=== PATIENT | male | born 1940 | race Caucasian/White ===

== ENCOUNTER 2019-03-27 15:57 | Emergency (ER) | payer MEDICARE, SELFPAY ==
[2019-03-27 16:05] VITALS: BP 125/74; PULSE 79; RESP 16; TEMP 36.5; O2SAT 96
--- NOTE | 2019-03-27 16:28 | ED.GENADUL_ITS ---
Discharge Plan Discharge Details Chief Complaint: Cellulitis Primary Care Provider: Jessica Richard ED Provider: Ely Porter Home Meds and New Rx's Prescriptions: No Action multivitamin 1 EACH tablet 1 ea PO DAILY RF: 0 aspirin 325 MG tablet 325 mg PO DAILY RF: 0 alayvexugyl-sllqkmgih-jwp C-Mn [Glucosamine 1500 Complex] 1 EACH capsule 1 ea PO DAILY RF: 0 tamsulosin 0.4 MG capsule 0.8 mg PO HS Qty: 180 RF: 4 finasteride 5 MG tablet 5 mg PO HS Qty: 90 RF: 4 pravastatin 40 mg tablet 80 mg PO DAILY Qty: 180 RF: 3 ascorbic acid (vitamin C) [Vitamin C] 500 MG tablet 500 mg PO DAILY RF: 0 vitamin Z56-fnyxh acid 1 EACH tablet 1 ea PO DAILY RF: 0 ibuprofen 600 MG tablet 600 mg PO TID PRNQty: 30 RF: 0 HPI General Date/Time Provider Initiated Documentation: 03/27/19 16:19 . Related Data Home Medications Medication Instructions Recorded Confirmed aspirin 325 mg PO DAILY 01/20/13 06/03/18 multivitamin 1 ea PO DAILY 01/20/13 06/03/18 ascorbic acid (vitamin C) [Vitamin 500 mg PO DAILY 05/04/14 06/03/18 C] vitamin E74-eedea acid 1 ea PO DAILY 05/04/14 06/03/18 wpewctgdlmb-gjagkfmtv-zrq C-Mn 1 ea PO DAILY 05/28/15 06/03/18 [Glucosamine 1500 Complex] ibuprofen 600 mg PO TID PRN #30 tab 09/20/17 06/03/18 finasteride 5 mg PO HS #90 tab-cap 03/18/18 06/03/18 tamsulosin 0.8 mg PO HS #180 tab-cap 03/18/18 06/03/18 pravastatin 40 mg tablet 80 mg PO DAILY #180 tab 08/11/18 Previous Rx's Medication Instructions Recorded ibuprofen 600 mg PO TID PRN #30 tab 09/20/17 finasteride 5 mg PO HS #90 tab-cap 03/18/18 tamsulosin 0.8 mg PO HS #180 tab-cap 03/18/18 pravastatin 40 mg tablet 80 mg PO DAILY #180 tab 08/11/18 Allergies Allergy/AdvReac Type Severity Reaction Status Date / Time oxycodone Allergy Mild BLOTCHES, Verified 03/27/19 16:09 SWELLING Penicillins Allergy Unknown Verified 03/27/19 16:09 General Stated Complaint: Cellulitis ASHLEY: 4 PFSH Medical History (Updated 03/27/19 @ 16:13 by Esther Hutton) Basal cell carcinoma (Acute) Carpal tunnel syndrome (Acute) Failure of fundoplication (Acute) Hyperlipidemia (Acute) Sensory hearing loss, bilateral (Chronic) Surgical History (Updated 03/27/19 @ 16:13 by Esther Hutton) Colonoscopy - IV Sedation (07/24/16) Endoscopic Carpal Tunnel release (06/19/15) H/O shoulder surgery (Chronic) Family History Mother Diabetes Father Diabetes Heart disease Sister Age: 78 No problems noted. Brother Age: 75 Diabetes Heart disease Social History Smoking/Tobacco Use Status: Former Tobacco Use Alcohol Intake: never Drug use: Never Substance use type: does not use Do you feel safe in your relationship?: Yes Course Vital Signs Temperature 36.5 C 03/27/19 16:05 Pulse 79 03/27/19 16:05 Respiratory Rate 16 03/27/19 16:05 Blood Pressure 125/74 03/27/19 16:05 Pulse Oximetry 96 03/27/19 16:05 Temperature 36.5 C 03/27/19 16:05 Temperature Source Skin 03/27/19 16:05 Pulse 79 03/27/19 16:05 Respiratory Rate 16 03/27/19 16:05 Respiratory Effort Non-Labored 03/27/19 16:08 Blood Pressure 125/74 03/27/19 16:05 Pulse Oximetry 96 03/27/19 16:05 Pain Level 2 03/27/19 16:05
--- NOTE | 2019-03-27 16:47 | ED.GENADUL_ITS ---
Discharge Plan Disposition Patient Disposition: HOME Condition: Good Discharge Details Chief Complaint: Cellulitis Clinical Impression: Ingrown left big toenail Primary Care Provider: Jessica Richard ED Provider: Tom Wadsworth Home Meds and New Rx's Prescriptions: New cephalexin [Keflex] 500 mg capsule 500 mg PO QID 7 Days Qty: 28 RF: 0 cephalexin [Keflex] 500 mg capsule 500 mg PO QID Qty: 28 RF: 0 Continued multivitamin 1 EACH tablet 1 ea PO DAILY RF: 0 aspirin 325 MG tablet 325 mg PO DAILY RF: 0 yyovsnhiuzg-itbsfhkax-toa C-Mn [Glucosamine 1500 Complex] 1 EACH capsule 1 ea PO DAILY RF: 0 tamsulosin 0.4 MG capsule 0.8 mg PO HS Qty: 180 RF: 4 finasteride 5 MG tablet 5 mg PO HS Qty: 90 RF: 4 pravastatin 40 mg tablet 80 mg PO DAILY Qty: 180 RF: 3 ascorbic acid (vitamin C) [Vitamin C] 500 MG tablet 500 mg PO DAILY RF: 0 vitamin N83-yypxx acid 1 EACH tablet 1 ea PO DAILY RF: 0 ibuprofen 600 MG tablet 600 mg PO TID PRNQty: 30 RF: 0 Discharge Instructions Instructions: Ingrown Nail (ED) Additional Instructions: Soak foot 3-4 times per day, let nail grow without trimming corners of nail. Watch for signs of worsening infection as we discussed. Return if fever, expanding redness, worsening pain or discharge. Medical Decision Making Mild localized cellulitis present, will initiate Keflex, continue warm soaks, return if not improving for wedge resection. HPI Gregorio presents for evaluation of left great toe discomfort and swelling. Medial aspect of toe is with tender red swollen area. It has been getting better with foot soaks. No fevers or chills. No trauma. No history of similar episodes General Date/Time Provider Initiated Documentation: 03/27/19 16:19 . Related Data Home Medications Medication Instructions Recorded Confirmed aspirin 325 mg PO DAILY 01/20/13 06/03/18 multivitamin 1 ea PO DAILY 01/20/13 06/03/18 ascorbic acid (vitamin C) [Vitamin 500 mg PO DAILY 05/04/14 06/03/18 C] vitamin N17-vfkrz acid 1 ea PO DAILY 05/04/14 06/03/18 rojdpfxhgeq-ofzkixrhb-mav C-Mn 1 ea PO DAILY 05/28/15 06/03/18 [Glucosamine 1500 Complex] ibuprofen 600 mg PO TID PRN #30 tab 09/20/17 06/03/18 finasteride 5 mg PO HS #90 tab-cap 03/18/18 06/03/18 tamsulosin 0.8 mg PO HS #180 tab-cap 03/18/18 06/03/18 pravastatin 40 mg tablet 80 mg PO DAILY #180 tab 08/11/18 cephalexin [Keflex] 500 mg PO QID #28 cap 03/27/19 cephalexin [Keflex] 500 mg PO QID 7 Days #28 cap 03/27/19 Previous Rx's Medication Instructions Recorded ibuprofen 600 mg PO TID PRN #30 tab 09/20/17 finasteride 5 mg PO HS #90 tab-cap 03/18/18 tamsulosin 0.8 mg PO HS #180 tab-cap 03/18/18 pravastatin 40 mg tablet 80 mg PO DAILY #180 tab 08/11/18 cephalexin [Keflex] 500 mg PO QID #28 cap 03/27/19 cephalexin [Keflex] 500 mg PO QID 7 Days #28 cap 03/27/19 Allergies Allergy/AdvReac Type Severity Reaction Status Date / Time oxycodone Allergy Mild BLOTCHES, Verified 03/27/19 16:09 SWELLING Penicillins Allergy Unknown Verified 03/27/19 16:09 General Stated Complaint: Cellulitis ASHLEY: 4 Review of Systems Constitutional Denies chills, Denies fatigue, Denies fever(s) and Denies lethargy Cardiovascular Denies chest pain Gastrointestinal Denies nausea and Denies vomiting Musculoskeletal Denies back pain, Denies muscle weakness and Denies numbness Integumentary/Breasts Denies rash Neurologic Denies focal weakness and Denies numbness Endocrine Denies fatigue [facility] Medical History (Updated 03/27/19 @ 16:13 by Esther Hutton) Basal cell carcinoma (Acute) Carpal tunnel syndrome (Acute) Failure of fundoplication (Acute) Hyperlipidemia (Acute) Sensory hearing loss, bilateral (Chronic) Surgical History (Updated 03/27/19 @ 16:13 by Esther Hutton) Colonoscopy - IV Sedation (07/24/16) Endoscopic Carpal Tunnel release (06/19/15) H/O shoulder surgery (Chronic) Family History Mother Diabetes Father Diabetes Heart disease Sister Age: 78 No problems noted. Brother Age: 75 Diabetes Heart disease Social History Smoking/Tobacco Use Status: Former Tobacco Use Alcohol Intake: never Drug use: Never Substance use type: does not use Do you feel safe in your relationship?: Yes Exam Const General: cooperative, healthy appearing and no acute distress HENMT Head: normal to inspection Ears: hearing grossly normal bilaterally Eyes EOM: EOM intact bilaterally Neck Neck: normal visual inspection Resp Effort & Inspection: normal respiratory effort Skin Other: Left great toe medial border ingrown toenail, small granuloma present, er ythema and tenderness present localized to the toe extending to the PIP. No induration. No discharge. Neuro General: alert and awake Speech: speech normal Gait: normal gait Extrem General: normal to inspection Course Vital Signs Temperature 36.5 C 03/27/19 16:05 Pulse 79 03/27/19 16:05 Respiratory Rate 16 03/27/19 16:05 Blood Pressure 125/74 03/27/19 16:05 Pulse Oximetry 96 03/27/19 16:05 Temperature 36.5 C 03/27/19 16:05 Temperature Source Skin 03/27/19 16:05 Pulse 79 03/27/19 16:05 Respiratory Rate 16 03/27/19 16:05 Respiratory Effort Non-Labored 03/27/19 16:08 Blood Pressure 125/74 03/27/19 16:05 Pulse Oximetry 96 03/27/19 16:05 Pain Level 2 03/27/19 16:05
== END 2019-03-27 17:07 | disposition home or self-care (01) ==
PROVIDERS: Emergency Provider Physician Assistant Medical; PCP Student in an Organized Health Care Education/Training Program
DX: L03.116 Cellulitis of left lower limb (principal); L60.0 Ingrowing nail
CPT/HCPCS: 99283

== ENCOUNTER 2019-05-08 11:16 | Outpatient (CLI) | payer MEDICARE, SELFPAY ==
[2019-05-08 12:17] LABS: HGB 13.7 g/dL (13.5-17.5); Mean Corp. HGB Concentration 32.6 g/dL (32.0-36.0); Mean Corpuscular Hemoglobin 29.5 pg (27.0-33.0); Mean Corpuscular Volume 90.5 fL (80-95); Mean Platelet Volume 9.2 fL (8.0-11.0); Platelet Count 394 x1000/uL (130-400); RBC 4.64 m/cumm (4.50-6.00); RBC Distribution Width 13.5 % (11.8-14.1); White Blood Cell Count 8.82 k/cumm (4.4-10.8)
[2019-05-08 12:35] LABS: ALT 33 U/L (16-63); AST 26 U/L (15-37); Albumin 3.7 g/dL (3.4-5.0); Alkaline Phosphatase 61 U/L (46-116); Anion Gap 6.4 mmol/L (3-11); BUN 24 mg/dL (7-18); Bilirubin, Total 0.5 mg/dL (0.2-1.0); CO2 30.6 mmol/L (21.0-32.0); Chloride 102 mmol/L (98-107); Glucose 99 mg/dL (70-100); Potassium 4.5 mmol/L (3.5-5.1); Sodium 139 mmol/L (136-145); Total Protein 7.1 g/dL (6.4-8.2)
[2019-05-09 10:23] LABS: PSA, Screening 1.1 ng/ml (0-6.5)
== END 2019-05-08 11:36 ==
PROVIDERS: PCP Student in an Organized Health Care Education/Training Program; Visit Provider Urology
DX: Z12.5 Encounter for screening for malignant neoplasm of prostate; N40.0 Benign prostatic hyperplasia without lower urinary tract symptoms; R73.09 Other abnormal glucose
CPT/HCPCS: 36415; 80053; 84153; 85027

== ENCOUNTER → 2019-05-19 11:52 | Outpatient (BNVA) | payer MEDICARE, SELFPAY | PROVIDERS: PCP Student in an Organized Health Care Education/Training Program; Visit Provider Urology | DX: N40.0 Benign prostatic hyperplasia without lower urinary tract symptoms (principal); R73.09 Other abnormal glucose | CPT/HCPCS: 99212; 99213 ==

== ENCOUNTER 2019-08-28 08:36 | Outpatient (CLI) | payer MEDICARE, SELFPAY ==
[2019-08-28 09:45] LABS: ALT 29 U/L (16-63); AST 25 U/L (15-37); Albumin 3.6 g/dL (3.4-5.0); Alkaline Phosphatase 65 U/L (46-116); Anion Gap 9.3 mmol/L (3-11); BUN 17 mg/dL (7-18); Bilirubin, Total 0.6 mg/dL (0.2-1.0); CO2 28.7 mmol/L (21.0-32.0); CREATININE 1.09 mg/dL (0.70-1.30); Calcium 9.2 mg/dL (8.5-10.1); Calculated LDL 147 mg/dL; Chloride 103 mmol/L (98-107); Cholesterol 221 mg/dL (<200); Glucose 130 mg/dL (74-106); HDL Cholesterol 44 mg/dL (40-60); Potassium 4.5 mmol/L (3.5-5.1); Sodium 141 mmol/L (136-145); Total Protein 7.2 g/dL (6.4-8.2); Triglyceride 151 mg/dL (<150)
[2019-08-28 09:59] LABS: Amylase 107 U/L (25-115); Lipase 530 U/L (73-393)
== END 2019-08-28 08:56 ==
PROVIDERS: PCP Student in an Organized Health Care Education/Training Program; Visit Provider Student in an Organized Health Care Education/Training Program
DX: E78.5 Hyperlipidemia, unspecified (principal); E88.81 Metabolic syndrome and other insulin resistance; R73.09 Other abnormal glucose; E66.3 Overweight
CPT/HCPCS: 36415; 80053; 80061; 83690; 82150

== ENCOUNTER → 2020-06-25 10:12 | Outpatient (BNVA) | payer MEDICARE, SELFPAY | PROVIDERS: PCP Student in an Organized Health Care Education/Training Program; Referring Provider Student in an Organized Health Care Education/Training Program; Visit Provider Nurse Practitioner Gerontology | DX: N40.1 Benign prostatic hyperplasia with lower urinary tract symptoms (principal); R35.1 Nocturia | CPT/HCPCS: 99213 ==

== ENCOUNTER 2021-04-14 02:46 | Outpatient (CLI) | payer MEDICARE, SELFPAY ==
[2021-04-14 08:42] LABS: ALT 26 U/L (16-63); AST 21 U/L (15-37); Albumin 3.4 g/dL (3.4-5.0); Alkaline Phosphatase 63 U/L (46-116); Anion Gap 10.6 mmol/L (3-11); BUN 19 mg/dL (7-18); Bilirubin, Total 0.3 mg/dL (0.2-1.0); CO2 28.4 mmol/L (21.0-32.0); CREATININE 1.1 mg/dL (0.70-1.30); Calcium 9.2 mg/dL (8.5-10.1); Calculated LDL 126 mg/dL (<100); Chloride 104 mmol/L (98-107); Cholesterol 194 mg/dL (<200); Glucose 110 mg/dL (74-106); HDL Cholesterol 39 mg/dL (40-60); Potassium 4.5 mmol/L (3.5-5.1); Sodium 143 mmol/L (136-145); Total Protein 6.9 g/dL (6.4-8.2); Triglyceride 149 mg/dL (<150)
== END 2021-04-14 02:47 | disposition home or self-care (01) ==
LOC: LBO 02:46
PROVIDERS: PCP Student in an Organized Health Care Education/Training Program; Visit Provider Student in an Organized Health Care Education/Training Program
DX: E88.81 Metabolic syndrome and other insulin resistance (principal); E78.5 Hyperlipidemia, unspecified
CPT/HCPCS: 36415; 80053; 80061

== ENCOUNTER 2022-04-15 09:48 | Emergency (ER) | payer MEDICARE, SELFPAY ==
[2022-04-15] VITALS (18 sets, daily range): BP systolic 131–166; BP diastolic 69–79; PULSE 70–92; RESP 15–26; TEMP 36.8; O2SAT 95–98
--- NOTE | 2022-04-15 09:45 | RT.EKG_ITS ---
APPROVED REPORT Exam: Resting ECG Reason for Exam: sob Patient Location: E HR:105 bpm ECG Measurements Heart Rate 105 AXIS VT 164 P 19 QRSd 78 QRS -17 QT 335 T 7 QTc 444 Conclusion Sinus tachycardia...rate> 99
--- NOTE | 2022-04-15 10:00 | DI.RAD_ITS ---
Exam(s) XR PORTABLE CHEST AP EXAM: XR PORTABLE CHEST AP CLINICAL HISTORY: sob TECHNIQUE: 2D digital imaging was performed. COMPARISON: No exams were available for comparison FINDINGS: LUNGS: Clear. No pleural abnormality seen. HEART: Normal. AORTA: Normal. BONES: Unremarkable for age. Soft tissues: Suture material left upper quadrant. IMPRESSION: No acute findings. DATA REPOSITORY: RADIATION DOSE DELIVERED:
--- OUTSIDE RECORDS SUMMARY | 2022-04-15 10:10 | XMS_ITS | Encounter Summary ---
:1940 Author Organization [facility] [place] [address] Care Team Providers Name Role Phone Jessica Richard DO Primary Care Provider Encounter Details Date Type Department Care Team Description 12/02/2021 [place] [address] Social History Tobacco Use Types Packs/Day Years Used Date Never Smoker Smokeless Tobacco: Never Used Sex Assigned at Date Recorded Not on file documented as of this encounter Medications at Time of Discharge Medication Sig Dispensed Refills Start Date End Date ascorbic acid, vitamin C, Take 1,000 mg by 0 (VITAMIN C) 1,000 mg Tablet mouth daily. cyanocobalamin, vitamin Take 500 mcg by 0 B-12, 500 mcg Tablet mouth daily. aspirin 325 mg Tablet Take by mouth. 0 01/20/2013 ibuprofen (ADVIL;MOTRIN) take 1 tablet by 0 09/20 600 mg Tablet mouth three times a day if needed pravastatin (PRAVACHOL) 40 0 7 mg Tablet tamsulosin (FLOMAX) 0.4 mg 0 6 Capsule, Sust. Release 24 hr finasteride (PROSCAR) 5 mg Take 5 mg by mouth 0 tablet daily. multivitamin (THERAGRAN) Take 1 tablet by 0 tablet mouth daily. documented as of this encounter Plan of Treatment Upcoming Encounters Date Type Specialty Care Team Description 06/05/2022 Office Visit Dermatology Cristian Stover MD [address] [place] [address] DERMATOLOGY [place], [place] [address] (Wo rk) documented as of this encounter Procedures Procedure Name Priority Date/Time Associated Diagnosis Comme [facility] SURGICAL PATHOLOGY Routine 12/02/2021 12:00 PM Re sults for this REPORT EDT procedure are i n the results section. documented in this encounter Results Surgical Pathology Report (12/02/2021 12:00 PM EDT) Component Value Ref Test Analysis Performed At [facility] Range Method Time Signature Surgical [id number] ? Location: [facility] Pathology TERMO Report The signing pathologist has (i) examined the relevant preparation(s) for the [facility] specimen(s) and (ii) rendered or confirmed the diagnosis(es) . HOSPITAL LABORATORY . ?Surgic al Pathology DIAGNOSIS A - Right lateral cheek, skin shave C&D: - ??Basal cell carcinoma, ?? nodular and infiltrating types, ??present at the peripheral and deep specimen edges B - Right postauricular scalp, skin shave C&D: - ??Basal cell carcinoma, bell perficial and nodular types, ?? present at the peripheral and deep specimen edges C - Right superior shoulder, skin shave C&D: - ??Basal cell carcinoma, bell perficial and nodular types, ?? present at the peripheral and deep specimen edges Electronically signed by: ?Shaji YO, PhD, Ria Verified: ??12/05/2021 14:11 ??Dermatopathologist Performed at: ??-[facility] [place] Dept. of [place]ology, [place], [place] SPECIMEN(S) SUBMITTED A - R lateral cheek, Shave () B - R post auricular scalp, Shave () C - R superior shoulder, Shave () Referring Identifier: ?(not provided) CLINICAL INFORMATION A-C Crusting papules, treated with shave c & D. Clinical diagnosis: SCCA/BCCA SPECIMEN PROCESSING A - Labeled/Fixative: A, formalin. Quantity/Size: ??Single, 0.8 x 0.7 cm. Tissue Description: Shave of a focally crusted godwin-pink skin papule. Sections/Processing: Inked, quadrisected and entirely submitted in 1 cassette lab eled A1. B - Labeled/Fixative: B, formalin. Quantity/Size: ??Single, 1.2 x 0.6 cm. Tissue Description: Shave of a granular godwin-pink skin papule . Sections/Processing: Inked, serially sectioned and entirely submitted in 1 casset te labeled B1. C - Labeled/Fixative: C, formalin. Quantity/Size: ??Single, 1.2 x 0.8 cm. Tissue Description: Focally crusted godwin-pink skin shave. Sections/Processing: Inked, serially sectioned and entirely submitted in 2 tom ettes as follows: ?C1: ??Tips ?C2: ??Body ??ajw Specimen (Source) Anatomical Collection Method Collection Time Re ceived Time Location / / Volume Laterality 12/02/2021 12:00 PM EDT Cristian Stover MD PATHOLOGY/CYTOLOGY ORDERABLE S Performing Organization Address City/State/[place] [address] documented in this encounter Visit Diagnoses Not on filedocumented in this encounter Care Teams Manager Consumer Insights Relationship Specialty Start Date End Date Jessica Richard DO PCP - General Family Medicine 11/19/[address] [place] [id number] documented as of this encounter
--- OUTSIDE RECORDS SUMMARY | 2022-04-15 10:10 | XMS_ITS | Encounter Summary ---
:1940 Author Organization [facility] [address] Care Team Providers Name Role Phone Jessica Richard DO Primary Care Provider Encounter Details Date Type Department Care Team Description 11/24/2017 Telephone Dermatology at [facility] Jesusita Momin LPN [address] [place] [address] Social History Tobacco Use Types Packs/Day Years Used Date Never Smoker Smokeless Tobacco: Never Used Sex Assigned at Date Recorded Not on file documented as of this encounter Miscellaneous Notes Telephone Encounter - Jesusita Momin LPN - 11/24/2017 10:32 AM EDT Nurse reviewed biopsy results with patient: 11/19/17 A- left frontal parietal scalp superior - BCCA B-left frontal parietal scalp inferior - BCCA. Dr. Stover recommends excision on both areas to clear out the rest of the Cancer. Patient voiced understanding. Call transferred to scheduling to set up theappointment. documented in this encounter Plan of Treatment Upcoming Encounters Date Type Specialty Care Team Description 06/05/2022 Office Visit Dermatology Cristian Stover MD [address] [facility] DERMATOLOGY [place], [place] [address] (Wo rk) documented as of this encounter Visit Diagnoses Not on filedocumented in this encounter Care Teams Railway Yard Assistant Relationship Specialty Start Date End Date Jessica Richard, DO PCP - General Family Medicine 11/19/[address] [place] [address] documented as of this encounter
--- OUTSIDE RECORDS SUMMARY | 2022-04-15 10:10 | XMS_ITS | Encounter Summary ---
:1940 Author Organization [facility] [place] [address] Care Team Providers Name Role Phone Jessica Richard DO Primary Care Provider Reason for Visit Reason Comments Follow-up Encounter Details Date Type Department Care Team Description 12/02/2021 Office Visit Dermatology at Cristian Stover [place] (act inic keratosis); Suzanne YO History of basal cell carcinoma [address] [facility] [address] [facility] Roel B DERMATOLOGY [place], [place] [id number] [phone] Social History Tobacco Use Types Packs/Day Years Used Date Never Smoker Smokeless Tobacco: Never Used Sex Assigned at Date Recorded Not on file documented as of this encounter Progress Notes Cristian Stover MD - 12/02/2021 10:00 AM EDT Problem: 1. ??Six-month skin checkup 2. ??Status post excision of basal carcinoma with nodular and infiltrative patterns left frontal parietal scalp November 2017 3. ??History of multiple nonmelanoma continuous malignancies 4. ??History of extensive sun exposure 5. ??Retired from [employer] Gregorio follows up for a repeat skin checkup. He is now 81. Physical examination reveals 3 crusting scabbing areas concerning for SCC versus BCCA's the right lateral cheek, the right postauricular scalp, and on the right superior shoulder. He has actinic's present on the back of the left shoulder and face a total of 8 sites are noted. The remainder of the examination of the head and the neck the chest the back the hands arms and forearms is benign. Assessment plan: Actinic keratosis facial and shoulders and back 1. LN 2 x 2 applied to each of 8 sites SCC versus BCCA's 1. After obtaining consent shave C&D was performed at each of the following sites site A right lateral cheek, site B right postauricular scalp, and site C right superior shoulder 2. After curettage each site measured a centimeter in diameter 3. Wound care instructions and supplies given 4. Return to clinic in 6 months for repeat check CC: Jessica Richard DO documented in this encounter Plan of Treatment Upcoming Encounters Date Type Specialty Care Team Description 06/05/2022 Office Visit Dermatology Cristian Stover MD [address] [facility] DERMATOLOGY [place], [place] [address] (Wo rk) documented as of this encounter Visit Diagnoses Diagnosis [place] (actinic keratosis) Actinic keratosis History of basal cell carcinoma Personal history of other malignant neop lasm of skin documented in this encounter Care Teams Family Physician Relationship Specialty Start Date End Date Jessica Richard DO PCP - General Family Medicine 11/19/17 [address] [place] [address] documented as of this encounter
--- OUTSIDE RECORDS SUMMARY | 2022-04-15 10:10 | XMS_ITS | Encounter Summary ---
:1940 Author Organization [facility] [place] [address] Care Team Providers Name Role Phone Jessica Richard DO Primary Care Provider Reason for Visit Reason Comments Skin Check Encounter Details Date Type Department Care Team Description 05/28/2020 Office Visit Dermatology at Cristian Stover, History of basal cell carcinoma; Suzanne YO [place] (actinic keratosis) [address] [facility] Roel B DERMATOLOGY [place], [place] [phone] Social History Tobacco Use Types Packs/Day Years Used Date Never Smoker Smokeless Tobacco: Never Used Sex Assigned at Date Recorded Not on file documented as of this encounter Progress Notes Cristian Stover MD - 05/28/2020 10:30 AM EDT Problem: 1. ??Six-month skin checkup 2. ??Status post excision of basal carcinoma with nodular and infiltrative patterns left frontal parietal scalp November 2017 3. ??History of multiple nonmelanoma continuous malignancies 4. ??History of extensive sun exposure 5. ??Retired from [employer] Gregorio follows today and has been doing well. Is here for 6-month check. He is here today also with his Diana. 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 Physical examination reveals a pleasant 80-year-old gentleman who has a benign examination of the bald parietal scalp the face the neck the chest the back the hands the arms forearms thighs and the calves. There is no evidence of any malignant lesions, but he does have several actinic keratoses on thebalding parietal scalp and on the helical rims. A total of 4 are noted. Assessment and plan: History of nonmelanoma cutaneous malignancies 1. No evidence of recurrence 2.. Patient reassured 3. Return to clinic in another 6 months for repeat check Actinic keratoses scalp and face/ears 1. LN2 x2 applied each of 4 sites. CC: Jessica Richard DO documented in this encounter Plan of Treatment Upcoming Encounters Date Type Specialty Care Team Description 06/05/2022 Office Visit Dermatology Cristian Stover MD [address] [place] [address] DERMATOLOGY [place], [place] [address] (Wo rk) documented as of this encounter Visit Diagnoses Diagnosis History of basal cell carcinoma Personal history of other malignant neop lasm of skin [place] (actinic keratosis) Actinic keratosis documented in this encounter Care Teams Asphalt Paving Supervisor Relationship Specialty Start Date End Date Jessica Richard DO PCP - General Family Medicine 11/19/17 [address] [place] [address] documented as of this encounter
--- OUTSIDE RECORDS SUMMARY | 2022-04-15 10:10 | XMS_ITS | Encounter Summary ---
:1940 Author Organization [facility] [place] [address] Care Team Providers Name Role Phone Jessica Richard DO Primary Care Provider Reason for Visit Reason Comments Follow-up Skin Check Encounter Details Date Type Department Care Team Description 11/24/2018 Office Visit Dermatology at Cristian Stover, History of basal cell carcinoma; Suzanne YO [place] (actinic keratosis) [address] [facility] Roel B DERMATOLOGY [place], [place] [phone] Social History Tobacco Use Types Packs/Day Years Used Date Never Smoker Smokeless Tobacco: Never Used Sex Assigned at Date Recorded Not on file documented as of this encounter Progress Notes Cristian Stover MD - 11/24/2018 1:30 PM EDT Problem: 1. Six-month skin checkup 2. Status post excision of basal carcinoma with nodular and infiltrative patterns left frontal parietal scalp November 2017 3. History of multiple nonmelanoma continuous malignancies 4. History of extensive sun exposure 5. Retired from [employer] Gregorio follows up and has been doing well. He is here for 6-month check. Physical examination shows continued excellent healing of the left frontal parietal scalp excision site. He has areas of actinic keratoses/early bones disease developing on the anterior shoulders posteriorly and anteriorly as well as several actinic's on the balding parietal scalp. Careful examinationof her of the head and the neck the chest the back the hands the arms forearms thighs and calves is benign. Denies any malignant lesions today. Assessment plan: History of nonmelanoma cutaneous malignancies 1. No evidence of recurrence 2. Patient reassured 3. Continue our q 6-month follow-up regimen Actinic keratoses/Sherri disease shoulders & scalp 1. LN 2 x 2 applied to each of 6 sites 2. Patient tolerated well, return to clinic in another 6 months recheck CC: Jessica Richard DO documented in this encounter Plan of Treatment Upcoming Encounters Date Type Specialty Care Team Description 06/05/2022 Office Visit Dermatology Cristian Stover MD [address] [place] [address] DERMATOLOGY [place], [place] [address] (Wo rk) documented as of this encounter Visit Diagnoses Diagnosis History of basal cell carcinoma Personal history of other malignant neop lasm of skin [place] (actinic keratosis) Actinic keratosis documented in this encounter Care Teams Product Mgr Relationship Specialty Start Date End Date Jessica Richard DO PCP - General Family Medicine 11/19/[address] [place] [address] documented as of this encounter
--- OUTSIDE RECORDS SUMMARY | 2022-04-15 10:10 | XMS_ITS | Encounter Summary ---
:1940 Author Organization [facility] [address] Care Team Providers Name Role Phone Jessica Richard DO Primary Care Provider Encounter Details Date Type Department Care Team Description 12/08/2021 Telephone Dermatology at [facility] Nia Israel RN [address] [place] [address] Social History Tobacco Use Types Packs/Day Years Used Date Never Smoker Smokeless Tobacco: Never Used Sex Assigned at Date Recorded Not on file documented as of this encounter Miscellaneous Notes Telephone Encounter - Nia Israel RN - 12/08/2021 5:17 PM EDT Pt had shave biopsy on 12/02/2021. Pt called and informed the results. Specimen A: right lateral cheek shave biopsy. Diagnosis Basal cell carcinoma. Specimen B: postauricular scalp shave biopsy Diagnosis Basal cell carcinoma. Specimen C: right superior shoulder shave biopsy Diagnosis Basal cell carcinoma. Per Dr. Stover no further treatment is needed to any of the 3 sites. Pt stated that he understood. Pt to have a 6 month follow and has a scheduled appointment on 06/05/2022. Pt reminded of his appointment. Pt stated no questions or concerns at this time. documented in this encounter Plan of Treatment Upcoming Encounters Date Type Specialty Care Team Description 06/05/2022 Office Visit Dermatology Cristian Stover MD [address] [facility] DERMATOLOGY [place], [place] [address] (Wo rk) documented as of this encounter Visit Diagnoses Not on filedocumented in this encounter Care Teams Security Manager Relationship Specialty Start Date End Date Jessica Richard DO PCP - General Family Medicine 11/19/[address] [place] [address] documented as of this encounter
--- OUTSIDE RECORDS SUMMARY | 2022-04-15 10:10 | XMS_ITS | Encounter Summary ---
:1940 [place] [address] Care Team Providers Name Role Phone Leroy Gagnon MD Primary Care Provider [phone] Reason for Visit Reason Comments Follow-up Encounter Details Date Type Department Care Team Description 05/08/2016 Office Visit Dermatology at Cristian Stover [place] (act inic keratosis); Suzanne YO History of basal cell carcinoma [address] Roel B DERMATOLOGY [place], [place] [phone] Social History Tobacco Use Types Packs/Day Years Used Date Never Smoker Sex Assigned at Date Recorded Not on file documented as of this encounter Progress Notes Cristian Stover MD - 05/08/2016 1:00 PM EDT PROBLEM: 1. Six month skin checkup. 2. History of multiple non-melanotic cutaneous malignancies. 3. History of extensive sun exposure. 4. Retired from [employer]. Gregorio follows up today with his , Diana. He has gotten a lot of sun this summer and his shirt has been off. He is quite darkly tanned. He has noticed some rough spots on his scalp. Physical examination shows excellent healing of the BCCA excision site on the left mid-submandibular jaw line area. He has actinic keratoses present on the bald parietal scalp, a total of 6 are noted. Otherwise, careful examination of the face, chest and the back, hands, arms and forearms, thighs and calves is remarkable for small seborrheic keratoses in the left sideburn area, several on his back and chest, but no lesions of concern. ASSESSMENT AND PLAN: 1. Actinic keratosis, scalp. A. LN2 x2 applied to 6 sites. 2. History of multiple non-melanotic cutaneous malignancies. A. No evidence of recurrence. B. Patient reassured. Note, encouraged patient to follow sun exposure precautions and at least wear a hat when working out of doors. Return to clinic in 6 months. documented in this encounter Plan of Treatment Upcoming Encounters Date Type Specialty Care Team Description 06/05/2022 Office Visit Dermatology Cristian Stover MD [address] [place] [address] DERMATOLOGY [place], [place] [address] (Wo rk) documented as of this encounter Visit Diagnoses Diagnosis [place] (actinic keratosis) Actinic keratosis History of basal cell carcinoma Personal history of other malignant neop lasm of skin documented in this encounter Care Teams School Bus Driver/Mechanic Relationship Specialty Start Date End Date Leroy Gagnon MD PCP - General 08/05/10 11/18/17 [address] [place] [address] documented as of this encounter
--- OUTSIDE RECORDS SUMMARY | 2022-04-15 10:10 | XMS_ITS | Encounter Summary ---
:1940 Author Organization [facility] [place] [address] Care Team Providers Name Role Phone Leroy Gagnon MD Primary Care Provider [phone] Reason for Visit Reason Comments Follow-up 6 month Encounter Details Date Type Department Care Team Description 11/09/2016 Office Visit Dermatology at Cristian Stover [place] (act inic keratosis); Suzanne YO History of basal cell carcinoma [address] Roel B DERMATOLOGY [place], [place] [phone] Social History Tobacco Use Types Packs/Day Years Used Date Never Smoker Sex Assigned at Date Recorded Not on file documented as of this encounter Progress Notes Cristian Stover MD - 11/09/2016 8:45 AM EST PROBLEM: 1. Six-month skin checkup. 2. History of multiple nonmelanoma cutaneous malignancies. 3. History of extensive sun exposure. 4. Retired from [employer]. Gregorio follows today with his , Diana. He is working on a Model A that he inherited. He has noticed some new lesions of concern. Wished him well on working on his Model A, a 1930, 5-window standard coupe with rumble seat. Physical examination reveals an actinic which is a possible early SCCA on the anterior base of the right helical rim near the preauricular cheek. Additionally he has about 10 actinics present over the scalp, the upper chest and back. Otherwise examination of the head and neck, chest, back, hands, arms, forearms, thighs and calves is benign. A/P: 1. Actinic keratoses a. LN2 x2 applied to 10 sites. 2. History of multiple nonmelanoma cutaneous malignancies. a. No evidence of recurrence. b. Patient reassured. Return to clinic in 6 months. documented in this encounter Plan of Treatment Upcoming Encounters Date Type Specialty Care Team Description 06/05/2022 Office Visit Dermatology Cristian Stover MD [address] [facility] DERMATOLOGY [place], [place] [address] (Wo rk) documented as of this encounter Visit Diagnoses Diagnosis [place] (actinic keratosis) Actinic keratosis History of basal cell carcinoma Personal history of other malignant neop lasm of skin documented in this encounter Care Teams Associate Application Developer Relationship Specialty Start Date End Date Leroy Gagnon MD PCP - General 08/05/10 11/18/17 [address] [place] [address] documented as of this encounter
--- OUTSIDE RECORDS SUMMARY | 2022-04-15 10:10 | XMS_ITS | Encounter Summary ---
:1940 Author Organization [facility] Address [place] [id number] Care Team Providers Name Role Phone Jessica Richard DO Primary Care Provider Reason for Visit Reason Comments Skin Check Encounter Details Date Type Department Care Team Description 11/25/2020 Office Visit Dermatology at Cristian Stover, History of basal cell carcinoma; Suzanne YO [place] (actinic keratosis) [address] [facility] Roel B DERMATOLOGY [place], [place] [phone] Social History Tobacco Use Types Packs/Day Years Used Date Never Smoker Smokeless Tobacco: Never Used Sex Assigned at Date Recorded Not on file documented as of this encounter Progress Notes Cristian Stover MD - 11/25/2020 10:45 AM EDT Problem: 1. ??Six-month skin checkup 2. ??Status post excision of basal carcinoma with nodular and infiltrative patterns left frontal parietal scalp November 2017 3. ??History of multiple nonmelanoma continuous malignancies 4. ??History of extensive sun exposure 5. ??Retired from [employer] Gregorio follows up and has been doing well. He has some new skin lesions of concern on his scalp and neck. He is now helping his son to restore age 74 [employer] [facility]. Physical examination reveals a pleasant 80-year-old gentleman who has actinic's present on the back left ear shoulder below and behind his right ear and several patches on his forehead and scalp. Assessment and plan: Actinic keratoses 1. LN2 x2 applied to each of 7 sites. History of multiple nonmelanoma cutaneous malignancies 1. No evidence of recurrence at previously treated sites 2. Patient and I are both desirous of every 6 month follow-ups. Return to clinic in 6 months. CC: Jessica Richard DO documented in this encounter Plan of Treatment Upcoming Encounters Date Type Specialty Care Team Description 06/05/2022 Office Visit Dermatology Cristian Stover MD [address] [facility] DERMATOLOGY [place], [place] [address] (Wo rk) documented as of this encounter Visit Diagnoses Diagnosis History of basal cell carcinoma Personal history of other malignant neop lasm of skin [place] (actinic keratosis) Actinic keratosis documented in this encounter Care Teams Sap Business Analyst Relationship Specialty Start Date End Date Jessica Richard DO PCP - General Family Medicine 11/19/17 [address] [place] [address] documented as of this encounter
--- OUTSIDE RECORDS SUMMARY | 2022-04-15 10:10 | XMS_ITS | Encounter Summary ---
:1940 Author Organization [facility] [place] [address] Care Team Providers Name Role Phone Leroy Gagnon MD Primary Care Provider [phone] Reason for Visit Reason Comments Follow-up Encounter Details Date Type Department Care Team Description 11/08/2015 Office Visit Dermatology at Cristian Stover [place] (act inic keratosis); Suzanne YO History of basal cell carcinoma [address] [address] [facility] [address] Roel B DERMATOLOGY [place], [place] [phone] Social History Tobacco Use Types Packs/Day Years Used Date Never Smoker Sex Assigned at Date Recorded Not on file documented as of this encounter Patient Instructions Patient InstructionsTrice Solomon LPN - 11/08/2015 10:29 AM EST [facility] Actinic Keratosis: After Your Visit Your Care Instructions Actinic keratosis is a skin growth caused by sun damage. It can turn into skin cancer, but this isn't common. Actinic keratoses, also called solar keratoses, are small red, brown, or skin-colored scalypatches. They are most common on the face, neck, hands, and forearms. Your doctor can remove these growths by freezing or scraping them off or by putting medicines on them. Follow-up care is a esparza part of your treatment and safety. Be sure to make and go to all appointments, and call your doctor if you are having problems. It's also a good idea to know your test results and keep a list of the medicines you take. How can you care for yourself at home? ?? If your doctor removes the growth, clean the area with soap and water 2 times a day unless your doctor gives you different instructions. Don't use hydrogen peroxide or alcohol, which can slow healing. ?? You may cover the wound with a thin layer of petroleum jelly, such as Vaseline, and a nonstick bandage. To prevent actinic keratosis ?? Always wear sunscreen on exposed skin. Make sure the sunscreen blocks ultraviolet rays (both UVA and UVB) and has a sun protection factor (SPF) of at least 15. Use it every day, even when it is cloudy. Some doctors may recommend a higher SPF, such as 30. ?? Wear long sleeves, a hat, and pants if you are going to be outdoors for a long time. ?? Avoid the sun between 10 a.m. and 4 p.m., the peak time for UV rays. ?? Do not use tanning booths or sunlamps. When should you call for help? Watch closely for changes in your health, and be sure to contact your doctor if: ?? The areas that were treated are red, drain pus, or have red streaks leading from them. ?? You see other growths that do not go away. ?? You do not get better as expected. Where can you learn more? Visit our health information library at [email or web address] You can also view health information on [employer], your personal patient account. Log in or sign up today. Enter L364 in the search box to learn more about Actinic Keratosis: After Your Visit. ?? [id number] [employer]. Care instructions adapted under license by [facility]. This care instruction is for use with your licensed healthcare professional. If you have questionsabout a medical condition or this instruction, always ask your healthcare professional. [employer] disclaims any warranty or liability for your use of this information. Content Version: 10.4.826405; Current as of: April 12, 2014 documented in this encounter Progress Notes Cristian Stover MD - 11/08/2015 11:12 AM EST Problems: 1. Six-month skin checkup. 2. History of multiple nonmelanoma cutaneous malignancies. 3. History of extensive sun exposure. 4. Retired from [employer]. Gregorio follows up today with his , Diana. He has noticed some new lesions of concern. He gets a lot of sun working outside and around the yard in the summertime with his shirt off. Physical examination reveals lesions of concern today on the face, left upper shoulder, and lateral arms that are actinic keratoses; a total of six are noted. Also, he has lesions of concern, BCCAs versus SCCAs. Physical examination reveals a indurated plaque on the left mid submandibular jawline, site A, worrisome for possible sclerosing BCCA. He has erythematous patches on the left superior shoulder, one anterior, site B, and one posterior, site C. He has a hyperkeratotic lesion of two or three years' duration on the left dorsal hand. Assessment and Plan: 1. Actinic keratoses. a. LN2 times two applied to each of six sites. 2. History of multiple nonmelanoma cutaneous malignancies. a. New sites of concern today were treated. Shave biopsy for biopsy purposes only obtained from site A. Then shave C and D was performed at sites B and C, and after curettage both these sites measured 1.2 cm in diameter. Then attention was turned to site D where shave C and D was performed, and after curettage the site measured 8 mm in diameter. b. Wound care instructions and supplies given. c. I recommended I see the patient again in another six months for repeat check. Note: I will likely need to see the patient sooner for treatment of the left submandibular jawline site when biopsy results are available; we will schedule an appropriate surgical procedure. COPY: Leroy Gagnon M.D. documented in this encounter Plan of Treatment Upcoming Encounters Date Type Specialty Care Team Description 06/05/2022 Office Visit Dermatology Cristian Stover MD [address] [place] [address] DERMATOLOGY [place] [phone] (Wo rk) documented as of this encounter Visit Diagnoses Diagnosis [place] (actinic keratosis) Actinic keratosis History of basal cell carcinoma Personal history of other malignant neop lasm of skin documented in this encounter Care Teams Radio Division Lieutenant Relationship Specialty Start Date End Date Leroy Gagnon MD PCP - General 08/05/10 11/18/[address] [place] [address] documented as of this encounter
--- OUTSIDE RECORDS SUMMARY | 2022-04-15 10:10 | XMS_ITS | Encounter Summary ---
:1940 Author Organization [facility] [place] [address] Care Team Providers Name Role Phone Jessica Richard DO Primary Care Provider Reason for Visit Reason Comments Follow-up Skin Check Encounter Details Date Type Department Care Team Description 06/06/2019 Office Visit Dermatology at Cristian Stover, History of basal cell carcinoma; Suzanne YO [place] (actinic keratosis) [address] [facility] [address] DERMATOLOGY [place], [place] [phone] Social History Tobacco Use Types Packs/Day Years Used Date Never Smoker Smokeless Tobacco: Never Used Sex Assigned at Date Recorded Not on file documented as of this encounter Progress Notes Cristian Stover MD - 06/06/2019 11:00 AM EDT Problem: 1. ??Six-month skin checkup 2. ??Status post excision of basal carcinoma with nodular and infiltrative patterns left frontal parietal scalp November 2017 3. ??History of multiple nonmelanoma continuous malignancies 4. ??History of extensive sun exposure 5. ??Retired from [employer] Gregorio follows up and has been doing well. He is here for a six-month check. He is making good progress with his model a [employer]. Physical examination reveals continued good healing and no evidence of recurrent tumor at the left frontal parietal scalp BCCA excision site. He has no evidence of any significant actinic keratosis or or early Aleman's disease present on examination of the head and the neck the chest the back the handsthe arms of forearms thighs and the calves. Assessment and plan: History of nonmelanoma cutaneous malignancies 1. No evidence of recurrence 2. Patient reassured 3. Continue our q. six-month follow-up regimen Cc: Jessica Richard DO documented in this encounter Plan of Treatment Upcoming Encounters Date Type Specialty Care Team Description 06/05/2022 Office Visit Dermatology Cristian Stover MD [address] [facility] DERMATOLOGY [place], [place] [address] (Wo rk) documented as of this encounter Visit Diagnoses Diagnosis History of basal cell carcinoma Personal history of other malignant neop lasm of skin [place] (actinic keratosis) Actinic keratosis documented in this encounter Care Teams Franchise Field Consultant Relationship Specialty Start Date End Date Jessica Richard DO PCP - General Family Medicine 11/19/17 [address] [place] [address] documented as of this encounter
--- OUTSIDE RECORDS SUMMARY | 2022-04-15 10:10 | XMS_ITS | Encounter Summary ---
:1940 [place] [address] Care Team Providers Name Role Phone Leroy Gagnon MD Primary Care Provider [phone] Reason for Visit Reason Comments Suture / Staple Removal Encounter Details Date Type Department Care Team Description 12/10/2015 Office Visit Dermatology at Cristian Stover [place] (act inic keratosis); Suzanne YO History of basal cell carcinoma [address] [facility] [facility] [address] [facility] [address] Roel B DERMATOLOGY [place], [place] [phone] Social History Tobacco Use Types Packs/Day Years Used Date Never Smoker Sex Assigned at Date Recorded Not on file documented as of this encounter Progress Notes Cristian Stover MD - 12/10/2015 11:58 AM EDT Problem: 1. Followup suture removal and biopsy results. Gregorio follows up and the biopsy specimen did show residual basal cell carcinoma but margins with the excision now were clear. Physical examination reveals good healing of the biopsy site. He had no postoperative issues. Assessment and Plan: Status post excision for infiltrative basal cell carcinoma, left submandibular jawline. a. Sutures removed. b. Margins clear. c. Patient congratulated on good results. d. January wound care instructions. e. Return to clinic in roughly another six months, May 08, for repeat skin check. documented in this encounter Plan of Treatment Upcoming Encounters Date Type Specialty Care Team Description 06/05/2022 Office Visit Dermatology Cristian Stover MD [address] [facility] DERMATOLOGY [place], [place] [address] (Wo rk) documented as of this encounter Visit Diagnoses Diagnosis [place] (actinic keratosis) Actinic keratosis History of basal cell carcinoma Personal history of other malignant neop lasm of skin documented in this encounter Care Teams Environmental Service Aide Relationship Specialty Start Date End Date Leroy Gagnon MD PCP - General 08/05/10 11/18/[address] [place] [address] documented as of this encounter
--- OUTSIDE RECORDS SUMMARY | 2022-04-15 10:10 | XMS_ITS | Encounter Summary ---
:1940 Author Organization [facility] [place] [address] Care Team Providers Name Role Phone Leroy Gagnon MD Primary Care Provider [phone] Encounter Details Date Type Department Care Team Description 2017 Telephone Dermatology at [facility] Jesusita Momin LPN [address] [place] [address] Social History Tobacco Use Types Packs/Day Years Used Date Never Smoker Smokeless Tobacco: Never Used Sex Assigned at Date Recorded Not on file documented as of this encounter Miscellaneous Notes Telephone Encounter - Jesusita Momin LPN - 2017 3:21 PM EDT Patient returned call. Reviewed biopsy results with patient. Patient voiced understanding. Telephone Encounter - Jesusita Momin LPN - 2017 11:42 AM EDT Nurse attempted to contact patient to review biopsy results; BCCA, no further treatment necessary, return to clinic 11/19/17. Message left. documented in this encounter Plan of Treatment Upcoming Encounters Date Type Specialty Care Team Description 06/05/2022 Office Visit Dermatology Cristian Stover MD [address] [facility] DERMATOLOGY [place], [place] [address] (Wo rk) documented as of this encounter Visit Diagnoses Not on filedocumented in this encounter Care Teams Information And Referral Director Relationship Specialty Start Date End Date Leroy Gagnon MD PCP - General 08/05/10 11/18/[address] [place] [address] documented as of this encounter
--- OUTSIDE RECORDS SUMMARY | 2022-04-15 10:10 | XMS_ITS | Encounter Summary ---
:1940 Author Organization [place] [address] Care Team Providers Name Role Phone Jessica Richard DO Primary Care Provider Reason for Visit Reason Comments Follow-up Skin Check Encounter Details Date Type Department Care Team Description 11/19/2017 Office Visit Dermatology at Cristian Stover [place] (act inic keratosis); Suzanne YO History of basal cell carcinoma [address] Roel B DERMATOLOGY [place], [place] [phone] Social History Tobacco Use Types Packs/Day Years Used Date Never Smoker Smokeless Tobacco: Never Used Sex Assigned at Date Recorded Not on file documented as of this encounter Progress Notes Cristian Stover MD - 11/19/2017 10:15 AM EST Images from the original note were not included. Problem: 1. Six-month skin checkup 2. History of multiple nonmelanoma [place] sees 3. History of extensive sun exposure 4. Retired from [employer] Anastacio follows up today with his Diana. He is here for a six-month check. He has not done too much work on the model a over the course of the winter. Physical examination reveals good healing at the left lateral arm BCCA treatment site from his last visit in May. He has a number of actinic's on the upper chest and shoulders and back. He has 2 erythematous patches on the left anterior forehead/frontal parietal scalp, both photographed, which raise concern for possible SCC versus BCCA particular the superior site site a. The inferior of the 2 sites has some slight pigmentation would also possibly raise the possible diagnosis of melanoma in situ Otherwise examination of the head and the neck the chest the back hands informs thighs and the calf is benign with a total of 10 actinic keratoses are noted on examination today Assessment plan rule out SCC versus BCCA site a left frontal parietal scalp superior 1. After obtaining informed consent shave biopsy was performed in the base lightly electrodesiccated. No C&D carried out Rule out SCC versus BCC versus possible melanoma in situ, left frontal parietal scalp inferior (seephotograph) 1. After obtaining informed patient consent, shave biopsy was performed and the base was lightly electrodesiccated. No C&D was carried out. 2. Will notify patient biopsy results when these are available. We will plan surgical excision/further treatment as indicated Actinic keratoses chest but also several of scalp 1. A total of 10/[address] 2 x 2 today 2. Patient tolerated well 3. Return to clinic in 6 month recheck Cc: Jessica Richard DO documented in this encounter Plan of Treatment Upcoming Encounters Date Type Specialty Care Team Description 06/05/2022 Office Visit Dermatology Cristian Stover MD [address] [facility] DERMATOLOGY [place], [place] [address] (Wo rk) documented as of this encounter Visit Diagnoses Diagnosis [place] (actinic keratosis) Actinic keratosis History of basal cell carcinoma Personal history of other malignant neop lasm of skin documented in this encounter Care Teams Skill Training Program Coordinator Relationship Specialty Start Date End Date Jessica Richard DO PCP - General Family Medicine 11/19/17 [address] [place] [address] documented as of this encounter
--- OUTSIDE RECORDS SUMMARY | 2022-04-15 10:10 | XMS_ITS | Clinical Summary ---
:1940 Author Organization [facility] [place] [address] Care Team Providers Name Role Phone Jessica Richard DO Primary Care Provider Allergies Active Allergy Reactions Severity Noted Date Comments Oxycodone Low 09/01/2019 Other reaction( s): BLOTCHES, SWELLING Penicillins 02/17/2012 Oxycodone-Acetaminophen 02/17/2012 Medications Medication Sig Dispensed Refills Start Date End Date Status finasteride (PROSCAR) 5 Take 5 mg by 0 Active mg tablet mouth daily. multivitamin Take 1 tablet by 0 Active (THERAGRAN) tablet mouth daily. tamsulosin (FLOMAX) 0.4 0 12/21/2015 Active mg Capsule, Sust. Release 24 hr pravastatin (PRAVACHOL) 0 11/04/2016 Active 40 mg Tablet ibuprofen take 1 tablet by 0 09/20/2017 Ac tive (ADVIL;MOTRIN) 600 mg mouth three times Tablet a day if needed aspirin 325 mg Tablet Take by mouth. 0 01/20/2013 Active ascorbic acid, vitamin Take 1,000 mg by 0 Active C, (VITAMIN C) 1,000 mg mouth daily. Tablet cyanocobalamin, vitamin Take 500 mcg by 0 Active B-12, 500 mcg Tablet mouth daily. Active Problems Problem Noted Date Basal cell carcinoma 11/01/2014 Actinic keratoses 11/01/2014 [place] (actinic keratosis) 11/02/2013 History of basal cell carcinoma 02/17/2013 History of squamous cell carcinoma 02/17/2012 History of basal cell carcinoma 02/17/2012 Actinic keratosis 02/17/2012 Squamous cell carcinoma 08/17/2011 Social History Tobacco Use Types Packs/Day Years Used Date Never Smoker Smokeless Tobacco: Never Used Sex Assigned at Date Recorded Not on file Plan of Treatment Upcoming Encounters Date Type Specialty Care Team Description 06/05/2022 Office Visit Dermatology Cristian Stover MD [address] DERMATOLOGY [place], [place] [address] (Wo rk) Health Maintenance Due Date Last Done Comments Covid-19 Vaccine (#1) 1945 Hepatitis C Screening 1959 Tdap adult 1960 Tetanus vaccine 1960 Zoster vaccine (1 of 2) 1991 Advance Directive 1996 Pneumoccocal Vaccine: 65+ (1 - PCV) 2006 Influenza (Flu) vaccine (1 of 1 - Influenza standard 05/14/2022 series) Insurance Payer Benefit Plan / Subscriber ID Effective Phone Address T ype Group Dates MEDICARE MEDICARE PART A [id number] 2006-Prese [phone] [place] [address] AARP SUPPLEMENT AARP SUPPLEMENT [id number] 2010-Pres [id number] [place] [address] Care Teams Canal Lock Tender Chief Operator Relationship Specialty Start Date End Date Jessica Richard DO PCP - General Family Medicine 11/19/17 [address] [place] [address]
--- OUTSIDE RECORDS SUMMARY | 2022-04-15 10:10 | XMS_ITS | Encounter Summary ---
:1940 Author Organization [facility] [place] [address] Care Team Providers Name Role Phone Jessica Richard DO Primary Care Provider Reason for Visit Reason Comments Follow-up Encounter Details Date Type Department Care Team Description 11/25/2017 Procedure visit Dermatology at Cristian Stover, [facility] Suzanne YO cell carcinoma [address] [place], [place] DERMATOLOGY [address] [place], [place] [phone] [address] Social History Tobacco Use Types Packs/Day Years Used Date Never Smoker Smokeless Tobacco: Never Used Sex Assigned at Date Recorded Not on file documented as of this encounter Progress Notes Cristian Stover MD - 11/25/2017 9:00 AM EDT Clinical impression: BCCA nodular and infiltrative patterns left frontal parietal scalp, site a superior, site be inferior Size: 2.5 cm Deep suture: Is 3-0 Vicryl Surface suture: Is 4-0 Ethilon Follow-up: Will be in 10-14 days for suture removal biopsy results Indications for surgery, possible adverse outcomes, and activity restrictions discussed. Informed verbal consent was obtained. Skin surface was prepared with 4% chlorhexidine and draped in the usual sterile manner. Local anesthesia with 1% lidocaine, 100,000 epinephrine and 0.1 mEq/mL bicarbonate. Using a 15 blade, and 5 mm margins elliptical excision was carried out on the lesion. Undermining performed peripherally. Extensive undermining was required close the the surgical wound. Hemostasis with electrodesiccation. A layered closure performed, with specimen to pathology. Wound dressed, wound care reviewed. End length suture line was 5.5 cm Follow-up in 7-10 days for suture removal and biopsy results. Cc: Jessica Richard DO documented in this encounter Plan of Treatment Upcoming Encounters Date Type Specialty Care Team Description 06/05/2022 Office Visit Dermatology Cristian Stover MD [address] [facility] DERMATOLOGY [place], [place] [address] (Wo rk) documented as of this encounter Visit Diagnoses Diagnosis History of basal cell carcinoma Personal history of other malignant neop lasm of skin documented in this encounter Care Teams Jail Manager Relationship Specialty Start Date End Date Jessica Richard DO PCP - General Family Medicine 11/19/17 [address] [place] [address] documented as of this encounter
--- OUTSIDE RECORDS SUMMARY | 2022-04-15 10:10 | XMS_ITS | Encounter Summary ---
:1940 Author Organization [facility] [place] [address] Care Team Providers Name Role Phone Leroy Gagnon MD Primary Care Provider [phone] Reason for Visit Reason Comments Skin Check Encounter Details Date Type Department Care Team Description 11/01/2014 Office Visit Dermatology at Cristian Stover, Actinic keratoses; Suzanne YO Basal cell carcinoma [address] [facility] [address] DERMATOLOGY [place], [place] [id number] [phone] Social History Tobacco Use Types Packs/Day Years Used Date Never Smoker Sex Assigned at Date Recorded Not on file documented as of this encounter Patient Instructions Patient InstructionsDebora Randhawa LPN - 11/01/2014 9:57 AM EST [facility] Actinic Keratosis: After Your Visit Your [...] more? Visit our health information library at [email or web address] You can also view health information on [employer], your personal patient account. Log in or sign up today. Enter L364 in the search box to learn more about Actinic Keratosis: After Your Visit. ?? [id number] [employer]. Care instructions adapted under license by [facility]. This care instruction is for use with your licensed healthcare professional. If you have questionsabout a medical condition or this instruction, always ask your healthcare professional. [employer] disclaims any warranty or liability for your use of this information. Content Version: 10.3.117140; Current as of: April 12, 2014 documented in this encounter Progress Notes Cristian Stover MD - 11/01/2014 10:26 AM EST Problems: 1. Six-month skin checkup. 2. History of multiple nonmelanoma cutaneous malignancies. 3. History of extensive sun exposure. 4. Retired from [employer]. Gregorio follows up today with his , Diana. He has been doing well. 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 Physical examination reveals a pearly papule on the left preauricular cheek, concerning for BCCA. Otherwise, examination of the head and neck, chest, back, hands, arms, forearms is benign. He has several actinics on the bald parietal scalp and temples; a total of eight are noted. Assessment and Plan: 1. Actinic keratoses. a. LN2 times two applied to each of eight sites. b. Patient reassured. 2. 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 a. After obtaining informed patient consent, the site was anesthetized and shave C and D times three performed. After C and D, the left preauricular cheek lesion measured 1 cm in diameter. b. Triple antibiotic ointment and Band-Aid placed. Wound care instructions and supplies given. c. Return to clinic in another six months for repeat check. COPY: Leroy Gagnon M.D. documented in this encounter Plan of Treatment Upcoming Encounters Date Type Specialty Care Team Description 06/05/2022 Office Visit Dermatology Cristian Stover MD [address] [facility] DERMATOLOGY [place], [place] [address] (Wo rk) documented as of this encounter Visit Diagnoses Diagnosis Actinic keratoses Actinic keratosis Basal cell carcinoma Basal cell carcinoma of skin, site unspe cified documented in this encounter Care Teams Rn Geriatric Relationship Specialty Start Date End Date Leroy Gagnon MD PCP - General 08/05/10 11/18/17 [address] [place] [address] documented as of this encounter
--- OUTSIDE RECORDS SUMMARY | 2022-04-15 10:11 | XMS_ITS | Encounter Summary ---
:1940 [place] [address] Care Team Providers Name Role Phone Leroy Gagnon MD Primary Care Provider Reason for Visit Reason Comments Skin Check Encounter Details Date Type Department Care Team Description 11/02/2013 Office Visit Dermatology at Cristian Stover, History of basal cell carcinoma (Primary Dx); Suzanne YO History of squamous cell carcinoma; [address] [address] [place] (actinic keratosis) [facility] [address] DERMATOLOGY [place], [place] [id number] [phone] Social History Tobacco Use Types Packs/Day Years Used Date Never Smoker Sex Assigned at Date Recorded Not on file documented as of this encounter Progress Notes Cristian Stover MD - 11/02/2013 4:53 PM EST Problem List: 1. New skin lesions of concern. 2. History of multiple nonmelanoma cutaneous malignancies. 3. History of extensive sun exposure. 4. Retired from [employer]. Gregorio follows up and has been keeping busy. 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 He has noted some new lesions of concern, however. Physical examination reveals a waxy, stuck-on appearing, crusting, scabbing lesion on the right upper shoulder. He has one on the left anterior parietal scalp and he has one on the left nasal ala. He has several actinics present on the balding parietal scalp and on his chest and back, which are actinic keratoses. Assessment and Plan: 1. SCCA versus BCCA. a. After obtaining informed consent, sites were anesthetized and removed with shave C and D. After curettage, site A on the left nasal ala measured 6 mm; site B on the right upper back is 1.5 cm, and site C on the left anterior parietal scalp is 6 mm. b. Return to clinic in six months for repeat check. Note: Site A is left nasal ala; site B is right upper back; site C is left anterior parietal scalp. Note: A total of four actinic keratoses were treated with LN2 today. COPY: Leroy Gagnon M.D. documented in this encounter Plan of Treatment Upcoming Encounters Date Type Specialty Care Team Description 06/05/2022 Office Visit Dermatology Cristian Stover MD [address] [facility] DERMATOLOGY [place], [place] [address] (Wo rk) documented as of this encounter Visit Diagnoses Diagnosis History of basal cell carcinoma - Primar y Personal history of other malignant neop lasm of skin History of squamous cell carcinoma Personal history of malignant neoplasm o f other site [place] (actinic keratosis) Actinic keratosis documented in this encounter Care Teams Take Out Waiter Relationship Specialty Start Date End Date Leroy aGgnon MD PCP - General 08/05/10 11/18/17 [address] [place] [address] documented as of this encounter
--- OUTSIDE RECORDS SUMMARY | 2022-04-15 10:11 | XMS_ITS | Encounter Summary ---
:1940 Author Organization [facility] [place] [address] Care Team Providers Name Role Phone Leroy Gagnon MD Primary Care Provider [phone] Reason for Visit Reason Comments Annual Exam skin check Encounter Details Date Type Department Care Team Description 02/17/2013 Office Visit Dermatology Cristian Stover, History of basal cell carcin yanet (Primary Dx); [address] [place] [address] History of squamous cell carcinoma [address] [place], [place] DERMATOLOGY [id number] [place] [address] [phone] (Wo rk) Social History Tobacco Use Types Packs/Day Years Used Date Never Smoker Sex Assigned at Date Recorded Not on file documented as of this encounter Progress Notes Cristian Stover MD - 02/17/2013 11:22 AM EDT Problem List: 1. Yearly skin checkup. 2. History of multiple nonmelanoma cutaneous malignancies. 3. History of extensive sun exposure. 4. Retired from [employer]. Gregorio follows up and has been doing well. He is here with his , Elidia. He has not noted any lesions of concern. Physical examination of the head and the neck, the chest and the back, hands, arms, and forearms reveals patient to be moderately well tanned and to have a number of waxy, stuck-on appearing seborrheic keratoses on the upper chest, his flanks, and on the upper back. He has well healed shave C and D sites and surgical excision sites from previous procedures, but no evidence today of recurrent malignancies at any of these locations. Skin examination today is benign. Assessment and Plan: 1. History of multiple nonmelanoma cutaneous malignancies. a. Patient reassured about benign examination today. b. Recommend that I see him again in another year for repeat check, sooner for new lesions of concern. c. Did encourage sun avoidance precautions. COPY: Leroy Gagnon M.D. documented in this encounter Plan of Treatment Upcoming Encounters Date Type Specialty Care Team Description 06/05/2022 Office Visit Dermatology Cristian Stover MD [address] [facility] DERMATOLOGY [place], [place] [address] (Wo rk) documented as of this encounter Visit Diagnoses Diagnosis History of basal cell carcinoma - Primar y Personal history of other malignant neop lasm of skin History of squamous cell carcinoma Personal history of malignant neoplasm o f other site documented in this encounter Care Teams Coil Taper Relationship Specialty Start Date End Date Leroy Gagnon MD PCP - General 08/05/10 11/18/17 [address] [place] [address] documented as of this encounter
--- OUTSIDE RECORDS SUMMARY | 2022-04-15 10:11 | XMS_ITS | Encounter Summary ---
:1940 [place] [address] Care Team Providers Name Role Phone Leroy Gagnon MD Primary Care Provider [phone] Reason for Visit Reason Comments Skin Check Encounter Details Date Type Department Care Team Description 03/11/2011 Office Visit Dermatology Cristian Stover, Actinic keratosis (Primary D x); [address] [facility] Basal cell carcinoma; [address] [facility] Personal history of skin cancer [place], [place]MATOLOGY [address] [place] [address] [phone] (Wo rk) Social History Tobacco Use Types Packs/Day Years Used Date Never Assessed Sex Assigned at Date Recorded Not on file documented as of this encounter Progress Notes Cristian Stover MD - 03/11/2011 5:05 PM EDT Problems: 1. 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 2. History of extensive sun exposure. 3. Retired from [employer] 4. Status post course of Aldara Cream for BCCa on chest, 10/2004. 5. History of multiple nonmelanoma cutaneous malignancies. Gregorio follows up with his Elidia. He is here for a one-year skin checkup. Physical examination reveals two sites concerning for BCCa one on the right inferior post-auricular scalp and also on the right upper chest where he has what appears to be a cystic BCCa both about 1cm in diameter. Otherwise physical examination reveals a well tanned 70-year-old gentleman who has otherwise benign examination and no evidence of recurrence of nonmelanoma cutaneous malignancies at previous sites of treatment. Assessment & Plan: Probable BCCa(s), right upper chest and right inferior post-auricular scalp. a. After obtaining patient consent, the sites were anesthetized and removed with shave C & D x3. Site A was right post-auricular scalp and site B was right upper chest. b. RTC in one year for repeat check sooner for new lesions of concern. History of multiple nonmelanoma cutaneous malignancies. a. No evidence of recurrence at previously treated sites. CC: Leroy Gagnon MD RTC REMINDER: One Year Pathology Addendum per [facility] 03/20/11 : Basal Cell Carcinoma, both sites documented in this encounter Miscellaneous Notes Miscellaneous - Madhu Real Estate Underwriter - 03/24/2011 12:51 PM EDT documented in this encounter Plan of Treatment Upcoming Encounters Date Type Specialty Care Team Description 06/05/2022 Office Visit Dermatology Cristian Stover MD [address] [facility] DERMATOLOGY [place], [place] [address] (Wo rk) documented as of this encounter Visit Diagnoses Diagnosis Actinic keratosis - Primary Basal cell carcinoma Basal cell carcinoma of skin, site unspe cified Personal history of skin cancer Personal history of other malignant neop lasm of skin documented in this encounter Care Teams Kitchen And Bath Designer Relationship Specialty Start Date End Date Leroy Gagnon MD PCP - General 08/05/10 11/18/17 [address] [place] [address] documented as of this encounter
--- OUTSIDE RECORDS SUMMARY | 2022-04-15 10:11 | XMS_ITS | Encounter Summary ---
:1940 Author Organization [facility] [place] [address] Care Team Providers Name Role Phone Leroy Gagnon MD Primary Care Provider [phone] Reason for Visit Reason Comments Follow-up Encounter Details Date Type Department Care Team Description 05/01/2014 Office Visit Dermatology at Cristian Stover, History of basal cell carcinoma (Primary Dx); Suzanne YO [place] (actinic keratosis) [address] [facility] [address] DERMATOLOGY [place], [place] [phone] Social History Tobacco Use Types Packs/Day Years Used Date Never Smoker Sex Assigned at Date Recorded Not on file documented as of this encounter Patient Instructions Patient InstructionsDebora Randhawa LPN - 05/01/2014 9:42 AM EDT Images from the original note were not included. [facility] Actinic Keratosis: After Your Visit Your Care Instructions Actinic keratosis is a condition that develops in sun-exposed skin. It is not skin cancer, but it can turn into skin cancer if it is not removed. Actinic keratoses, also called solar keratoses, are small red, brown, or skin-colored scaly patches. They are most common on the face, [...] more? Visit our health information library at [email or web address] You can also view health information on [employer], your personal patient account. Log in or sign up today. Enter L364 in the search box to learn more about Actinic Keratosis: After Your Visit. ?? [id number] [employer], [employer]. Care instructions adapted under license by [facility]. This care instruction is for use with your licensed healthcare professional. If you have questionsabout a medical condition or this instruction, always ask your healthcare professional. [employer] disclaims any warranty or liability for your use of this information. Content Version: 9.9.767068; Last Revised: October 25, 2012 documented in this encounter Progress Notes Cristian Stover MD - 05/01/2014 9:57 AM EDT Problems: 1. Six-month skin checkup. 2. History of multiple nonmelanoma cutaneous malignancies. 3. History of extensive sun exposure. 4. Retired from [employer]. Gregorio follows up and has been staying busy. The [place] [employer] was a success this year. He is here today with his for a six-month skin checkup. The sites that I treated last visit on the left nasal ala, left upper back, and left anterior parietal scalp have healed well. Physical examination confirms good healing of these sites without any evidence of recurrence. He has six actinics present on the balding parietal scalp, but otherwise careful examination of the head and neck, chest, back, hands, arms, and forearms is benign. Assessment and Plan: 1. History of multiple nonmelanoma cutaneous malignancies. a. No evidence of recurrence at previously treated sites. 2. Actinic keratoses. a. LN2 times two applied to six sites. b. I recommended I see him again in another six months for repeat check. COPY: Leroy aGgnon M.D. documented in this encounter Plan of Treatment Upcoming Encounters Date Type Specialty Care Team Description 06/05/2022 Office Visit Dermatology Cristian Stover MD [address] [facility] DERMATOLOGY [place], [place] [address] (Wo rk) documented as of this encounter Visit Diagnoses Diagnosis History of basal cell carcinoma - Primar y Personal history of other malignant neop lasm of skin [place] (actinic keratosis) Actinic keratosis documented in this encounter Care Teams Car Framer Relationship Specialty Start Date End Date Leroy Gagnon MD PCP - General 08/05/10 11/18/17 [address] [place] [address] documented as of this encounter
--- OUTSIDE RECORDS SUMMARY | 2022-04-15 10:12 | XMS_ITS | Encounter Summary ---
:1940 Author Organization [facility] Address [address] [place] [address] Care Team Providers Name Role Phone Leroy Gagnon MD Primary Care Provider Encounter Details Date Type Department Care Team Description 07/24/2016 Results Only [facility] Huy Sesay, [facility] [address] (Wo rk) Social History Tobacco Use Types Packs/Day Years Used Date Never Assessed Sex Assigned at Date Recorded Not on file documented as of this encounter Plan of Treatment Not on filedocumented as of this encounter Procedures Procedure Name Priority Date/Time Associated Diagnosis Comme [facility] SURGICAL PATHOLOGY Routine 07/24/2016 16:01 Resul ts for this EST procedure are i n the results section. documented in this encounter Results SURGICAL PATHOLOGY (07/24/2016 16:01 EST) Pathology Report: SURGICAL PATHOLOGY REPORT [facility] Reports generated via electronic interface contain andrea ginal data; LABORATORY however they are lacking the format of the original re port. SERVICES Caution should be taken when reading/interpreting unfo rmatted reports. Name: ? GREGORIO KYLE ? Accession #: ? [id number] ? : ? 1940 (Age: [age]) ??M ? Collect Date: ? 07/24/2016 ? Location: ? [facility] ? Receive Date: ? 016 ? Provider: HUY SESAY DO Copy to: ? Final Pathologic Diagnosis: COLON, TRANSVERSE, POLYP, BIOPSY: - ??Polypoid colonic mucosa with prominent lymphoid ag gregate. See comment. Comment: Deeper sections examined. Document reviewed and electronically signed by: UYEN MCKEON MD Report ??Date: 07/31/2016 14:21 By the signature above, the attending physician certif ies that he/she has personally conducted a gross and/or microscopic examin ation of the described specimens and rendered or confirmed the above diagnosi s. Specimen(s) Received: Transverse colon polyp Clinical History: Personal h/o colon polyps; clinical diagnosis code: ?? Z86.010 Gross Description: ? Received in formalin labelled with proper patient identification (initials T, A) and transverse colon polyp is a single godwin-yel low glistening tissue fragment (0.3 x 0.3 x 0.2 cm). Submitted intact in 1. Linda Medina 07/27/2016 4:57 PM End of Report Specimen Performing Organization Address City/State/ZIP Code Phon e Number [facility] [address] [place] [address] SERVICES documented in this encounter Visit Diagnoses Not on filedocumented in this encounter Care Teams Physician Anesthesiologist Relationship Specialty Start Date End Date Leroy Gagnon MD PCP - General 04/23/[address] [place] [id number] documented as of this encounter
--- OUTSIDE RECORDS SUMMARY | 2022-04-15 10:12 | XMS_ITS | Encounter Summary ---
:[address] [facility] Address [address] [place] [address] Care Team Providers Name Role Phone Unavailable Primary Care Provider Unavailable Encounter Details Date Type Department Care Team Description 04/22/2009 Orders Only [facility] Pierre Campo MD Laboratory Services - [id number] [place] [address] [place] [address] [phone] Social History Tobacco Use Types Packs/Day Years Used Date Never Assessed Sex Assigned at Date Recorded Not on file documented as of this encounter Plan of Treatment Not on filedocumented as of this encounter Procedures Procedure Name Priority Date/Time Associated Diagnosis Comme nts SURGICAL PATHOLOGY Routine 04/22/2009 0:00 EDT Re sults for this procedure are i n the results section. documented in this encounter Results SURGICAL PATHOLOGY (04/22/2009 0:00 EDT) Pathology Report: SURGICAL PATHOLOGY REPORT ? [facility] Reports generated via [employer] interface contain original data; ? LAB however they are lacking the format of the original report. ? Caution should be taken when reading/interpreting unformatted reports. ? Name: ? ANABELLA, GREGORIO ? Accession #: ? [id number] ? : ? 1940 (Age: 68) ??M ? Collec t Date: ? 04/22/2009 ? Location: ? [facility] ? R eceive Date: ? 04/22/2009 ? Provider: TOÑO CAMPO MD ? Copy to: YINKA Marquez D ? Final Pathologic Diagnosis: ? Skin of eyelid, left lower, shave biopsy: ? - Seborrheic keratosis. ? Microscopic Description: ? The stratum corneum i s thickened by laminated orthohyperkeratosis. ??The ? 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 ??The keratinocytes have a basaloid appearance w ith round regular nuclei. (Dr. Antunez)/mpl ? Document reviewed and electr onically signed by: ? Ana Cristina Antunez MD ? Report ??Date: 04/23/2009 14 :34 ? By the signature above, the attending physician certifies that he/she has ? personally conducted a gross and/or microscopic examination of the described ? specimens and rendered or co nfirmed the above diagnosis. ? Specimen(s) Received: ? Skin lesion left lowe r eyelid ? Clinical History: ? Skin lesion left lowe r eyelid, present 15-20 yrs ? Gross Description: ? Received in formalin labelled Anabella, Gregorio and skin lesion left lower ? eyelid is a shave biopsy of skin measuring 1.0 x 0.5 cm. ??The skin surface is ?? entirely comprised of an irr egular godwin papule measuring 1.0 x 0.5 x 0.3 cm. ??The margins are inked black. ??T he specimen is bisected and entirely submitted in one cassette. ??(Dr. Mckenzie)/rosario n ? End of Report ? Specimen Performing Organization Address City/State/ZIP Code Phon e Number [facility] [address] [place] [address] SERVICES [facility] [address] [place] [address] documented in this encounter Visit Diagnoses Not on filedocumented in this encounter
--- OUTSIDE RECORDS SUMMARY | 2022-04-15 10:12 | XMS_ITS | Encounter Summary ---
:1940 Author Organization [facility] Address [address] [place] [address] Care Team Providers Name Role Phone Leroy Gagnon MD Primary Care Provider Encounter Details Date Type Department Care Team Description 04/30/2011 Results Only [facility] Pierre Du MD Laboratory Services - [address] [place] [address] [address] [facility] [place] [address] [phone] Social History Tobacco Use Types Packs/Day Years Used Date Never Assessed Sex Assigned at Date Recorded Not on file documented as of this encounter Plan of Treatment Not on filedocumented as of this encounter Procedures Procedure Name Priority Date/Time Associated Diagnosis Comme [facility] SURGICAL PATHOLOGY Routine 04/30/2011 0:00 EDT Re sults for this procedure are i n the results section. documented in this encounter Results SURGICAL PATHOLOGY (04/30/2011 0:00 EDT) Pathology Report: SURGICAL PATHOLOGY REPORT ? [facility] Reports generated via electr trgt[employer] interface contain original data; ? LAB however they are lacking the format of the original report. ? Caution should be taken when reading/interpreting unformatted reports. ? Name: ? ANABELLA, GREGORIO ? Accession #: ? [id number] ? : ? 1940 (Age: 70) ??M ? Collec t Date: ? 04/30/2011 ? Location: ? [facility] ? R eceive Date: ? 04/30/2011 ? Provider: TOÑO CONNOLLYELSON MD ? Copy to: LEROY Marquez D ? Final Pathologic Diagnosis: ? Colon, transverse, po lyp, biopsy: ? - Tubular adenoma. ? Document reviewed and electr onically signed by: ? KATHLEEN Del Valle BUTNOR MD ? Report ??Date: 05/04/2011 14 :37 ? By the signature above, the attending physician certifies that he/she has ? personally conducted a gross and/or microscopic examination of the described ? specimens and rendered or co nfirmed the above diagnosis. ? Specimen(s) Received: ? Transverse colon poly p ? Clinical History: ? Hx polyps ? Gross Description: ? Received in formalin labelled Anabella, Gregorio and transverse colon poly are three pink-godwin tissues rangi ng from 0.2 x 0.2 x 0.2 cm to 0.3 x 0.3 x 0.2 cm, ?? submitted in toto in a singl e cassette. (LZeferino Yang)/mpl ? End of Report ? Specimen Performing Organization Address City/State/ZIP Code Phon e Number [facility] [address] [place] [address] SERVICES [facility] [address] [place] [address] documented in this encounter Visit Diagnoses Not on filedocumented in this encounter Care Teams Supervisor Shed Workers Relationship Specialty Start Date End Date Leroy Gagnon MD PCP - General 04/23/09 [facility] [employer] [place], [place] [id number] documented as of this encounter
--- OUTSIDE RECORDS SUMMARY | 2022-04-15 10:12 | XMS_ITS | Clinical Summary ---
:1940 Author Organization [facility] Address [address] [place] [address] Care Team Providers Name Role Phone Leroy Gagnon MD Primary Care Provider Social History Tobacco Use Types Packs/Day Years Used Date Never Assessed Sex Assigned at Date Recorded Not on file Plan of Treatment Health Maintenance Due Date Last Done Comments Fall Risk Screening 2006 Care Teams Machinist Brake Relationship Specialty Start Date End Date Leroy Gagnon MD PCP - General 04/23/[address] [place], [place] [address], [place] [address]
--- OUTSIDE RECORDS SUMMARY | 2022-04-15 10:12 | XMS_ITS | Encounter Summary ---
:1940 Author Organization [facility] Address [address] [place] [address] Care Team Providers Name Role Phone Leroy Gagnon MD Primary Care Provider Encounter Details Date Type Department Care Team Description 12/03/2005 Results Only [facility] - Apollo Campo MD [employer] [address] [place] [address] [place], [place] [id number] [phone] Social History Tobacco Use Types Packs/Day Years Used Date Never Assessed Sex Assigned at Date Recorded Not on file documented as of this encounter Plan of Treatment Not on filedocumented as of this encounter Procedures Procedure Name Priority Date/Time Associated Diagnosis Comme [facility] SURGICAL PATHOLOGY Routine 12/03/2005 0:00 EST Re sults for this procedure are i n the results section. documented in this encounter Results SURGICAL PATHOLOGY (12/03/2005 0:00 EST) Pathology Report: SURGICAL PATHOLOGY REPORT [facility] Reports generated via electronic interface contain andrea ginal data; LAB however they are lacking the format of the original re port. Caution should be taken when reading/interpreting unfo rmatted reports. Name: ? GREGORIO KYLE ? Accession #: ? [id number] ? : ? 1940 (Age: 65) ??M ? Collect Date: ? 12/03/2005 ? Location: ? [facility] ? Receive Date: ? 006 ? Provider: APOLLO CAMPO MD Copy to: LEROY GAGNON MD ? Final Pathologic Diagnosis: ? Colon, 45 cm, polyp, biopsy: - Tubular adenoma. Document reviewed and electronically signed by: Shira Contreras MD Report ??Date: 12/07/2005 17:04 By the signature above, the attending physician certif ies that he/she has personally conducted a gross and/or microscopic examin ation of the described specimens and rendered or confirmed the above diagnosi s. Specimen(s) Received: ? Polyp @45 cm Clinical History: ? Screening for colon cancer Gross Description: ? Received in Hollande' s fixative labelled Anabella and 1 ??polyp at 45 cm is a pedunculated polyp. The head of the polyp is o void and measures 0.5 x 0.3 x 0.2 cm and the stalk of the polyp measures 0.3 cm in l ength by 0.4 cm in greatest diameter. The stalk resection margin is black inked. ??The specimen is bisected and submitted entirely in one cassette. (Chuckie nina)/[facility] End of Report Specimen Performing Organization Address City/State/ZIP Code Phon e Number [facility] [address] [place] [address] SERVICES [facility] [address] [place] [address] documented in this encounter Visit Diagnoses Not on filedocumented in this encounter Care Teams Veterans Adviser Relationship Specialty Start Date End Date Leroy Gagnon MD PCP - General 04/23/09 [address] [place] [address] documented as of this encounter
--- NOTE | 2022-04-15 10:20 | W.ED.GENAD ---
Discharge Plan Disposition Patient Disposition: HOME Condition: Stable Discharge Details Clinical Impression: Lesion of liver Primary Care Provider: Jessica Richard ED Provider: Juan J Georges Home Meds and New Rx's Prescriptions: Continued finasteride 5 mg tablet 5 mg PO HS Qty: 90 4RF tamsulosin 0.4 mg capsule 0.8 mg PO HS Qty: 180 4RF multivitamin 1 EACH tablet 1 ea PO DAILY aspirin 325 MG tablet 325 mg PO DAILY kwvhqkfbvjr-avtecutcw-qez C-Mn [Glucosamine 1500 Complex] 1 EACH capsule 1 ea PO DAILY pravastatin 40 mg tablet 80 mg PO DAILY Qty: 180 3RF Rx Instructions: prevent cardiovascular events ascorbic acid (vitamin C) [Vitamin C] 500 MG tablet 500 mg PO DAILY vitamin F30-[id number] acid 1 EACH tablet 1 ea PO DAILY ibuprofen 600 MG tablet 600 mg PO TID PRNQty: 30 0RF Discharge Instructions Additional Instructions: Your work-up today reveals multiple lesions of your liver which is extremely concerning for metastatic disease. I have placed you on the care managers list to help expedite both outpatient primary care and oncology follow-up. You will need to be seen and have additional testing before a definitive treatment plan can be derived. Please watch for new or worsening symptoms and return to the ER for any concerns. Otherwise I would personally contact your primary care office later today or tomorrow to discuss your ER visit and need for outpatient reevaluation. Discharge Data Discharge Date/Time-TO BE ENTERED AT DEPARTURE: 04/15/22 13:00 Medical Decision Making 81-year-old gentleman denies any cardiac or pulmonary history presents the ER today for at least 1 month history of increased gassiness, belching, occasional left-sided chest pressure which is resolved with belching, and shortness of breath which at times is both exertional and nonexertional. He was able to push the wheelchair with his through the parking lot and into the ER and presents into the ER asymptomatic. Clinically he appears well, nontoxic. Heart rate in the 90s, afebrile, O2 sat 97% on room air. He does have a ventral abdominal wall hernia which is nontender. He reports that he is a full code. Plan is to initiate a cardiac work-up including a D-dimer. His EKG did reveal mild sinus tachycardia at 105 Laboratory values reveal mild nonspecific leukocytosis of 11.55, mild anemia at 11.0 hemoglobin and hematocrit of 34.6, platelet count is 489. INR is 1.0. D-dimer is significantly elevated at 4871. Plan to obtain CTA of the chest. Sodium 132, electrolytes otherwise unremarkable, creatinine 1.1 with a GFR greater than 60. Magnesium is 1.6, will replenish with 1 g IV. LFTs slightly elevated at AST of 54 ALT 77 alk phosphatase 447, troponin less than 50, BNP 210, COVID-negative. Chest x-ray unremarkable. Given his mild nonspecific leukocytosis, elevated LFTs, what he describes as increased gassiness, decreased appetite, in the setting of chest discomfort and shortness of breath I am concerned that he may have some sort of metastatic disease. CTA reveals no evidence of PE but does reveal concern for multiple liver lesions suspicious for metastatic disease. Question left hydronephrosis versus parapelvic cyst. I discussed the unfortunate results with both the patient and his significant other. We discussed the importance of outpatient follow-up through his PCP and through establishing oncologist. At this time he is stable, does not require hospitalization. I will place him on the care management list to help expedite both PCP and oncology follow-up. Standard discharge and return precautions were provided. Patient understands, is agreeable to this plan, and has no additional questions or concerns upon discharge. This documentation was generated using [employer] system, please disregard any oddities of phrase or misspellings. Medical Records Medical records reviewed: Yes I reviewed the patient's medical records. Imaging Data Radiologic Study: Attestation: I personally reviewed and interpreted this imaging study as follows: Imaging: X-Ray Radiologist's impression: Exam(s) XR PORTABLE CHEST AP EXAM: XR PORTABLE CHEST AP CLINICAL HISTORY: sob TECHNIQUE: 2D digital imaging was performed. COMPARISON: No exams were available for comparison FINDINGS: LUNGS: Clear. No pleural abnormality seen. HEART: Normal. AORTA: Normal. BONES: Unremarkable for age. Soft tissues: Suture material left upper quadrant. IMPRESSION: No acute findings. Radiologic Study #2: Attestation: I personally reviewed and interpreted this imaging study as follows: Imaging: CT Scan Radiologist's impression: Exam(s) CT CHEST PE CTA EXAM: CT CHEST PE CTA CLINICAL HISTORY: sob/dimer over 4,000. TECHNIQUE: Imaging Protocol: Axial CT angiography was performed with multi-slice acquisition and multi-planar reconstructions as well as axial, coronal and sagittal MIP reconstructions. CONTRAST MATERIAL: Intravenous: Omnipaque 350 Contrast volume:100 ml COMPARISON: CR XR PORTABLE CHEST AP from 04/15/2022 FINDINGS: Pulmonary Arteries: No evidence of filling defect to suggest pulmonary emboli. Tracheobronchial tree: Patent where visualized. Mediastinum and Keyla: No dominant adenopathy or fluid collection. Pulmonary parenchyma: A few scattered tiny nodules, less than 4 millimeters in size. No consolidation or dominant measurable mass. Mild basilar atelectasis. Soft tissues: Bilateral gynecomastia. Pleura: No effusion or pneumothorax. Heart: The heart is not dilated. No coronary artery calcifications are seen. Aorta: Thoracic aorta non-dilated. No aneurysm. No dissection. Atherosclerotic changes. Upper abdomen: Multiple abnormal low-density liver lesions suspicious for metastases. Surgical clips adjacent to upper stomach and distal esophagus as well as left upper quadrant. Dilated common bile duct. Distal most portion of common duct not included on field of view. Question left hydronephrosis versus multiple parapelvic cysts of the left kidney. Kidney not fully included in field of view. Right kidney not included. Adrenal glands appear normal. Pancreas is unremarkable where visualized.. Bones: Aqmh-cb-epylzykr compression fractures of T7 and T8. Degenerative disc changes. No lytic or blastic lesions visualized. IMPRESSION: No evidence of pulmonary embolism. Multiple liver lesions suspicious for metastatic disease. Question left hydronephrosis vs parapelvic cysts. Results of this exam have been verbally communicated with the emergency department provider. Lab Data Lab results reviewed: Yes I reviewed the patient's lab results. Labs: Laboratory Tests Range/Units 04/15/22 04/15/22 04/15/22 10:25 10:25 10:25 WBC (4.4-10.8) 10^3/uL 11.55 H RBC (4.36-5.78) 10^6/uL 4.04 L Hgb (13.5-17.5) g/dL 11.0 L Hct (40.0-50.0) % 34.6 L MCV (80-95) fL 86 MCH (27.0-33.0) pg 27.2 MCHC (32.0-36.0) % 31.8 L RDW (11.8-14.1) % 13.2 Plt Count (130-400) 10^3/uL 489 H MPV (8.0-11.0) fL 8.3 Immature Gran % See Differential Neutrophils % 60.0 Lymphocytes % 20.0 Atypical Lymphs % 2 Monocytes % 12.0 Eosinophils % 5.0 Basophils % 1.0 Nucleated RBC % (0.0-0.3) % 0.0 Absolute Neutrophils (1.2-6.7) 10^3/uL 6.93 H Absolute Lymphocytes (1.2-3.4) 10^3/uL 2.54 Absolute Monocytes (0.1-0.8) 10^3/uL 1.39 H Absolute Eosinophils (0.0-0.7) 10^3/uL 0.58 Absolute Basophils (0.0-0.2) 10^3/uL 0.12 RBC Morphology Normal PT (9.3-11.0) sec 10.3 INR (0.9-1.1) 1.0 APTT (21.0-27.5) sec 25.6 D-Dimer (<500) ng/mlFEU 4871 H Sodium (136-145) mmol/L 132 L Potassium (3.5-5.1) mmol/L 4.0 Chloride (98-107) mmol/L 98 Carbon Dioxide (21.0-32.0) mmol/L 29.4 Anion Gap (3-11) mmol/L 4.6 BUN (7-18) mg/dL 17 Creatinine (0.70-1.30) mg/dL 1.1 Estimated GFR/1.73 m2 (mL/min/1.73m2) >= 60.00 Glucose (74-106) mg/dL 130 H Calcium (8.5-10.1) mg/dL 9.6 Magnesium (1.8-2.4) mg/dL 1.6 L Total Bilirubin (0.2-1.0) mg/dL 0.5 AST (15-37) U/L 54 H ALT (16-63) U/L 77 H Alkaline Phosphatase (46-116) U/L 447 H Troponin I (<or=60) ng/L < 50 NT-Pro-B Natriuret Pep (<300) pg/mL 210 Total Protein (6.4-8.2) g/dL 8.0 Albumin (3.4-5.0) g/dL 3.0 L Lipase (73-393) U/L 202 COVID-19 Source SARS-CoV-2 (PCR) (Negative) Range/Units 04/15/22 04/15/22 10:25 10:25 WBC (4.4-10.8) 10^3/uL RBC (4.36-5.78) 10^6/uL Hgb (13.5-17.5) g/dL Hct (40.0-50.0) % MCV (80-95) fL MCH (27.0-33.0) pg MCHC (32.0-36.0) % RDW (11.8-14.1) % Plt Count (130-400) 10^3/uL MPV (8.0-11.0) fL Immature Gran % Neutrophils % Lymphocytes % Atypical Lymphs % Monocytes % Eosinophils % Basophils % Nucleated RBC % (0.0-0.3) % Absolute Neutrophils (1.2-6.7) 10^3/uL Absolute Lymphocytes (1.2-3.4) 10^3/uL Absolute Monocytes (0.1-0.8) 10^3/uL Absolute Eosinophils (0.0-0.7) 10^3/uL Absolute Basophils (0.0-0.2) 10^3/uL RBC Morphology PT (9.3-11.0) sec INR (0.9-1.1) APTT (21.0-27.5) sec D-Dimer (<500) ng/mlFEU Sodium (136-145) mmol/L Potassium (3.5-5.1) mmol/L Chloride (98-107) mmol/L Carbon Dioxide (21.0-32.0) mmol/L Anion Gap (3-11) mmol/L BUN (7-18) mg/dL Creatinine (0.70-1.30) mg/dL Estimated GFR/1.73 m2 (mL/min/1.73m2) Glucose (74-106) mg/dL Calcium (8.5-10.1) mg/dL Magnesium (1.8-2.4) mg/dL Total Bilirubin (0.2-1.0) mg/dL AST (15-37) U/L ALT (16-63) U/L Alkaline Phosphatase (46-116) U/L Troponin I (<or=60) ng/L NT-Pro-B Natriuret Pep (<300) pg/mL Total Protein (6.4-8.2) g/dL Albumin (3.4-5.0) g/dL Lipase (73-393) U/L Cancelled COVID-19 Source Nasal/Nares SARS-CoV-2 (PCR) (Negative) Negative ECG Data Attestation: I personally reviewed and interpreted this ECG (s) as follows: Interpretation: Sinus tachycardia, ventricular rate of 105, no STEMI. HPI General Mode of arrival: wheelchair. Date/Time Provider Initiated Documentation: 04/15/22 09:49. Limitations to Documentation: no limitations. Information obtained by: patient and family. HPI Narrative: This is an 81-year-old gentleman, full code, past medical history hyperlipidemia, failed fundoplication, presenting to the ER reporting a mild occasional shortness of breath over the past 1-2 months, states sometimes it is worse with exertion but sometimes exertion has nothing to do with it. He reports occasionally he feels gassy in his abdomen, needs to belch, and this tends to cause a little bit of left-sided chest pressure which resolves after belching. He is scheduled to be seen by his primary care provider next week. He is currently asymptomatic. He denies recent illness, trauma, fever, cough, neck pain, abdominal pain, nausea, vomiting, diarrhea, constipation, pain or swelling in his legs. Patient states that he has never had a stress test. He states that simply given the duration of his symptoms he decided to come to the ER for evaluation. Related Data Home Medications Medication Instructions Recorded Confirmed aspirin 325 mg tablet 325 mg PO DAILY 01/20/13 04/15/22 multivitamin 1 ea PO DAILY 01/20/13 04/15/22 ascorbic acid (vitamin C) 500 mg 500 mg PO DAILY 05/04/14 04/15/22 tablet (Vitamin C) vitamin B12 500 mcg-folic acid 400 1 ea PO DAILY 05/04/14 04/15/22 mcg tablet xupdqaiufjg-knkgmxljn-mvr C-Mn 500 1 ea PO DAILY 05/28/15 04/15/22 mg-400 mg capsule (Glucosamine 1) ibuprofen 600 mg tablet 600 mg PO TID PRN #30 tabs 09/20/17 04/15/22 finasteride 5 mg tablet 5 mg PO HS #90 tab-caps 04/24/21 04/15/22 tamsulosin 0.4 mg capsule 0.8 mg PO HS #180 tab-caps 04/24/21 04/15/22 pravastatin 40 mg tablet 80 mg PO DAILY #180 tabs 07/04/21 04/15/22 Previous Rx's Medication Instructions Recorded ibuprofen 600 mg tablet 600 mg PO TID PRN #30 tabs 09/20/17 finasteride 5 mg tablet 5 mg PO HS #90 tab-caps 04/24/21 tamsulosin 0.4 mg capsule 0.8 mg PO HS #180 tab-caps 04/24/21 pravastatin 40 mg tablet 80 mg PO DAILY #180 tabs 07/04/21 Allergies Allergy/AdvReac Type Severity Reaction Status Date / Time Penicillins Allergy Intermediate blisters/hi Verified 04/15/22 10:33 ves oxycodone Allergy Mild BLOTCHES, Verified 04/15/22 10:33 SWELLING diphtheria, pertussis, AdvReac Intermediate full-arm Verified 04/15/22 10:33 tetanus vacc swelling and weakness - lasting several weeks. General Stated Complaint: SOB ASHLEY: 3 Review of Systems Constitutional Constitutional: Denies fatigue, Denies fever(s), Denies headache(s) and Denies weakness Eyes Eyes: Denies change in vision ENT Ears, Nose, Mouth, and Throat: Denies headache(s) and Denies neck pain Cardiovascular Cardiovascular: Reports chest pain, Reports dyspnea and Reports dyspnea on exertion Respiratory Respiratory: Denies cough, Reports dyspnea and Reports dyspnea on exertion Gastrointestinal Gastrointestinal: Denies abdominal pain, Reports belching, Reports bloating (Occasionally), Denies constipation, Denies diarrhea, Denies nausea and Denies vomiting Genitourinary Genitourinary: Denies dysuria Musculoskeletal Musculoskeletal: Denies back pain and Denies neck pain Integumentary/Breasts Skin/Breast: Denies rash Neurologic Neurologic: Denies headache(s) and Denies weakness Endocrine Endocrine: Denies fatigue Hematologic/Lymphatic Hematologic/Lymphatic: Denies easy bleeding and Denies easy bruising PFSH All Active Problems (Updated 04/15/22 @ 12:41 by GUILLERMO George) Lesion of liver (Acute) Dysmetabolic syndrome X (Acute 04/22/12) IMPAIRED FBS 111-104; WEIGHT Abnormal blood sugar (Chronic 06/19/14) Hx abnormal fasting blood sugar Stiffness of finger joint (Acute) 3rd digit, B/L, stiffness after lengthy gripping (mostly driving). I'm concerned 2' heavy schedule carrying/lifting with MS. Chronic pancreatitis (Acute) 10/12/19-[facility] Gastroenterology. 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 Dr Stover follows 11/25/17 BCC nodular and infiltrative left frontal parietal scalp w/ removal Dr Stover 11/25/17 Excision of recurrent BCCA left frontal parietal scalp Carpal tunnel syndrome of left wrist (Acute 05/22/15) Carpal tunnel syndrome of right wrist (Acute 05/12/16) BPH w/o urinary obs/LUTS (Acute 09/13/99) LUTS, DR SANCHEZ YEARLY Hip pain, right (Acute 09/30/17) Rupesh Garcia PT with HEP for ITB and hamstring streching Hyperlipidemia (Acute 04/22/12) GOAL LDL<130; (OPTIMAL <100); RISK CALCULATED 16% IN 2001; LDL AT GOAL, LOW HDL Overweight (Acute 04/22/12) goal 185 (last <2002) Hearing 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 Diabetes Heart disease Sister Age: 82 No problems noted. Brother Age: 78 Diabetes Heart disease Social History Smoking/Tobacco Use Status: Former Tobacco Use Smoking risk assessment performed?: Yes Alcohol Intake: never Drug use: Never Substance use type: does not use Do you feel safe at home: Yes Do you feel safe in your relationship?: Yes Exam Const General: cooperative, healthy appearing, comfortable and no acute distress Orientation: alert, awake and oriented x3 HENMT Head: normal to inspection, normocephalic and atraumatic Face and sinus: normal facial exam Mouth: moist mucous membranes Eyes General: appearance normal, both eyes and all related structures Conjunctivae: conjunctivae normal Neck Neck: normal visual inspection, full ROM, trachea midline and supple Resp Effort & Inspection: normal respiratory effort and able to speak in complete sentences Auscultation: clear to auscultation bilaterally Cardio Rate: regular rate Rhythm: regular rhythm GI Palpation: soft, not firm, no guarding, no pulsatile masses and nontender Auscultation: normal bowel sounds Other: There is a nontender ventral hernia. Back/Spine/Pelvis Back: no CVA tenderness and No back tenderness Skin General skin exam: no rashes or lesions noted Neuro General: patient alert, patient awake, patient oriented x3, moves all extremities and no focal motor deficits Cognition: normal cognition Speech: speech normal Gait: normal gait Motor: muscle tone normal throughout Sensory Exam: no sensory deficits noted Extrem General: normal to inspection, full ROM, capillary refill normal, no pedal edema and no calf tenderness Psych Appearance: grossly normal Mental Status: mental status grossly normal Course Vital Signs Vital signs: Vital Signs Temperature 36.8 C 04/15/22 09:55 Pulse 92 H 04/15/22 09:55 Respiratory Rate 20 04/15/22 09:55 Blood Pressure 146/79 H 04/15/22 09:55 Pulse Oximetry 97 04/15/22 09:55 Temperature 36.8 C 04/15/22 09:55 Temperature Source Temporal Artery Scan 04/15/22 09:55 Pulse 92 H 04/15/22 09:55 Respiratory Rate 20 04/15/22 10:04 Respiratory Effort Non-Labored 04/15/22 10:04 Respiratory Depth Normal 04/15/22 10:04 Respiratory Pattern Normal 04/15/22 10:04 Blood Pressure 146/79 H 04/15/22 09:55 Blood Pressure Position Sitting 04/15/22 09:55 Pulse Oximetry 97 04/15/22 09:55 Oxygen Delivery Method Room Air 04/15/22 09:55 Oxygen Flow Rate 0 04/15/22 09:55 Pain Level 0 04/15/22 09:55
[2022-04-15 10:33] LABS: Source Nasal/Nares
[2022-04-15 10:34] LABS: Abs Immature Grans 0.05 10^3/uL (0.0-0.06); HCT 34.6 % (40.0-50.0); MCH 27.2 pg (27.0-33.0); MCHC 31.8 % (32.0-36.0); MCV 86 fL (80-95); MPV 8.3 fL (8.0-11.0); Platelet Count 489 10^3/uL (130-400); RBC 4.04 10^6/uL (4.36-5.78); RDW 13.2 % (11.8-14.1); RDW-SD 41.6 fL; WBC 11.55 10^3/uL (4.4-10.8)
[2022-04-15 10:58] LABS: Absolute Basophil Count 0.12 10^3/uL (0.0-0.2); Absolute Eosinophil Count 0.58 10^3/uL (0.0-0.7); Absolute Lymphocyte Count 2.54 10^3/uL (1.2-3.4); Absolute Monocyte Count 1.39 10^3/uL (0.1-0.8); Absolute Neutrophil Count 6.93 10^3/uL (1.2-6.7); Atypical Lymphocytes % 2; Diff Comment Manual Differential; PTT Activated 25.6 sec (21.0-27.5); Prothrombin Time 10.3 sec (9.3-11.0); RBC Morphology Normal
[2022-04-15 11:00] LABS: ALT 77 U/L (16-63); AST 54 U/L (15-37); Alkaline Phosphatase 447 U/L (46-116); Anion Gap 4.6 mmol/L (3-11); BUN 17 mg/dL (7-18); Bilirubin, Total 0.5 mg/dL (0.2-1.0); CO2 29.4 mmol/L (21.0-32.0); CREATININE 1.1 mg/dL (0.70-1.30); Calcium 9.6 mg/dL (8.5-10.1); Chloride 98 mmol/L (98-107); Glucose 130 mg/dL (74-106); Lipase 202 U/L (73-393); Magnesium 1.6 mg/dL (1.8-2.4); NT-proBNP 210 pg/mL (<300); Sodium 132 mmol/L (136-145); Troponin I < 50 ng/L (<or=60)
--- NOTE | 2022-04-15 11:00 | DI.CT_ITS ---
Exam(s) CT CHEST PE CTA EXAM: CT CHEST PE CTA CLINICAL HISTORY: sob/dimer over 4,000. TECHNIQUE: Imaging Protocol: Axial CT angiography was performed with multi-slice acquisition and mu lti-planar reconstructions as well as axial, coronal and sagittal MIP reconstructions. CONTRAST MATERIAL: Intravenous: Omnipaque 350 Contrast volume:100 ml COMPARISON: CR XR PORTABLE CHEST AP from 04/15/2022 FINDINGS: Pulmonary Arteries: No evidence of filling defect to suggest pulmonary emboli. Tracheobronchial tree: Patent where visualized. Mediastinum and Keyla: No dominant adenopathy or fluid collection. Pulmonary parenchyma: A few scattered tiny nodules, less than 4 millimeters in size. No consolidatio n or dominant measurable mass. Mild basilar atelectasis. Soft tissues: Bilateral gynecomastia. Pleura: No effusion or pneumothorax. Heart: The heart is not dilated. No coronary artery calcifications are seen. Aorta: Thoracic aorta non-dilated. No aneurysm. No dissection. Atherosclerotic changes. Upper abdomen: Multiple abnormal low-density liver lesions suspicious for metastases. Surgical clip s adjacent to upper stomach and distal esophagus as well as left upper quadrant. Dilated common bile duct. Distal most portion of common duct not included on field of view. Question left hydronephros is versus multiple parapelvic cysts of the left kidney. Kidney not fully included in field of view. Right kidney not included. Adrenal glands appear normal. Pancreas is unremarkable where visualized .. Bones: Wirf-bw-hecppolt compression fractures of T7 and T8. Degenerative disc changes. No lytic or blastic lesions visualized. IMPRESSION: No evidence of pulmonary embolism. Multiple liver lesions suspicious for metastatic disease. Question left hydronephrosis vs parapelvic cysts. Results of this exam have been verbally communicated with the emergency department provider. RADIATION DOSE DELIVERED: 452.58mGy.cm Total DLP DATA REPOSITORY: All CT scans at this facility are submitted to the National Radiology Data Registry (NRDR) Dose Index Registry (DIR) with the [employer] (ACR). RADIATION OPTIMIZATION: All CT scans at this facility use at least one of these dose optimization te chniques: automated exposure control; mA and/or kV adjustment per patient size (includes targeted exa ms where dose is matched to clinical indication); or iterative reconstruction.
[2022-04-15 11:11] LABS: D-Dimer 4871 ng/mlFEU (<500)
[2022-04-15] MEDS: MAGNESIUM SULFATE 1 GM/100 ML BAG IVPB (11:18)
[2022-04-15 11:24] LABS: COVID-19 PCR Negative (Negative)
[2022-04-15] MEDS: Omnipaque 350 MG/ML 100 ML BTL IV (11:34)
--- NOTE | 2022-04-15 12:41 | NUR.NOTE ---
Nursing Note: Referral faxed to PCP for new diagnosis liver lesions consistent with metastatic disease, needs oncology follow up BJ. To be seen BJ.
== END 2022-04-15 13:00 | disposition home or self-care (01) ==
PROVIDERS: Emergency Provider Physician Assistant; PCP Student in an Organized Health Care Education/Training Program
DX: K76.9 Liver disease, unspecified (principal); R07.89 Other chest pain; R06.02 Shortness of breath; K43.9 Ventral hernia without obstruction or gangrene; R00.0 Tachycardia, unspecified; D72.829 Elevated white blood cell count, unspecified; R79.89 Other specified abnormal findings of blood chemistry; R79.1 Abnormal coagulation profile; Z20.822 Contact with and (suspected) exposure to COVID-19
CPT/HCPCS: 36415; 71275; 80053; 83690; 87635; 93005; 96365; 99285; 71045; 83735; 83880; 84484; 85025; 85379; 85610; 85730; 93010; J3475; J3490

== ENCOUNTER 2022-04-16 08:46 | Outpatient (REF) | payer MEDICARE, SELFPAY ==
[2022-04-16 15:57] LABS: Bacteria Negative HPF (Negative); C & S Indicated? No; Casts Negative LPF (Negative); Crystals Negative HPF (Negative); Epithelial Cells Few HPF (Negative); Mucus Trace (Negative); RBC 0-2 HPF (0-2); WBC 0-2 HPF (0-5)
== END 2022-04-16 08:47 | disposition home or self-care (01) ==
LOC: LBN 08:46
PROVIDERS: PCP Student in an Organized Health Care Education/Training Program; Visit Provider Student in an Organized Health Care Education/Training Program
DX: N13.30 Unspecified hydronephrosis (principal); N28.1 Cyst of kidney, acquired; N40.0 Benign prostatic hyperplasia without lower urinary tract symptoms; Z86.010 Personal history of colon polyps
CPT/HCPCS: 81015; 82272

== ENCOUNTER 2022-04-17 15:36 | Outpatient (REF) | payer MEDICARE, SELFPAY ==
[2022-04-17 18:46] LABS: Bilirubin Negative (Negative); Blood Moderate (Negative); Clarity Clear (Clear); Glucose Negative (Negative); Ketones Negative (Negative); Leukocyte Esterase Negative (Negative); Nitrite Negative (Negative); Urobilinogen 0.2 EU/dL (Up TO 0.2)
[2022-04-17 19:27] LABS: Bacteria Negative HPF (Negative); C & S Indicated? C&S Done As Ordered; Crystals Negative HPF (Negative); Epithelial Cells Rare HPF (Negative); Mucus Negative (Negative); RBC >50 HPF (0-2); WBC 0-2 HPF (0-5)
== END 2022-04-17 15:37 | disposition home or self-care (01) ==
LOC: LBN 15:36
PROVIDERS: Urology; PCP Student in an Organized Health Care Education/Training Program; Visit Provider Student in an Organized Health Care Education/Training Program
DX: R30.0 Dysuria (principal); R31.9 Hematuria, unspecified
CPT/HCPCS: 81003; 81015; 87086

== ENCOUNTER → 2022-04-20 03:04 | Outpatient (CLI) | payer MEDICARE, SELFPAY ==
--- NOTE | 2022-04-20 06:45 | DI.CT_ITS ---
Exam(s) CT ABDOMEN PELVIS W EXAM: CT ABDOMEN PELVIS W CLINICAL HISTORY: LIVER LESION,WT LOSS,BELCHING,RUQ FULLNESS,LUQ ABD MASS,R63.4. TECHNIQUE: Imaging Protocol: Axial computed tomography images with coronal and sagittal reformatted images were created and reviewed CONTRAST MATERIAL: Intravenous: Omnipaque 100cc Oral: None COMPARISON: CT CT CHEST PE CTA from 04/15/2022 FINDINGS: VISUALIZED LUNG BASES: Mild benign-appearing increased markings. No pleural effusions.. ABDOMEN: There is no ascites. Hiatal hernia noted and evidence of previous surgery in this region. LIVER: There are multiple ominous nodules in both hepatic lobes which are highly suspicious for metas tatic disease. The largest of these measures approximately 3 x 3 cm. GALLBLADDER/BILIARY: Gallbladder is somewhat distended. Cystic duct is also dilated as is the common bile duct (1.4 cm) and there is some dilatation of intrahepatic ducts in both lobes.. There is no r adiopaque calculus seen in the lower CBD, however, there is a subtle suggestion of an abnormal densit y at the junction of the CBD and duodenal wall. (Series 9/image 40). PANCREAS: No obvious hypodense pancreatic mass but there are some abnormally enlarged lymph nodes in this region. Pancreatic duct is slightly dilated. SPLEEN: Spleen is not enlarged. No obvious intrasplenic lesions. Splenic and portal veins are paten t. ADRENALS: There is a 10 x 9 millimeter nodule in the right adrenal gland. No nodule seen in the left adrenal gland. KIDNEYS:Large parapelvic cysts in left kidney noted. No solid renal masses. No true hydronephrosis nor hydroureter. Smaller parapelvic cysts are seen in the opposite-right kidney. No solid renal mas ses. Ureters are not dilated.. ABDOMINAL AORTA: Abdominal aorta is not enlarged. LYMPH NODES:There are enlarged retroperitoneal lymph nodes measuring up to 2.5 cm ABDOMINAL WALL: No evidence of significant anterior abdominal wall nor inguinal hernia. GI: There is no evidence of bowel obstruction, free air, nor abscess. PELVIS: GI: No evidence of appendicitis.Extensive sigmoid diverticulosis. No obvious acute diverticulitis. LYMPH NODES: There is no intrapelvic nor inguinal adenopathy. REPRODUCTIVE: Enlarged prostate. Bladder not distended. URINARY BLADDER: Bladder not distended. No bladder diverticuli. OSSEOUS: No significant osseous lesions. IMPRESSION: 1. There are multiple metastatic lesions throughout the liver. There is dilatation of the entire yassine iary tree both intra and extrahepatic. This CBD is dilated to diameter of 1.7 cm and there is a dist ended Courvoisier's- type gallbladder. No calcified gallstones seen within the CBD but there is a bell btle suggestion of a culprit mass at the junction of the CBD and duodenal wall. 2. Findings are suspicious for either endo biliary or subtle pancreatic head malignancy with metastat ic liver disease. There also enlarged retroperitoneal lymph nodes. There is no ascites. 3. Large parapelvic cysts in left kidney and smaller parapelvic cysts in the right kidney. No solid renal masses. No true hydro nephrosis. Solitary nondilated ureter on each side. 4. Enlarged prostate gland. RADIATION DOSE DELIVERED: 2,764.96mGy.cm Total DLP DATA REPOSITORY: All CT scans at this facility are submitted to the National Radiology Data Registry (NRDR) Dose Index Registry (DIR) with the [employer] (ACR). RADIATION OPTIMIZATION: All CT scans at this facility use at least one of these dose optimization te chniques: automated exposure control; mA and/or kV adjustment per patient size (includes targeted exa ms where dose is matched to clinical indication); or iterative reconstruction.
[2022-04-20] MEDS: Barium Sulfate 2% W/V-Berry Smoothie 450 ML BTL 900 ML PO (09:53)
== END ==
PROVIDERS: PCP Student in an Organized Health Care Education/Training Program; Visit Provider Student in an Organized Health Care Education/Training Program
DX: R63.4 Abnormal weight loss (principal); N28.89 Other specified disorders of kidney and ureter; R93.5 Abnormal findings on diagnostic imaging of other abdominal regions, including retroperitoneum; N40.0 Benign prostatic hyperplasia without lower urinary tract symptoms; K76.9 Liver disease, unspecified
CPT/HCPCS: 99215; 74177

== ENCOUNTER 2022-04-23 01:30 | Outpatient (CLI) | payer MEDICARE, SELFPAY ==
[2022-04-23 10:04] LABS: Abs Immature Grans 0.05 10^3/uL (0.0-0.06); Absolute Basophil Count 0.09 10^3/uL (0.0-0.2); Absolute Eosinophil Count 0.23 10^3/uL (0.0-0.7); Absolute Neutrophil Count 8.15 10^3/uL (1.2-6.7); Basophils % 0.7; Eosinophils % 1.9; HCT 33.4 % (40.0-50.0); HGB 10.5 g/dL (13.5-17.5); Immature Grans % 0.4; Lymphocytes % 16.4; MCH 27.1 pg (27.0-33.0); MCHC 31.4 % (32.0-36.0); MCV 86 fL (80-95); MPV 7.9 fL (8.0-11.0); Monocytes % 13.6; Platelet Count 597 10^3/uL (130-400); RBC 3.87 10^6/uL (4.36-5.78); RDW 13.2 % (11.8-14.1); RDW-SD 41.2 fL; WBC 12.17 10^3/uL (4.4-10.8)
[2022-04-23 10:06] LABS: Absolute Monocyte Count 1.66 10^3/uL (0.1-0.8)
[2022-04-23 10:24] LABS: Diff Comment Diff Reviewed; RBC Morphology Normal
[2022-04-23 10:45] LABS: ALT 55 U/L (16-63); AST 49 U/L (15-37); Albumin 2.9 g/dL (3.4-5.0); Alkaline Phosphatase 450 U/L (46-116); Anion Gap 5.1 mmol/L (3-11); BUN 15 mg/dL (7-18); Bilirubin, Direct 0.1 mg/dL (0.0-0.2); Bilirubin, Total 0.3 mg/dL (0.2-1.0); CO2 30.9 mmol/L (21.0-32.0); CREATININE 1.1 mg/dL (0.70-1.30); Calcium 9.4 mg/dL (8.5-10.1); Chloride 101 mmol/L (98-107); Glucose 125 mg/dL (74-106); Lipase 146 U/L (73-393); Potassium 4.9 mmol/L (3.5-5.1); Sodium 137 mmol/L (136-145); Total Protein 7.8 g/dL (6.4-8.2)
[2022-04-23 20:54] LABS: PSA, Screening 1.7 ng/mL (<=6.5)
== END 2022-04-23 01:31 | disposition home or self-care (01) ==
LOC: LBO 01:31
PROVIDERS: Nurse Practitioner Gerontology; PCP Student in an Organized Health Care Education/Training Program; Visit Provider Student in an Organized Health Care Education/Training Program
DX: N40.0 Benign prostatic hyperplasia without lower urinary tract symptoms (principal); N13.30 Unspecified hydronephrosis; N28.9 Disorder of kidney and ureter, unspecified; R63.4 Abnormal weight loss; R19.8 Other specified symptoms and signs involving the digestive system and abdomen; R19.02 Left upper quadrant abdominal swelling, mass and lump; K76.89 Other specified diseases of liver; Z12.5 Encounter for screening for malignant neoplasm of prostate
CPT/HCPCS: 36415; 80048; 80076; 83690; 84153; 85025

== ENCOUNTER → 2022-04-28 01:14 | Outpatient (CLI) | payer MEDICARE, SELFPAY ==
--- NOTE | 2022-04-28 06:30 | DI.US_ITS ---
Exam(s) US ABDOMEN RENAL EXAM: US ABDOMEN RENAL CLINICAL HISTORY: Ruq tenderness,FULLNESS,luq/lmiddle tenderness,ABNL WT LOSS TECHNIQUE: Ultrasound of complete upper abdomen performed using standard protocol. COMPARISON: CT CT ABDOMEN PELVIS W from 04/20/2022 FINDINGS: There is no ascites evident. LIVER: There are multiple ominous solid lesions in the liver correspond to what is seen on recent CT scan, highly suspicious for metastatic, the largest of these measuring 3.5 by 3 x 3 cm. There also d ilated intrahepatic ducts evident. GALLBLADDER/BILIARY: Distended in [place] fashion. No calculi. The common hepatic duct isalso significantly dilated, measuring 15mm. PANCREAS: There is no evidence of obvious pancreatic head mass. There is mild dilatation of the panc reatic duct (4.5 millimeters). Pancreatic head and body appear unremarkable. Pancreatic tail not ab le to be seen. However, this appeared unremarkable on the recent CT scan. SPLEEN: The spleen is not enlarged and there are no intrasplenic lesions evident. KIDNEYS:Kidneys exhibit normal size with no evidence of solid mass, calculus, nor hydronephrosis. The re are bilateral parapelvic cysts, more prominent on the left side and measuring up to 5 cm., seen on recent CT scan. No hydronephrosis. ABDOMINAL AORTA: There is no evidence of abdominal aortic aneurysm. IVC: Normal diameter where visualized. IMPRESSION: 1. There are multiple metastatic appearing nodules in the liver, seen on recent CT scan. 2. There is dilatation of the biliary tree, both intra and extrahepatic, including dilatation of the gallbladder lumen (no gallstones evident). 3. There is no obvious pancreatic head mass although there is mild dilatation of the pancreatic duct evident. Findings are suspicious for distal biliary tract obstructive disease such as possible cholangiocarcin yanet, subtle non ultrasound visualize pancreatic head neoplasm, or other stricture type disease in the lower CBD. MRI/MRCP and ERCP are recommended.. DATA REPOSITORY:
== END ==
PROVIDERS: PCP Student in an Organized Health Care Education/Training Program; Visit Provider Student in an Organized Health Care Education/Training Program
DX: R14.2 Eructation; R19.8 Other specified symptoms and signs involving the digestive system and abdomen; R63.4 Abnormal weight loss; N13.30 Unspecified hydronephrosis
CPT/HCPCS: 76770; 76700

== ENCOUNTER 2022-06-12 01:09 | Outpatient (RCR) | payer MEDICARE, SELFPAY ==
[2022-06-12] MEDS: Normal Saline Flush 10 ML SYR IVP (09:35)
[2022-06-12 09:49] LABS: HCT 29.4 % (40.0-50.0); MCH 22.9 pg (27.0-33.0); MCHC 30.6 % (32.0-36.0); MCV 75 fL (80-95); MPV 8.3 fL (8.0-11.0); RBC 3.93 10^6/uL (4.36-5.78); RDW 15.5 % (11.8-14.1); RDW-SD 42.5 fL
[2022-06-12 10:08] LABS: Absolute Eosinophil Count 0.29 10^3/uL (0.0-0.7); Absolute Monocyte Count 1.14 10^3/uL (0.1-0.8); Absolute Neutrophil Count 9.87 10^3/uL (1.2-6.7); Atypical Lymphocytes % 4; Diff Comment Manual Differential
[2022-06-12 10:09] LABS: Hypochromasia 2+; Microcytosis 2+
[2022-06-12 10:12] LABS: Platelet Count 904 10^3/uL (130-400)
[2022-06-12 10:13] LABS: Iron 14 ug/dL (65-175); Total Iron Binding Capacity 319 ug/dL (250-450); Transferrin Sat 4 % (20-55)
[2022-06-12 10:22] LABS: ALT 30 U/L (16-63); AST 48 U/L (15-37); Albumin 2.5 g/dL (3.4-5.0); Alkaline Phosphatase 286 U/L (46-116); Anion Gap 7.8 mmol/L (3-11); BUN 14 mg/dL (7-18); Bilirubin, Total 0.3 mg/dL (0.2-1.0); CO2 27.2 mmol/L (21.0-32.0); Calcium 9.8 mg/dL (8.5-10.1); Chloride 99 mmol/L (98-107); Estimated GFR 75.61 (mL/min/1.73m2); Ferritin 70 ng/mL (26-388); Glucose 97 mg/dL (74-106); Sodium 134 mmol/L (136-145); Total Protein 7.5 g/dL (6.4-8.2)
[2022-06-12 10:23] LABS: Folate > 20.0 ng/mL (8.6-20.0)
[2022-06-15 13:27] LABS: CA 19-9 5990 U/mL (<35)
== END 2022-06-12 23:59 | disposition home or self-care (01) ==
LOC: INF 01:09
PROVIDERS: PCP Student in an Organized Health Care Education/Training Program; Visit Provider Internal Medicine Hematology & Oncology
DX: C24.1 Malignant neoplasm of ampulla of Vater (principal); Z45.2 Encounter for adjustment and management of vascular access device
CPT/HCPCS: 36591; 80053; 82728; 82746; 83540; 83550; 85025; 86301

== ENCOUNTER 2022-06-14 15:34 | Inpatient (IN) | payer MEDICARE, SELFPAY ==
[2022-06-14] VITALS (48 sets, daily range): BP systolic 107–142; BP diastolic 59–74; PULSE 78–105; RESP 11–27; TEMP 36.7–36.8; O2SAT 87–97
--- NOTE | 2022-06-14 15:30 | RT.EKG_ITS ---
APPROVED REPORT Exam: Resting ECG Reason for Exam: sob Patient Location: E HR:103 bpm ECG Measurements Heart Rate 103 AXIS [place] 162 P 44 QRSd 76 QRS -18 QT 321 T 151 QTc 423 Conclusion Sinus tachycardia...rate> 99 Atrial premature complex...SV complex w/ short R-R interval Probable LVH with secondary repol abnrm...multiple LVH criteria no stemi
--- NOTE | 2022-06-14 15:45 | DI.CT_ITS ---
Exam(s) CT CHEST PE CTA EXAM: CT CHEST PE CTA CLINICAL HISTORY: L sided chest pain, stage 4 liver CA, port in plac. TECHNIQUE: Imaging Protocol: Axial CT angiography was performed with multi-slice acquisition and mu lti-planar reconstructions as well as axial, coronal and sagittal MIP reconstructions. CONTRAST MATERIAL: Intravenous: Omnipaque 350 Contrast volume:100 ml COMPARISON: CR XR PORTABLE CHEST AP from 04/15/[address] ABDOMEN PELVIS W from 04/20/2022 FINDINGS: Pulmonary Arteries: No evidence of filling defect to suggest pulmonary emboli. Tracheobronchial tree: Bronchial wall thickening in the lung bases. Mild mucous plugging. Mediastinum and [place]: No dominant adenopathy or fluid collection. Pulmonary parenchyma: Basilar atelectasis versus infiltrates.. Small bilateral pulmonary nodules, co nsistent with metastases. Pleura: Small bilateral pleural effusions, right greater than left. Heart: The heart is mildly dilated. coronary artery calcifications are seen. Aorta: Ascending aorta measures 4 cm. No dissection.. Aortic valve calcification. No dissection. Upper abdomen: Hiatal hernia. Multiple surgical clips in the upper abdomen. Liver metastases. Bili manisha air. Large parapelvic cyst left kidney. Bones: Chronic appearing midthoracic compression fractures. No visible lytic or blastic lesion.. Tubes, Catheters, and Lines: Port over left upper chest wall. IMPRESSION: No evidence of pulmonary embolism. Multiple bilateral small pulmonary nodules consistent with metasta ses. Mild lower lobe mucous plugging. Basilar atelectasis versus infiltrates.. RADIATION DOSE DELIVERED: 471.15mGy.cm Total DLP DATA REPOSITORY: All CT scans at this facility are submitted to the National Radiology Data Registry (NRDR) Dose Index Registry (DIR) with the [employer] ([employer]). RADIATION OPTIMIZATION: All CT scans at this facility use at least one of these dose optimization te chniques: automated exposure control; mA and/or kV adjustment per patient size (includes targeted exa ms where dose is matched to clinical indication); or iterative reconstruction.
--- NOTE | 2022-06-14 15:56 | ED.GENADUL_ITS ---
Discharge Plan Disposition Patient Disposition: [facility] INPATIENT Condition: Serious Discharge Details Chief Complaint: Chest Pain Clinical Impression: Dyspnea, CHF (congestive heart failure), Elevated troponin Primary Care Provider: Jessica Richard ED Provider: Juan J Georges Home Meds and New Rx's Prescriptions: No Action multivitamin 1 EACH tablet 1 ea PO DAILY aspirin 325 MG tablet 325 mg PO DAILY Label Comments: takes intermittently [id number]-[id number]-cxj C-Mn [Glucosamine 1500 Complex] 1 EACH capsule 1 ea PO DAILY pravastatin 40 mg tablet 80 mg PO DAILY Qty: 180 3RF Rx Instructions: prevent cardiovascular events hydromorphone 2 mg tablet 2 mg PO Q4H Rx Instructions: 05/31/22 take 1-2 tabs every 4 hr prn for pain for up to 7 days finasteride 5 mg tablet 5 mg PO HS Qty: 90 4RF tamsulosin 0.4 mg capsule 0.8 mg PO HS Qty: 180 4RF ascorbic acid (vitamin C) [Vitamin C] 500 MG tablet 500 mg PO DAILY vitamin C69-tqkhc acid 1 EACH tablet 1 ea PO DAILY ibuprofen 600 MG tablet 600 mg PO TID PRNQty: 30 0RF Medical Decision Making This is a 82-year-old gentleman with past medical history of hyperlipidemia, metastatic liver cancer who had a port placed 2 weeks ago, first chemotherapy on Wednesday. I was able to review the notes from his infusion it would appear as though he received an infusion of Gemzar/Cisplatin/Monoferric for a primary diagnosis of adenocarcinoma of the ampulla of Jay. Clinically he appears nontoxic, slightly hypertensive and pulse of 104. O2 sat 97% on room air. He reports left-sided chest pain that began after they accessed his port on Wednesday, difficult to tell whether this is where his pain is coming from or this is purely coincidental. His port was accessed without difficulty and appears uninfected. Plan is to provide a full dose aspirin, obtain pain cardiac work-up including CTA of the chest. Laboratory values reveal a white blood cell count of 16.64 hemoglobin 8.8 hematocrit 27.5, platelet count 765. Patient denies any bright red blood in his stool or black tarry stool. INR 1.1. Sodium 129 potassium 4.1 creatinine 1.2 with a GFR of 60.75 magnesium 1.5. AST 374 ALT 117 alk phosphatase 275. BNP elevated at 2571. Troponin 72. COVID-negative Patient with multiple laboratory abnormalities. Patient with a BNP of 2571 although no acute dyspnea, clinical signs of significant CHF, will not reflexively diurese. Troponin is slightly elevated at 72, question if this could be secondary to demand. He denies any active chest pain. Question also if he could have had a cardiac event 2 days ago when the pain began. CTA findings below, no PE. 82-year-old gentleman with stage IV liver cancer, presenting for chest pain and shortness of breath. We discussed his numerous laboratory abnormalities. Patient, , son, would all prefer to be admitted to our facility if at all possible. Delta troponin pending. Case discussed with Dr. Ferrara for potential admission who will personally come to the ER to evaluate the patient. During the evaluation of Dr. Ferrara I was notified by the lab that the patient had a troponin of 554, concern for NSTEMI. I personally let Dr. Ferrara know of the elevated troponin. Please see the admission note, Dr. Ferrara is agreeable to admission to our facility, ICU status. Dr. Ferrara performed a rectal exam, positive heme, will not pursue heparin. This documentation was generated using [employer] dictation system, please disregard any oddities of phrase or misspellings. Medical Records Medical records reviewed: Yes I reviewed the patient's medical records. Imaging Data Radiologic Study: Attestation: I personally reviewed and interpreted this imaging study as follows: Imaging: CT Scan Radiologist's impression: PROCEDURE INFORMATION: Exam: CTA Chest With Contrast Exam date and time: 06/14/2022 5:51 PM Age: 82 years old Clinical indication: Other: L sided chest pain, stage 4 liver CA, port in plac TECHNIQUE: Imaging protocol: Computed tomographic angiography of the chest with contrast. 3D rendering (Not supervised by radiologist): MIP and/or 3D reconstructed images were created by the technologist. Contrast material: OMNIPAQUE 350; Contrast volume: 100 ml; Contrast route: INTRAVENOUS (IV); COMPARISON: CT CHEST PE CTA 04/15/2022 11:30 AM FINDINGS: Pulmonary arteries: The pulmonary arteries enhance appropriately with no evidence of pulmonary embolism. Aorta: Mild aortic ectasia/tortuosity and calcific atherosclerosis. 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 No dissection. No mediastinal hematoma. Thyroid: Suspected 14 mm low-density nodule in the right thyroid lobe lower pole is unchanged and does not require further assessment based on current consensus criteria. Lungs: Bilateral bronchial wall thickening suggesting changes of bronchitis or bronchial edema. No bronchiectasis. There are few perip heral subsegmental bronchial occlusions in the lung bases suggesting mucous plugging/secretions versus small volume aspirated content. Multifocal bandlike alveolar opacities in both lung bases consistent with atelectasis. Elements of peripheral consolidation in the posterior left lung base could represent atelectasis or pneumonia. No cavitation/abscess. There are multiple bilateral noncalcified pulmonary nodules in the upper lobes and right middle lobe which are increased in size since 04/15/2022, concerning for progression of pulmonary metastases. Largest is in the left apex measuring 6 mm diameter. Pleural spaces: Small right and minimal left dependent layering pleural effusions. No pneumothorax. Heart: Heart size normal. There is moderate calcification of the aortic valve. Moderate coronary artery calcification. Minimal pericardial fluid without jerri pericardial effusion. Lymph nodes: No supraclavicular or axillary adenopathy. No mediastinal or hilar adenopathy. Liver: Extensive hepatic mass lesions are increased in size/number since 04/15/2022, concerning for progression of malignancy. Gallbladder and bile ducts: Moderate pneumobilia in the left hepatic lobe is new. Dilated common bile duct is partially visualized and not significantly changed in caliber. Kidneys and ureters: Peripelvic cysts in the left kidney again noted. Stomach and bowel: Small hiatal hernia with postoperative changes at the GE junction, assessment of this region limited by motion artifact, grossly unchanged. Bones/joints: No acute osseous abnormalities are identified. Chronic moderate anterior wedging T7 and T8 unchanged. Soft tissues: Mild bilateral symmetrical gynecomastia noted. Question mild generalized soft tissue stranding/edema in the peripheral subcutaneous tissues suggesting mild volume overload or anasarca. IMPRESSION: 1. No evidence of pulmonary embolism or aortic dissection. 2. Multiple bilateral noncalcified pulmonary nodules consistent with pulmonary metastases, mildly increased in size since 04/15/2022, suggesting progression of metastatic malignancy. 3. The mass lesions in the liver are increased in size as well, concerning for progression of malignancy. 4. Small dependent pleural effusions bilaterally with moderate bandlike atelectasis in both lung bases. Small zone of consolidation in the posterior left lung base could represent atelectasis or pneumonia. 5. Bilateral bronchial wall thickening is increased, suggesting changes of bronchitis or bronchial edema. A few subsegmental bronchial occlusions in the dependent lung bases could relate to mucous plugging/secretions or possibly small volume aspirated content. 6. Moderate pneumobilia in the left hepatic lobe is new. 7. Additional nonemergent findings detailed above. Lab Data Lab results reviewed: Yes I reviewed the patient's lab results. Labs: Laboratory Tests Range/Units 06/14/22 06/14/22 06/14/22 16:00 16:00 16:00 WBC (4.4-10.8) 10^3/uL 16.64 H RBC (4.36-5.78) 10^6/uL 3.76 L Hgb (13.5-17.5) g/dL 8.8 L Hct (40.0-50.0) % 27.5 L MCV (80-95) fL 73 L MCH (27.0-33.0) pg 23.4 L MCHC (32.0-36.0) % 32.0 RDW (11.8-14.1) % 15.7 H Plt Count (130-400) 10^3/uL 765 H* MPV (8.0-11.0) fL 8.6 Immature Gran % 0.5 Neutrophils % 92.9 Lymphocytes % 3.6 Monocytes % 2.8 Eosinophils % 0.1 Basophils % 0.1 Nucleated RBC % (0.0-0.3) % 0.0 Absolute Neutrophils (1.2-6.7) 10^3/uL 15.46 H Absolute Lymphocytes (1.2-3.4) 10^3/uL 0.60 L Absolute Monocytes (0.1-0.8) 10^3/uL 0.47 Absolute Eosinophils (0.0-0.7) 10^3/uL 0.02 Absolute Basophils (0.0-0.2) 10^3/uL 0.02 RBC Morphology See Below Microcytosis 3+ PT (9.3-11.0) sec 10.7 INR (0.9-1.1) 1.1 APTT (21.0-27.5) sec 25.3 Sodium (136-145) mmol/L 129 L Potassium (3.5-5.1) mmol/L 4.1 Chloride (98-107) mmol/L 95 L Carbon Dioxide (21.0-32.0) mmol/L 23.7 Anion Gap (3-11) mmol/L 10.3 BUN (7-18) mg/dL 29 H Creatinine (0.70-1.30) mg/dL 1.2 Est GFR (CKD-EPI 2020) (mL/min/1.73m2) 60.75 Glucose (74-106) mg/dL 188 H Calcium (8.5-10.1) mg/dL 8.9 Magnesium (1.8-2.4) mg/dL 1.5 L Total Bilirubin (0.2-1.0) mg/dL 0.3 AST (15-37) U/L 374 H ALT (16-63) U/L 117 H Alkaline Phosphatase (46-116) U/L 275 H Troponin I (<or=60) ng/L 72 H* NT-Pro-B Natriuret Pep (<300) pg/mL 2571 H Total Protein (6.4-8.2) g/dL 6.8 Albumin (3.4-5.0) g/dL 2.3 L COVID-19 Source SARS-CoV-2 (PCR) (Negative) Range/Units 06/14/22 06/14/22 16:11 19:13 WBC (4.4-10.8) 10^3/uL RBC (4.36-5.78) 10^6/uL Hgb (13.5-17.5) g/dL Hct (40.0-50.0) % MCV (80-95) fL MCH (27.0-33.0) pg MCHC (32.0-36.0) % RDW (11.8-14.1) % Plt Count (130-400) 10^3/uL MPV (8.0-11.0) fL Immature Gran % Neutrophils % Lymphocytes % Monocytes % Eosinophils % Basophils % Nucleated RBC % (0.0-0.3) % Absolute Neutrophils (1.2-6.7) 10^3/uL Absolute Lymphocytes (1.2-3.4) 10^3/uL Absolute Monocytes (0.1-0.8) 10^3/uL Absolute Eosinophils (0.0-0.7) 10^3/uL Absolute Basophils (0.0-0.2) 10^3/uL RBC Morphology Microcytosis PT (9.3-11.0) sec INR (0.9-1.1) APTT (21.0-27.5) sec Sodium (136-145) mmol/L Potassium (3.5-5.1) mmol/L Chloride (98-107) mmol/L Carbon Dioxide (21.0-32.0) mmol/L Anion Gap (3-11) mmol/L BUN (7-18) mg/dL Creatinine (0.70-1.30) mg/dL Est GFR (CKD-EPI 2020) (mL/min/1.73m2) Glucose (74-106) mg/dL Calcium (8.5-10.1) mg/dL Magnesium (1.8-2.4) mg/dL Total Bilirubin (0.2-1.0) mg/dL AST (15-37) U/L ALT (16-63) U/L Alkaline Phosphatase (46-116) U/L Troponin I (<or=60) ng/L 554 H* NT-Pro-B Natriuret Pep (<300) pg/mL Total Protein (6.4-8.2) g/dL Albumin (3.4-5.0) g/dL COVID-19 Source Nasal/Nares SARS-CoV-2 (PCR) (Negative) Negative ECG Data Attestation: I personally reviewed and interpreted this ECG (s) as follows: Interpretation: Sinus tachycardia, ventricular of 103. No STEMI. HPI General Mode of arrival: ambulatory . Date/Time Provider Initiated Documentation: 06/14/22 15:39 . Limitations to Documentation: no limitations . Information obtained by: patient and family . HPI Narrative: This is an 82-year-old gentleman, pathological history of metastatic liver and pancreatic CA, hyperlipidemia, who had a port placed 2 weeks ago, first round of chemo just 2 days ago, presenting to the ER for what he describes as acute on ch ronic shortness of breath for at least a few weeks as well as left-sided chest pain, he reports the chest pain began after accessing the port on Wednesday for the first time. He denies recent illness or trauma. He denies headache, fever, productive cough. He does admit to a dry cough. He denies any abdominal pain, back pain, nausea, vomiting, change in bowel or bladder function, pain or swelling in his legs. Patient denies any cardiac history. Patient has taken his regular medications today. Related Data Home Medications Medication Instructions Recorded Confirmed aspirin 325 mg tablet 325 mg PO DAILY 01/20/13 06/14/22 multivitamin 1 ea PO DAILY 01/20/13 06/14/22 ascorbic acid (vitamin C) 500 mg 500 mg PO DAILY 05/04/14 06/14/22 tablet (Vitamin C) vitamin B12 500 mcg-folic acid 400 1 ea PO DAILY 05/04/14 06/14/22 mcg tablet [id number]-vkwgxbxsu-[id number] C-Mn 500 1 ea PO DAILY 05/28/15 06/14/22 mg-400 mg capsule (Glucosamine 1) ibuprofen 600 mg tablet 600 mg PO TID PRN #30 tabs 09/20/17 06/14/22 pravastatin 40 mg tablet 80 mg PO DAILY #180 tabs 05/26/22 06/14/22 hydromorphone 2 mg tablet 2 mg PO Q4H 06/04/22 06/14/22 finasteride 5 mg tablet 5 mg PO HS #90 tab-caps 06/12/22 06/14/22 tamsulosin 0.4 mg capsule 0.8 mg PO HS #180 tab-caps 06/12/22 06/14/22 Previous Rx's Medication Instructions Recorded ibuprofen 600 mg tablet 600 mg PO TID PRN #30 tabs 09/20/17 pravastatin 40 mg tablet 80 mg PO DAILY #180 tabs 05/26/22 finasteride 5 mg tablet 5 mg PO HS #90 tab-caps 06/12/22 tamsulosin 0.4 mg capsule 0.8 mg PO HS #180 tab-caps 06/12/22 Allergies Allergy/AdvReac Type Severity Reaction Status Date / Time Penicillins Allergy Intermediate blisters/hi Verified 06/14/22 15:54 ves oxycodone Allergy Mild BLOTCHES, Verified 06/14/22 15:54 SWELLING diphtheria, pertussis, AdvReac Intermediate full-arm Verified 06/14/22 15:54 tetanus vacc swelling and weakness - lasting several weeks. General Stated Complaint: Chest Pain ASHLEY: 2 Review of Systems Constitutional Constitutional: Denies fatigue, Denies fever(s), Denies headache(s) and Denies weakness Eyes Eyes: Denies change in vision ENT Ears, Nose, Mouth, and Throat: Denies headache(s) and Denies neck pain Cardiovascular Cardiovascular: Reports chest pain and Reports dyspnea Respiratory Respiratory: Reports cough and Reports dyspnea Gastrointestinal Gastrointestinal: Denies abdominal pain, Denies nausea and Denies vomiting Genitourinary Genitourinary: Denies dysuria Musculoskeletal Musculoskeletal: Denies back pain, Denies neck pain, Denies numbness and Denies tingling Integumentary/Breasts Skin/Breast: Denies rash Neurologic Neurologic: Denies headache(s), Denies numbness, Denies tingling and Denies weakness Endocrine Endocrine: Denies fatigue Hematologic/Lymphatic Hematologic/Lymphatic: Denies easy bleeding and Denies easy bruising [facility] All Active Problems (Updated 06/14/22 @ 20:51 by GUILLERMO George) Dyspnea (Acute) CHF (congestive heart failure) (Chronic) Elevated troponin (Acute) NSTEMI (non-ST elevated myocardial infarction) (Acute) 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 [ ] may need help to help , Elidia Biliary tract cancer (Acute) 05/27/22- [facility] [place] [place] w/ bx of periampullary mass which is adenocarcinoma , and one covered metal stent placed into the common bile duct across the stricture with good flow of bile. Duodenal anomaly (Acute) Liver lesion (Acute) Lesions, suspicious for metastatic dz Weight loss (Acute) Belching (Acute) relieves left side/UQ pressure RUQ fullness (Acute) Left upper quadrant abdominal mass (Acute) Parapelvic renal cyst (Acute) Dysmetabolic syndrome X (Acute 04/22/12) IMPAIRED FBS 111-104; WEIGHT Abnormal blood sugar (Chronic 06/19/14) Hx abnormal fasting blood sugar Stiffness of finger joint (Acute) 3rd digit, B/L, stiffness after lengthy gripping (mostly driving). I'm concerned 2' heavy schedule carrying/lifting with MS. Chronic pancreatitis (Acute) 10/12/19-[facility] Gastroenterology. 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 Dr Stover follows 11/25/17 BCC nodular and infiltrative left frontal parietal scalp w/ removal Dr Stover 11/25/17 Excision of recurrent BCCA left frontal parietal scalp Carpal tunnel syndrome of left wrist (Acute 05/22/15) Carpal tunnel syndrome of right wrist (Acute 05/12/16) BPH w/o urinary obs/LUTS (Acute 09/13/99) LUTS, DR SANCHEZ YEARLY Hip pain, right (Acute 09/30/17) Rupesh Garcia PT with HEP for ITB and hamstring streching Hyperlipidemia (Acute 04/22/12) GOAL LDL<130; (OPTIMAL <100); RISK CALCULATED 16% IN 2001; LDL AT GOAL, LOW HDL Overweight (Acute 04/22/12) goal 185 (last <2002) 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 Successfully contlld GERD per pt report. Hyperlipidemia Surgical History H/O shoulder surgery Left S/P endoscopy 05/27/[address] [facility] [place]. biopsy done Family History Mother Diabetes Father , CT at age 90. Diabetes Heart disease Sister Age: 82 No problems noted. Brother Age: 79 Diabetes Heart disease Social History Smoking/Tobacco Use Status: Former Tobacco Use Smoking risk assessment performed?: Yes Alcohol Intake: never Drug use: Never Substance use type: does not use Do you feel safe at home: Yes Do you feel safe in your relationship?: Yes Exam Const General: cooperative, comfortable and no acute distress Orientation: alert, awake and oriented x3 HENMT Head: normal to inspection, normocephalic and atraumatic Face and sinus: normal facial exam Mouth: moist mucous membranes Eyes General: appearance normal, both eyes and all related structures Conjunctivae: conjunctivae normal Neck Neck: normal visual inspection, full ROM, no meningeal signs, trachea midline and supple Chest Chest: tenderness (Left-sided) Other: Port in left upper chest. Able to access without difficulty. No evidence of warmth or erythema. No signs of secondary infection. Diffuse mild discomfort. Resp Effort & Inspection: normal respiratory effort and able to speak in complete sentences Auscultation: diminished lung sounds bilaterally in the lower lung haney Cardio Rate: tachycardic (102) Rhythm: regular rhythm GI Inspection: normal to inspection Palpation: soft, not firm, no guarding, no pulsatile masses and nontender Auscultation: normal bowel sounds Back/Spine/Pelvis Back: No back tenderness Skin General skin exam: no rashes or lesions noted Neuro General: patient alert, patient awake, patient oriented x3, moves all extremities and no focal motor deficits Cognition: normal cognition Speech: speech normal Gait: normal gait Motor: muscle tone normal throughout Sensory Exam: no sensory deficits noted Extrem General: normal to inspection, full ROM, capillary refill normal, no calf tenderness and pedal edema (Trace nonpitting bilaterally) Psych Appearance: grossly normal Mental Status: mental status grossly normal Course Vital Signs Vital signs: Vital Signs Temperature 36.7 C 06/14/22 15:44 Pulse 104 H 06/14/22 15:44 Respiratory Rate 16 06/14/22 15:44 Blood Pressure 142/63 H 06/14/22 15:44 Pulse Oximetry 97 06/14/22 15:44 Temperature 36.7 C 06/14/22 15:44 Temperature Source Skin 06/14/22 15:44 Pulse 104 H 06/14/22 15:44 Respiratory Rate 25 H 06/14/22 15:49 Respiratory Effort Incrsd Work of Breathing 06/14/22 15:49 Respiratory Pattern Tachypnea 06/14/22 15:49 Blood Pressure 142/63 H 06/14/22 15:44 Pulse Oximetry 97 06/14/22 15:44 Oxygen Delivery Method Room Air 06/14/22 15:44 Oxygen Flow Rate 0 06/14/22 15:44 Critical Care Time Critical Care Time Critical Care Time: Yes Total Critical Care Time: 45 Attestation: Upon my evaluation, this patient had a high probability of clinically significant, life-threatening deterioration due to their current medical conditions, which required my direct attention, intervention, and personal management. I have personally provided greater than 30 minutes of critical care time exclusive of the time spend on separately billable procedures. Time includes obtaining a history, examining the patient, pulse oximetry, review of laboratory data, radiology results, discussion with consultants, arranging urgent treatment with development of a management plan, evaluation of patient's response to treatment, and monitoring for potential decompensation. Interventions were performed as documented above.
[2022-06-14] MEDS: Normal Saline 1,000 ML 125 ML IV (16:00)
[2022-06-14] MEDS: Aspirin 81 MG CHEW 324 MG CH (16:05)
[2022-06-14 16:24] LABS: Source Nasal/Nares
[2022-06-14 16:37] LABS: Abs Immature Grans 0.08 10^3/uL (0.0-0.06); Absolute Eosinophil Count 0.02 10^3/uL (0.0-0.7); Absolute Monocyte Count 0.47 10^3/uL (0.1-0.8); Absolute Neutrophil Count 15.46 10^3/uL (1.2-6.7); Basophils % 0.1; Eosinophils % 0.1; HCT 27.5 % (40.0-50.0); HGB 8.8 g/dL (13.5-17.5); Immature Grans % 0.5; Lymphocytes % 3.6; MCH 23.4 pg (27.0-33.0); MCV 73 fL (80-95); MPV 8.6 fL (8.0-11.0); Monocytes % 2.8; Neutrophils % 92.9; RBC 3.76 10^6/uL (4.36-5.78); RDW 15.7 % (11.8-14.1); RDW-SD 41.1 fL; WBC 16.64 10^3/uL (4.4-10.8)
[2022-06-14 16:41] LABS: Absolute Basophil Count 0.02 10^3/uL (0.0-0.2)
[2022-06-14 16:48] LABS: Platelet Count 765 10^3/uL (130-400)
[2022-06-14 16:49] LABS: INR 1.1 (0.9-1.1); PTT Activated 25.3 sec (21.0-27.5); Prothrombin Time 10.7 sec (9.3-11.0)
[2022-06-14 17:00] LABS: COVID-19 PCR Negative (Negative)
[2022-06-14 17:01] LABS: ALT 117 U/L (16-63); AST 374 U/L (15-37); Albumin 2.3 g/dL (3.4-5.0); Alkaline Phosphatase 275 U/L (46-116); Anion Gap 10.3 mmol/L (3-11); BUN 29 mg/dL (7-18); Bilirubin, Total 0.3 mg/dL (0.2-1.0); CO2 23.7 mmol/L (21.0-32.0); CREATININE 1.2 mg/dL (0.70-1.30); Calcium 8.9 mg/dL (8.5-10.1); Chloride 95 mmol/L (98-107); Estimated GFR 60.75 (mL/min/1.73m2); Glucose 188 mg/dL (74-106); Magnesium 1.5 mg/dL (1.8-2.4); NT-proBNP 2571 pg/mL (<300); Potassium 4.1 mmol/L (3.5-5.1); Sodium 129 mmol/L (136-145); Total Protein 6.8 g/dL (6.4-8.2)
[2022-06-14 17:03] LABS: Troponin I 72 ng/L (<or=60)
[2022-06-14] MEDS: Omnipaque 350 MG/ML 100 ML BTL IJ (18:01)
[2022-06-14] MEDS: Normal Saline Flush 10 ML SYR IVP ×2 (18:02→22:33)
[2022-06-14] MEDS: MAGNESIUM SULFATE 1 GM/100 ML BAG IVPB (18:16)
--- NOTE | 2022-06-14 18:46 | DI.VRAD_ITS ---
PROCEDURE INFORMATION: Exam: CTA Chest With Contrast Exam date and time: 06/14/2022 5:51 PM Age: 82 years old Clinical indication: Other: L sided chest pain, stage 4 liver CA, port in plac TECHNIQUE: Imaging protocol: Computed tomographic angiography of the chest with contrast. 3D rendering (Not supervised by radiologist): MIP and/or 3D reconstructed images were created by the technologist. Contrast material: OMNIPAQUE 350; Contrast volume: 100 ml; Contrast route: INTRAVENOUS (IV); COMPARISON: CT CHEST PE CTA 04/15/2022 11:30 AM FINDINGS: Pulmonary arteries: The pulmonary arteries enhance appropriately with no evidence of pulmonary embolism. Aorta: Mild aortic ectasia/tortuosity and calcific atherosclerosis. 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 No dissection. No mediastinal hematoma. Thyroid: Suspected 14 mm low-density nodule in the right thyroid lobe lower pole is unchanged and does not require further assessment based on current consensus criteria. Lungs: Bilateral bronchial wall thickening suggesting changes of bronchitis or bronchial edema. No bronchiectasis. There are few peripheral subsegmental bronchial occlusions in the lung bases suggesting mucous plugging/secretions versus small volume aspirated content. Multifocal bandlike alveolar opacities in both lung bases consistent with atelectasis. Elements of peripheral consolidation in the posterior left lung base could represent atelectasis or pneumonia. No cavitation/abscess. There are multiple bilateral noncalcified pulmonary nodules in the upper lobes and right middle lobe which are increased in size since 04/15/2022, concerning for progression of pulmonary metastases. Largest is in the left apex measuring 6 mm diameter. Pleural spaces: Small right and minimal left dependent layering pleural effusions. No pneumothorax. Heart: Heart size normal. There is moderate calcification of the aortic valve. Moderate coronary artery calcification. Minimal pericardial fluid without jerri pericardial effusion. Lymph nodes: No supraclavicular or axillary adenopathy. No mediastinal or hilar adenopathy. Liver: Extensive hepatic mass lesions are increased in size/number since 04/15/2022, concerning for progression of malignancy. Gallbladder and bile ducts: Moderate pneumobilia in the left hepatic lobe is new. Dilated common bile duct is partially visualized and not significantly changed in caliber. Kidneys and ureters: Peripelvic cysts in the left kidney again noted. Stomach and bowel: Small hiatal hernia with postoperative changes at the GE junction, assessment of this region limited by motion artifact, grossly unchanged. Bones/joints: No acute osseous abnormalities are identified. Chronic moderate anterior wedging T7 and T8 unchanged. Soft tissues: Mild bilateral symmetrical gynecomastia noted. Question mild generalized soft tissue stranding/edema in the peripheral subcutaneous tissues suggesting mild volume overload or anasarca. IMPRESSION: 1. No evidence of pulmonary embolism or aortic dissection. 2. Multiple bilateral noncalcified pulmonary nodules consistent with pulmonary metastases, mildly increased in size since 04/15/2022, suggesting progression of metastatic malignancy. 3. The mass lesions in the liver are increased in size as well, concerning for progression of malignancy. 4. Small dependent pleural effusions bilaterally with moderate bandlike atelectasis in both lung bases. Small zone of consolidation in the posterior left lung base could represent atelectasis or pneumonia. 5. Bilateral bronchial wall thickening is increased, suggesting changes of bronchitis or bronchial edema. A few subsegmental bronchial occlusions in the dependent lung bases could relate to mucous plugging/secretions or possibly small volume aspirated content. 6. Moderate pneumobilia in the left hepatic lobe is new. 7. Additional nonemergent findings detailed above. Dictated and Authenticated by: Genaro Ashley MD. Ordering:AALIYAH Arita MD
[2022-06-14 18:58] LABS: Diff Comment RBC Morph Reviewed; Microcytosis 3+
[2022-06-14 19:48] LABS: Troponin I 554 ng/L (<or=60)
--- NOTE | 2022-06-14 20:07 | HPE_ITS ---
Date of service: 06/14/22 Time of Service: 20:07 Assessment and Plan Assessment and plan (1) NSTEMI (non-ST elevated myocardial infarction): Status: Acute Assessment and plan: Apparent NSTEMI. By story would have seemed to have initial event 2 days ROUGH CARPENTER but rising troponin profile here indicates apparent ongoing ischemia, albeit evidently asymptomatic. Treatment here is complicated by apparent GI bleeding. In meantime SOB is likely multifactorial, though anemia may be playing a larger role. I am not sure how to understand the elevated BNP as clinically the patient does not appear to be volume overloaded and the CT findings (viz pleural effusions) are minimal. 1. ACS: Not a candidate for further antiplatelet or anticoagulation due to apparent GI bleeding. Will trend out the troponins, and treat any recurrent pain with either NTG or opiates. Discussed possibility of cardiac cath but he is not interested in this at present. 2. Anemia/GI bleed: chech iron studies, trend HCT, consider transfusion, hold ASA, PPI 3. SOB: follow clinically, hold on any diuresis at present 4. Elevated TAs due to underlying metastatic disease 5. Reviewed ADs in detail, requests DNR. 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 Reports he had approx one hour of left upper CP at that time (ache, pressure) with possibly some radiation to left shoulder. Has had intermittent CP since, but generally resolves with burping or sitting upright. In meantime he has had more or less chronic but somewhat progressive GRIFFITHS. No orthopnea or pedal edema. In ER findings of note for white count 16 (close to baseline), Hct 27 (42 2018, 34 05/04), with dropping MCV (now 73) and elevated platelet 765. Mg 1.5, Na 129. EKG shows more or less diffuse ST depressions, new since 05/04. CT chest and abdomen shows known liver and lung mets, new pneumobilia (NB, s/p recent biliary stent) and minimal bilateral pleural effusions. Repeat troponin 524. Has received ASA 325 and MgSO4 IV. I was asked to evaluate for admission. 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 Duodenal anomaly (Acute) Liver lesion (Acute) Lesions, suspicious for metastatic dz Weight loss (Acute) Belching (Acute) relieves left side/UQ pressure RUQ fullness (Acute) Left upper quadrant abdominal mass (Acute) Parapelvic renal cyst (Acute) Dysmetabolic syndrome X (Acute 04/22/12) IMPAIRED FBS 111-104; WEIGHT Abnormal blood sugar (Chronic 06/19/14) Hx abnormal fasting blood sugar Stiffness of finger joint (Acute) 3rd digit, B/L, stiffness after lengthy gripping (mostly driving). I'm concerned 2' heavy schedule carrying/lifting with MS. Chronic pancreatitis (Acute) 10/12/19-[facility] Gastroenterology. 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 Dr Stover follows 11/25/17 BCC nodular and infiltrative left frontal parietal scalp w/ removal Dr Stover 11/25/17 Excision of recurrent BCCA left frontal parietal scalp Carpal tunnel syndrome of left wrist (Acute 05/22/15) Carpal tunnel syndrome of right wrist (Acute 05/12/16) BPH w/o urinary obs/LUTS (Acute 09/13/99) LUTS, DR SANCHEZ YEARLY Hip pain, right (Acute 09/30/17) Rupesh Garcia PT with HEP for ITB and hamstring streching Hyperlipidemia (Acute 04/22/12) GOAL LDL<130; (OPTIMAL <100); RISK CALCULATED 16% IN 2001; LDL AT GOAL, LOW HDL Overweight (Acute 04/22/12) goal 185 (last <2002) 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 Successfully contlld GERD per pt report. Hyperlipidemia Surgical History H/O shoulder surgery Left S/P endoscopy [place]/27/22 [place] [facility] [place] Family History Mother Diabetes Father , DC at age 90. Diabetes Heart disease Sister Age: 82 No problems noted. Brother Age: 79 Diabetes Heart disease Social History Smoking/Tobacco Use Status: Former Tobacco Use Smoking risk assessment performed?: Yes Alcohol Intake: never Drug use: Never Substance use type: does not use Do you feel safe at home: Yes Do you feel safe in your relationship?: Yes Meds Allergies and Home Medications Allergies Allergy/AdvReac Type Severity Reaction Status Date / Time Penicillins Allergy Intermediate blisters/hi Verified 06/14/22 15:54 ves oxycodone Allergy Mild BLOTCHES, Verified 06/14/22 15:54 SWELLING diphtheria, pertussis, AdvReac Intermediate full-arm Verified 06/14/22 15:54 tetanus vacc swelling and weakness - lasting several weeks. Home Medications Medication Instructions Recorded Confirmed Type aspirin 325 mg tablet 325 mg PO DAILY 01/20/13 06/14/22 History multivitamin 1 ea PO DAILY 01/20/13 06/14/22 History ascorbic acid (vitamin C) 500 mg 500 mg PO DAILY 05/04/14 06/14/22 History tablet (Vitamin C) vitamin B12 500 mcg-folic acid 400 1 ea PO DAILY 05/04/14 06/14/22 History mcg tablet [id number]-ehjyuykev-ldn C-Mn 500 1 ea PO DAILY 05/28/15 06/14/22 History mg-400 mg capsule (Glucosamine 1) ibuprofen 600 mg tablet 600 mg PO TID PRN #30 tabs 09/20/17 06/14/22 Rx pravastatin 40 mg tablet 80 mg PO DAILY #180 tabs 05/26/22 06/14/22 Rx hydromorphone 2 mg tablet 2 mg PO Q4H 06/04/22 06/14/22 History finasteride 5 mg tablet 5 mg PO HS #90 tab-caps 06/12/22 06/14/22 Rx tamsulosin 0.4 mg capsule 0.8 mg PO HS #180 tab-caps 06/12/22 06/14/22 Rx Exam Narrative Exam Narrative: 115/66, 93, 36.7, 21, 96% RA. HEENT atraumatic; neck supple, cannot see JVP; lungs clear; heart RRR w/o MRG; abdomen protruberant, soft, liver palpable 6 cm below RCM, slightly tender; rectal stool is trace heme positive; extremities w/o edema; neuro Ox3, lucid, moves all 4s Results Labs Result diagrams: 06/14/22 16:00 06/14/22 16:00 Labs: Laboratory Results - last 24 hr 06/14/22 06/14/22 06/14/22 16:00 16:00 16:00 WBC 16.64 H RBC 3.76 L Hgb 8.8 L Hct 27.5 L MCV 73 L MCH 23.4 L MCHC 32.0 RDW 15.7 H Plt Count 765 H* MPV 8.6 Immature Gran % 0.5 Neutrophils % 92.9 Lymphocytes % 3.6 Monocytes % 2.8 Eosinophils % 0.1 Basophils % 0.1 Nucleated RBC % 0.0 Absolute Neutrophils 15.46 H Absolute Lymphocytes 0.60 L Absolute Monocytes 0.47 Absolute Eosinophils 0.02 Absolute Basophils 0.02 RBC Morphology See Below Microcytosis 3+ PT 10.7 INR 1.1 APTT 25.3 Sodium 129 L Potassium 4.1 Chloride 95 L Carbon Dioxide 23.7 Anion Gap 10.3 BUN 29 H Creatinine 1.2 Est GFR (CKD-EPI 2020) 60.75 Glucose 188 H Calcium 8.9 Magnesium 1.5 L Total Bilirubin 0.3 AST 374 H ALT 117 H Alkaline Phosphatase 275 H Troponin I 72 H* NT-Pro-B Natriuret Pep 2571 H Total Protein 6.8 Albumin 2.3 L COVID-19 Source SARS-CoV-2 (PCR) 06/14/22 06/14/22 16:11 19:13 WBC RBC Hgb Hct MCV MCH MCHC RDW Plt Count MPV Immature Gran % Neutrophils % Lymphocytes % Monocytes % Eosinophils % Basophils % Nucleated RBC % Absolute Neutrophils Absolute Lymphocytes Absolute Monocytes Absolute Eosinophils Absolute Basophils RBC Morphology Microcytosis PT INR APTT Sodium Potassium Chloride Carbon Dioxide Anion Gap BUN Creatinine Est GFR (CKD-EPI 2020) Glucose Calcium Magnesium Total Bilirubin AST ALT Alkaline Phosphatase Troponin I 554 H* NT-Pro-B Natriuret Pep Total Protein Albumin COVID-19 Source Nasal/Nares SARS-CoV-2 (PCR) Negative Last Vital Signs Temp 36.7 C 06/14/22 15:44 Pulse 91 H 06/14/22 16:46 Resp 21 06/14/22 19:20 BP 115/66 06/14/22 16:46 Pulse Ox 96 06/14/22 19:20
[2022-06-14] MEDS: Tamsulosin 0.4 MG CAPCR 0.8 MG PO (22:33)
[2022-06-14] MEDS: Pantoprazole 40 MG VIAL IVP (22:33)
[2022-06-14] MEDS: Finasteride 5 MG TAB PO (22:33)
[2022-06-14] MEDS: Simethicone 80 MG CHEW 160 MG PO (22:34)
[2022-06-14 22:41] LABS: Iron 371 ug/dL (65-175); Total Iron Binding Capacity 429 ug/dL (250-450); Transferrin Sat 86 % (20-55)
[2022-06-14 22:42] LABS: Troponin I 1587 ng/L (<or=60)
[2022-06-14 23:25] LABS: Ferritin 1405 ng/mL (26-388)
[2022-06-15] VITALS (53 sets, daily range): BP systolic 97–120; BP diastolic 54–68; PULSE 84–125; RESP 20–31; TEMP 36.7–37.8; O2SAT 89–98
--- NOTE | 2022-06-15 | DI.US_ITS ---
APPROVED REPORT EXAM: Comprehensive 2D, Doppler, and color-flow Echocardiogram Patient Location: In-Patient Room/Bed: [id number] [employer]oprocess Development Engineer: Brittany Montero RDCS (AE) Indications: NSTEMI, SOB Other Information Study Quality: Adequate. Technically limited study due to body habitus, inability to position patient exam done supine bedside. Conclusion Normal left ventricular wall thickness and chamber size. Estimated ejection fraction is 45 to 50%. There is mild global hypokinesis Normal right ventricular size and systolic function The left atrium is mildly dilated. The right atrium is normal in size Aortic valve is calcified and probably trileaflet with mild regurgitation. There is no aortic stenos is Mildly thickened mitral leaflets. Mild mitral regurgitation Normal tricuspid valve with mild regurgitation. 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 Left ventricular systolic function is mildly decreased. There is n ormal left ventricular wall thickness. There is global hypokinesis of the left ventricle. There is no ventricular septal defect visualized. LVEF is 45-50%. Right Ventricle The right ventricle is normal size. The right ventricular systolic function is normal. The RVSP is 48 .7 mmHg. Atria Left atrium is mildly dilated. The right atrium size is normal. The interatrial septum is intact with no evidence for an atrial septal defect. Aortic Valve Aortic valve is calcified. Aortic valve is probably trileaflet. There is no aortic valvular stenosis. Mild aortic regurgitation. Mitral Valve Mitral valve leaflets are mildly thickened. No evidence of mitral valve stenosis. Mild mitral regurgi tation. Tricuspid Valve The tricuspid valve is normal in structure. There is no tricuspid valve stenosis. Mild tricuspid regu rgitation. Pulmonic Valve The pulmonary valve is normal in structure. There is no pulmonic valvular stenosis. Mild pulmonic reg urgitation. Great Vessels The aortic root is normal in size. The ascending aorta is dilated.4.06 cm The IVC collapses <50% with inspiration. Pericardium There is no pericardial effusion. 2D Dimensions IVSD d PLAX 1.16 cm M: 0.6-1.2 LV Vol A2C d MOD 165.9 mL LVPW d PLAX 1.07 cm M: 0.6 - 1.2 LV Vol A4C d MOD 142.4 mL LVID d PLAX 4.77 cm M: 4.2 - 5.8 LA vol/ BSA A2C s A-L 22.3 mL/m2 LVDs 3.75 cm M: 2.5 - 4.0 LA vol/ BSA A4C s A-L 24.0 mL/m2 Ao Root d 3.46 cm M: 3.1 - 3.7 LA Vol/ BSA Biplane s A-L 23.4 mL/m2 RA Area A4C 13.13 cm2 LA Area A4C s MOD 16.60 cm2 RA Vol/ BSA A4C s A-L 14.5 mL/m2 LA Area A2C s MOD 15.77 cm2 Ao Asc Diam d 4.06 cm M: 2.6 - 3.4 LV EF A4C MOD 45.2 % LV EF Teichholz 42.4 % LV EF A2C MOD 45.2 % LVEF (Ambriz's) 45.21 % M: 52 - 72 LV EF Biplane MOD 45.2 % LV Volume 119.90 mL M: 62 - 150 SV 72.16 mL LV Volume Index 60.25 mL/m2 M: 34 - 74 SV Index 36.24 mL/m2 LV Vol Biplane MOD 159.6 mL FS 20.80 % M-Mode TAPSE 2.90 cm (M/F) >1.7 LV Diastology MV E' medial 0.081 (>0.07 m/s) E/A Ratio 1.0 LV E/e MED 11.25 (<14) MV E Vmax 0.92 (0.4-1.3 m/s) MV E' lateral 0.095 (>0.1 m/s) MV A Vmax 0.95 (0.4-1.3 m/s) LV E/e LAT 9.70 (<14) MV E/A Ratio 0.94 MV E/E' medial 11.26 MV E/E' lateral 9.71 Aortic Valve LVOT Area 3.56 cm2 AoV Area Vmax 1.65 cm2 LVOT Vmax 0.93 m/s AoV Area/ BSA (Vmax) 0.83 cm2/m2 LVOT Mean Jim. 0.64 m/s MOUNIKA Mean Jim. 1.52 cm2 LVOT Peak Grad 3.5 mmHg MOUNIKA Mean Jim. Index 0.77 cm2/m2 LVOT Mean Grad 1.9 mmHg AR DT 1917 msec LVOT VTI 0.182 m AR PHT 556 msec LVOT Diam s 2.10 cm AoV Vmax 2.01 m/s Velocity Ratio 0.46 AoV Mean Jim. 1.51 m/s AoV Peak Grad 16.2 mmHg LVOT SV 65.02 mL AoV Mean Grad 9.8 mmHg AoV VTI 0.375 m AoV Area VTI 1.74 cm2 AoV Area/ BSA (VTI) 0.87 cm/m2 Mitral Valve MV DT 178 (160-240 msec) MV PHT 52 msec MV Area PHT 4.26 cm2 MV VTI 0.285 m MV Area VTI 2.28 (4.0-6.0 cm2) Pulmonary Valve PV Vmax 0.87 (0.5-1.5 m/s) RVOT Peak Gr. 1.76 mmHg PV Peak Grad 3.0 mmHg RVOT Mean Gr. 0.85 mmHg PV Mean Grad 1.6 mmHg RVOT VTI 0.122 m PV VTI 0.155 m RVOT Vmax 0.66 m/s Tricuspid Valve TR Peak Grad 40.7 mmHg TR Vmax 3.19 m/s RA Pressure 8.00 mmHg RVSP (TR) 48.7 mmHg
[2022-06-15] MEDS: HYDROmorphone 2 MG TAB PO ×5 (00:46→21:01)
--- NOTE | 2022-06-15 01:45 | RT.EKG_ITS ---
APPROVED REPORT Exam: Resting ECG Reason for Exam: changes in rythm strip Patient Location: I HR:106 bpm ECG Measurements Heart Rate 106 AXIS NC 154 P 36 QRSd 79 QRS -19 QT 327 T 133 QTc 435 Conclusion Sinus tachycardia...rate> 99 Borderline left axis deviation...QRS axis (-15,-29)
[2022-06-15] MEDS: nitroGLYcerin in D5W 50 MG/250 ML BTL IV (02:20)
[2022-06-15] MEDS: nitroGLYcerin 0.4 MG TAB SL ×2 (02:35→02:40)
[2022-06-15 07:09] LABS: HCT 24.3 % (40.0-50.0); HGB 7.8 g/dL (13.5-17.5); MCH 23.2 pg (27.0-33.0); MCHC 32.1 % (32.0-36.0); MCV 72 fL (80-95); MPV 8.9 fL (8.0-11.0); Platelet Count 697 10^3/uL (130-400); RBC 3.36 10^6/uL (4.36-5.78); RDW 15.9 % (11.8-14.1); RDW-SD 40.8 fL
[2022-06-15 07:30] LABS: Anion Gap 9.5 mmol/L (3-11); BUN 25 mg/dL (7-18); CO2 23.5 mmol/L (21.0-32.0); CREATININE 1.1 mg/dL (0.70-1.30); Calcium 8.7 mg/dL (8.5-10.1); Chloride 97 mmol/L (98-107); Estimated GFR 67.44 (mL/min/1.73m2); Glucose 131 mg/dL (74-106); Magnesium 1.5 mg/dL (1.8-2.4); Potassium 4.2 mmol/L (3.5-5.1); Sodium 130 mmol/L (136-145)
[2022-06-15 07:32] LABS: Troponin I 2279 ng/L (<or=60)
--- NOTE | 2022-06-15 08:30 | RT.EKG_ITS ---
APPROVED REPORT Exam: Resting ECG Reason for Exam: nstemi Patient Location: I HR:91 bpm ECG Measurements Heart Rate 91 AXIS KS 140 P 8 QRSd 90 QRS -14 QT 366 T 7 QTc 451 Conclusion Sinus rhythm...normal P axis, V-rate 50- 99
[2022-06-15] MEDS: Multivitamin w/Minerals TAB 1 TAB PO (08:33)
[2022-06-15] MEDS: Pantoprazole 40 MG VIAL IVP ×2 (08:34→21:00)
--- NOTE | 2022-06-15 08:34 | PDOC.CMIN ---
- If Service Date Differs Date of service: 06/15/22 Time of Service: 08:34 Care Management Initial Assess REASON FOR HOSPITALIZATION:: NSTEMI PAST MEDICAL HISTORY/PAST SURGICAL HISTORY:: All Active Problems (Updated 06/14/22 @ 20:22 by Julien Ferrara MD). NSTEMI (non-ST elevated myocardial infarction) (Acute). 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 At risk for caregiver role strain (Acute). Temp, 2' cancer Dx/Tx .. [ ] may need help to help , Elidia. Biliary tract cancer (Acute). [place]27[place] [facility] [place]x of periampullary mass which is adenocarcinoma , and one covered metal stent placed into the common bile duct across the stricture with good flow of bile. Duodenal anomaly (Acute). Liver lesion (Acute). Lesions, suspicious for metastatic dz. Weight loss (Acute). Belching (Acute). relieves left side/UQ pressure. RUQ fullness (Acute). Left upper quadrant abdominal mass (Acute). Parapelvic renal cyst (Acute). Dysmetabolic syndrome X (Acute 04/22/12). IMPAIRED FBS 111-104; WEIGHT. Abnormal blood sugar (Chronic 06/19/14). Hx abnormal fasting blood sugar. Stiffness of finger joint (Acute). 3rd digit, B/L, stiffness after lengthy gripping (mostly driving). I'm concerned 2' heavy schedule carrying/lifting with MS. Chronic pancreatitis (Acute). 10/12/19-[facility] Gastroenterology. Tunde Bernard MD. Personal history of colonic polyps (Acute). Benign neoplasm of colon (Acute 09/13/04). LAST COLON 04/2011, POS TUB ADENOMA; REPEAT 5 YR. Basal cell carcinoma of skin (Acute 05/29/13). and squamous cell Dr Stover follows. 11/25/17 BCC nodular and infiltrative left frontal parietal scalp w/ removal Dr Stover. 11/25/17 Excision of recurrent BCCA left frontal parietal scalp. Carpal tunnel syndrome of left wrist (Acute 05/22/15). Carpal tunnel syndrome of right wrist (Acute 05/12/16). BPH w/o urinary obs/LUTS (Acute 09/13/99). LUTS, DR SANCHEZ YEARLY. Hip pain, right (Acute 09/30/17). Rupesh Garcia PT with HEP for ITB and hamstring streching. Hyperlipidemia (Acute 04/22/12). GOAL LDL<130; (OPTIMAL <100); RISK CALCULATED 16% IN 2001; LDL AT GOAL, LOW HDL. Overweight (Acute 04/22/12). goal 185 (last <2002). 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 Sensory hearing loss, bilateral (Chronic). Medical History . Basal cell carcinoma. Carpal tunnel syndrome. Failure of fundoplication. Hx fundoplication with hiatal hernmia repair (mesh, per pt). Successfully contlld GERD per pt report. Hyperlipidemia. Surgical History . H/O shoulder surgery. Left. S/P endoscopy. [place] [facility] [place] PREVIOUS FUNCTIONAL STATUS/SOCIAL/FAMILY SUPPORTS:: Gregorio lives in a single family home in [place] with his Elidia. They have 2 sons, Pedro and Patrick. Pedro works at [employer] in Security and Patrick lives closeby as well. Gregorio and Elidia also have 5 grandchildren and 4 great grandchildren. Elidia has MS and is wheelchair bound. Gregorio provides all of her care; they receive no community services. Gregorio is independent at baseline and very active. CURRENT FUNCTIONAL STATUS:: Gregorio was sitting up on the side of his bed visiting with his and son Pedro when CM met with him. He was very pleasant and engaed easily with CM. Gregorio was diagnosed with metastatic ampullary cancer within the past 6 weeks and has just started chemotherapy. He was admitted yesterday because he has had an NSTEMI. Gregorio is also anemic and may have a GI bleed so treating the NSTEMI with anticoagulation or a cardiac cath is not possible at this time. SISSY was asked to meet with Pedro and Elidia this afternoon. Pedro asked if it would be possiblre for a snaker to come to the hospital and meet with his parentds to prepare a will. SISSY informed them that they would need to make those arrangements privately but that the visit itself might be possible. CM asked aboout advanced directives and Pedro stated that they need those too, urgently. CM agreed to set a time with them tomorrow to complete the Vt. AD directives if that was something they still wished to do. ADVANCE DIRECTIVES:: none on file Has patient been provided with info about the portal/API?: Yes Did the patient sign up for the portal?: No CODE STATUS:: DNR/DNI INSURANCE COVERAGE / FINANCIAL ISSUES:: Medicare. AARP supplement CURRENT HOME/COMMUNITY SERVICES/EQUIPMENT:: none currently PRIMARY CARE PHYSICIAN:: Jessica Richard POTENTIAL DISCHARGE NEEDS:: follow up with community providers and plan of care PATIENT/FAMILY EDUCATION NEEDS:: Review of discharge planning, limitations, folllow up plan, medications, Ask Me Three TRANSPORTATION:: via private vehicle with family PLAN:: Gregorio will likely discharge home with no new services. He is the primary caregiver for his Elidia and with his NSTEMI, will not be able to lift or provide the care she needs. CM suggested that they contact Elidia's PCP to explore the possibility of adding home health services for her during this period. Gregorio will follow up with his community providers and plan of care and transport with family. CM will continue to support Gregorio and his family and assess for ongoing discharge needs.
[2022-06-15] MEDS: Normal Saline Flush 10 ML SYR IVP ×4 (08:35→21:00)
--- NOTE | 2022-06-15 09:26 | W.CARDCONSUL ---
Date of service: 06/15/22 Time of Service: 09:26 Assessment and Plan Assessment and plan (1) CHF (congestive heart failure): Status: Chronic Assessment and plan: I would recommend gentle diuresis. An echocardiogram has been performed. I will review when available. Assessment of LV function will guide further therapy (2) NSTEMI (non-ST elevated myocardial infarction): Status: Acute Assessment and plan: It is difficult to tell if this is in part demand ischemia related to anemia, but I suspect he has underlying obstructive coronary disease as well. Given his multiple comorbidities, anemia, metastatic cancer, I would favor supportive care. If his LV function is reduced then guideline directed medical therapy should be instituted (3) Primary adenocarcinoma of ampulla of Vater: Status: Acute Assessment and plan: Ongoing oncology treatment with Dr. Ga History of Present Illness Narrative: This is an unfortunate 82-year-old male who presented to the emergency room because of abdominal and chest pain as well as difficulty breathing. He reports that he has had progressive shortness of breath for a number of months. In April he was found to have cancer metastatic to both the liver and lung. This is felt to be adenocarcinoma arising was seen on the ampulla of Vater. He has had a port placed, seen oncology and in fact had his first infusion of Gemzar, cisplatin and iron on June 12. He reports that the day of presentation he began to experience severe abdominal pain, left-sided chest pain, worsening dyspnea and came to the emergency room where he was found to have evidence of non-ST elevation myocardial infarction as well as congestive heart failure. EKGs showed diffuse ST depression, which has since resolved. His troponins became progressively more elevated, most recent approximately 2200. He says he had a bad night but is currently feeling better. He has no prior cardiac history. He has been treated in the past for hyperlipidemia Labs are notable for anemia, elevated NT proBNP, elevated troponin. His stool is heme positive Consults Consult date: 06/15/22 Requesting physician: Monik Long Review of Systems Cardiovascular Cardiovascular: Reports as per HPI, Reports chest pain, Reports chest pain at rest, Denies leg edema and Reports dyspnea Respiratory Respiratory: Reports dyspnea PFSH All Active Problems (Updated 06/14/22 @ 20:51 by GUILLERMO George) Dyspnea (Acute) CHF (congestive heart failure) (Chronic) Elevated troponin (Acute) NSTEMI (non-ST elevated myocardial infarction) (Acute) 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 [ ] may need help to help , Elidia Biliary tract cancer (Acute) [place]27/[place] [facility] [place]x of periampullary mass which is adenocarcinoma , and one covered metal stent placed into the common bile duct across the stricture with good flow of bile. Duodenal anomaly (Acute) Liver lesion (Acute) Lesions, suspicious for metastatic dz Weight loss (Acute) Belching (Acute) relieves left side/UQ pressure RUQ fullness (Acute) Left upper quadrant abdominal mass (Acute) Parapelvic renal cyst (Acute) Dysmetabolic syndrome X (Acute 04/22/12) IMPAIRED FBS 111-104; WEIGHT Abnormal blood sugar (Chronic 06/19/14) Hx abnormal fasting blood sugar Stiffness of finger joint (Acute) 3rd digit, B/L, stiffness after lengthy gripping (mostly driving). I'm concerned 2' heavy schedule carrying/lifting with MS. Chronic pancreatitis (Acute) 10/12/19-[facility] Gastroenterology. 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 Dr Stover follows 11/25/17 BCC nodular and infiltrative left frontal parietal scalp w/ removal Dr Stover 11/25/17 Excision of recurrent BCCA left frontal parietal scalp Carpal tunnel syndrome of left wrist (Acute 05/22/15) Carpal tunnel syndrome of right wrist (Acute 05/12/16) BPH w/o urinary obs/LUTS (Acute 09/13/99) LUTS, DR SANCHEZ YEARLY Hip pain, right (Acute 09/30/17) Rupesh Garcia PT with HEP for ITB and hamstring streching Hyperlipidemia (Acute 04/22/12) GOAL LDL<130; (OPTIMAL <100); RISK CALCULATED 16% IN 2001; LDL AT GOAL, LOW HDL Overweight (Acute 04/22/12) goal 185 (last <2002) Hearing 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 Successfully contlld GERD per pt report. Hyperlipidemia Surgical History H/O shoulder surgery Left S/P [place]oscopy [place] [facility] [place] Family History Mother Diabetes Father , [place] at age 90. Diabetes Heart disease Sister Age: 82 No problems noted. Brother Age: 79 Diabetes Heart disease Social History Smoking/Tobacco Use Status: Former Tobacco Use Smoking risk assessment performed?: Yes Alcohol Intake: never Drug use: Never Substance use type: does not use Do you feel safe at home: Yes Do you feel safe in your relationship?: Yes Exam Const Other: Well-developed well-nourished looks younger than stated age no acute distress Neck Other: No appreciable neck vein distention carotid pulsations are grossly normal I hear no bruits Resp Other: Limited exam, diminished breath sounds at the bases Cardio Other: Heart is regular no murmur questionable summation gallop GI Other: Abdomen was not examined Skin Other: Pale warm and dry Extrem Other: No significant edema Results Last Vital Signs Temp 37 C 06/15/22 04:30 Pulse 92 H 06/15/22 06:31 Resp 22 06/15/22 06:31 BP 105/63 06/15/22 06:31 Pulse Ox 97 06/15/22 06:31 Labs Result diagrams: 06/15/22 05:23 06/15/22 05:23 Labs: Laboratory Results - last 24 hr 06/14/22 06/14/22 06/14/22 16:00 16:00 16:00 WBC 16.64 H RBC 3.76 L Hgb 8.8 L Hct 27.5 L MCV 73 L MCH 23.4 L MCHC 32.0 RDW 15.7 H Plt Count 765 H* MPV 8.6 Immature Gran % 0.5 Neutrophils % 92.9 Lymphocytes % 3.6 Monocytes % 2.8 Eosinophils % 0.1 Basophils % 0.1 Nucleated RBC % 0.0 Absolute Neutrophils 15.46 H Absolute Lymphocytes 0.60 L Absolute Monocytes 0.47 Absolute Eosinophils 0.02 Absolute Basophils 0.02 RBC Morphology See Below Microcytosis 3+ PT 10.7 INR 1.1 APTT 25.3 Sodium 129 L Potassium 4.1 Chloride 95 L Carbon Dioxide 23.7 Anion Gap 10.3 BUN 29 H Creatinine 1.2 Est GFR (CKD-EPI 2020) 60.75 Glucose 188 H Calcium 8.9 Magnesium 1.5 L Iron TIBC Transferrin % Sat Ferritin Total Bilirubin 0.3 AST 374 H ALT 117 H Alkaline Phosphatase 275 H Troponin I 72 H* NT-Pro-B Natriuret Pep 2571 H Total Protein 6.8 Albumin 2.3 L COVID-19 Source SARS-CoV-2 (PCR) Crossmatch 06/14/22 06/14/22 06/14/22 16:11 19:13 22:14 WBC RBC Hgb Hct MCV MCH MCHC RDW Plt Count MPV Immature Gran % Neutrophils % Lymphocytes % Monocytes % Eosinophils % Basophils % Nucleated RBC % Absolute Neutrophils Absolute Lymphocytes Absolute Monocytes Absolute Eosinophils Absolute Basophils RBC Morphology Microcytosis PT INR APTT Sodium Potassium Chloride Carbon Dioxide Anion Gap BUN Creatinine Est GFR (CKD-EPI 2020) Glucose Calcium Magnesium Iron 371 H TIBC 429 Transferrin % Sat 86 H Ferritin Total Bilirubin AST ALT Alkaline Phosphatase Troponin I 554 H* NT-Pro-B Natriuret Pep Total Protein Albumin COVID-19 Source Nasal/Nares SARS-CoV-2 (PCR) Negative Crossmatch 06/14/22 06/14/22 06/15/22 22:14 22:41 05:23 WBC RBC Hgb Hct MCV MCH MCHC RDW Plt Count MPV Immature Gran % Neutrophils % Lymphocytes % Monocytes % Eosinophils % Basophils % Nucleated RBC % Absolute Neutrophils Absolute Lymphocytes Absolute Monocytes Absolute Eosinophils Absolute Basophils RBC Morphology Microcytosis PT INR APTT Sodium 130 L Potassium 4.2 Chloride 97 L Carbon Dioxide 23.5 Anion Gap 9.5 BUN 25 H Creatinine 1.1 Est GFR (CKD-EPI 2020) 67.44 Glucose 131 H Calcium 8.7 Magnesium 1.5 L Iron TIBC Transferrin % Sat Ferritin 1405 H Total Bilirubin AST ALT Alkaline Phosphatase Troponin I 1587 H* 2279 H* NT-Pro-B Natriuret Pep Total Protein Albumin COVID-19 Source SARS-CoV-2 (PCR) Crossmatch 06/15/22 06/15/22 05:23 08:30 WBC 16.10 H RBC 3.36 L Hgb 7.8 L Hct 24.3 L MCV 72 L MCH 23.2 L MCHC 32.1 RDW 15.9 H Plt Count 697 H MPV 8.9 Immature Gran % Neutrophils % Lymphocytes % Monocytes % Eosinophils % Basophils % Nucleated RBC % Absolute Neutrophils Absolute Lymphocytes Absolute Monocytes Absolute Eosinophils Absolute Basophils RBC Morphology Microcytosis PT INR APTT Sodium Potassium Chloride Carbon Dioxide Anion Gap BUN Creatinine Est GFR (CKD-EPI 2020) Glucose Calcium Magnesium Iron TIBC Transferrin % Sat Ferritin Total Bilirubin AST ALT Alkaline Phosphatase Troponin I NT-Pro-B Natriuret Pep Total Protein Albumin COVID-19 Source SARS-CoV-2 (PCR) Crossmatch See Detail
[2022-06-15] MEDS: MAGNESIUM SULFATE 4 GM/100 ML BAG IVPB (09:32)
[2022-06-15] MEDS: Simethicone 80 MG CHEW 160 MG PO (09:32)
[2022-06-15 10:45] LABS: Troponin I 3151 ng/L (<or=60)
--- NOTE | 2022-06-15 10:47 | W.PM.PROGNOT ---
Date of Service Date of service: 06/15/22 Time of Service: 10:47 Assessment and Plan Assessment and plan (1) NSTEMI (non-ST elevated myocardial infarction): Status: Acute Assessment and plan: In setting of anemia, GI bleeding, likely underlying CAD. Echo w/o wall motion abnormalities, but does have systolic dysfunction. Not a candidate for heparinization, thrombolytics, or cardiac cath. Discussed with Dr Griffith. Continue supportive care. Will attempt to transition off of nitroglycerin drip with addition of imdur. Troponins are still going up - will continue to trend. PE ruled out. Diurese. Will add a low dose beta blockers once over the acute CHF component. (2) GI bleeding: Status: Chronic Assessment and plan: Not a candidate for an intervention at this time. Increase PPI to BID, add carafate. Clear liquids. Trend H/H. Target hemoglobin 8. (3) Acute systolic CHF (congestive heart failure): Status: Acute Assessment and plan: LVEF of 40-45% on echo today. As above - will start beta blockers once out of acute CHF. Gentle diuresis. (4) Hyperlipidemia: Assessment and plan: hold home statin given hepatic dysfunction. (5) Pulmonary hypertension: Status: Acute Assessment and plan: Gentle diuresis. PE ruled out. (6) Primary adenocarcinoma of ampulla of Vater: Status: Acute Assessment and plan: On palliative chemotherapy via [facility] (Dr Ga). Consult palliative care. (7) Hypomagnesemia: Status: Acute Assessment and plan: Replete (8) Chronic pain: Status: Chronic Assessment and plan: Continue home dilaudid. (9) DVT prophylaxis: Status: Acute Assessment and plan: SCDs. HOld chemical DVT ppx given Gi bleeding (10) Discharge planning issues: Status: Acute Assessment and plan: DNR/DNI Palliative care consulted. Can likely move out of the ICU once we are able to d/c nitroglycerin gtt. Total Critical Care Time 45 minutes. Subjective Subjective Interval history since last seen: Mr Kyle feels comfortable right now. Denies dizziness, chest pain right now, not SOB while laying flat in bed, denies n/v. Does report chronic RUQ pain for which he takes dilaudid at home. Remains on nitroglycerin drip which has controlled his CP. Seen by cardiology: not felt to be a candidate for heparinization, thrombolytics, or caths - supportive care only. Echo w/ LVEF of 45-50%% w/ mild global hypokinesis, pulmonary hypertension (RVSP 49 mmHg). On 2L of O2 by NC. Exam Narrative Exam Narrative: General: Pleasant elderly male who appears younger than his stated age, A&Ox3, on 2L of O2 by NC, no dypsnea/tachypnea, appears comfortable laying flat in bed HEENT: EOMI, MMM Heart: RRR, no m/r/g (HR in the 90s) Lungs: CTAB Abdomen: soft, nontender, nondistended Extremities: trace edema LLE, no edema RLE Objective Last Vital Signs Temp 37 C 06/15/22 04:30 Pulse 97 H 06/15/22 10:02 Resp 27 H 06/15/22 10:02 BP 106/61 06/15/22 10:02 Pulse Ox 96 06/15/22 10:02 Laboratory Results - last 24 hr 06/14/22 06/14/22 06/14/22 16:00 16:00 16:00 WBC 16.64 H RBC 3.76 L Hgb 8.8 L Hct 27.5 L MCV 73 L MCH 23.4 L MCHC 32.0 RDW 15.7 H Plt Count 765 H* MPV 8.6 Immature Gran % 0.5 Neutrophils % 92.9 Lymphocytes % 3.6 Monocytes % 2.8 Eosinophils % 0.1 Basophils % 0.1 Nucleated RBC % 0.0 Absolute Neutrophils 15.46 H Absolute Lymphocytes 0.60 L Absolute Monocytes 0.47 Absolute Eosinophils 0.02 Absolute Basophils 0.02 RBC Morphology See Below Microcytosis 3+ PT 10.7 INR 1.1 APTT 25.3 Sodium 129 L Potassium 4.1 Chloride 95 L Carbon Dioxide 23.7 Anion Gap 10.3 BUN 29 H Creatinine 1.2 Est GFR (CKD-EPI 2020) 60.75 Glucose 188 H Calcium 8.9 Magnesium 1.5 L Iron TIBC Transferrin % Sat Ferritin Total Bilirubin 0.3 AST 374 H ALT 117 H Alkaline Phosphatase 275 H Troponin I 72 H* NT-Pro-B Natriuret Pep 2571 H Total Protein 6.8 Albumin 2.3 L COVID-19 Source SARS-CoV-2 (PCR) Patient ABO/Rh Antibody Screen Crossmatch 06/14/22 06/14/22 06/14/22 16:11 19:13 22:14 WBC RBC Hgb Hct MCV MCH MCHC RDW Plt Count MPV Immature Gran % Neutrophils % Lymphocytes % Monocytes % Eosinophils % Basophils % Nucleated RBC % Absolute Neutrophils Absolute Lymphocytes Absolute Monocytes Absolute Eosinophils Absolute Basophils RBC Morphology Microcytosis PT INR APTT Sodium Potassium Chloride Carbon Dioxide Anion Gap BUN Creatinine Est GFR (CKD-EPI 2020) Glucose Calcium Magnesium Iron 371 H TIBC 429 Transferrin % Sat 86 H Ferritin Total Bilirubin AST ALT Alkaline Phosphatase Troponin I 554 H* NT-Pro-B Natriuret Pep Total Protein Albumin COVID-19 Source Nasal/Nares SARS-CoV-2 (PCR) Negative Patient ABO/Rh Antibody Screen Crossmatch 06/14/22 06/14/22 06/15/22 22:14 22:41 05:23 WBC RBC Hgb Hct MCV MCH MCHC RDW Plt Count MPV Immature Gran % Neutrophils % Lymphocytes % Monocytes % Eosinophils % Basophils % Nucleated RBC % Absolute Neutrophils Absolute Lymphocytes Absolute Monocytes Absolute Eosinophils Absolute Basophils RBC Morphology Microcytosis PT INR APTT Sodium 130 L Potassium 4.2 Chloride 97 L Carbon Dioxide 23.5 Anion Gap 9.5 BUN 25 H Creatinine 1.1 Est GFR (CKD-EPI 2020) 67.44 Glucose 131 H Calcium 8.7 Magnesium 1.5 L Iron TIBC Transferrin % Sat Ferritin 1405 H Total Bilirubin AST ALT Alkaline Phosphatase Troponin I 1587 H* 2279 H* NT-Pro-B Natriuret Pep Total Protein Albumin COVID-19 Source SARS-CoV-2 (PCR) Patient ABO/Rh Antibody Screen Crossmatch 06/15/22 06/15/22 06/15/22 05:23 08:30 10:05 WBC 16.10 H RBC 3.36 L Hgb 7.8 L Hct 24.3 L MCV 72 L MCH 23.2 L MCHC 32.1 RDW 15.9 H Plt Count 697 H MPV 8.9 Immature Gran % Neutrophils % Lymphocytes % Monocytes % Eosinophils % Basophils % Nucleated RBC % Absolute Neutrophils Absolute Lymphocytes Absolute Monocytes Absolute Eosinophils Absolute Basophils RBC Morphology Microcytosis PT INR APTT Sodium Potassium Chloride Carbon Dioxide Anion Gap BUN Creatinine Est GFR (CKD-EPI 2020) Glucose Calcium Magnesium Iron TIBC Transferrin % Sat Ferritin Total Bilirubin AST ALT Alkaline Phosphatase Troponin I 3151 H* NT-Pro-B Natriuret Pep Total Protein Albumin COVID-19 Source SARS-CoV-2 (PCR) Patient ABO/Rh A Positive Antibody Screen NEGATIVE Crossmatch See Detail Objective Narrative Objective Narrative: Echo: Normal left ventricular wall thickness and chamber size.? Estimated ejection fraction is 45 to 50%.? There is mild global hypokinesis Normal right ventricular size and systolic function The left atrium is mildly dilated.? The right atrium is normal in size Aortic valve is calcified and probably trileaflet with mild regurgitation.? There is no aortic stenosis Mildly thickened mitral leaflets.? Mild mitral regurgitation Normal tricuspid valve with mild regurgitation.? Estimated right ventricular systolic pressure is 49 mmHg Dilated ascending aorta measuring 4.06 cm Multi-Disciplinary Checklist Lines/Tubes CENTRAL LINE: no ARTERIAL LINE: no PONCE: no ENDOTRACHEAL TUBE: no ICU Maintenance GLUCOSE 140-180mg/dL: yes NUTRITION AT GOAL: no, Reason/Intervention: clear liquids, advance as tolerated PRESSURE ULCER: no RESTRAINTS: no ANTIBIOTICS(if yes, consider Stewardship): No Social Issues FAMILY UPDATED: yes PT/OT: no, Reason/Intervention: not yet medically appropriate GOALS/DISPOSITION/ACCOUNT SERVICES COORDINATOR: yes CODE STATUS: DNR/DNI Prophylaxis DVT PROPHYLAXIS: yes GI PROPHYLAXIS: yes, Indication: having GI bleeding
[2022-06-15] MEDS: Senna TAB 1 TAB PO (12:02)
[2022-06-15] MEDS: Sucralfate 1 GM TAB PO ×3 (12:02→21:01)
[2022-06-15] MEDS: Isosorbide Mononitrate 30 MG TABCR 15 MG PO (12:02)
[2022-06-15] MEDS: Furosemide 20 MG/2 ML VIAL IVP (12:02)
[2022-06-15] MEDS: Polyethylene Glycol 3350 17 GM PACKET PO (12:03)
[2022-06-15] MEDS: Docusate Sodium 100 MG CAP PO ×2 (12:18→21:01)
[2022-06-15 13:06] LABS: HCT 24.5 % (40.0-50.0); HGB 7.7 g/dL (13.5-17.5)
[2022-06-15 13:30] LABS: Troponin I 3919 ng/L (<or=60)
--- NOTE | 2022-06-15 16:56 | PHACLINREV_ITS ---
Pharmacy Admission Review - Admission Clinical Review (Last Reviewed 06/14/22 @ 20:17 by Julien Ferrara MD) Pulmonary hypertension (Acute) Discharge planning issues (Acute) DVT prophylaxis (Acute) Hypomagnesemia (Acute) Acute systolic CHF (congestive heart failure) (Acute) Dyspnea (Acute) Elevated troponin (Acute) NSTEMI (non-ST elevated myocardial infarction) (Acute) Primary adenocarcinoma of ampulla of Vater (Acute) Penicillins Allergy (Intermediate, Verified 06/14/22 15:54) blisters/hives oxycodone Allergy (Mild, Verified 06/14/22 15:54) BLOTCHES, SWELLING diphtheria, pertussis, tetanus vacc Adverse Reaction (Intermediate, Verified 06/14/22 15:54) full-arm swelling and weakness - lasting several weeks. Resuscitation Status DNR/DNI Height 5 ft 10 in Weight 81.3 kg - Renal Dosing Renal Dosing: BUN 25 mg/dL (7-18) H 06/15/22 05:23 Creatinine 1.1 mg/dL (0.70-1.30) 06/15/22 05:23 Medications needing adjustments: Reviewed (Crcl ~60 mL/min current meds okay) - Anticoagulation Anticoagulation: Hgb 7.7 g/dL (13.5-17.5) L 06/15/22 12:55 Hct 24.5 % (40.0-50.0) L 06/15/22 12:55 Plt Count 697 10^3/uL (130-400) H 06/15/22 05:23 INR 1.1 (0.9-1.1) 06/14/22 16:00 Creatinine 1.1 mg/dL (0.70-1.30) 06/15/22 05:23 DVT Prophylaxis: Reviewed (SCDs ordered) Therapeutic Anticoagulation: Reviewed (Pt not a not a candidate for anticoagulation due to anemia and GI bleed per progress note.) - Opiate Usage Evaluate Pain Scale/Pains Meds: Reviewed Scheduled Bowel Reg ordered if on Opiates?: Yes (scheduled and PRN meds) - Relevant Labs Sodium 130 mmol/L (136-145) L 06/15/22 05:23 Potassium 4.2 mmol/L (3.5-5.1) 06/15/22 05:23 Chloride 97 mmol/L (98-107) L 06/15/22 05:23 Magnesium 1.5 mg/dL (1.8-2.4) L 06/15/22 05:23 Electrolytes, C-Reactive P, ESR: Reviewed (IV mag replacement ordered) - DM Control DM Control: Glucose 131 mg/dL (74-106) H 06/15/22 05:23 DM Control: Reviewed (A1c 6.5 on 10/23/21) - Cardiac Review Cardiac Review: Troponin I 3919 ng/L (<or=60) H* 06/15/22 12:55 NT-Pro-B Natriuret Pep 2571 pg/mL (<300) H 06/14/22 16:00 BP, HR, EF%: Reviewed (troponins still going up. BP has been low to normal and HR normal to high so far this admission.) - Qtc Review QTc: Reviewed (QTc 451 on most recent EKG (today)/) - IV to PO Switch IV Medications: Reviewed - Home Meds Home Med List reviewed: Reviewed Relevent Home Meds Not ordered & why?: ascorbic acid, aspirin, glucosami ne/chondroitin, ibuprofen (PRN), pravastatin, vitamin B-12/folic acid - Current meds Current Medication Order Review: Reviewed - Comments Comments/Follow Ups: Watch BP, HR, BG, H/H, SCr, mag, labs and for med changes (possible renal dose adjustments)
[2022-06-15] MEDS: Ondansetron 4 MG/2 ML VIAL IVP (17:12)
[2022-06-15 18:12] LABS: Troponin I 3692 ng/L (<or=60)
[2022-06-15] MEDS: Tamsulosin 0.4 MG CAPCR 0.8 MG PO (21:00)
[2022-06-15] MEDS: Metoprolol 12.5 MG TAB PO (21:01)
[2022-06-15] MEDS: Finasteride 5 MG TAB PO (21:01)
[2022-06-16] VITALS (48 sets, daily range): BP systolic 94–129; BP diastolic 53–70; PULSE 75–99; RESP 16–29; TEMP 36.1–39.1; O2SAT 90–97
[2022-06-16] MEDS: Acetaminophen 325 MG TAB 650 MG PO ×3 (01:13→19:41)
[2022-06-16] MEDS: HYDROmorphone 2 MG TAB PO ×6 (01:13→21:28)
[2022-06-16 06:45] LABS: Abs Immature Grans 0.12 10^3/uL (0.0-0.06); Absolute Eosinophil Count 0.01 10^3/uL (0.0-0.7); Absolute Lymphocyte Count 1.07 10^3/uL (1.2-3.4); Basophils % 0.1; Eosinophils % 0.1; HCT 22.1 % (40.0-50.0); Immature Grans % 0.8; Lymphocytes % 7.3; MCH 22.5 pg (27.0-33.0); MCHC 31.2 % (32.0-36.0); MCV 72 fL (80-95); MPV 9.6 fL (8.0-11.0); Monocytes % 1.6; Neutrophils % 90.1; Platelet Count 542 10^3/uL (130-400); RBC 3.06 10^6/uL (4.36-5.78); RDW 15.7 % (11.8-14.1); RDW-SD 40.8 fL; WBC 14.62 10^3/uL (4.4-10.8)
[2022-06-16 07:05] LABS: Anion Gap 6.8 mmol/L (3-11); BUN 27 mg/dL (7-18); CO2 26.2 mmol/L (21.0-32.0); CREATININE 1.1 mg/dL (0.70-1.30); Calcium 8.6 mg/dL (8.5-10.1); Chloride 97 mmol/L (98-107); Estimated GFR 67.44 (mL/min/1.73m2); Glucose 114 mg/dL (74-106); Potassium 3.9 mmol/L (3.5-5.1); Sodium 130 mmol/L (136-145)
[2022-06-16 07:15] LABS: Absolute Basophil Count 0.01 10^3/uL (0.0-0.2); Absolute Monocyte Count 0.23 10^3/uL (0.1-0.8); Absolute Neutrophil Count 13.17 10^3/uL (1.2-6.7)
[2022-06-16 07:16] LABS: HGB 6.9 g/dL (13.5-17.5)
[2022-06-16 07:17] LABS: Hypochromasia 1+; Microcytosis 1+
[2022-06-16] MEDS: Sucralfate 1 GM TAB PO ×4 (07:56→21:29)
[2022-06-16] MEDS: Pantoprazole 40 MG VIAL IVP ×2 (07:57→19:42)
[2022-06-16] MEDS: Furosemide 20 MG/2 ML VIAL IVP (07:58)
[2022-06-16] MEDS: Isosorbide Mononitrate 30 MG TABCR 15 MG PO (07:58)
[2022-06-16] MEDS: Docusate Sodium 100 MG CAP PO ×2 (07:58→19:42)
[2022-06-16] MEDS: Metoprolol 12.5 MG TAB PO ×2 (07:59→19:41)
[2022-06-16] MEDS: Multivitamin w/Minerals TAB 1 TAB PO (08:00)
--- NOTE | 2022-06-16 08:40 | W.PM.PROGNOT ---
Date of Service Date of service: 06/16/22 Time of Service: 08:40 Assessment and Plan Assessment and plan (1) NSTEMI (non-ST elevated myocardial infarction): Status: Acute Assessment and plan: In setting of anemia, GI bleeding, likely underlying CAD. PE ruled out. Troponins have turned around. Transfusing 1L of pRBCs this am. Echo w/o wall motion abnormalities, but does have systolic dysfunction. Not a candidate for heparinization, thrombolytics, or cardiac cath given GI bleeding and metastatic malignancy. Off nitroglycerin gtt and transitioned to imdur. On BB. Continue supportive care. (2) GI bleeding: Status: Chronic Assessment and plan: Not a candidate for an intervention at this time. Continue PPI BID and carafate. Clear liquids. Trend H/H. Target hemoglobin 8. Transfuse 1 unit pRBCs today. (3) Anemia associated with acute blood loss: Status: Acute Assessment and plan: As above (4) Acute systolic CHF (congestive heart failure): Status: Acute Assessment and plan: LVEF of 40-45% on echo. Tolerating beta blockers so far. May require diuresis after blood transfusion. (5) Hyperlipidemia: Assessment and plan: hold home statin given hepatic dysfunction. (6) Pulmonary hypertension: Status: Acute Assessment and plan: Gentle diuresis. PE ruled out. (7) Primary adenocarcinoma of ampulla of Vater: Status: Acute Assessment and plan: On palliative chemotherapy via [facility] (Dr Ga). Palliative care consulted. (8) Hypomagnesemia: Status: Resolved Assessment and plan: Recheck in am. (9) Chronic pain: Status: Chronic Assessment and plan: Continue home dilaudid. (10) Night sweat: Status: Acute Assessment and plan: had a borderline fever yesterday. Has an infusaport. Will check cultures. No empiric abx unless infectious source identified. (11) Discharge planning issues: Status: Acute Assessment and plan: DNR/DNI Transfer out of ICU. Palliative care consulted. C/s PT. (12) DVT prophylaxis: Status: Acute Assessment and plan: SCDs. HOld chemical DVT ppx given GI bleeding Subjective Subjective Interval history since last seen: Mr Kyle did not have any recurrences of chest pains. No arrhythmias reported. Denies dizziness, SOB, nausea. It does hurt to take a deep breath. On 0.5 L of O2 this am saturating in the 90s - O2 just turned off. Had two small constipated BMs yesterday. An episode of nightsweats last night (not normal for him). Tmax 37.8. He does have an infusaport. Exam Narrative Exam Narrative: General: Pleasant elderly male who appears tired, sitting at the side of the bed on RA, A&Ox3, no dypsnea/tachypnea HEENT: EOMI, MMM Heart: RRR, no m/r/g (HR in the 90s) Lungs: Diminished breath sounds B Abdomen: soft, nontender, nondistended Extremities: trace edema LLE, no edema RLE Objective Last Vital Signs Temp 36.5 C 06/16/22 05:38 Pulse 78 06/16/22 05:38 Resp 17 06/16/22 06:40 BP 100/57 L 06/16/22 05:38 Pulse Ox 96 06/16/22 06:40 Laboratory Results - last 24 hr 06/15/22 06/15/22 06/15/22 08:30 10:05 12:55 WBC RBC Hgb Hct MCV MCH MCHC RDW Plt Count MPV Immature Gran % Neutrophils % Lymphocytes % Monocytes % Eosinophils % Basophils % Nucleated RBC % Absolute Neutrophils Absolute Lymphocytes Absolute Monocytes Absolute Eosinophils Absolute Basophils RBC Morphology Hypochromasia Microcytosis Sodium Potassium Chloride Carbon Dioxide Anion Gap BUN Creatinine Est GFR (CKD-EPI 2020) Glucose Calcium Magnesium Troponin I 3151 H* 3919 H* Patient ABO/Rh A Positive Antibody Screen NEGATIVE Crossmatch See Detail 06/15/22 06/15/22 06/16/22 12:55 17:00 05:28 WBC RBC Hgb 7.7 L Hct 24.5 L MCV MCH MCHC RDW Plt Count MPV Immature Gran % Neutrophils % Lymphocytes % Monocytes % Eosinophils % Basophils % Nucleated RBC % Absolute Neutrophils Absolute Lymphocytes Absolute Monocytes Absolute Eosinophils Absolute Basophils RBC Morphology Hypochromasia Microcytosis Sodium 130 L Potassium 3.9 Chloride 97 L Carbon Dioxide 26.2 Anion Gap 6.8 BUN 27 H Creatinine 1.1 Est GFR (CKD-EPI 2020) 67.44 Glucose 114 H Calcium 8.6 Magnesium 2.0 Troponin I 3692 H* Patient ABO/Rh Antibody Screen Crossmatch 06/16/22 05:28 WBC 14.62 H RBC 3.06 L Hgb 6.9 L* Hct 22.1 L MCV 72 L MCH 22.5 L MCHC 31.2 L RDW 15.7 H Plt Count 542 H MPV 9.6 Immature Gran % 0.8 Neutrophils % 90.1 Lymphocytes % 7.3 Monocytes % 1.6 Eosinophils % 0.1 Basophils % 0.1 Nucleated RBC % 0.0 Absolute Neutrophils 13.17 H Absolute Lymphocytes 1.07 L Absolute Monocytes 0.23 Absolute Eosinophils 0.01 Absolute Basophils 0.01 RBC Morphology See Below Hypochromasia 1+ Microcytosis 1+ Sodium Potassium Chloride Carbon Dioxide Anion Gap BUN Creatinine Est GFR (CKD-EPI 2020) Glucose Calcium Magnesium Troponin I Patient ABO/Rh Antibody Screen Crossmatch
--- NOTE | 2022-06-16 09:41 | W.NUTCONSULT ---
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 Receiving pallative chemo and is anemic. Has had progressive weight loss in last couple of months, down 12% in last 90 days indicative of malnutrition. BMI continues to be wnl for age. Has been following clear liquid diet since admit 06/14/22 with moderate intake. At high nutritional risk and at risk for skin breakdown. Estimated Needs: 2569-2497 kcal, 75-80 g protein, 2400 ml fluid NUTRITIONAL DIAGNOSIS: Unintentional weight loss of 22 lbs in last 90 days secondary to poor appetie related to recent cancer dx INTERVENTION: Will supplement clear liquid diet with ensure clear TID Advance diet when possible MONITORING AND EVALUATION: errol munoz intake, labs Time Spent in Nutritional Counseling and Treatment: 0
[2022-06-16] MEDS: diphenhydrAMINE 25 MG CAP PO (11:21)
--- NOTE | 2022-06-16 15:14 | IN_ITS ---
PT Notes Visit Reasons: NSTEMI, GI Bleed Inpatient Physical Therapy Evaluation Date: 06/16/22 Referring Doctor: Dr. 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 PMHX: All Active Problems?(Updated 06/14/22 @ 20:22 by Julien Ferrara MD) NSTEMI (non-ST elevated myocardial infarction) (Acute) Primary adenocarcinoma of ampulla of Vater (Acute) 05/27/22 with liver metsAt risk for caregiver role strain (Acute) Temp, 2' cancer Dx/Tx .. [ ] may need help to help , Elidia Biliary tract cancer (Acute) 05/27/22- [facility] [place]/ bx of periampullary mass which is adenocarcinoma , and one covered metal stent placed into the common bile duct across the stricture with good flow of bile.Duodenal anomaly (Acute) Liver lesion (Acute) Lesions, suspicious for metastatic dzWeight loss (Acute) Belching (Acute) relieves left side/UQ pressureRUQ fullness (Acute) Left upper quadrant abdominal mass (Acute) Parapelvic renal cyst (Acute) Dysmetabolic syndrome X (Acute 04/22/12) IMPAIRED FBS 111-104; WEIGHT Abnormal blood sugar (Chronic 06/19/14) Hx abnormal fasting blood sugar Stiffness of finger joint (Acute) 3rd digit, B/L, stiffness after lengthy gripping (mostly driving). I'm concerned 2' heavy schedule carrying/lifting with MS.Chronic pancreatitis (Acute) 10/12/19-[facility] Gastroenterology. Tunde Bernard MD Personal history of colonic polyps (Acute) Benign neoplasm of colon (Acute 09/13/04) LAST COLON 04/2011,? POS TUB ADENOMA; REPEAT 5 YR Basal cell carcinoma of skin (Acute 05/29/13) and squamous cell? 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 Active and independent prior to admission. Lives in a [facility] in [place] that is fully handicap accessible. Subjective: Gregorio states that he is feeling fine. He has pain in the right flank if he puts pressure on it. Denies dizziness, etc. Objective: General Observation: Resting in bed with multiple lines. On 0.5LPM supplemental O2 via nasal cannula. Mental Status: A&Ox3 Vital Signs: monitored on telemetry throughout. HR 105 with standing november. SaO2 remains 95% throughout. ROM: Right Upper Extremity: WFL Left Upper Extremity: WFL Right Lower Extremity: WFL Left Lower Extremity: WFL Strength: Right Upper Extremity: WFL Left Upper Extremity: WFL Right Lower Extremity: hip flexion 5/5. Quads 5/5. Ankle DF 3/5 or greater. Left Lower Extremity: hip flexion 5/5. Quads 5/5. Ankle DF 3/5 or greater. Bed Mobility/Transfers: supine-sit: independent sit-supine: independent sit-stand: independent stand-sit: independent Gait: ambulates 6' due to space constraints and multiple lines. Demonstrates good safety awareness and balance, ambulation with supervision only, no assistive device. Balance: Static Sitting: Normal Dynamic Sitting: Normal Static Standing: Normal Dynamic Standing: Good Special Tests: Mobility Limitations Standardized Measure [facility] AM-PAC 6 clicks Basic Mobility Inpatient Short Form: Raw Score:24 CMS Score: 0% impairment Informed Consent/Education: Patient instructed in purpose of PT consult and plan of care. Treatment:Today's session consisted of evaluation, followed by treatment as noted below. Discussed appropriate treatment planning, with patient verbalizing agreement. Initial Evaluation (97097) Instruction in Therapeutic Exercises (6 minutes): standing november x 30 seconds, no UE support, supervision only small BEREKET standing with shoulder flexion, supervision, 10x small BEREKET standing, trunk rotation, 3x each direction Assessment: Patient is an 82 year old male referred to physical therapy services in acute care setting. Despite patient's acute medical issues, he demonstrates good independence with bed mobility and transfers, as well as good static and dynamic balance. He tolerated light activity well, without oxygen desaturation or signs of intolerance. Patient demonstrates good safety awareness, and is appropriate for discharge back to the community once medically stable. No further PT intervention required in acute care setting. Patient is assessed as Low 74632 complexity based on the following: History: 82 year old male evaluated in acute care setting following NSTEMI. Demonstrates good safety and independence on evaluation today. Examination: Functioning at baseline Presentation: evolving due to acute medical condition Decision Making: low complexity Plan of Care/Treatment Plan: D/C from PT services. DISCHARGE RECOMMENDATIONS: [] Home with no services TREATMENT CODE/TIME: 3:30 - 3:50 ([id number]) Berta Haywood, PT, DPT [facility]
--- NOTE | 2022-06-16 17:50 | CMPROGNOTE_ITS ---
- If Service Date Differs Date of service: 06/16/22 Time of Service: 17:50 Care Management Progress Note S/O:Gregorio was sitting up in bed when CM met with him. He remains pleasant and interactive. Grgeorio requested that CM assist with the completion of Advanced Directives today. CM met with Gregorio and his Elidia and completed the document. The Advanced Directives were faxed to [facility] and the [place] [facility] and copies were given to Patrick and Julien, his 2 sons. A copy was also placed in his medical record and Gregorio was given the original. Gregorio's H%H dropped to 6.9/22.1 and he was transfused with a unit of blood. His vital signs remain stable although his blood pressures have been on the low side with SBPs in the 90's to 110. Family members have been present most of the day and are very supportive. A:Samson is am 82 year old man admitted on 06/14/22 with an NSTEMI and GI bleed P:Gregorio will likely discharge home with no new services. He is the primary caregiver for his Elidia and with his NSTEMI, will not be able to lift or provide the care she needs. CM suggested that they contact Elidia's PCP to explore the possibility of adding home health services for her during this period. Gregorio will follow up with his community providers and plan of care and transport with family. CM will continue to support Gregorio and his family and assess for ongoing discharge needs.
[2022-06-16] MEDS: Normal Saline Flush 10 ML SYR IVP (19:42)
[2022-06-16] MEDS: Tamsulosin 0.4 MG CAPCR 0.8 MG PO (21:28)
[2022-06-16] MEDS: Finasteride 5 MG TAB PO (21:28)
[2022-06-16 22:08] LABS: Abs Immature Grans 0.08 10^3/uL (0.0-0.06); Absolute Basophil Count 0.02 10^3/uL (0.0-0.2); Absolute Eosinophil Count 0.05 10^3/uL (0.0-0.7); Absolute Lymphocyte Count 1.05 10^3/uL (1.2-3.4); Basophils % 0.2; Eosinophils % 0.4; HCT 24.8 % (40.0-50.0); Immature Grans % 0.7; Lymphocytes % 8.6; MCH 23.6 pg (27.0-33.0); MCHC 32.3 % (32.0-36.0); MCV 73 fL (80-95); MPV 7.9 fL (8.0-11.0); Neutrophils % 88.1; Platelet Count 524 10^3/uL (130-400); RBC 3.39 10^6/uL (4.36-5.78); RDW 16.8 % (11.8-14.1); RDW-SD 44.2 fL; WBC 12.24 10^3/uL (4.4-10.8)
[2022-06-16 22:35] LABS: Absolute Monocyte Count 0.24 10^3/uL (0.1-0.8); Absolute Neutrophil Count 10.78 10^3/uL (1.2-6.7)
[2022-06-16 22:43] LABS: Bilirubin Negative (Negative); Blood Negative (Negative); Clarity Sl Cloudy (Clear); Glucose Negative (Negative); Ketones Negative (Negative); Leukocyte Esterase Negative (Negative); Nitrite Negative (Negative); Specific Gravity 1.015 (1.005-1.025)
[2022-06-16 22:59] LABS: Bacteria Few HPF (Negative); C & S Indicated? No; Crystals Negative HPF (Negative); Epithelial Cells Rare HPF (Negative); Mucus Negative (Negative); RBC 0-2 HPF (0-2); WBC 0-2 HPF (0-5)
[2022-06-16 23:16] LABS: Diff Comment RBC Morph Reviewed; Microcytosis 2+
[2022-06-17] VITALS (12 sets, daily range): BP systolic 103–136; BP diastolic 58–65; PULSE 72–94; RESP 16–18; TEMP 36.5–37.7; O2SAT 94–98
[2022-06-17] MEDS: HYDROmorphone 2 MG TAB PO ×6 (01:33→21:35)
[2022-06-17 06:43] LABS: Absolute Basophil Count 0.02 10^3/uL (0.0-0.2); Absolute Eosinophil Count 0.15 10^3/uL (0.0-0.7); Absolute Lymphocyte Count 1.08 10^3/uL (1.2-3.4); Absolute Monocyte Count 0.36 10^3/uL (0.1-0.8); Absolute Neutrophil Count 8.14 10^3/uL (1.2-6.7); Basophils % 0.2; Eosinophils % 1.5; HGB 7.9 g/dL (13.5-17.5); MCH 23.1 pg (27.0-33.0); MCHC 31.6 % (32.0-36.0); MCV 73 fL (80-95); MPV 8.5 fL (8.0-11.0); Monocytes % 3.7; Neutrophils % 82.6; Platelet Count 533 10^3/uL (130-400); RBC 3.42 10^6/uL (4.36-5.78); RDW 16.8 % (11.8-14.1); RDW-SD 43.8 fL; WBC 9.85 10^3/uL (4.4-10.8)
[2022-06-17 06:47] LABS: Anion Gap 7.9 mmol/L (3-11); BUN 22 mg/dL (7-18); CO2 25.1 mmol/L (21.0-32.0); Calcium 8.5 mg/dL (8.5-10.1); Chloride 96 mmol/L (98-107); Estimated GFR 75.61 (mL/min/1.73m2); Glucose 100 mg/dL (74-106); Magnesium 1.7 mg/dL (1.8-2.4); Potassium 3.4 mmol/L (3.5-5.1); Sodium 129 mmol/L (136-145)
[2022-06-17 07:21] LABS: Diff Comment RBC Morph Reviewed; Microcytosis 2+
[2022-06-17] MEDS: Metoprolol 12.5 MG TAB PO ×2 (07:48→19:09)
[2022-06-17] MEDS: Multivitamin w/Minerals TAB 1 TAB PO (07:48)
[2022-06-17] MEDS: Sucralfate 1 GM TAB PO ×4 (07:48→21:36)
[2022-06-17] MEDS: Docusate Sodium 100 MG CAP PO ×2 (07:48→19:10)
[2022-06-17] MEDS: Normal Saline Flush 10 ML SYR IVP ×4 (07:52→17:48)
[2022-06-17] MEDS: Pantoprazole 40 MG VIAL IVP ×2 (07:53→19:09)
[2022-06-17] MEDS: Furosemide 20 MG/2 ML VIAL IVP (07:53)
[2022-06-17] MEDS: Isosorbide Mononitrate 30 MG TABCR 15 MG PO (07:56)
[2022-06-17] MEDS: POTASSIUM CHLORIDE 20 MEQ/100 ML BAG 50 MEQ IVPB ×2 (10:21→12:31)
[2022-06-17] MEDS: MAGNESIUM SULFATE 2 GM/50 ML BAG IVPB (10:23)
--- NOTE | 2022-06-17 11:02 | PDOC.CMPRO ---
- If Service Date Differs Date of service: 06/17/22 Time of Service: 11:02 Care Management Progress Note S/O:Gregorio was sitting up in a chair visiting with his and son Patrick. He appeared to be in good spirits and asked about his discharge plan. Patrick indicated that they were really hoping Gregorio could come home today but understand if he needs to stay another day. Patrick also asked if CM could complete Advanced Directives with Elidia, his mother. CM started the process yesterday but Elidia was unsure about how she wanted to respond to several questions, so the decision was made to defer the conversation for another time. Last night Gregorio had a fever of 39.1. Ideally the provider would like him to stay another day to make sure there are no new issues since Gregorio still wishes to receive treatment for his cancer. A:Samson is am 82 year old man admitted on 06/14/22 with an NSTEMI and GI bleed P:Gregorio will likely discharge home with no new services. He is the primary caregiver for his Elidia and with his NSTEMI, will not be able to lift or provide the care she needs. CM suggested that they contact Elidia's PCP to explore the possibility of adding home health services for her during this period. Gregorio will follow up with his community providers and plan of care and transport with family. CM will continue to support Gregorio and his family and assess for ongoing discharge needs.
[2022-06-17 11:32] LABS: Procalcitonin 0.8 ng/mL
[2022-06-17] MEDS: levoFLOXacin 750 MG/150 ML BAG 100 MG IVPB (17:47)
[2022-06-17] MEDS: Normal Saline 500 ML 30 ML IV (17:47)
--- NOTE | 2022-06-17 19:01 | W.PM.PROGNOT ---
Date of Service Date of service: 06/17/22 Time of Service: 16:30 Assessment and Plan Assessment and plan (1) Fever: Status: Acute Assessment and plan: Blood cx (including the port) negative. UA negative. Chest CT on admission with a suggestion of pulmonary infiltrate, but the patient is asymptomatic. Out of the window for transfusion reaction, per blood bank. Does have an elevated procalcitonin, though this is of limited value in cancer patients. Pneumonia could be beginning. Will treat empirically with levofloxacin and monitor. (2) NSTEMI (non-ST elevated myocardial infarction): Status: Acute Assessment and plan: In setting of anemia, GI bleeding, likely underlying CAD. PE ruled out. Troponins have turned around. Symptom free on imdur and metoprolol. Echo w/o wall motion abnormalities, but does have systolic dysfunction. Not a candidate for heparinization, thrombolytics, or cardiac cath given GI bleeding and metastatic malignancy. Continue supportive care. (3) GI bleeding: Status: Chronic Assessment and plan: Not a candidate for an intervention at this time. Continue PPI BID and carafate. Advancing diet today Trend H/H. Target hemoglobin 8. S/p transfusion of 1 unit pRBCs 06/16/22. (4) Anemia associated with acute blood loss: Status: Acute Assessment and plan: As above (5) Acute systolic CHF (congestive heart failure): Status: Acute Assessment and plan: LVEF of 40-45% on echo. Tolerating beta blockers so far. Euvolemic at this time. (6) Hyperlipidemia: Assessment and plan: hold home statin given hepatic dysfunction. (7) Pulmonary hypertension: Status: Acute Assessment and plan: Monitor volume status. PE ruled out. (8) Primary adenocarcinoma of ampulla of Vater: Status: Acute Assessment and plan: On palliative chemotherapy via [facility] (Dr [place]). Palliative care consulted. (9) Hypomagnesemia: Status: Acute Assessment and plan: Replete, Recheck in am. (10) Hypokalemia: Status: Acute Assessment and plan: Replete; magnesium is also being repleted. (11) Chronic pain: Status: Chronic Assessment and plan: Continue home dilaudid. (12) Discharge planning issues: Status: Acute Assessment and plan: DNR/DNI Anticipate discharge home tomorrow. Palliative care and PT consulted. (13) DVT prophylaxis: Status: Acute Assessment and plan: SCDs. HOld chemical DVT ppx given GI bleeding Subjective Subjective Interval history since last seen: Mr Kyle states he is feeling better today. He denies dizziness, chest pain, shortness of breath, nausea. Denies a cough. He is tolerating a regular consistency diet. Febrile to 39.1 - per blood bank, this is outside of the window for a transfusion reaction. Exam Narrative Exam Narrative: General: Pleasant elderly male who looks better, sitting up in a chair, eating dinner, A&Ox3, no dypsnea/tachypnea HEENT: EOMI, MMM Heart: RRR, no m/r/g (HR in the 90s) Lungs: Diminished breath sounds B Abdomen: soft, nontender, nondistended Extremities: trace edema LLE, no edema RLE Objective Last Vital Signs Temp 36.5 C 06/17/22 15:20 Pulse 79 06/17/22 15:20 Resp 16 06/17/22 15:20 BP 108/65 06/17/22 15:20 Pulse Ox 97 06/17/22 15:20 Laboratory Results - last 24 hr 06/16/22 06/16/22 06/17/22 22:05 22:35 06:02 WBC 12.24 H RBC 3.39 L Hgb 8.0 L Hct 24.8 L MCV 73 L MCH 23.6 L MCHC 32.3 RDW 16.8 H Plt Count 524 H MPV 7.9 L Immature Gran % 0.7 Neutrophils % 88.1 Lymphocytes % 8.6 Monocytes % 2.0 Eosinophils % 0.4 Basophils % 0.2 Nucleated RBC % 0.0 Absolute Neutrophils 10.78 H Absolute Lymphocytes 1.05 L Absolute Monocytes 0.24 Absolute Eosinophils 0.05 Absolute Basophils 0.02 RBC Morphology See Below Microcytosis 2+ Sodium 129 L Potassium 3.4 L Chloride 96 L Carbon Dioxide 25.1 Anion Gap 7.9 BUN 22 H Creatinine 1.0 Est GFR (CKD-EPI 2020) 75.61 Glucose 100 Calcium 8.5 Magnesium 1.7 L Procalcitonin Urine Color Yellow Urine Clarity Sl Cloudy Urine pH 6.0 Ur Specific [place] 1.015 Urine Protein 30 H Urine Ketones Negative Urine Blood Negative Urine Nitrite Negative Urine Bilirubin Negative Urine Urobilinogen 1.0 H Ur Leukocyte Esterase Negative Urine RBC 0-2 Urine WBC 0-2 Ur Epithelial Cells Rare Urine Crystals Negative Urine Bacteria Few Urine Mucus Negative Ur Culture Indicated? No Urine Glucose Negative Add-On Test Request 06/17/22 06/17/22 06/17/22 06:02 10:22 Unknown WBC 9.85 RBC 3.42 L Hgb 7.9 L Hct 25.0 L MCV 73 L MCH 23.1 L MCHC 31.6 L RDW 16.8 H Plt Count 533 H MPV 8.5 Immature Gran % 1.0 Neutrophils % 82.6 Lymphocytes % 11.0 Monocytes % 3.7 Eosinophils % 1.5 Basophils % 0.2 Nucleated RBC % 0.0 Absolute Neutrophils 8.14 H Absolute Lymphocytes 1.08 L Absolute Monocytes 0.36 Absolute Eosinophils 0.15 Absolute Basophils 0.02 RBC Morphology See Below Microcytosis 2+ Sodium Potassium Chloride Carbon Dioxide Anion Gap BUN Creatinine Est GFR (CKD-EPI 2020) Glucose Calcium Magnesium Procalcitonin 0.8 Urine Color Urine Clarity Urine pH Ur Specific [place] Urine Protein Urine Ketones Urine Blood Urine Nitrite Urine Bilirubin Urine Urobilinogen Ur Leukocyte Esterase Urine RBC Urine WBC Ur Epithelial Cells Urine Crystals Urine Bacteria Urine Mucus Ur Culture Indicated? Urine Glucose Add-On Test Request TNP
[2022-06-17] MEDS: Simethicone 80 MG CHEW 160 MG PO (19:09)
[2022-06-17] MEDS: Acetaminophen 325 MG TAB 650 MG PO (19:12)
[2022-06-17] MEDS: Tamsulosin 0.4 MG CAPCR 0.8 MG PO (21:36)
[2022-06-17] MEDS: Finasteride 5 MG TAB PO (21:36)
[2022-06-18] VITALS (8 sets, daily range): BP systolic 107–126; BP diastolic 50–74; PULSE 56–82; RESP 17–22; TEMP 36.3–37.2; O2SAT 94–97
[2022-06-18] MEDS: HYDROmorphone 2 MG TAB PO ×4 (01:37→13:34)
[2022-06-18 06:19] LABS: Abs Immature Grans 0.03 10^3/uL (0.0-0.06); Absolute Basophil Count 0.02 10^3/uL (0.0-0.2); Absolute Eosinophil Count 0.08 10^3/uL (0.0-0.7); Absolute Lymphocyte Count 0.95 10^3/uL (1.2-3.4); Absolute Neutrophil Count 4.67 10^3/uL (1.2-6.7); Basophils % 0.3; Eosinophils % 1.2; HCT 26.1 % (40.0-50.0); HGB 8.5 g/dL (13.5-17.5); Immature Grans % 0.5; Lymphocytes % 14.5; MCH 23.5 pg (27.0-33.0); MCHC 32.6 % (32.0-36.0); MCV 72 fL (80-95); MPV 8.5 fL (8.0-11.0); Monocytes % 12.2; Neutrophils % 71.3; Nucleated RBC 0.3 % (0.0-0.3); Platelet Count 521 10^3/uL (130-400); RBC 3.62 10^6/uL (4.36-5.78); RDW 16.9 % (11.8-14.1); RDW-SD 42.9 fL; WBC 6.55 10^3/uL (4.4-10.8)
[2022-06-18 06:51] LABS: Anion Gap 9.7 mmol/L (3-11); BUN 21 mg/dL (7-18); CO2 25.3 mmol/L (21.0-32.0); Calcium 8.6 mg/dL (8.5-10.1); Chloride 95 mmol/L (98-107); Estimated GFR 75.61 (mL/min/1.73m2); Glucose 114 mg/dL (74-106); Magnesium 1.7 mg/dL (1.8-2.4); Potassium 3.3 mmol/L (3.5-5.1); Sodium 130 mmol/L (136-145)
[2022-06-18] MEDS: Docusate Sodium 100 MG CAP PO (07:38)
[2022-06-18] MEDS: Isosorbide Mononitrate 30 MG TABCR 15 MG PO (07:39)
[2022-06-18] MEDS: Sucralfate 1 GM TAB PO ×2 (07:39→11:35)
[2022-06-18] MEDS: Multivitamin w/Minerals TAB 1 TAB PO (07:39)
[2022-06-18] MEDS: Metoprolol 12.5 MG TAB PO (07:39)
[2022-06-18] MEDS: Normal Saline Flush 10 ML SYR IVP ×3 (07:41→13:02)
[2022-06-18] MEDS: Pantoprazole 40 MG VIAL IVP (07:41)
[2022-06-18] MEDS: Alteplase 2 MG VIAL (09:51)
[2022-06-18] MEDS: Water,Injection,Sterile 10 ML VIAL (09:52)
[2022-06-18] MEDS: Potassium Chloride 10 MEQ CAPCR 40 MEQ PO (10:18)
[2022-06-18] MEDS: Magnesium Oxide 400 MG TAB 800 MG PO (10:19)
[2022-06-18] MEDS: Normal Saline 500 ML 30 ML IV (10:45)
[2022-06-18] MEDS: POTASSIUM CHLORIDE 20 MEQ/100 ML BAG 50 MEQ IVPB (10:46)
[2022-06-18] MEDS: Bisacodyl 5 MG TABEC PO (11:05)
[2022-06-18] MEDS: Senna TAB 1 TAB PO (12:21)
[2022-06-18] MEDS: Polyethylene Glycol 3350 17 GM PACKET PO (12:21)
[2022-06-18] MEDS: Ondansetron 4 MG/2 ML VIAL IVP (12:27)
[2022-06-18] MEDS: Methylnaltrexone 12 MG/0.6 ML VIAL SC (12:58)
[2022-06-18] MEDS: Bisacodyl 10 MG SUPP PR (12:58)
--- NOTE | 2022-06-18 13:55 | DSE_ITS ---
Date of service: 06/18/22 Time of Service: 13:56 DS: Diagnosis Discharge Diagnosis (1) GI bleeding: Status: Chronic Asessment and Plan: Patient presented with chronic anemia his baseline hemoglobin appears to be around 10-11 g but on admission his hemoglobin was down to 8.8 g and declined to as low as 6.9 g before being transfused 1 unit of packed red cells and his final hemoglobin on discharge was 8.5 g. Patient had no overt gastrointestinal bleeding but digital rectal exam by the admitting hospitalist demonstrated trace Hemoccult blood. Patient did have constipation during his hospitalization and further stools were documented as being hard formed and brown. He had no hematochezia and no melena. Because the patient presented with an NSTEMI he was not a candidate for an EGD. He was empirically started on Protonix and Carafate and will be discharged on the same. Aspirin was not initiated for his NSTEMI in light of his severe anemia and Hemoccult positive stools. It is presumed that he has some underlying undiagnosed coronary artery disease and his acute coronary ischemia was probably exacerbated or precipitated by his anemia. Patient will be started on oral iron supplementation and repeat CBC to be done in 1 week. (2) NSTEMI (non-ST elevated myocardial infarction): Status: Acute Asessment and Plan: Patient presented to hospital with acute shortness of breath and chest discomfort. Troponin level on admission was mildly elevated at 72 but peaked as high as 3900 ng/L before plateauing at 3600. Chest pain was treated with intravenous nitroglycerin and he was transition to oral isosorbide mononitrate. At discharge patient was denying any chest discomfort or dyspnea. EKG on admission demonstrated sinus tachycardia with acute ST depression in the lateral leads I and aVL as well as V3 through V6. On the next morning on 06/15/20[address] he had [address] depression but not as severe. After resolution of his ongoing chest pain ST depression resolved. Echocardiogram was performed on 06/15/2022 showed mild global hypokinesis of the left ventricle with an LVEF of 45 to 50%. RV was normal in size and function with some mild to moderate pulmonary hypertension with RVSP of 48.7 mm. Patient has mild aortic regurgitation mild mitral regurgitation no aortic stenosis no mitral stenosis. He has mild tricuspid regurgitation with no tricuspid stenosis. His MS was treated with IV nitroglycerin and transition to Imdur and he was started on low- dose Lopressor 12.5 mg twice daily which is now being transitioned to Toprol-XL 25 mg daily. His pravastatin was put on hold because elevated liver function test on admission but is being restarted to treat his underlying coronary artery disease and hyperlipidemia. His acute elevation of his liver enzymes is felt to be due to complications from acute congestive heart failure. His heart failure was treated with IV Lasix and was transitioned to oral Lasix. Because of his GI bleeding he was not treated with heparin or antiplatelet therapy. (3) Anemia associated with acute blood loss: Status: Acute Asessment and Plan: Assessment and treatment as per information given under GI bleeding above (4) Acute systolic CHF (congestive heart failure): Status: Acute Asessment and Plan: Assessment and treatment as listed under NSTEMI (5) Pulmonary hypertension: Status: Acute Asessment and Plan: See echocardiogram report (6) Fever: Status: Acute Asessment and Plan: On 06/16/2022 patient have a fever of 39.1 this was on the same day that he received his transfusion 1 unit of packed red cells. Acute febrile reaction to the transfusion could not be ruled out nevertheless his admission CT scan of his chest showed bibasilar atelectasis versus infiltrates and as the patient presented with an elevated leukocytosis and a procalcitonin was found to be mildly elevated patient was empirically put on Levaquin 750 mg IV daily for possible pneumonia. Patient never coughed up any purulent sputum. Blood cultures were obtained on 06/16/2022 and showed no growth. Urine culture was obtained on 06/16/2022 demonstrated mixed gram-positive cm less than 10,000 colonies. Patient be discharged home on 5 days of Levaquin. (7) Elevated transaminase level: Status: Acute Asessment and Plan: Patient presented with elevated transaminases with an AST of 374, ALT 117, a lkaline phosphatase 275 with a normal total bilirubin of 0.3. Of note patient has a known history of liver metastasis with previous transaminases that were mildly elevated with an AST 48, normal ALT 30, alkaline phosphatase 286. It is presumed that the acute transaminase elevation was secondary to CHF from his NSTEMI. Initially his pravastatin was put on hold because the elevated transaminases however this should be restarted in light of his NSTEMI and history of hypercholesterolemia. Repeat CMP to be done next week. (8) Hypomagnesemia: Status: Acute Asessment and Plan: Discharged homeMagnesium level was 1.5 on admission at the time of discharge was 1.7 after IV and oral supplementation. oral supplementation with a repeat magnesium level next week. (9) Hypokalemia: Status: Acute Asessment and Plan: Patient presented with a normal potassium 4.1 on admission which dropped to 3.3 secondary to IV Lasix. Patient was placed on oral and IV supplementation will be discharged home on spironolactone with repeat CMP next week. (10) Constipation: Status: Acute Asessment and Plan: Patient had prior with constipation which was treated with oral laxatives and stool softeners as well as Relistor. Patient should remain on senna and docusate. 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 Physical therapy was consulted and did an evaluation and found no ongoing need for outpatient P.T. services. Discharge Plan Disposition Patient Disposition: HOME W/HOME HEALTH SERVICE Condition: Improving Discharge Details Reason For Visit: NSTEMI, GI Bleed Admit Date/Time: 06/14/22 20:34 Admit Provider: Julien Ferrara Attending Provider: Julien Ferrara [facility]: See above dictation under individual diagnosis Home Meds and New Rx's Prescriptions: New isosorbide mononitrate 30 mg Tablet Extended Release 24 Hr 15 mg PO DAILY Qty: 30 0RF magnesium oxide 400 mg (241.3 mg magnesium) Tablet 400 mg PO BID Qty: 60 0RF sucralfate 1 gram Tablet 1 g PO AC & HS Qty: 120 0RF docusate sodium [Colace] 100 mg Capsule 100 mg PO BID Qty: 60 0RF bisacodyl 5 mg Tablet,Delayed Release (Dr/Ec) 5 mg PO DAILY PRN PRNQty: 14 0RF sennosides [Senokot] 8.6 mg Tablet 1 tab PO BID PRN PRNQty: 60 0RF pantoprazole [Protonix] 40 mg tablet,delayed release (DR/EC) 40 mg PO DAILY Qty: 30 0RF levofloxacin 750 mg tablet 750 mg PO DAILY 5 Days Qty: 5 0RF ferrous sulfate 325 mg (65 mg iron) tablet,delayed release (DR/EC) 325 mg PO DAILY Qty: 30 0RF metoprolol succinate [Toprol XL] 25 mg tablet extended release 24 hr 25 mg PO DAILY Qty: 30 0RF nitroglycerin 0.4 mg tablet, sublingual 0.4 mg sublingual Q5M PRNQty: 30 0RF Rx Instructions: do not exceed 3 doses per episode furosemide [Lasix] 20 mg tablet 20 mg PO DAILY Qty: 30 0RF spironolactone 25 mg tablet 12.5 mg PO DAILY Qty: 30 0RF Continued multivitamin 1 EACH tablet 1 ea PO DAILY [id number] C-Mn [Glucosamine 1500 Complex] 1 EACH capsule 1 ea PO DAILY pravastatin 40 mg tablet 80 mg PO DAILY Qty: 180 3RF Rx Instructions: prevent cardiovascular events hydromorphone 2 mg tablet 2 mg PO Q4H Rx Instructions: 05/31/22 take 1-2 tabs every 4 hr prn for pain for up to 7 days finasteride 5 mg tablet 5 mg PO HS Qty: 90 4RF tamsulosin 0.4 mg capsule 0.8 mg PO HS Qty: 180 4RF ascorbic acid (vitamin C) [Vitamin C] 500 MG tablet 500 mg PO DAILY vitamin C21-rmteb acid 1 EACH tablet 1 ea PO DAILY Discontinued aspirin 325 MG tablet 325 mg PO DAILY Label Comments: takes intermittently ibuprofen 600 MG tablet 600 mg PO TID PRNQty: 30 0RF Discharge Instructions Instructions: Metoprolol (By mouth), Nitroglycerin (By mouth), Isosorbide Mo nonitrate (By mouth), Angina (DC), Heart Attack (DC), Heart Failure (DC), Gastrointestinal Bleeding (DC), Acute Coronary Syndrome (DC), Anemia (DC) Additional Instructions: You were admitted d/t symptoms of shortness of breath and chest pain. you were found to have a heart attack and severe anemia caused by gastrointestinal bleeding. Because of your conditions of acute bleeding you were not a candidate for heparin or thrombolytics (clot busting drugs) for treatment of your myocardial infarction. Your angina (chest pain) was treated w/ iv nitroglycerin and you were put on beta blockers (metoprolol). You were transitioned to oral metoprolol and a long acting nitrate (Imdur or isosorbide mononitrate) to prevent angina. You will be discharged w/ a prescriptions for both. Your are also being sent home w/ an prescription for nitroglycerin tablet sublingual to be used as needed for recurrent angina. Your anemia was treated w/ a blood transfusion. Your admission hemoglobin was 8.8 gm and dropped to as low as 6.9 gm (normal is 13 to 17). After transfusion, you hemoglobin has risen to 8.5 gm. You are being put on iron supplementation and you should have repeat CBC in one week. As a complication of your myocardial infarction, you were found to be in acute congestive heart failure and this was documented w/ an echocardiogram. The degree of heart impairment is mild (left ventricular ejection fraction, a measure of the percent volume pumped w/ each heart beat) is 45 to 50% (normal is over 52%), and you were treated w/ intravenous lasix and you will be discharged on low dose oral form of lasix (furosemide). You should have follow up labs next week to monitor your electrolytes and renal and liver function. For your acute GI bleeding you were put on intravenous proton pump inhibitor, Protonix, a medication that reduces the acid content of the stomach to allow the lining of the stomach and duodenum to heal and you were started on sucralfate (Carafate) a medication that coats and provides a protective barrier to the lining of the stomach, esophagus and small bowel. During your hospital stay you had a fever of up to 39.1 (102.4) Celsius on 06/16/22, while a definite infection was not docuemented, nevertheless your CT scan of your chest on 06/14/22 demonstrated lower lobe atelectasis versus infiltrates, no pulmonary embolism (blood clots) but showed lung metastasis from your cancer. You were put on levaquin (levofloxacin) and antibiotic to cover for possible pneumonia. It is possible that the fever was a reaction to the blood transfusion as it occurred a few hours after the blood transfusion. You are being sent home on 5 more days of Levofloxacin. Should you develope fever or rigors (shaking chills) call your provider or go to the emergency room. Please f inish all of the levaquin but do not take within 2 hour of taking the carafate as carafate (sucralfate) will bind the antibiotic and it will not be absorbed. Stand Alone Forms: Nursing Discharge Form Referrals: Jessica Richard DO [Primary Care Provider] - 06/23/22 4:30 pm Activity:: Activity as Tolerated Equipment/Supplies:: No Equipment Needed Diet:: Normal Diet Discharge Orders Discharge Orders: Discharge Order (Routine); Ordered 06/18/22 Ordered By: Juan J Michael Other Ambulatory Orders: Complete Blood Count w/Diff (Routine) Timeframe: 1 Week Facility: [facility] - Location: Laboratory Outpatient - [facility] Ordered By: Juan J Michael Comprehensive Metabolic Panel (Routine) Timeframe: 1 Week Facility: [facility] - Location: Laboratory Outpatient - [facility] Ordered By: Juan J Michael Magnesium (Routine) Timeframe: 1 Week Facility: [facility] - Location: Laboratory Outpatient - [facility] Ordered By: Juan J Michael DS: Summary Time Spent with Patient providing and/or coordinating discharge services: Greater than 30 minutes Specific discharge activities: 45 Status at Discharge Functional status at discharge: independent ambulation Overall status at discharge: patient is progressing back to baseline Mental Status: mental status grossly normal Speech and Movement: speech and movement normal Mood: congruent mood Affect: normal affect Quality: AMI Clinical Trial Participant: No Contraindication for Aspirin: Contraindicated Contraindications to PCI Procedure: Contraindicated Contraindication for No Fibrinolytic Therapy: Contraindicated Contraindication for Statin: Complication of medical care Exam Narrative Exam Narrative: is seen sitting up in his chair he is alert and oriented person place time circumstance visiting with his son and his . Denies any chest pain or chest pressure or dyspnea at present. Lungs are clear anteriorly posterior he has some fine bibasilar rales no rhonchi or wheezing Heart is regular no appreciable murmur rub or gallop Abdomen is slightly distended soft normal bowel sounds nontender Lower extremities with trace of edema no cyanosis. Neuro exam grossly intact no focal motor deficits. Psych Mental Status: mental status grossly normal Speech and Movement: speech and movement normal Mood: congruent mood Affect: normal affect DS: Data Vitals/I&O Vitals and I&O: Vital Signs Temperature 36.6 C 06/18/22 11:16 Temperature Source Tympanic 06/18/22 11:16 Pulse 56 L 06/18/22 11:16 Pulse Rhythm Regular 06/18/22 07:57 Pulse 99 H 06/16/22 18:01 Respiratory Rate 18 06/18/22 11:16 Respiratory Effort Non-Labored 06/18/22 07:57 Respiratory Depth Normal 06/18/22 07:57 Respiratory Pattern Normal 06/18/22 07:57 Blood Pressure 107/50 L 06/18/22 11:16 Blood Pressure Mean 74 06/16/22 18:01 Blood Pressure Position Supine 06/16/22 12:00 Pulse Oximetry 94 06/18/22 11:22 Oxygen Delivery Method Room Air 06/18/22 11:22 Oxygen Flow Rate 0 06/18/22 11:22 Pain Level 0 06/18/22 11:16 Comment 06/16/22 19:35 Intake & Output 06/17/22 06/18/22 06/18/22 23:59 11:59 23:59 Intake Total 987 / 1227 390 / 573 183 / 573 Output Total 550 / 2525 200 / 200 Balance 437 / -1298 390 / 373 -17 / 373 Weight 88.1 kg Intake: IV 227 / 227 150 / 333 183 / 333 Oral 760 / 1000 240 / 240 Output: Urine 550 / 2525 Emesis 200 / 200 Other: Urine Color Yellow Urine Appearance Clear Comment pt is independent and voids independently, nurse did not assess urine Data Completed and Pending Labs on day of discharge: Labs from last 24 hours 06/18/22 06/18/22 05:30 05:30 WBC 6.55 RBC 3.62 L Hgb 8.5 L Hct 26.1 L MCV 72 L MCH 23.5 L MCHC 32.6 RDW 16.9 H Plt Count 521 H MPV 8.5 Immature Gran % 0.5 Neutrophils % 71.3 Lymphocytes % 14.5 Monocytes % 12.2 Eosinophils % 1.2 Basophils % 0.3 Nucleated RBC % 0.3 Absolute Neutrophils 4.67 Absolute Lymphocytes 0.95 L Absolute Monocytes 0.80 Absolute Eosinophils 0.08 Absolute Basophils 0.02 Sodium 130 L Potassium 3.3 L Chloride 95 L Carbon Dioxide 25.3 Anion Gap 9.7 BUN 21 H Creatinine 1.0 Est GFR (CKD-EPI 2020) 75.61 Glucose 114 H Calcium 8.6 Magnesium 1.7 L Preliminary micro results at discharge 06/16/22 10:02 Blood Culture - Preliminary Blood NO GROWTH 48 HOURS 06/16/22 09:30 Blood Culture - Preliminary Blood NO GROWTH 48 HOURS 06/16/22 22:35 Urine Culture - Preliminary Urine - Clean Catch Gram Positive Cm,Mixed PFSH All Active Problems (Updated 06/18/22 @ 14:59 by Juan J Michael MD) Constipation (Acute) Medication monitoring encounter (Acute) Elevated transaminase level (Acute) Hypokalemia (Acute) Fever (Acute) Anemia associated with acute blood loss (Acute) Night sweat (Acute) Pulmonary hypertension (Acute) Discharge planning issues (Acute) DVT prophylaxis (Acute) Chronic pain (Chronic) Hypomagnesemia (Acute) Acute systolic CHF (congestive heart failure) (Acute) GI bleeding (Chronic) Dyspnea (Acute) CHF (congestive heart failure) (Chronic) Elevated troponin (Acute) NSTEMI (non-ST elevated myocardial infarction) (Acute) 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 Duodenal anomaly (Acute) Liver lesion (Acute) Lesions, suspicious for metastatic dz Weight loss (Acute) Belching (Acute) relieves left side/UQ pressure RUQ fullness (Acute) Left upper quadrant abdominal mass (Acute) Parapelvic renal cyst (Acute) Dysmetabolic syndrome X (Acute 04/22/12) IMPAIRED FBS 111-104; WEIGHT Abnormal blood sugar (Chronic 06/19/14) Hx abnormal fasting blood sugar Stiffness of finger joint (Acute) 3rd digit, B/L, stiffness after lengthy gripping (mostly driving). I'm concerned 2' heavy schedule carrying/lifting with MS. Chronic pancreatitis (Acute) 10/12/19-[facility] Gastroenterology. 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 Dr Stover follows 11/25/17 BCC nodular and infiltrative left frontal parietal scalp w/ removal Dr Stover 11/25/17 Excision of recurrent BCCA left frontal parietal scalp Carpal tunnel syndrome of left wrist (Acute 05/22/15) Carpal tunnel syndrome of right wrist (Acute 05/12/16) BPH w/o urinary obs/LUTS (Acute 09/13/99) LUTS, DR SANCHEZ YEARLY Hip pain, right (Acute 09/30/17) Rupesh Garcia PT with HEP for ITB and hamstring streching Hyperlipidemia (Acute 04/22/12) GOAL LDL<130; (OPTIMAL <100); RISK CALCULATED 16% IN 2001; LDL AT GOAL, LOW HDL Overweight (Acute 04/22/12) goal 185 (last <2002) 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 Successfully contlld GERD per pt report. Hyperlipidemia Surgical History H/O shoulder surgery Left S/P endoscopy 05/27/22 AT [facility] [place]. biopsy done Family History Mother Diabetes Father , MS at age 90. Diabetes Heart disease Sister Age: 82 No problems noted. Brother Age: 79 Diabetes Heart disease Social History Smoking/Tobacco Use Status: Former Tobacco Use Smoking risk assessment performed?: Yes Alcohol Intake: never Drug use: Never Substance use type: does not use Do you feel safe at home: Yes Do you feel safe in your relationship?: Yes
--- NOTE | 2022-06-18 14:03 | PDOC.HHF2F_ITS ---
Home Health Certification Home Health Certification: 1. Encounter Date and Reason I certify that Gregorio Kyle was seen by Juan J Michael on 06/18/22 and that I had a [id number] encounter with this patient that meets the physician face to face encounter requirements. 2. Clinical Findings Supporting Skilled Need and Homebound Status I certify that home health services are medically necessary, include either intermittent detention and/or physical/speech therapy, and that this patient is homebound in that absences from the home require considerable and taxing effort and are infrequent or of short duration, or are attributable to the need to receive medical care. [X] (a) Attached documentation from encounter provides clinical findings supporting skilled need and homebound status (including what assistance patient requires to leave the home). The encounter with the patient was in whole, or in part, for the following medical condition, which is the primary reason for home health care: NSTEMI, GI Bleed Custodial: nursing to monitor GI bleeding and angina; monitor medication compliance, draw labs as directed by PCP and specialists and coordinate and implement any plan of care changes/new orders Physical Therapy: Speech Therapy: Homebound: patient's recent GI bleeding and anemia and NSTEMI have made patient's condition such that he is too weak to obtain care outside his home safely 3. Certification and Authentication I certify that I composed the above information based on my clinical judgement relating to this patient's medical condition and, if applicable, clinical findings communicated to me by the NPP or inpatient physician who performed the Home Health Referral. All further orders will be obtained through ___Jessica Potts (Community Based Physician - PCP)
--- NOTE | 2022-06-18 14:59 | PDOC.CMDIS ---
- If Service Date Differs Date of service: 06/18/22 Time of Service: 14:59 LACE Index Scoring Tool - Questions: Length of Stay (in days): 4 - 6 Acuity (Admit via E.D.?): Yes Comorbidities: Metastatic Solid Tumor E.D. Visits: 2 - Answers: Total Score: 14 Risk of Readmission: High Risk Care Management Discharge Reason for Hospitalization: NSTEMI Discharge Plan: Gregorio will discharge home with new home health services for nursing. Gregorio will follow up with his community providers and plan of care and transport with family. Patient/Family Education Needs: Review of discharge planning, limitations, folllow up plan, medications, Ask Me Three
== END 2022-06-18 16:36 | disposition home health service (06) | DRG 280 ==
LOC: ER 21:02 → ICU 21:51 → MS 06-16 18:42
PROVIDERS: Family Medicine; Internal Medicine; Admitting Provider General Practice; Emergency Provider Physician Assistant; PCP Student in an Organized Health Care Education/Training Program; Visit Provider General Practice
DX: I21.4 Non-ST elevation (NSTEMI) myocardial infarction (principal); I50.21 Acute systolic (congestive) heart failure; J18.9 Pneumonia, unspecified organism; C24.1 Malignant neoplasm of ampulla of Vater; C78.7 Secondary malignant neoplasm of liver and intrahepatic bile duct; K86.1 Other chronic pancreatitis; K92.2 Gastrointestinal hemorrhage, unspecified; D62 Acute posthemorrhagic anemia; C78.02 Secondary malignant neoplasm of left lung; C78.01 Secondary malignant neoplasm of right lung; E78.5 Hyperlipidemia, unspecified; Z95.828 Presence of other vascular implants and grafts; Z79.899 Other long term (current) drug therapy; Z66 Do not resuscitate; R63.4 Abnormal weight loss; E88.81 Metabolic syndrome and other insulin resistance; R19.5 Other fecal abnormalities; I25.10 Atherosclerotic heart disease of native coronary artery without angina pectoris; I27.20 Pulmonary hypertension, unspecified; E83.42 Hypomagnesemia; G89.29 Other chronic pain; R61 Generalized hyperhidrosis; R50.9 Fever, unspecified; K59.00 Constipation, unspecified; E87.6 Hypokalemia; I08.3 Combined rheumatic disorders of mitral, aortic and tricuspid valves
CPT/HCPCS: 36415; 36430; 36592; 71275; 80048; 80053; 84145; 85027; 86850; 86900; 86901; 86920; 87040; 87635; 93005; 93306; 96361; 96365; 97161; 99222; 99291; 81003; 81015; 82728; 83540; 83550; 83735; 83880; 84484; 85014; 85018; 85025; 85610; 85730; 87086; 93010; 99232; 99233; 99239; J1941; J1956; J2405; J2997; J3475; J3480; J3490; P9016

== ENCOUNTER 2022-07-03 09:30 | Outpatient (RCR) | payer MEDICARE, SELFPAY ==
[2022-06-26] MEDS: Normal Saline Flush 10 ML SYR IVP (09:14)
[2022-06-26 09:38] LABS: Abs Immature Grans 0.06 10^3/uL (0.0-0.06); Absolute Basophil Count 0.04 10^3/uL (0.0-0.2); Absolute Eosinophil Count 0.08 10^3/uL (0.0-0.7); Absolute Lymphocyte Count 1.52 10^3/uL (1.2-3.4); Absolute Monocyte Count 1.59 10^3/uL (0.1-0.8); Absolute Neutrophil Count 7.61 10^3/uL (1.2-6.7); Basophils % 0.4; Eosinophils % 0.7; HCT 29.1 % (40.0-50.0); HGB 9.4 g/dL (13.5-17.5); Immature Grans % 0.6; Lymphocytes % 13.9; MCH 23.9 pg (27.0-33.0); MCHC 32.3 % (32.0-36.0); MCV 74 fL (80-95); MPV 8.7 fL (8.0-11.0); Monocytes % 14.6; Neutrophils % 69.8; Platelet Count 724 10^3/uL (130-400); RBC 3.93 10^6/uL (4.36-5.78); RDW 19.6 % (11.8-14.1); RDW-SD 50.6 fL
[2022-06-26 09:55] LABS: Diff Comment Diff Reviewed; Microcytosis 2+
[2022-06-26 10:01] LABS: Iron 21 ug/dL (65-175); Total Iron Binding Capacity 225 ug/dL (250-450); Transferrin Sat 9 % (20-55)
[2022-06-26 10:33] LABS: ALT 35 U/L (16-63); AST 53 U/L (15-37); Albumin 2.3 g/dL (3.4-5.0); Alkaline Phosphatase 518 U/L (46-116); Anion Gap 7.5 mmol/L (3-11); BUN 13 mg/dL (7-18); Bilirubin, Total 0.6 mg/dL (0.2-1.0); CO2 29.5 mmol/L (21.0-32.0); CREATININE 1.1 mg/dL (0.70-1.30); Calcium 8.8 mg/dL (8.5-10.1); Chloride 97 mmol/L (98-107); Estimated GFR 67.44 (mL/min/1.73m2); Glucose 113 mg/dL (74-106); Sodium 134 mmol/L (136-145); Total Protein 6.8 g/dL (6.4-8.2)
[2022-06-26 10:38] LABS: Ferritin 1918 ng/mL (26-388); Folate > 20.0 ng/mL (8.6-20.0)
[2022-06-26 11:11] LABS: Magnesium 1.6 mg/dL (1.8-2.4)
[2022-06-29 14:11] LABS: CA 19-9 12408 U/mL (<35)
[2022-07-03] MEDS: Normal Saline Flush 10 ML SYR IVP (09:35)
[2022-07-03 10:06] LABS: Abs Immature Grans 0.05 10^3/uL (0.0-0.06); Absolute Basophil Count 0.08 10^3/uL (0.0-0.2); Absolute Eosinophil Count 0.08 10^3/uL (0.0-0.7); Absolute Lymphocyte Count 1.59 10^3/uL (1.2-3.4); Absolute Monocyte Count 2.18 10^3/uL (0.1-0.8); Absolute Neutrophil Count 6.18 10^3/uL (1.2-6.7); Basophils % 0.8; Eosinophils % 0.8; HGB 9.7 g/dL (13.5-17.5); Immature Grans % 0.5; Lymphocytes % 15.6; MCH 23.2 pg (27.0-33.0); MCHC 31.3 % (32.0-36.0); MCV 74 fL (80-95); MPV 8.6 fL (8.0-11.0); Monocytes % 21.5; Neutrophils % 60.8; RBC 4.19 10^6/uL (4.36-5.78); RDW 20.4 % (11.8-14.1); RDW-SD 53.6 fL; WBC 10.16 10^3/uL (4.4-10.8)
[2022-07-03 10:20] LABS: Anisocytosis 2+; Diff Comment Diff Reviewed; Hypochromasia 1+; Microcytosis 2+
[2022-07-03 10:21] LABS: Platelet Count 723 10^3/uL (130-400)
[2022-07-03 10:24] LABS: Iron 15 ug/dL (65-175); Total Iron Binding Capacity 219 ug/dL (250-450); Transferrin Sat 7 % (20-55)
[2022-07-03 11:01] LABS: ALT 22 U/L (16-63); AST 58 U/L (15-37); Albumin 2.4 g/dL (3.4-5.0); Alkaline Phosphatase 307 U/L (46-116); Anion Gap 7.7 mmol/L (3-11); BUN 10 mg/dL (7-18); Bilirubin, Total 0.4 mg/dL (0.2-1.0); CO2 28.3 mmol/L (21.0-32.0); Calcium 8.7 mg/dL (8.5-10.1); Chloride 96 mmol/L (98-107); Estimated GFR 75.61 (mL/min/1.73m2); Ferritin 1302 ng/mL (26-388); Folate > 20.0 ng/mL (8.6-20.0); Glucose 109 mg/dL (74-106); Potassium 4.1 mmol/L (3.5-5.1); Sodium 132 mmol/L (136-145); Total Protein 7.2 g/dL (6.4-8.2)
[2022-07-03 13:08] LABS: Magnesium 1.7 mg/dL (1.8-2.4)
[2022-07-06 14:50] LABS: CA 19-9 18836 U/mL (<35)
== END 2022-07-13 23:59 | disposition home or self-care (01) ==
LOC: INF 09:30
PROVIDERS: PCP Student in an Organized Health Care Education/Training Program; Visit Provider Internal Medicine Hematology & Oncology
DX: C24.1 Malignant neoplasm of ampulla of Vater (principal); Z45.2 Encounter for adjustment and management of vascular access device
CPT/HCPCS: 36591; 80053; 82728; 82746; 83540; 83550; 83735; 85025; 86301

== ENCOUNTER → 2022-07-22 02:27 | Outpatient (CLI) | payer MEDICARE, SELFPAY ==
--- NOTE | 2022-07-22 | DI.CT_ITS ---
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 There are bi lateral basilar small infiltrates which may represent atelectasis or pneumonia. Coronary artery calc ifications are present. Postsurgical changes are seen in the gastroesophageal junction. Liver: There has been interval progression of the hepatic metastases since 04/20/2022. The largest mas s is seen in the dome of the liver and measures 5.1 x 5.2 cm. Portal, Superior Mesenteric, and Splenic Veins: Unremarkable. Gallbladder and Biliary Tract: Hyperdense layering material seen in the gallbladder suspicious for st ones. Pneumobilia is appreciated. There is a biliary stent extending into the duodenum. Pancreas: There is an overall increase in size of the head of the pancreas compared to the examinatio n from 04/20/2022. There is mild prominence of the pancreatic duct. Spleen: Normal. Adrenals: No masses seen. Kidneys: Normal size, contour and axis. No radiodense stones or obstructive uropathy. There are left parapelvic cysts. Abdominal Aorta: Abdominal portion non-dilated. Atherosclerosis is present. Bowel: There is diverticulosis seen in the colon but no evidence of acute diverticulitis. There is n o evidence of appendicitis. Peritoneal Cavity: There is a small amount of pelvic ascites. No free air. Lymph Nodes: Increased retroperitoneal adenopathy is present. The largest lymph node is in the left periaortic region and measures 2.4 x 2.1 cm. Bones: Within normal limits for the patient's age. Soft Tissues: There are bilateral fat containing inguinal hernias. PELVIS: Bladder: Symmetric distention, no gross wall thickening. Reproductive Organs: The prostate gland is enlarged. Lymph Nodes: Within normal limits. Bones: Within normal limits for the patient's age. IMPRESSION: 1. Increased size of the pancreatic head suggesting increase in size of the neoplasm. 2. Worsening metastatic disease in the chest, abdomen and pelvis. RADIATION DOSE DELIVERED: 988.36mGy.cm Total DLP DATA REPOSITORY: All CT scans at this facility are submitted to the National Radiology Data Registry (NRDR) Dose Index Registry (DIR) with the [employer] (A[employer]). RADIATION OPTIMIZATION: All CT scans at this facility use at least one of these dose optimization te chniques: automated exposure control; mA and/or kV adjustment per patient size (includes targeted exa ms where dose is matched to clinical indication); or iterative reconstruction.
[2022-07-22] MEDS: Omnipaque 350 MG/ML 500 ML BTL-Imaging package IJ (13:30)
== END ==
PROVIDERS: PCP Student in an Organized Health Care Education/Training Program; Visit Provider Nurse Practitioner Family
DX: C24.1 Malignant neoplasm of ampulla of Vater (principal); C76.1 Malignant neoplasm of thorax; C79.89 Secondary malignant neoplasm of other specified sites; K86.89 Other specified diseases of pancreas; R68.81 Early satiety
CPT/HCPCS: 96523; 74177; J2997

== ENCOUNTER 2022-07-31 00:57 | Outpatient (RCR) | payer MEDICARE, SELFPAY ==
[2022-07-17] MEDS: Normal Saline Flush 10 ML SYR IVP (09:31)
[2022-07-17 09:40] LABS: Abs Immature Grans 0.04 10^3/uL (0.0-0.06); Absolute Basophil Count 0.06 10^3/uL (0.0-0.2); Absolute Eosinophil Count 0.07 10^3/uL (0.0-0.7); Absolute Lymphocyte Count 1.42 10^3/uL (1.2-3.4); Absolute Monocyte Count 1.49 10^3/uL (0.1-0.8); Basophils % 0.6; Eosinophils % 0.7; HCT 32.3 % (40.0-50.0); HGB 10.4 g/dL (13.5-17.5); Immature Grans % 0.4; Lymphocytes % 13.7; MCH 23.7 pg (27.0-33.0); MCHC 32.2 % (32.0-36.0); MCV 74 fL (80-95); MPV 8.4 fL (8.0-11.0); Monocytes % 14.4; Neutrophils % 70.2; Platelet Count 596 10^3/uL (130-400); RBC 4.38 10^6/uL (4.36-5.78); RDW 22.3 % (11.8-14.1); RDW-SD 56.5 fL; WBC 10.38 10^3/uL (4.4-10.8)
[2022-07-17 09:52] LABS: Anisocytosis 2+; Diff Comment Diff Reviewed; Microcytosis 2+
[2022-07-17 09:53] LABS: Poikilocytes 2+
[2022-07-17 09:54] LABS: Polychromasia Present
[2022-07-17 09:57] LABS: ALT 33 U/L (16-63); AST 63 U/L (15-37); Albumin 2.5 g/dL (3.4-5.0); Alkaline Phosphatase 500 U/L (46-116); Anion Gap 6.6 mmol/L (3-11); BUN 12 mg/dL (7-18); Bilirubin, Total 0.6 mg/dL (0.2-1.0); CO2 29.4 mmol/L (21.0-32.0); CREATININE 1.1 mg/dL (0.70-1.30); Calcium 8.8 mg/dL (8.5-10.1); Chloride 96 mmol/L (98-107); Estimated GFR 67.44 (mL/min/1.73m2); Glucose 116 mg/dL (74-106); Potassium 3.7 mmol/L (3.5-5.1); Sodium 132 mmol/L (136-145); Total Protein 7.1 g/dL (6.4-8.2)
[2022-07-20 11:38] LABS: CA 19-9 22290 U/mL (<35)
[2022-07-22] MEDS: Normal Saline Flush 10 ML SYR IVP (09:17)
[2022-07-22] MEDS: Water,Injection,Sterile 10 ML VIAL (09:43)
[2022-07-22] MEDS: Alteplase 2 MG VIAL (09:43)
[2022-07-24] MEDS: Normal Saline Flush 10 ML SYR IVP (09:52)
[2022-07-28 08:04] LABS: DPYD Phenotype Normal metabolizer
[2022-07-31] MEDS: Normal Saline Flush 10 ML SYR IVP (10:18)
[2022-07-31 10:40] LABS: Abs Immature Grans 0.05 10^3/uL (0.0-0.06); Absolute Basophil Count 0.06 10^3/uL (0.0-0.2); Absolute Eosinophil Count 0.13 10^3/uL (0.0-0.7); Absolute Lymphocyte Count 1.17 10^3/uL (1.2-3.4); Absolute Monocyte Count 1.46 10^3/uL (0.1-0.8); Basophils % 0.6; Eosinophils % 1.3; HCT 30.3 % (40.0-50.0); HGB 9.6 g/dL (13.5-17.5); Immature Grans % 0.5; Lymphocytes % 12.1; MCH 23.6 pg (27.0-33.0); MCHC 31.7 % (32.0-36.0); MCV 75 fL (80-95); MPV 9.2 fL (8.0-11.0); Monocytes % 15.1; Neutrophils % 70.4; Platelet Count 590 10^3/uL (130-400); RBC 4.06 10^6/uL (4.36-5.78); RDW 24.6 % (11.8-14.1); RDW-SD 63.4 fL; WBC 9.67 10^3/uL (4.4-10.8)
[2022-07-31 10:51] LABS: ALT 32 U/L (16-63); AST 63 U/L (15-37); Albumin 2.5 g/dL (3.4-5.0); Alkaline Phosphatase 499 U/L (46-116); Anion Gap 5.1 mmol/L (3-11); BUN 10 mg/dL (7-18); Bilirubin, Total 0.6 mg/dL (0.2-1.0); CO2 29.9 mmol/L (21.0-32.0); Calcium 8.9 mg/dL (8.5-10.1); Chloride 95 mmol/L (98-107); Estimated GFR 75.61 (mL/min/1.73m2); Glucose 112 mg/dL (74-106); Sodium 130 mmol/L (136-145); Total Protein 7.1 g/dL (6.4-8.2)
[2022-07-31 11:04] LABS: Anisocytosis 1+; Microcytosis 1+; Polychromasia Present
[2022-08-02 12:43] VITALS: BP 118/70; PULSE 80; RESP 16; TEMP 36.7; O2SAT 98
[2022-08-02] MEDS: Normal Saline Flush 10 ML SYR IVP (12:48)
[2022-08-02] MEDS: Heparin 500 UNITS/5 ML SYRINGE IV (12:48)
== END 2022-08-12 23:59 | disposition home or self-care (01) ==
LOC: INF 00:57
PROVIDERS: PCP Student in an Organized Health Care Education/Training Program; Visit Provider Internal Medicine Hematology & Oncology
DX: C24.1 Malignant neoplasm of ampulla of Vater (principal); Z45.2 Encounter for adjustment and management of vascular access device
CPT/HCPCS: 36591; 80053; 81232; 96523; 85025; 86301; J2997

== ENCOUNTER 2022-09-11 00:32 | Outpatient (CLI) | payer MEDICARE, SELFPAY ==
--- NOTE | 2022-09-11 06:45 | DI.RAD_ITS ---
Exam(s) XR HAND RT COMPLETE XR WRIST RT COMPLETE EXAM: XR HAND RT COMPLETE CLINICAL HISTORY: evaluate joint space;? bony pathology, erosion,RHEUMATOID ARTHRITIS, M06.9. TECHNIQUE: 2D digital imaging was performed. Three views. COMPARISON: CR LEFT HAND COMPLETE from 04/25/2015 CR XR WRIST RT COMPLETE from 09/11/2022 FINDINGS: BONES: No acute fracture is present. No bony destructive lesion is seen. Severe narrowing of the radi al scaphoid joint. Widening of the scapholunate distance and some proximal migration of the capitate as well as dorsal tilt of the lunate. JOINTS: No dislocation present. Degenerative changes of the interphalangeal joints of the fingers wit h mild to moderate periarticular spurring spurring. SOFT TISSUE: Normal. IMPRESSION: Degenerative changes greatest of the radial scaphoid joint. No findings suspicious for rheumatoid ar thritis. DATA REPOSITORY: RADIATION DOSE DELIVERED:
--- NOTE | 2022-09-11 06:45 | DI.RAD_ITS ---
Exam(s) XR HAND LT COMPLETE XR WRIST LT COMPLETE EXAM: XR HAND LT COMPLETE CLINICAL HISTORY: evaluate joinT space,?EFFUSION,BONY PATHOLOGY, erosion,RHEUMATOID ARTHRITIS. TECHNIQUE: 2D digital imaging was performed. Three views. COMPARISON: CR XR HAND RT COMPLETE from 09/11/2022 CR XR WRIST LT COMPLETE from 09/11/2022 FINDINGS: BONES: No acute fracture is present. No bony destructive lesion is seen. No bony erosions. No spine findings suspicious for rheumatoid arthritis. JOINTS: No dislocation present. Severe narrowing of the scaphoid radial joint space. Subchondral cyst seen in distal radius and proximal pole of the scaphoid. Widening of the scapholunate distance and d orsal tilt of the lunate as well as proximal migration of the capitate. Mild narrowing of the 3rd me tacarpophalangeal joint as well as interphalangeal joints of the fingers. [id number] periartic ular spurring at the interphalangeal joints of the 2nd and 3rd fingers. Milder degenerative changes elsewhere. SOFT TISSUE: Calcifications seen near the radiocarpal joint likely secondary to the degenerative spaulding ges. IMPRESSION: Degenerative changes, greatest at the radial carpal joint. DATA REPOSITORY: RADIATION DOSE DELIVERED:
== END 2022-09-11 00:52 ==
LOC: DI 00:32
PROVIDERS: PCP Student in an Organized Health Care Education/Training Program; Visit Provider Student in an Organized Health Care Education/Training Program
DX: M25.531 Pain in right wrist; M25.532 Pain in left wrist; M25.541 Pain in joints of right hand; M25.542 Pain in joints of left hand; M06.9 Rheumatoid arthritis, unspecified; M19.031 Primary osteoarthritis, right wrist; M19.032 Primary osteoarthritis, left wrist
CPT/HCPCS: 36591; 80053; 73110; 73130; 83735; 85025; 86301

== ENCOUNTER 2022-09-11 00:38 | Outpatient (RCR) | payer MEDICARE, SELFPAY ==
[2022-08-13 00:05] VITALS: BP 118/70; PULSE 80; RESP 16; TEMP 36.7
[2022-08-14] MEDS: Normal Saline Flush 10 ML SYR IVP (09:34)
[2022-08-14 09:49] LABS: Abs Immature Grans 0.03 10^3/uL (0.0-0.06); Absolute Basophil Count 0.07 10^3/uL (0.0-0.2); Absolute Monocyte Count 1.57 10^3/uL (0.1-0.8); Absolute Neutrophil Count 4.45 10^3/uL (1.2-6.7); Basophils % 0.9; Eosinophils % 2.6; HCT 30.4 % (40.0-50.0); HGB 9.4 g/dL (13.5-17.5); Immature Grans % 0.4; Lymphocytes % 19.2; MCH 23.8 pg (27.0-33.0); MCHC 30.9 % (32.0-36.0); MCV 77 fL (80-95); MPV 8.3 fL (8.0-11.0); Monocytes % 20.1; Neutrophils % 56.8; Platelet Count 420 10^3/uL (130-400); RBC 3.95 10^6/uL (4.36-5.78); WBC 7.82 10^3/uL (4.4-10.8)
[2022-08-14 10:09] LABS: Iron 47 ug/dL (65-175); Total Iron Binding Capacity 236 ug/dL (250-450); Transferrin Sat 20 % (20-55)
[2022-08-14 10:42] LABS: Anisocytosis 3+; Diff Comment Agrees w/ Instrument; Hypochromasia 1+; Microcytosis 1+; Poikilocytes 2+; Polychromasia Present
[2022-08-14 10:44] LABS: ALT 20 U/L (16-63); AST 38 U/L (15-37); Albumin 2.4 g/dL (3.4-5.0); Alkaline Phosphatase 375 U/L (46-116); BUN 9 mg/dL (7-18); Bilirubin, Total 0.6 mg/dL (0.2-1.0); CREATININE 0.9 mg/dL (0.70-1.30); Calcium 8.6 mg/dL (8.5-10.1); Chloride 99 mmol/L (98-107); Glucose 128 mg/dL (74-106); Potassium 3.7 mmol/L (3.5-5.1); Sodium 136 mmol/L (136-145); Total Protein 6.7 g/dL (6.4-8.2)
[2022-08-14 10:45] LABS: Ferritin 1736 ng/mL (26-388)
[2022-08-16 12:14] VITALS: BP 141/77; PULSE 70; RESP 16; TEMP 35.7; O2SAT 96
[2022-08-16] MEDS: Heparin 500 UNITS/5 ML SYRINGE IV (12:17)
[2022-08-16] MEDS: Normal Saline Flush 10 ML SYR IVP (12:17)
[2022-08-28] MEDS: Normal Saline Flush 10 ML SYR IVP (08:44)
[2022-08-28 09:13] LABS: Abs Immature Grans 0.03 10^3/uL (0.0-0.06); Absolute Basophil Count 0.03 10^3/uL (0.0-0.2); Absolute Eosinophil Count 0.03 10^3/uL (0.0-0.7); Absolute Lymphocyte Count 1.61 10^3/uL (1.2-3.4); Absolute Monocyte Count 0.82 10^3/uL (0.1-0.8); Absolute Neutrophil Count 5.17 10^3/uL (1.2-6.7); Basophils % 0.4; Eosinophils % 0.4; HGB 9.6 g/dL (13.5-17.5); Immature Grans % 0.4; Lymphocytes % 20.9; MCH 24.9 pg (27.0-33.0); MCV 81 fL (80-95); MPV 8.5 fL (8.0-11.0); Monocytes % 10.7; Neutrophils % 67.2; Platelet Count 254 10^3/uL (130-400); RBC 3.85 10^6/uL (4.36-5.78); RDW 26.3 % (11.8-14.1); RDW-SD 74.3 fL; WBC 7.69 10^3/uL (4.4-10.8)
[2022-08-28 09:32] LABS: Anisocytosis 2+; Diff Comment RBC Morph Reviewed
[2022-08-28 09:43] LABS: ALT 14 U/L (16-63); AST 28 U/L (15-37); Albumin 2.6 g/dL (3.4-5.0); Alkaline Phosphatase 237 U/L (46-116); Anion Gap 7.3 mmol/L (3-11); BUN 12 mg/dL (7-18); Bilirubin, Total 0.4 mg/dL (0.2-1.0); CO2 28.7 mmol/L (21.0-32.0); CREATININE 1.1 mg/dL (0.70-1.30); Calcium 8.8 mg/dL (8.5-10.1); Chloride 102 mmol/L (98-107); Estimated GFR 67.44 (mL/min/1.73m2); Glucose 132 mg/dL (74-106); Potassium 3.4 mmol/L (3.5-5.1); Sodium 138 mmol/L (136-145); Total Protein 6.9 g/dL (6.4-8.2)
[2022-08-30] MEDS: Normal Saline Flush 10 ML SYR IVP (11:30)
[2022-08-30] MEDS: Heparin 500 UNITS/5 ML SYRINGE IV (11:30)
[2022-08-30 11:50] VITALS: BP 96/60; PULSE 77; RESP 18; TEMP 36.6; O2SAT 98
[2022-08-30 14:11] LABS: Lab Add On Test DONE
[2022-08-30 14:22] LABS: Magnesium 1.3 mg/dL (1.8-2.4)
[2022-08-31 13:43] LABS: CA 19-9 15450 U/mL (<35)
[2022-09-11] MEDS: Normal Saline Flush 10 ML SYR IVP (08:59)
[2022-09-11 09:28] LABS: Abs Immature Grans 0.04 10^3/uL (0.0-0.06); Absolute Basophil Count 0.03 10^3/uL (0.0-0.2); Absolute Lymphocyte Count 2.21 10^3/uL (1.2-3.4); Absolute Neutrophil Count 6.37 10^3/uL (1.2-6.7); Basophils % 0.3; HCT 32.5 % (40.0-50.0); HGB 10.1 g/dL (13.5-17.5); Immature Grans % 0.4; Lymphocytes % 21.8; MCH 26.4 pg (27.0-33.0); MCHC 31.1 % (32.0-36.0); MCV 85 fL (80-95); MPV 8.5 fL (8.0-11.0); Monocytes % 13.8; Neutrophils % 62.7; Platelet Count 196 10^3/uL (130-400); RBC 3.82 10^6/uL (4.36-5.78); RDW 26.5 % (11.8-14.1); RDW-SD 81.2 fL; WBC 10.15 10^3/uL (4.4-10.8)
[2022-09-11 09:50] LABS: ALT 16 U/L (16-63); AST 28 U/L (15-37); Albumin 2.6 g/dL (3.4-5.0); Alkaline Phosphatase 150 U/L (46-116); Anion Gap 8.8 mmol/L (3-11); BUN 14 mg/dL (7-18); Bilirubin, Total 0.6 mg/dL (0.2-1.0); CO2 26.2 mmol/L (21.0-32.0); CREATININE 0.8 mg/dL (0.70-1.30); Calcium 8.6 mg/dL (8.5-10.1); Chloride 105 mmol/L (98-107); Estimated GFR 88.91 (mL/min/1.73m2); Glucose 111 mg/dL (74-106); Potassium 3.3 mmol/L (3.5-5.1); Sodium 140 mmol/L (136-145); Total Protein 6.6 g/dL (6.4-8.2)
[2022-09-11 09:54] LABS: Anisocytosis 3+; Diff Comment Diff Reviewed; Hypochromasia 1+; Poikilocytes 1+; Polychromasia Present
[2022-09-14 12:38] LABS: CA 19-9 8009 U/mL (<35)
[2022-09-15 10:08] LABS: Lab Add On Test DONE
[2022-09-15 10:23] LABS: Magnesium 1.3 mg/dL (1.8-2.4)
== END 2022-09-12 23:59 | disposition home or self-care (01) ==
LOC: INF 00:38
PROVIDERS: PCP Student in an Organized Health Care Education/Training Program; Visit Provider Internal Medicine Hematology & Oncology
DX: C24.1 Malignant neoplasm of ampulla of Vater (principal); Z45.2 Encounter for adjustment and management of vascular access device
CPT/HCPCS: 36591; 80053; 96523; 82728; 83540; 83550; 83735; 85025; 86301

== ENCOUNTER 2022-09-23 02:23 | Outpatient (CLI) | payer MEDICARE, SELFPAY ==
[2022-09-23] MEDS: Omnipaque 350 MG/ML 100 ML BTL IJ (10:48)
--- NOTE | 2022-09-23 11:09 | DI.CT_ITS ---
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 TECHNIQUE: Imaging Protocol: Axial computed tomography images with coronal and sagittal reformatted images were created and reviewed CONTRAST MATERIAL: Intravenous: Omnipaque 350 Contrast volume:100 ml Oral: yes / COMPARISON: CT CT CHEST PE CTA from 06/14/[address] ABDOMEN PELVIS W from 07/22/2022 FINDINGS: CHEST: Port noted over left upper chest wall. Tracheobronchial tree: Patent where visualized. Mediastinum and Keyla: No dominant adenopathy or fluid collection. Pulmonary parenchyma: Multiple scattered bilateral pulmonary nodules appear stable. Linear atelectas is noted in the left lower lobe. Pleura: No effusion or pneumothorax. Lymph nodes: Within normal limits. Aorta: Thoracic portion non-dilated. Heart: Coronary artery calcifications. Bones: Degenerative changes and stable mild compression fractures. No lytic or blastic lesions. ABDOMEN: Stomach: Postsurgical changes at the gastroesophageal junction. Mild hiatal hernia. Liver: Innumerable liver metastases some of which are confluent. The question is of the slight inter sara decrease in overall size of metastases.. Gallbladder and biliary tract: No definite stones visible on today's exam. Biliary stent containing debris. Stable pneumobilia. Pancreas: Stable mild dilatation of pancreatic duct. Spleen: Normal. Kidneys: Normal size, contour and axis. No radiodense stones or obstructive uropathy. Left parapelvi c cysts. No masses seen. Adrenal glands: No masses seen. Aorta: Abdominal portion non-dilated. Atherosclerotic changes. Lymph nodes: Retroperitoneal adenopathy. interval decrease in size of the largest left para-aortic l ymph node measuring 19 x 14 millimeters compared with 2.4 x 2.1 cm on the prior exam. Soft tissues: Fatty containing bilateral inguinal hernias. PELVIS: Bladder: Symmetric distention, no gross wall thickening. Bowel: No obstruction or bowel wall thickening. Diverticulosis. No evidence of diverticulitis. Lar ge quantity of stool. Peritoneal cavity: Stable minimal amount of pelvic ascites. Bones: Degenerative changes. No compression fracture, lytic or blastic lesion. Reproductive organs: Enlarged prostate. IMPRESSION: Mild overall decrease in size of hepatic metastases as well as para-aortic adenopathy. stable appear ance of small bilateral pulmonary metastases. RADIATION DOSE DELIVERED: 1,408.8mGy.cm Total DLP DATA REPOSITORY: All CT scans at this facility are submitted to the National Radiology Data Registry (NRDR) Dose Index Registry (DIR) with the [employer] ([employer]). RADIATION OPTIMIZATION: All CT scans at this facility use at least one of these dose optimization te chniques: automated exposure control; mA and/or kV adjustment per patient size (includes targeted exa ms where dose is matched to clinical indication); or iterative reconstruction.
== END 2022-09-23 02:43 ==
PROVIDERS: PCP Student in an Organized Health Care Education/Training Program; Visit Provider Nurse Practitioner Family
DX: C24.1 Malignant neoplasm of ampulla of Vater (principal); C78.7 Secondary malignant neoplasm of liver and intrahepatic bile duct
CPT/HCPCS: 36591; 74177; 80053; 71260; 83735; 85025; 86301; J3490

== ENCOUNTER 2022-10-01 16:02 | Emergency (ER) | payer MEDICARE, SELFPAY ==
[2022-10-01 16:01] VITALS: BP 128/55; PULSE 73; RESP 16; TEMP 36.8; O2SAT 97
--- NOTE | 2022-10-01 16:30 | RT.EKG_ITS ---
APPROVED REPORT Exam: Resting ECG Reason for Exam: abdominal pain Patient Location: E HR:70 bpm ECG Measurements Heart Rate 70 AXIS KS 140 P 0 QRSd 82 QRS -19 QT 430 T -22 QTc 465 Conclusion Sinus rhythm...normal P axis, V-rate 60- 99 Inferior infarct, old...Q >35mS, II III aVF sinus rhythm, left axis, normal intervas, non ischemic
[2022-10-01 17:14] LABS: Abs Immature Grans 0.07 10^3/uL (0.0-0.06); Absolute Basophil Count 0.01 10^3/uL (0.0-0.2); Absolute Eosinophil Count 0.04 10^3/uL (0.0-0.7); Absolute Lymphocyte Count 1.95 10^3/uL (1.2-3.4); Absolute Monocyte Count 0.54 10^3/uL (0.1-0.8); Absolute Neutrophil Count 1.99 10^3/uL (1.2-6.7); Basophils % 0.2; Eosinophils % 0.9; HCT 32.2 % (40.0-50.0); HGB 10.3 g/dL (13.5-17.5); Immature Grans % 1.5; Lymphocytes % 42.4; MCH 28.5 pg (27.0-33.0); MCV 89 fL (80-95); MPV 8.5 fL (8.0-11.0); Monocytes % 11.7; Neutrophils % 43.3; Platelet Count 165 10^3/uL (130-400); RBC 3.61 10^6/uL (4.36-5.78); RDW 24.2 % (11.8-14.1); RDW-SD 79.7 fL
[2022-10-01 17:26] LABS: Anisocytosis 2+; Diff Comment RBC Morph Reviewed
[2022-10-01 17:30] LABS: ALT 18 U/L (16-63); AST 27 U/L (15-37); Albumin 2.6 g/dL (3.4-5.0); Alkaline Phosphatase 120 U/L (46-116); Anion Gap 4.5 mmol/L (3-11); BUN 11 mg/dL (7-18); Bilirubin, Total 0.4 mg/dL (0.2-1.0); CO2 29.5 mmol/L (21.0-32.0); CREATININE 0.8 mg/dL (0.70-1.30); Calcium 8.2 mg/dL (8.5-10.1); Chloride 102 mmol/L (98-107); Estimated GFR 88.91 (mL/min/1.73m2); Glucose 98 mg/dL (74-106); Lipase 197 U/L (73-393); Magnesium 1.2 mg/dL (1.8-2.4); Sodium 136 mmol/L (136-145); Total Protein 6.5 g/dL (6.4-8.2)
--- NOTE | 2022-10-01 17:30 | DI.CT_ITS ---
Exam(s) CT ABDOMEN PELVIS W EXAM: CT ABDOMEN PELVIS W CLINICAL HISTORY: hx of cancer hepatic and pancreatic, worsening leonarda TECHNIQUE: Imaging Protocol: Axial computed tomography images with coronal and sagittal reformatted images were created and reviewed CONTRAST MATERIAL: Intravenous: Omnipaque 350 Contrast volume:100 mL Oral: No COMPARISON: CT CT ABDOMEN PELVIS W from 07/22/[address] CHEST/ABD/PEL W from 09/23/2022 FINDINGS: ABDOMEN: Lung Bases: Since the prior examination there has developed small bilateral pleural effusions and yassine ateral basilar infiltrates. Postsurgical changes are seen in the gastroesophageal junction. There i s mild cardiomegaly. Coronary artery calcifications and/or stents are noted. There are filling defe cts seen in pulmonary artery branches to the right lower lobe consistent with emboli. There does not appear to be evidence of right heart strain. Liver: Normal density. There are numerous hepatic metastases present. Portal, Superior Mesenteric, and Splenic Veins: Unremarkable. Gallbladder and Biliary Tract: There is a biliary stent with pneumobilia. No cholelithiasis or bilia ry ductal dilatation is present. Pancreas: The pancreas is unchanged compared to the prior examination. Spleen: Normal. Adrenals: No masses seen. Kidneys: Normal size, contour and axis. No radiodense stones or obstructive uropathy. There are bilat eral renal cysts. Abdominal Aorta: Abdominal portion non-dilated. Atherosclerosis is present. Bowel: There is diverticulosis seen in the colon, but no evidence of acute diverticulitis. There is no evidence of bowel obstruction. No evidence of appendicitis. Peritoneal Cavity: Trace amount of pelvic ascites. No free air. Lymph Nodes: Mildly enlarged lymph nodes are seen around the pancreatic head and the left periaortic soft tissues. Bones: Within normal limits for the patient's age. No aggressive osseous lesions are present. Soft Tissues: There is a fat containing right inguinal hernia. There is a fat and fluid containing l eft inguinal hernia. PELVIS: Bladder: Symmetric distention, no gross wall thickening. Reproductive Organs: The prostate gland is enlarged. Lymph Nodes: Within normal limits. Bones: Within normal limits for the patient's age. IMPRESSION: 1. Right lower lobe pulmonary emboli. 2. Interval development of small bilateral pleural effusions and bibasilar infiltrates which may repr esent atelectasis or pneumonia. 3. Extensive hepatic metastatic disease and abdominal adenopathy. 4. Biliary stent with pneumobilia again seen. 5. Findings were discussed with Dr. Up at 9:25 a.m. on 10/02/2022. RADIATION DOSE DELIVERED: 782.72mGy.cm Total DLP DATA REPOSITORY: All CT scans at this facility are submitted to the National Radiology Data Registry (NRDR) Dose Index Registry (DIR) with the [employer] ([employer]). RADIATION OPTIMIZATION: All CT scans at this facility use at least one of these dose optimization te chniques: automated exposure control; mA and/or kV adjustment per patient size (includes targeted exa ms where dose is matched to clinical indication); or iterative reconstruction.
[2022-10-01] MEDS: Lactated Ringers 1,000 ML 1000 ML IV (17:37)
[2022-10-01] MEDS: HYDROmorphone 2 MG/ML SYR 1 MG IVP (17:48)
[2022-10-01] MEDS: MAGNESIUM SULFATE 2 GM/50 ML BAG IVPB (18:08)
[2022-10-01] MEDS: Normal Saline Flush 10 ML SYR IVP (18:26)
[2022-10-01] MEDS: Omnipaque 350 MG/ML 100 ML BTL IJ (18:27)
[2022-10-01] MEDS: Normal Saline - Diluent 50 ML VIAL IJ (18:27)
--- NOTE | 2022-10-01 18:55 | DI.VRAD_ITS ---
PROCEDURE INFORMATION: Exam: CT Abdomen And Pelvis With Contrast Exam date and time: 10/01/2022 6:20 PM Age: 82 years old Clinical indication: Other: HX of cancer hepatic and pancreatic, worsening pain TECHNIQUE: Imaging protocol: Computed tomography of the abdomen and pelvis with contrast. Radiation optimization: All CT scans at this facility use at least one of these dose optimization techniques: automated exposure control; mA and/or kV adjustment per patient size (includes targeted exams where dose is matched to clinical indication); or iterative reconstruction. Contrast material: OMNI 350; Contrast volume: 100 ml; Contrast route: INTRAVENOUS (IV); COMPARISON: CT CHEST/ABD/PEL W 09/23/2022 11:09 AM FINDINGS: Scattered right-sided small pulmonary nodules. Mild bibasilar subsegmental atelectasis and minimal right pleural fluid Postsurgical changes at the gastroesophageal junction. Nonspecific fluid levels in the small bowel. No definite obstruction. Colonic diverticulosis without diverticulitis. No free air or abscess Cirrhotic liver with pneumobilia and mild intrahepatic biliary ductal dilatation. Innumerable lobulated low-attenuation masses/metastases. Mild pancreatic ductal dilatation No hydroureteronephrosis. Large left renal peripelvic cysts and additional faint indeterminate hypodensities Periaortic adenopathy observed. The bladder is partially decompressed. The prostate gland is moderately enlarged. Small fluid in the left inguinal canal. The adrenal glands and spleen are unremarkable. Degenerative changes in the spine and pelvis IMPRESSION: Nonspecific nonobstructed bowel gas pattern Colonic diverticulosis without diverticulitis Extensive hepatic metastases and periaortic adenopathy. Findings are similar to the prior examination Suspected pulmonary metastases on the right Pneumobilia and mild intrahepatic biliary ductal dilatation. Mild pancreatic ductal dilatation. No calcified stones Dictated and Authenticated by: Finn Ramirez MD. Ordering:RUMA Fowler MD
[2022-10-01] MEDS: Potassium Chloride 20 MEQ TABCR 40 MEQ PO (19:24)
[2022-10-01 19:26] VITALS: BP 139/63; PULSE 83; RESP 20; TEMP 36.8; O2SAT 98
[2022-10-01] MEDS: Heparin 500 UNITS/5 ML SYRINGE (19:32)
--- NOTE | 2022-10-01 22:03 | ED.GENADUL_ITS ---
Discharge Plan Disposition Patient Disposition: Home Condition: Stable Discharge Details Clinical Impression: Abdominal pain, Biliary tract cancer, Primary adenocarcinoma of ampulla of Vater, Hypomagnesemia, Hypokalemia Primary Care Provider: Jessica Richard ED Provider: Janeth Hill Home Meds and New Rx's Prescriptions: Continued dexamethasone 4 mg tablet 4 mg PO DAILY Qty: 20 1RF Rx Instructions: Cont Onc Rx multivitamin 1 EACH tablet 1 ea PO DAILY pvinqpgkedn-vvxsvojvn-bde C-Mn [Glucosamine 1500 Complex] 1 EACH capsule 1 ea PO DAILY pravastatin 40 mg tablet 80 mg PO DAILY Qty: 180 3RF Rx Instructions: prevent cardiovascular events hydromorphone 2 mg tablet 2 mg PO Q4H Rx Instructions: 05/31/22 take 1-2 tabs every 4 hr prn for pain for up to 7 days finasteride 5 mg tablet 5 mg PO HS Qty: 90 4RF tamsulosin 0.4 mg capsule 0.8 mg PO HS Qty: 180 4RF ondansetron 8 mg tablet,disintegrating 8 mg PO Q8H aspirin 325 mg tablet 325 mg PO DAILY Hold Instructions: Eliquis started ibuprofen 600 mg tablet 600 mg PO TID PRN ferrous sulfate 325 mg (65 mg iron) tablet,delayed release (DR/EC) 325 mg PO DAILY Qty: 30 0RF furosemide [Lasix] 20 mg tablet 20 mg PO DAILY Qty: 90 3RF isosorbide mononitrate 30 mg tablet extended release 24 hr 15 mg PO DAILY Qty: 45 3RF metoprolol succinate [Toprol XL] 25 mg tablet extended release 24 hr 25 mg PO DAILY Qty: 90 3RF pantoprazole [Protonix] 40 mg tablet,delayed release (DR/EC) 40 mg PO DAILY Qty: 90 3RF spironolactone 25 mg tablet 12.5 mg PO DAILY Qty: 30 1RF metoclopramide HCl 5 mg tablet 5 mg PO QAC Rx Instructions: administer 30 minutes before meals metoclopramide HCl [Reglan] 5 mg tablet 5 mg PO QID Rx Instructions: administer 30 minutes before meals per note dated 07/31/22 [facility] [place] bisacodyl 5 mg tablet,delayed release (DR/EC) 5 mg PO DAILY PRN PRN (Reason: constipation) Qty: 60 1RF magnesium oxide 400 mg (241.3 mg magnesium) tablet 400 mg PO QHS Qty: 90 1RF ascorbic acid (vitamin C) [Vitamin C] 500 MG tablet 500 mg PO DAILY vitamin R24-[id number] acid 1 EACH tablet 1 ea PO DAILY sucralfate 1 gram Tablet 1 g PO AC & HS Qty: 120 0RF docusate sodium [Colace] 100 mg Capsule 100 mg PO BID Qty: 60 0RF sennosides [Senokot] 8.6 mg Tablet 1 tab PO BID PRN PRNQty: 60 0RF nitroglycerin 0.4 mg tablet, sublingual 0.4 mg sublingual Q5M PRNQty: 30 0RF Rx Instructions: do not exceed 3 doses per episode hydromorphone 2 mg tablet 2 mg PO TID Label Comments: TAKE ONE TO TWO TABLETS BY MOUTH EVERY 4 HOURS NEEDED FOR PAIN No Action Eliquis 5 mg tablet 5 mg PO BID Qty: 70 1RF Rx Instructions: Start @ 10mg BID (2 tabs) x 1st week, then 5mg BID aspirin 81 mg tablet,chewable 81 mg PO DAILY Qty: 90 1RF Rx Instructions: Decrease due to ELIQUIS Discharge Instructions Instructions: Hypokalemia (ED), Abdominal Pain (ED), Hypomagnesemia (ED) Additional Instructions: Make sure you are taking your spironolactone and your magnesium as your levels are low, he should have these rechecked by your primary care next week Take the Dilaudid that you are prescribed for pain, every 6 hours as you are previously prescribed Follow-up with your oncologist tomorrow Return earlier should you have new or worsening complaints Take your nausea medication as prescribed Referrals: Jessica Richard DO [Primary Care Provider] - Discharge Data Discharge Date/Time-TO BE ENTERED AT DEPARTURE: 10/01/22 19:41 Medical Decision Making This 82-year-old gentleman with history of liver cancer with biliary stent presents with acute exacerbation of chronic pain Secondary to his age and comorbidities, a CT scan was ordered Of note he did receive chemotherapy a week prior to arrival He is afebrile and nontoxic with stable vitals His CT scan when compared to prior appears baseline for him His diagnostic labs are reassuring His pain is controlled with 2 mg of Dilaudid in the emergency department and he has a sufficient supply for home He also has antiemetics At this time he feels comfortable being discharged home He will follow-up with his oncologist in the outpatient setting and will return immediately should he have new or worsening complaints HPI General Date/Time Provider Initiated Documentation: 10/01/22 16:41 . HPI Narrative: This 82-year-old gentleman with history of coronary artery disease, primary adenocarcinoma of ampulla [place], and pancreatic cancer presents for report of abdominal pain. He states he saw his oncologist and secondary to take good pain control is actually decreased on his Dilaudid to 3 times a day. He states that his pain is increased since decreasing the dose and he feels as though his pain is worse at night. He has intermittent nausea for which she takes his oral antiemetic at home with good relief. He denies any falls or injuries. He denies any blood in stool. He denies any blood in vomitus. He states his pain is an acute exacerbation of his chronic discomfort and he feels it secondary to decreasing his dose of Dilaudid. Related Data Home Medications Medication Instructions Recorded Confirmed multivitamin 1 ea PO DAILY 01/20/13 10/01/22 ascorbic acid (vitamin C) 500 mg 500 mg PO DAILY 05/04/14 10/01/22 tablet (Vitamin C) vitamin B12 500 mcg-folic acid 400 1 ea PO DAILY 05/04/14 10/01/22 mcg tablet wgguzrrdurr-yldhiwvzv-jsw C-Mn 500 1 ea PO DAILY 05/28/15 10/01/22 mg-400 mg capsule (Glucosamine 1) pravastatin 40 mg tablet 80 mg PO DAILY #180 tabs 05/26/22 10/01/22 hydromorphone 2 mg tablet 2 mg PO Q4H 06/04/22 10/01/22 finasteride 5 mg tablet 5 mg PO HS #90 tab-caps 06/12/22 10/01/22 tamsulosin 0.4 mg capsule 0.8 mg PO HS #180 tab-caps 06/12/22 10/01/22 docusate sodium 100 mg capsule 100 mg PO BID #60 caps 06/18/22 10/01/22 (Colace) nitroglycerin 0.4 mg sublingual 0.4 mg sublingual Q5M PRN #30 tabs 06/18/22 10/01/22 tablet sennosides 8.6 mg tablet (Senokot) 1 tab PO BID PRN PRN #60 tabs 06/18/22 10/01/22 sucralfate 1 gram tablet 1 g PO AC & HS #120 tabs 06/18/22 10/01/22 aspirin 325 mg tablet 325 mg PO DAILY 07/10/22 10/01/22 ibuprofen 600 mg tablet 600 mg PO TID PRN 07/10/22 10/01/22 ondansetron 8 mg disintegrating 8 mg PO Q8H 07/10/22 10/01/22 tablet ferrous sulfate 325 mg (65 mg 325 mg PO DAILY #30 tabs 07/23/22 10/01/22 iron) tablet,delayed release furosemide 20 mg tablet (Lasix) 20 mg PO DAILY #90 tabs 07/23/22 10/01/22 isosorbide mononitrate 30 mg 15 mg PO DAILY #45 tabs 07/23/22 10/01/22 tablet,extended release 24 hr metoprolol succinate 25 mg 25 mg PO DAILY #90 tabs 07/23/22 10/01/22 tablet,extended release 24 hr (Toprol XL) pantoprazole 40 mg tablet,delayed 40 mg PO DAILY #90 tabs 07/23/22 10/01/22 release (Protonix) spironolactone 25 mg tablet 12.5 mg PO DAILY #30 tabs 07/23/22 10/01/22 metoclopramide HCl 5 mg tablet 5 mg PO QAC 07/31/22 10/01/22 metoclopramide HCl 5 mg tablet 5 mg PO QID 08/11/22 10/01/22 (Reglan) dexamethasone 4 mg tablet 4 mg PO DAILY Nausea assoc with 08/27/22 10/01/22 chemo #20 tabs bisacodyl 5 mg tablet,delayed 5 mg PO DAILY PRN PRN constipation 08/29/22 10/01/22 release #60 tabs magnesium oxide 400 mg (241.3 mg 400 mg PO QHS #90 tabs 09/18/22 10/01/22 magnesium) tablet hydromorphone 2 mg tablet 2 mg PO TID 10/01/22 10/01/22 apixaban 5 mg tablet (Eliquis) 5 mg PO BID #70 tabs 10/02/22 aspirin 81 mg chewable tablet 81 mg PO DAILY #90 tabs 10/02/22 Previous Rx's Medication Instructions Recorded pravastatin 40 mg tablet 80 mg PO DAILY #180 tabs 05/26/22 finasteride 5 mg tablet 5 mg PO HS #90 tab-caps 06/12/22 tamsulosin 0.4 mg capsule 0.8 mg PO HS #180 tab-caps 06/12/22 docusate sodium 100 mg capsule 100 mg PO BID #60 caps 06/18/22 (Colace) nitroglycerin 0.4 mg sublingual 0.4 mg sublingual Q5M PRN #30 tabs 06/18/22 tablet sennosides 8.6 mg tablet (Senokot) 1 tab PO BID PRN PRN #60 tabs 06/18/22 sucralfate 1 gram tablet 1 g PO AC & HS #120 tabs 06/18/22 ferrous sulfate 325 mg (65 mg 325 mg PO DAILY #30 tabs 07/23/22 iron) tablet,delayed release furosemide 20 mg tablet (Lasix) 20 mg PO DAILY #90 tabs 07/23/22 isosorbide mononitrate 30 mg 15 mg PO DAILY #45 tabs 07/23/22 tablet,extended release 24 hr metoprolol succinate 25 mg 25 mg PO DAILY #90 tabs 07/23/22 tablet,extended release 24 hr (Toprol XL) pantoprazole 40 mg tablet,delayed 40 mg PO DAILY #90 tabs 07/23/22 release (Protonix) spironolactone 25 mg tablet 12.5 mg PO DAILY #30 tabs 07/23/22 dexamethasone 4 mg tablet 4 mg PO DAILY Nausea assoc with 08/27/22 chemo #20 tabs bisacodyl 5 mg tablet,delayed 5 mg PO DAILY PRN PRN constipation 08/29/22 release #60 tabs magnesium oxide 400 mg (241.3 mg 400 mg PO QHS #90 tabs 09/18/22 magnesium) tablet apixaban 5 mg tablet (Eliquis) 5 mg PO BID #70 tabs 10/02/22 aspirin 81 mg chewable tablet 81 mg PO DAILY #90 tabs 10/02/22 Allergies Allergy/AdvReac Type Severity Reaction Status Date / Time Penicillins Allergy Intermediate blisters/hi Verified 10/01/22 16:05 ves oxycodone Allergy Mild BLOTCHES, Verified 10/01/22 16:05 SWELLING diphtheria, pertussis, AdvReac Intermediate full-arm Verified 10/01/22 16:05 tetanus vacc swelling and weakness - lasting several weeks. General Stated Complaint: Abd Prob ASHLEY: 3 PFSH All Active Problems (Updated 10/02/22 @ 12:39 by Jessica Richard DO) Pulmonary embolism (Chronic) RLL, incidental finding on ABd CT (10/02/22). s/w Onc, Dr. Ga .. Belinda. karen Abdominal pain (Acute) STEMI (ST elevation myocardial infarction) (Acute 06/14/22) Hypokalemia (Acute) Soft tissue swelling of wrist joint (Acute) shy called to let us know Gregorio's R wrist is still red and hot but swelling has gone down ASCVD (arteriosclerotic cardiovascular disease) (Acute) 07/17/22 Hem/onc note Hypomagnesemia (Acute 06/26/22) Constipation (Acute) Medication monitoring encounter (Acute) Elevated transaminase level (Acute) Anemia associated with acute blood loss (Acute) Pulmonary hypertension (Acute) Chronic pain (Chronic) CHF (congestive heart failure) (Chronic) Primary adenocarcinoma of ampulla of Vater (Acute) 05/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 Duodenal anomaly (Acute) Liver lesion (Acute) Lesions, suspicious for metastatic dz Weight loss (Acute) Belching (Acute) relieves left side/UQ pressure RUQ fullness (Acute) Left upper quadrant abdominal mass (Acute) Parapelvic renal cyst (Acute) Dysmetabolic syndrome X (Acute 04/22/12) IMPAIRED FBS 111-104; WEIGHT Abnormal blood sugar (Chronic 06/19/14) Hx abnormal fasting blood sugar Stiffness of finger joint (Acute) 3rd digit, B/L, stiffness after lengthy gripping (mostly driving). I'm concerned 2' heavy schedule carrying/lifting with MS. Chronic pancreatitis (Acute) 10/12/19-[facility] Gastroenterology. 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 Dr Stover follows 11/25/17 BCC nodular and infiltrative left frontal parietal scalp w/ removal Dr Stover 11/25/17 Excision of recurrent BCCA left frontal parietal scalp Carpal tunnel syndrome of left wrist (Acute 05/22/15) Carpal tunnel syndrome of right wrist (Acute 05/12/16) BPH w/o urinary obs/LUTS (Acute 09/13/99) LUTS, DR SANCHEZ YEARLY Hip pain, right (Acute 09/30/17) Rupesh Garcia PT with HEP for ITB and hamstring streching Hyperlipidemia (Acute 04/22/12) GOAL LDL<130; (OPTIMAL <100); RISK CALCULATED 16% IN 2001; LDL AT GOAL, LOW HDL Overweight (Acute 04/22/12) goal 185 (last <2002) Hearing 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 Successfully contlld GERD per pt report. Hyperlipidemia Surgical History (Updated 09/17/22 @ 13:47 by Grace Galvan RN) H/O shoulder surgery Left S/P endoscopy 05/27/22 AT [facility]. biopsy done Family History Mother Diabetes Father , [place] at age 90. Diabetes Heart disease Sister Age: 82 No problems noted. Brother Age: 79 Diabetes Heart disease Social History Smoking/Tobacco Use Status: Former Tobacco Use Smoking risk assessment performed?: Yes Alcohol Intake: never Drug use: Never Substance use type: does not use Do you feel safe at home: Yes Do you feel safe in your relationship?: Yes Exam Narrative Exam Narrative: Patient is alert, cooperative, and in no acute distress He has mild tenderness to his right upper and right lower quadrant without rebound or guarding Lungs are clear to auscultation No CVA tenderness, no abdominal bruit or pulsatile mass No jaundice or icterus noted Alert and oriented x4 Course Vital Signs Vital signs: Vital Signs Temperature 36.8 C 10/01/22 16:01 Pulse 73 10/01/22 16:01 Respiratory Rate 16 10/01/22 16:01 Blood Pressure 128/55 L 10/01/22 16:01 Pulse Oximetry 97 10/01/22 16:01 Temperature 36.8 C 10/01/22 19:26 Temperature Source Oral 10/01/22 19:26 Pulse 83 10/01/22 19:26 Respiratory Rate 20 10/01/22 19:26 Respiratory Effort 10/01/22 16:04 Blood Pressure 139/63 10/01/22 19:26 Blood Pressure Position Sitting 10/01/22 16:01 Pulse Oximetry 98 10/01/22 19:26 Oxygen Delivery Method Room Air 10/01/22 19:26 Oxygen Flow Rate 0 10/01/22 19:26 Pain Level 2 10/01/22 17:48 Lab/Test Results Lab/Test Results: Laboratory Tests Range/Units 10/01/22 10/01/22 10/01/22 17:10 17:10 17:10 WBC (4.4-10.8) 10^3/uL 4.60 RBC (4.36-5.78) 10^6/uL 3.61 L Hgb (13.5-17.5) g/dL 10.3 L Hct (40.0-50.0) % 32.2 L MCV (80-95) fL 89 MCH (27.0-33.0) pg 28.5 MCHC (32.0-36.0) % 32.0 RDW (11.8-14.1) % 24.2 H Plt Count (130-400) 10^3/uL 165 MPV (8.0-11.0) fL 8.5 Immature Gran % 1.5 Neutrophils % 43.3 Lymphocytes % 42.4 Monocytes % 11.7 Eosinophils % 0.9 Basophils % 0.2 Nucleated RBC % (0.0-0.3) % 0.0 Absolute Neutrophils (1.2-6.7) 10^3/uL 1.99 Absolute Lymphocytes (1.2-3.4) 10^3/uL 1.95 Absolute Monocytes (0.1-0.8) 10^3/uL 0.54 Absolute Eosinophils (0.0-0.7) 10^3/uL 0.04 Absolute Basophils (0.0-0.2) 10^3/uL 0.01 RBC Morphology See Below Anisocytosis 2+ Sodium (136-145) mmol/L 136 Potassium (3.5-5.1) mmol/L 3.0 L Chloride (98-107) mmol/L 102 Carbon Dioxide (21.0-32.0) mmol/L 29.5 Anion Gap (3-11) mmol/L 4.5 BUN (7-18) mg/dL 11 Creatinine (0.70-1.30) mg/dL 0.8 Est GFR (CKD-EPI 2020) (mL/min/1.73m2) 88.91 Glucose (74-106) mg/dL 98 Calcium (8.5-10.1) mg/dL 8.2 L Magnesium (1.8-2.4) mg/dL 1.2 L Cancelled Total Bilirubin (0.2-1.0) mg/dL 0.4 AST (15-37) U/L 27 ALT (16-63) U/L 18 Alkaline Phosphatase (46-116) U/L 120 H Total Protein (6.4-8.2) g/dL 6.5 Albumin (3.4-5.0) g/dL 2.6 L Lipase (73-393) U/L 197
--- NOTE | 2022-10-02 09:30 | ED.PROG_ITS ---
Date of service: 10/02/22 Time of Service: 09:32 Medical Decision Making Received a phone call at 9:[address] Burak Patel, radiologist, reporting that the over read of the CAT scan done yesterday reveals a right lower lobe pulmonary emboli. The chart was reviewed. The patient has no respiratory symptomatology. Normal respiratory rate and normal saturations. The case was discussed with Dr. Jessica Chairez, PCP, we discussed treatment options. She will take charge of this new finding. She would like to reach out to her oncologist today for further discussion. Discharge Plan Disposition Patient Disposition: Home Condition: Stable Discharge Details Clinical Impression: Abdominal pain, Biliary tract cancer, Primary adenocarcinoma of ampulla of Vater, Hypomagnesemia, Hypokalemia Primary Care Provider: Jessica Richard ED Provider: Janeth Hill Home Meds and New Rx's Prescriptions: Continued dexamethasone 4 mg tablet 4 mg PO DAILY Qty: 20 1RF Rx Instructions: Cont Onc Rx multivitamin 1 EACH tablet 1 ea PO DAILY hpyxiqtyzts-rwnodhcfi-wid C-Mn [Glucosamine 1500 Complex] 1 EACH capsule 1 ea PO DAILY pravastatin 40 mg tablet 80 mg PO DAILY Qty: 180 3RF Rx Instructions: prevent cardiovascular events hydromorphone 2 mg tablet 2 mg PO Q4H Rx Instructions: 05/31/22 take 1-2 tabs every 4 hr prn for pain for up to 7 days finasteride 5 mg tablet 5 mg PO HS Qty: 90 4RF tamsulosin 0.4 mg capsule 0.8 mg PO HS Qty: 180 4RF ondansetron 8 mg tablet,disintegrating 8 mg PO Q8H aspirin 325 mg tablet 325 mg PO DAILY ibuprofen 600 mg tablet 600 mg PO TID PRN ferrous sulfate 325 mg (65 mg iron) tablet,delayed release (DR/EC) 325 mg PO DAILY Qty: 30 0RF furosemide [Lasix] 20 mg tablet 20 mg PO DAILY Qty: 90 3RF isosorbide mononitrate 30 mg tablet extended release 24 hr 15 mg PO DAILY Qty: 45 3RF metoprolol succinate [Toprol XL] 25 mg tablet extended release 24 hr 25 mg PO DAILY Qty: 90 3RF pantoprazole [Protonix] 40 mg tablet,delayed release (DR/EC) 40 mg PO DAILY Qty: 90 3RF spironolactone 25 mg tablet 12.5 mg PO DAILY Qty: 30 1RF metoclopramide HCl 5 mg tablet 5 mg PO QAC Rx Instructions: administer 30 minutes before meals metoclopramide HCl [Reglan] 5 mg tablet 5 mg PO QID Rx Instructions: administer 30 minutes before meals per note dated 07/31/22 [facility] [place] cc bisacodyl 5 mg tablet,delayed release (DR/EC) 5 mg PO DAILY PRN PRN (Reason: constipation) Qty: 60 1RF magnesium oxide 400 mg (241.3 mg magnesium) tablet 400 mg PO QHS Qty: 90 1RF ascorbic acid (vitamin C) [Vitamin C] 500 MG tablet 500 mg PO DAILY vitamin E76-iuifs acid 1 EACH tablet 1 ea PO DAILY sucralfate 1 gram Tablet 1 g PO AC & HS Qty: 120 0RF docusate sodium [Colace] 100 mg Capsule 100 mg PO BID Qty: 60 0RF sennosides [Senokot] 8.6 mg Tablet 1 tab PO BID PRN PRNQty: 60 0RF nitroglycerin 0.4 mg tablet, sublingual 0.4 mg sublingual Q5M PRNQty: 30 0RF Rx Instructions: do not exceed 3 doses per episode hydromorphone 2 mg tablet 2 mg PO TID Label Comments: TAKE ONE TO TWO TABLETS BY MOUTH EVERY 4 HOURS NEEDED FOR PAIN Discharge Instructions Instructions: Hypokalemia (ED), Abdominal Pain (ED), Hypomagnesemia (ED) Additional Instructions: Make sure you are taking your spironolactone and your magnesium as your levels are low, he should have these rechecked by your primary care next week Take the Dilaudid that you are prescribed for pain, every 6 hours as you are previously prescribed Follow-up with your oncologist tomorrow Return earlier should you have new or worsening complaints Take your nausea medication as prescribed Referrals: Jessica Richard DO [Primary Care Provider] - Discharge Data Discharge Date/Time-TO BE ENTERED AT DEPARTURE: 10/01/22 19:41
== END 2022-10-01 19:41 | disposition home or self-care (01) ==
PROVIDERS: Emergency Provider Physician Assistant; PCP Student in an Organized Health Care Education/Training Program
DX: E83.42 Hypomagnesemia (principal); E87.6 Hypokalemia; C24.1 Malignant neoplasm of ampulla of Vater; I25.10 Atherosclerotic heart disease of native coronary artery without angina pectoris; Z85.05 Personal history of malignant neoplasm of liver; Z92.21 Personal history of antineoplastic chemotherapy; Z79.82 Long term (current) use of aspirin
CPT/HCPCS: 80053; 83690; 93005; 96361; 96365; 96366; 96375; 99285; 74177; 83735; 85025; 93010; 99284; J1170; J3490

== ENCOUNTER 2022-10-06 02:30 | Outpatient (CLI) | payer MEDICARE, SELFPAY ==
--- NOTE | 2022-10-06 07:21 | DI.US_ITS ---
Exam(s) US EXTREMITY VENOUS BI EXAM: US EXTREMITY VENOUS BI CLINICAL HISTORY: etiology of PE,I26.99,H/O CA TECHNIQUE: Grayscale, color, and doppler imaging of the deep venous system of both lower extremities was performed. COMPARISON: US US ECHOCARDIOGRAM from 06/15/2022 FINDINGS: There is no evidence of intraluminal thrombus and there is normal compression and augmentation demons trated within the common femoral veins, femoral veins, and popliteal veins of both lower extremities. In the calves the interrogated veins also exhibit normal compression/ augmentation properties. The greater saphenous veins also appear patent as do the saphenofemoral junctions bilaterally.. In the noted is a large rowe cyst in the right popliteal fossa which measures 5.6 cm length IMPRESSION: 1. No ultrasound evidence of DVT in either lower extremity. 2. Large Rowe cyst noted in the right popliteal fossa. DATA REPOSITORY:
== END 2022-10-06 02:50 ==
LOC: DI 02:30
PROVIDERS: PCP Student in an Organized Health Care Education/Training Program; Visit Provider Student in an Organized Health Care Education/Training Program
DX: I26.99 Other pulmonary embolism without acute cor pulmonale (principal); M71.21 Synovial cyst of popliteal space [Baker], right knee
CPT/HCPCS: 36591; 82550; 85652; 84550; 93970

== ENCOUNTER 2022-10-11 00:08 | Outpatient (RCR) | payer MEDICARE, SELFPAY ==
[2022-09-13 00:03] VITALS: BP 96/60; PULSE 77; RESP 18; TEMP 36.6
[2022-09-13 12:08] VITALS: BP 114/62; PULSE 66; RESP 20; TEMP 36.8; O2SAT 99
[2022-09-13] MEDS: Normal Saline Flush 10 ML SYR IVP (12:10)
[2022-09-13] MEDS: Heparin 500 UNITS/5 ML SYRINGE IV (12:11)
[2022-09-23 08:56] VITALS: BP 114/62; PULSE 66; RESP 20; TEMP 36.8; O2SAT 99
[2022-09-23] MEDS: Normal Saline Flush 10 ML SYR IVP (08:57)
[2022-09-23 09:01] LABS: Abs Immature Grans 0.02 10^3/uL (0.0-0.06); Absolute Basophil Count 0.02 10^3/uL (0.0-0.2); Absolute Eosinophil Count 0.11 10^3/uL (0.0-0.7); Absolute Lymphocyte Count 1.84 10^3/uL (1.2-3.4); Absolute Monocyte Count 0.91 10^3/uL (0.1-0.8); Absolute Neutrophil Count 4.67 10^3/uL (1.2-6.7); Basophils % 0.3; Eosinophils % 1.5; HCT 33.7 % (40.0-50.0); HGB 10.7 g/dL (13.5-17.5); Immature Grans % 0.3; Lymphocytes % 24.3; MCHC 31.8 % (32.0-36.0); MCV 88 fL (80-95); MPV 9.1 fL (8.0-11.0); Neutrophils % 61.6; Platelet Count 166 10^3/uL (130-400); RBC 3.82 10^6/uL (4.36-5.78); RDW 25.9 % (11.8-14.1); RDW-SD 83.8 fL; WBC 7.57 10^3/uL (4.4-10.8)
[2022-09-23 09:17] LABS: ALT 18 U/L (16-63); AST 33 U/L (15-37); Albumin 2.7 g/dL (3.4-5.0); Alkaline Phosphatase 160 U/L (46-116); Anion Gap 6.9 mmol/L (3-11); BUN 11 mg/dL (7-18); Bilirubin, Total 0.5 mg/dL (0.2-1.0); CO2 28.1 mmol/L (21.0-32.0); CREATININE 0.8 mg/dL (0.70-1.30); Calcium 8.6 mg/dL (8.5-10.1); Chloride 104 mmol/L (98-107); Estimated GFR 88.91 (mL/min/1.73m2); Glucose 92 mg/dL (74-106); Potassium 3.3 mmol/L (3.5-5.1); Sodium 139 mmol/L (136-145); Total Protein 6.4 g/dL (6.4-8.2)
[2022-09-23 09:34] LABS: Anisocytosis 2+; Diff Comment RBC Morph Reviewed
[2022-09-25 13:26] LABS: CA 19-9 6352 U/mL (<35)
[2022-09-27 11:24] VITALS: BP 121/61; PULSE 61; RESP 20; TEMP 35.9; O2SAT 99
[2022-09-27] MEDS: Normal Saline Flush 10 ML SYR IVP (11:27)
[2022-09-27] MEDS: Heparin 500 UNITS/5 ML SYRINGE IV (11:32)
[2022-10-06] MEDS: Normal Saline Flush 10 ML SYR IVP (10:22)
[2022-10-06 11:03] LABS: Creatine Kinase 50 U/L (39-308); Uric Acid 5.3 mg/dL (3.5-7.2)
[2022-10-06 11:16] LABS: ESR 71 mm/hr (0-20)
[2022-10-09] MEDS: Normal Saline Flush 10 ML SYR IVP (08:21)
[2022-10-09 08:46] LABS: Abs Immature Grans 0.04 10^3/uL (0.0-0.06); Absolute Basophil Count 0.03 10^3/uL (0.0-0.2); Absolute Eosinophil Count 0.04 10^3/uL (0.0-0.7); Absolute Monocyte Count 1.11 10^3/uL (0.1-0.8); Absolute Neutrophil Count 2.99 10^3/uL (1.2-6.7); Basophils % 0.5; Eosinophils % 0.7; HCT 32.6 % (40.0-50.0); HGB 10.2 g/dL (13.5-17.5); Immature Grans % 0.7; MCH 28.4 pg (27.0-33.0); MCHC 31.3 % (32.0-36.0); MCV 91 fL (80-95); MPV 8.4 fL (8.0-11.0); Monocytes % 19.8; Neutrophils % 53.3; Platelet Count 299 10^3/uL (130-400); RBC 3.59 10^6/uL (4.36-5.78); RDW 21.9 % (11.8-14.1); RDW-SD 72.1 fL; WBC 5.61 10^3/uL (4.4-10.8)
[2022-10-09 09:01] LABS: ALT 15 U/L (16-63); AST 27 U/L (15-37); Albumin 2.4 g/dL (3.4-5.0); Alkaline Phosphatase 151 U/L (46-116); Anion Gap 5.7 mmol/L (3-11); BUN 11 mg/dL (7-18); Bilirubin, Total 0.5 mg/dL (0.2-1.0); CO2 31.3 mmol/L (21.0-32.0); CREATININE 0.9 mg/dL (0.70-1.30); Calcium 8.8 mg/dL (8.5-10.1); Chloride 100 mmol/L (98-107); Glucose 157 mg/dL (74-106); Potassium 3.1 mmol/L (3.5-5.1); Sodium 137 mmol/L (136-145); Total Protein 6.4 g/dL (6.4-8.2)
[2022-10-09 09:19] LABS: Magnesium 1.3 mg/dL (1.8-2.4)
[2022-10-11 10:39] VITALS: BP 127/65; PULSE 83; RESP 17; TEMP 36.5; O2SAT 94
[2022-10-11] MEDS: Normal Saline Flush 10 ML SYR IVP (10:43)
[2022-10-11] MEDS: Heparin 500 UNITS/5 ML SYRINGE IV (10:44)
[2022-10-12 12:47] LABS: CA 19-9 3452 U/mL (<35)
== END 2022-10-13 23:59 | disposition home or self-care (01) ==
LOC: INF 00:08
PROVIDERS: PCP Student in an Organized Health Care Education/Training Program; Visit Provider Internal Medicine Hematology & Oncology
DX: C24.1 Malignant neoplasm of ampulla of Vater (principal); Z45.2 Encounter for adjustment and management of vascular access device
CPT/HCPCS: 36591; 80053; 82550; 85652; 96523; 83735; 84550; 85025; 86301

== ENCOUNTER 2022-11-08 | Outpatient (RCR) | payer MEDICARE, SELFPAY ==
[2022-10-14 00:13] VITALS: BP 127/65; PULSE 83; RESP 17; TEMP 36.5
[2022-10-23] MEDS: Normal Saline Flush 10 ML SYR IVP (09:04)
[2022-10-23 09:21] LABS: Abs Immature Grans 0.01 10^3/uL (0.0-0.06); Absolute Basophil Count 0.03 10^3/uL (0.0-0.2); Absolute Eosinophil Count 0.07 10^3/uL (0.0-0.7); Absolute Lymphocyte Count 1.84 10^3/uL (1.2-3.4); Absolute Monocyte Count 1.12 10^3/uL (0.1-0.8); Basophils % 0.5; Eosinophils % 1.1; HCT 33.8 % (40.0-50.0); HGB 10.7 g/dL (13.5-17.5); Immature Grans % 0.2; Lymphocytes % 29.8; MCH 29.6 pg (27.0-33.0); MCHC 31.7 % (32.0-36.0); MCV 93 fL (80-95); MPV 8.8 fL (8.0-11.0); Monocytes % 18.2; Neutrophils % 50.2; Platelet Count 181 10^3/uL (130-400); RBC 3.62 10^6/uL (4.36-5.78); RDW 20.3 % (11.8-14.1); RDW-SD 69.4 fL; WBC 6.17 10^3/uL (4.4-10.8)
[2022-10-23 09:36] LABS: ALT 17 U/L (16-63); AST 31 U/L (15-37); Albumin 2.6 g/dL (3.4-5.0); Alkaline Phosphatase 172 U/L (46-116); Anion Gap 7.5 mmol/L (3-11); BUN 14 mg/dL (7-18); Bilirubin, Total 0.4 mg/dL (0.2-1.0); CO2 27.5 mmol/L (21.0-32.0); Calcium 9.1 mg/dL (8.5-10.1); Chloride 103 mmol/L (98-107); Estimated GFR 75.61 (mL/min/1.73m2); Glucose 164 mg/dL (74-106); Magnesium 1.2 mg/dL (1.8-2.4); Potassium 3.6 mmol/L (3.5-5.1); Sodium 138 mmol/L (136-145); Total Protein 6.7 g/dL (6.4-8.2)
[2022-10-23 09:53] LABS: Anisocytosis 1+
[2022-10-24 20:48] LABS: Lab Add On Test DONE
[2022-10-25] MEDS: Heparin 500 UNITS/5 ML SYRINGE IV (10:44)
[2022-10-25] MEDS: Normal Saline Flush 10 ML SYR IVP (10:44)
[2022-10-25 10:46] VITALS: BP 111/65; PULSE 67; RESP 18; TEMP 37.7; O2SAT 99
[2022-10-27 18:55] LABS: CA 19-9 4703 U/mL (<35)
[2022-11-06 08:31] LABS: Abs Immature Grans 0.01 10^3/uL (0.0-0.06); Absolute Basophil Count 0.01 10^3/uL (0.0-0.2); Absolute Eosinophil Count 0.03 10^3/uL (0.0-0.7); Absolute Lymphocyte Count 1.41 10^3/uL (1.2-3.4); Absolute Monocyte Count 0.94 10^3/uL (0.1-0.8); Basophils % 0.2; Eosinophils % 0.7; HCT 31.9 % (40.0-50.0); HGB 10.2 g/dL (13.5-17.5); Immature Grans % 0.2; Lymphocytes % 33.6; MCH 30.4 pg (27.0-33.0); MCV 95 fL (80-95); MPV 9.8 fL (8.0-11.0); Monocytes % 22.4; Neutrophils % 42.9; Platelet Count 153 10^3/uL (130-400); RBC 3.36 10^6/uL (4.36-5.78); RDW 18.8 % (11.8-14.1); RDW-SD 64.7 fL
[2022-11-06 08:50] LABS: ALT 18 U/L (16-63); AST 36 U/L (15-37); Albumin 2.4 g/dL (3.4-5.0); Alkaline Phosphatase 150 U/L (46-116); Anion Gap 6.7 mmol/L (3-11); BUN 10 mg/dL (7-18); Bilirubin, Total 0.5 mg/dL (0.2-1.0); CO2 29.3 mmol/L (21.0-32.0); Calcium 8.5 mg/dL (8.5-10.1); Chloride 103 mmol/L (98-107); Estimated GFR 75.61 (mL/min/1.73m2); Glucose 142 mg/dL (74-106); Magnesium 1.1 mg/dL (1.8-2.4); Potassium 3.2 mmol/L (3.5-5.1); Sodium 139 mmol/L (136-145)
[2022-11-08 14:00] VITALS: BP 125/60; PULSE 62; RESP 18; TEMP 35.5; O2SAT 97
[2022-11-08] MEDS: Normal Saline Flush 10 ML SYR IVP (14:05)
[2022-11-08] MEDS: Heparin 500 UNITS/5 ML SYRINGE IV (14:05)
[2022-11-09 12:26] LABS: CA 19-9 4994 U/mL (<35)
== END 2022-11-10 23:59 | disposition home or self-care (01) ==
LOC: INF
PROVIDERS: PCP Student in an Organized Health Care Education/Training Program; Visit Provider Internal Medicine Hematology & Oncology
DX: C24.1 Malignant neoplasm of ampulla of Vater (principal); R73.03 Prediabetes; Z45.2 Encounter for adjustment and management of vascular access device
CPT/HCPCS: 36591; 80053; 96523; 83036; 83735; 85025; 86301

== ENCOUNTER 2022-11-27 00:21 | Outpatient (CLI) | payer MEDICARE, SELFPAY ==
[2022-11-27] MEDS: Barium Sulfate 2% W/V-Berry Smoothie 450 ML BTL PO ×2 (07:25)
[2022-11-27] MEDS: Normal Saline - Diluent 50 ML VIAL IJ (09:36)
--- NOTE | 2022-11-27 10:00 | DI.CT_ITS ---
Exam(s) CT CHEST/ABD/PEL W EXAM: CT CHEST/ABD/PEL W CLINICAL HISTORY: PRIMARY ADENO CA AMPULLA OF VATER, C24.1, LIVER METS TECHNIQUE: Imaging Protocol: Axial computed tomography images with coronal and sagittal reformatted images were created and reviewed CONTRAST MATERIAL: Intravenous: Omnipaque 350 contrast volume:100 mL Oral: Yes COMPARISON: CT CT CHEST/ABD/PEL W from 09/23/[address] ABDOMEN PELVIS W from 10/01/2022 FINDINGS: CHEST: Tracheobronchial tree: Patent where visualized. Pulmonary parenchyma: There are stable pulmonary nodules. No new pulmonary nodules are present. The re is persistent scarring seen in the lung bases. Focal bronchiectasis is seen in the lower lobes. No new focal consolidating infiltrates are seen. Visualized thyroid gland: There are stable thyroid nodules. Mediastinum and Keyla: No dominant adenopathy or fluid collection. The esophagus is unremarkable. Sta ble postsurgical changes are seen at the gastroesophageal junction. Pleura: No effusion or pneumothorax. Heart: Cardiomegaly. Coronary artery calcifications and/or stents are present. No pericardial effus ion. Pulmonary arteries: No pulmonary emboli are identified. The right lower lobe pulmonary emboli have r esolved. Aorta: Thoracic aorta non-dilated. No dissection. Atherosclerosis is present. Lymph nodes: Within normal limits. Tubes, Catheters, and Lines: There is an indwelling central venous catheter. Soft tissues: Bilateral gynecomastia. Bones:Within normal limits for the patient's age. Unchanged sclerosis of the medial aspect of the ri ght clavicle. ABDOMEN: Liver: Normal density. Stable hepatic metastatic disease is seen. Portal, Superior Mesenteric, and Splenic Veins: Unremarkable. Gallbladder and Biliary Tract: Contrast reflux in the gallbladder is seen. There is pneumobilia again present. No significant biliary ductal dilatation is seen. There is a biliary stent in place. Pancreas: The pancreas is grossly unchanged compared to the prior examination. Spleen: Normal. Adrenals: No masses seen. Kidneys: Normal size, contour and axis. No radiodense stones or obstructive uropathy. There are bilat eral renal cysts. No follow-up is recommended. Abdominal Aorta: Abdominal portion non-dilated. Atherosclerosis is present. Bowel: There is diverticulosis of the colon, but no evidence of acute diverticulitis. There is stool seen throughout the colon suggesting constipation. No evidence of obstruction. No evidence of appendi citis. Peritoneal Cavity: There is a trace amount of ascites. No free air. Lymph Nodes: Mildly enlarged lymph nodes are seen in the upper abdomen. Bones: Within normal limits for the patient's age. No significant change compared to the prior exami nations. Soft Tissues: Bilateral inguinal hernias containing fat and fluid. PELVIS: Bladder: Symmetric distention, no gross wall thickening. Reproductive Organs: Enlarged prostate gland. Lymph Nodes: Within normal limits. Bones: Within normal limits. IMPRESSION: 1. Stable pulmonary nodules. 2. No pulmonary emboli. Resolution of the right lower lobe pulmonary emboli. 3. Stable abdominal hepatic metastatic disease. RADIATION DOSE DELIVERED: 1,565.27mGy.cm Total DLP DATA REPOSITORY: All CT scans at this facility are submitted to the National Radiology Data Registry (NRDR) Dose Index Registry (DIR) with the [employer] (A[employer]). RADIATION OPTIMIZATION: All CT scans at this facility use at least one of these dose optimization te chniques: automated exposure control; mA and/or kV adjustment per patient size (includes targeted exa ms where dose is matched to clinical indication); or iterative reconstruction.
== END 2022-11-27 00:41 ==
LOC: DI 00:21
PROVIDERS: PCP Student in an Organized Health Care Education/Training Program; Visit Provider Nurse Practitioner Family
DX: C24.1 Malignant neoplasm of ampulla of Vater (principal); C78.7 Secondary malignant neoplasm of liver and intrahepatic bile duct; R91.8 Other nonspecific abnormal finding of lung field; E04.2 Nontoxic multinodular goiter; R18.8 Other ascites; R59.0 Localized enlarged lymph nodes; N40.0 Benign prostatic hyperplasia without lower urinary tract symptoms
CPT/HCPCS: 74177; 96523; 71260

== ENCOUNTER 2022-12-06 00:42 | Outpatient (RCR) | payer MEDICARE, SELFPAY ==
[2022-11-11 00:06] VITALS: BP 125/60; PULSE 62; RESP 18; TEMP 35.5
[2022-11-20] MEDS: Normal Saline Flush 10 ML SYR IVP (08:28)
[2022-11-20 08:38] LABS: Abs Immature Grans 0.01 10^3/uL (0.0-0.06); Absolute Basophil Count 0.02 10^3/uL (0.0-0.2); Absolute Eosinophil Count 0.07 10^3/uL (0.0-0.7); Absolute Monocyte Count 0.97 10^3/uL (0.1-0.8); Absolute Neutrophil Count 1.53 10^3/uL (1.2-6.7); Basophils % 0.4; Eosinophils % 1.4; HCT 31.9 % (40.0-50.0); HGB 10.1 g/dL (13.5-17.5); Immature Grans % 0.2; MCH 30.7 pg (27.0-33.0); MCHC 31.7 % (32.0-36.0); MCV 97 fL (80-95); MPV 9.2 fL (8.0-11.0); Monocytes % 19.4; Neutrophils % 30.6; Platelet Count 185 10^3/uL (130-400); RBC 3.29 10^6/uL (4.36-5.78); RDW 17.8 % (11.8-14.1); RDW-SD 64.1 fL
[2022-11-20 08:58] LABS: ALT 17 U/L (16-63); AST 35 U/L (15-37); Albumin 2.4 g/dL (3.4-5.0); Alkaline Phosphatase 136 U/L (46-116); Anion Gap 8.9 mmol/L (3-11); BUN 12 mg/dL (7-18); Bilirubin, Total 0.4 mg/dL (0.2-1.0); CO2 28.1 mmol/L (21.0-32.0); CREATININE 0.9 mg/dL (0.70-1.30); Calcium 8.5 mg/dL (8.5-10.1); Chloride 107 mmol/L (98-107); Glucose 114 mg/dL (74-106); Magnesium 1.6 mg/dL (1.8-2.4); Potassium 3.4 mmol/L (3.5-5.1); Sodium 144 mmol/L (136-145); Total Protein 6.1 g/dL (6.4-8.2)
[2022-11-22 10:45] VITALS: BP 107/60; PULSE 67; RESP 16; TEMP 37; O2SAT 95
[2022-11-22] MEDS: Normal Saline Flush 10 ML SYR IVP (12:05)
[2022-11-22] MEDS: Heparin 500 UNITS/5 ML SYRINGE IV (12:06)
[2022-11-23 11:00] LABS: CA 19-9 5439 U/mL (<35)
[2022-11-27] MEDS: Normal Saline Flush 10 ML SYR IVP (07:10)
[2022-11-27] MEDS: Heparin 500 UNITS/5 ML SYRINGE IV (07:10)
[2022-12-04] MEDS: Normal Saline Flush 10 ML SYR IVP (07:56)
[2022-12-04 08:05] LABS: Abs Immature Grans 0.01 10^3/uL (0.0-0.06); Absolute Basophil Count 0.03 10^3/uL (0.0-0.2); Absolute Eosinophil Count 0.06 10^3/uL (0.0-0.7); Absolute Lymphocyte Count 1.86 10^3/uL (1.2-3.4); Absolute Monocyte Count 0.99 10^3/uL (0.1-0.8); Absolute Neutrophil Count 2.38 10^3/uL (1.2-6.7); Basophils % 0.6; Eosinophils % 1.1; HCT 33.9 % (40.0-50.0); HGB 10.9 g/dL (13.5-17.5); Immature Grans % 0.2; Lymphocytes % 34.9; MCH 31.5 pg (27.0-33.0); MCHC 32.2 % (32.0-36.0); MCV 98 fL (80-95); MPV 9.3 fL (8.0-11.0); Monocytes % 18.6; Neutrophils % 44.6; Platelet Count 147 10^3/uL (130-400); RBC 3.46 10^6/uL (4.36-5.78); RDW 17.1 % (11.8-14.1); RDW-SD 61.4 fL; WBC 5.33 10^3/uL (4.4-10.8)
[2022-12-04 08:28] LABS: ALT 17 U/L (16-63); AST 37 U/L (15-37); Albumin 2.4 g/dL (3.4-5.0); Alkaline Phosphatase 158 U/L (46-116); Anion Gap 5.4 mmol/L (3-11); BUN 15 mg/dL (7-18); Bilirubin, Total 0.6 mg/dL (0.2-1.0); CO2 28.6 mmol/L (21.0-32.0); CREATININE 1.1 mg/dL (0.70-1.30); Calcium 8.7 mg/dL (8.5-10.1); Chloride 102 mmol/L (98-107); Estimated GFR 67.44 (mL/min/1.73m2); Glucose 147 mg/dL (74-106); Potassium 3.5 mmol/L (3.5-5.1); Sodium 136 mmol/L (136-145); Total Protein 6.4 g/dL (6.4-8.2)
[2022-12-04 09:27] LABS: Magnesium 1.5 mg/dL (1.8-2.4)
[2022-12-06 12:40] VITALS: BP 99/56; PULSE 80; RESP 20; TEMP 36.7; O2SAT 96
[2022-12-06] MEDS: Normal Saline Flush 10 ML SYR IVP (12:42)
[2022-12-06] MEDS: Heparin 500 UNITS/5 ML SYRINGE IV (12:42)
[2022-12-07 11:39] LABS: CA 19-9 6491 U/mL (<35)
== END 2022-12-11 23:59 | disposition home or self-care (01) ==
LOC: INF 00:42
PROVIDERS: PCP Student in an Organized Health Care Education/Training Program; Visit Provider Internal Medicine Hematology & Oncology
DX: C24.1 Malignant neoplasm of ampulla of Vater (principal); Z45.2 Encounter for adjustment and management of vascular access device
CPT/HCPCS: 36591; 80053; 96523; 83735; 85025; 86301

== ENCOUNTER 2022-12-21 23:06 | Emergency (ER) | payer MEDICARE, SELFPAY ==
[2022-12-21 23:00] VITALS: BP 127/68; PULSE 67; RESP 18; TEMP 36.8; O2SAT 100
--- NOTE | 2022-12-21 23:00 | RT.EKG_ITS ---
APPROVED REPORT Exam: Resting ECG Reason for Exam: chest pain Patient Location: E HR:66 bpm ECG Measurements Heart Rate 66 AXIS DC 167 P 25 QRSd 78 QRS -17 QT 464 T -13 QTc 487 Conclusion Sinus rhythm...normal P axis, V-rate 60- 99 Anterior infarct, age indeterminate...Q >35mS, T neg, in V2-V5
--- NOTE | 2022-12-21 23:21 | ED.GENADUL_ITS ---
Discharge Plan Disposition Specific Acute Inpt Facility: [facility] Condition: Serious Discharge Details Chief Complaint: Chest Pain Clinical Impression: Non-ST elevation PA (NSTEMI), Chest pain Primary Care Provider: Jessica Richard ED Provider: Juan Taveras [place] Meds and New Rx's Prescriptions: No Action dexamethasone 4 mg tablet 4 mg PO DAILY Qty: 20 1RF Rx Instructions: Cont Onc Rx multivitamin 1 EACH tablet 1 ea PO DAILY [id number] C-Mn [Glucosamine 1500 Complex] 1 EACH capsule 1 ea PO DAILY pravastatin 40 mg tablet 80 mg PO DAILY Qty: 180 3RF Rx Instructions: prevent cardiovascular events hydromorphone 2 mg tablet 2 mg PO Q4H Rx Instructions: 05/31/22 take 1-2 tabs every 4 hr prn for pain for up to 7 days finasteride 5 mg tablet 5 mg PO HS Qty: 90 4RF tamsulosin 0.4 mg capsule 0.8 mg PO HS Qty: 180 4RF ondansetron 8 mg tablet,disintegrating 8 mg PO Q8H aspirin 325 mg tablet 325 mg PO DAILY Hold Instructions: Eliquis started ibuprofen 600 mg tablet 600 mg PO TID PRN furosemide [Lasix] 20 mg tablet 20 mg PO DAILY Qty: 90 3RF metoprolol succinate [Toprol XL] 25 mg tablet extended release 24 hr 25 mg PO DAILY Qty: 90 3RF pantoprazole [Protonix] 40 mg tablet,delayed release (DR/EC) 40 mg PO DAILY Qty: 90 3RF spironolactone 25 mg tablet 12.5 mg PO DAILY Qty: 30 1RF metoclopramide HCl 5 mg tablet 5 mg PO QAC Rx Instructions: administer 30 minutes before meals bisacodyl 5 mg tablet,delayed release (DR/EC) 5 mg PO DAILY PRN PRN (Reason: constipation) Qty: 60 1RF magnesium oxide 400 mg (241.3 mg magnesium) tablet 400 mg PO QHS Qty: 90 1RF Eliquis 5 mg tablet 5 mg PO BID Qty: 70 1RF Rx Instructions: Start @ 10mg BID (2 tabs) x 1st week, then 5mg BID aspirin 81 mg tablet,chewable 81 mg PO DAILY Qty: 90 1RF Rx Instructions: Decrease due to ELIQUIS potassium chloride 20 mEq tablet,ER particles/crystals 20 meq PO BID [place] Comments[place] [place] ferrous sulfate 325 mg (65 mg iron) tablet,delayed release (DR/EC) 325 mg PO DAILY Qty: 90 1RF isosorbide mononitrate 30 mg tablet extended release 24 hr 15 mg PO DAILY Qty: 45 3RF metoclopramide HCl [Reglan] 5 mg tablet 5 mg PO QID Qty: 120 1RF Rx Instructions: administer 30 minutes before meals per note dated 07/31/22 [facility] [place] ascorbic acid (vitamin C) [Vitamin C] 500 MG tablet 500 mg PO DAILY vitamin W24-lcdmy acid 1 EACH tablet 1 ea PO DAILY sucralfate 1 gram Tablet 1 g PO AC & HS Qty: 120 0RF docusate sodium [Colace] 100 mg Capsule 100 mg PO BID Qty: 60 0RF sennosides [Senokot] 8.6 mg Tablet 1 tab PO BID PRN PRNQty: 60 0RF nitroglycerin 0.4 mg tablet, sublingual 0.4 mg sublingual Q5M PRNQty: 30 0RF Rx Instructions: do not exceed 3 doses per episode hydromorphone 2 mg tablet 2 mg PO TID Patient Comments: TAKE ONE TO TWO TABLETS BY MOUTH EVERY 4 HOURS NEEDED FOR PAIN Medical Decision Making 82 yo male with 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 Denies fevers, chills, diaphoresis, n/v. He arrives hemodynamically stable speaking clearly in no distress. He has clear lungs, soft abdomen though is tender in the epigastric and luq. His ekg shows no acute ischemic findings. Unclear etiology for chest and abdominal pain worse when laying flat, will proceed with troponin, cbc, cmp, lipase and obtain cta of the chest for pe and abdomen/pevlis to evaluate for worsening mets, masses or sbo. labs show leukopenia without neutropenia, troponin is elevated at over 3000 similar to when he was here in June. CT shows no changes from prior ct in june. He is pain free in no distress. States he has taken eliquis without missed doses and took his night dose earlier tonight. ASA ordered. Will discuss with cardiology at [facility] [place] with Dr. Vasquez from cardiology at [facility] [place] who reviewed the case and requests heparin be started and 300mg plavix also to be given and they can accept to transfer to their facility, accepting provider is Dr. Hewitt. Pt stable and pain free and is in agreement with plan, all questions answered that patient had Differential Diagnosis Differential Diagnosis: pleurisy, pe, acs Medical Records Medical records reviewed: Yes I reviewed the patient's medical records. Imaging Data Radiologic Study: Attestation: I personally reviewed and interpreted this imaging study as follows: Imaging: CT Scan Radiologist's impression: IMPRESSION: 1. Coronary artery calcifications. 2. Linear atelectasis and/or fibrosis, as described above. 3. Subsegmental atelectasis, as described above. 4. Small amount of pericholecystic fluid or gallbladder wall thickening. 5. Pneumobilia. 6. Gas within the gallbladder. 7. Hepatomegaly. 8. Liver metastases. 9. Franco fundoplication. 10. Right renal cyst. 11. Cystic structure at the left renal pelvis possibly large parapelvic cyst. 12. Minimal ascites. 13. Colonic diverticulosis. 14. Changes involving the spine, as described above. 15. Small amount of fluid at the left inguinal canal. Lab Data Lab results reviewed: Yes I reviewed the patient's lab results. ECG Data Attestation: I personally reviewed and interpreted this ECG (s) as follows: Prior ECG tracings: available for review Interpretation: sinus rhythm, rate of 66, pr 167, no stemi 2nd ekg sinus rate of 87, pr 161, no stemi HPI General Mode of arrival: EMS . Date/Time Provider Initiated Documentation: 12/21/22 23:20 . Limitations to Documentation: no limitations . Information obtained by: patient . History of Present Illness 82 year old M presents to the emergency department with the chief complaint of chest pain, described as moderate, Quality is described as sharp, Patient abdomen. Patient started experiencing this day(s) (1) and it has been constant. other things that improve symptom(s), (sitting up) Other factors that worsen symptoms (lying down) . Patient notes no other symptoms.; denies fever/chills and shortness of breath. Patient did receive the following treatments prior to arrival, none Related Data Home Medications Medication Instructions Recorded Confirmed multivitamin 1 ea PO DAILY 01/20/13 10/01/22 ascorbic acid (vitamin C) 500 mg 500 mg PO DAILY 05/04/14 12/22/22 tablet (Vitamin C) vitamin B12 500 mcg-folic acid 400 1 ea PO DAILY 05/04/14 12/22/22 mcg tablet moqsjtgjgvc-wlxpkgxho-fip C-Mn 500 1 ea PO DAILY 05/28/15 12/22/22 mg-400 mg capsule (Glucosamine 1) pravastatin 40 mg tablet 80 mg PO DAILY #180 tabs 05/26/22 12/22/22 hydromorphone 2 mg tablet 2 mg PO Q4H 06/04/22 12/22/22 finasteride 5 mg tablet 5 mg PO HS #90 tab-caps 06/12/22 12/22/22 tamsulosin 0.4 mg capsule 0.8 mg PO HS #180 tab-caps 06/12/22 12/22/22 docusate sodium 100 mg capsule 100 mg PO BID #60 caps 06/18/22 12/22/22 (Colace) nitroglycerin 0.4 mg sublingual 0.4 mg sublingual Q5M PRN #30 tabs 06/18/22 10/01/22 tablet sennosides 8.6 mg tablet (Senokot) 1 tab PO BID PRN PRN #60 tabs 06/18/22 12/22/22 sucralfate 1 gram tablet 1 g PO AC & HS #120 tabs 06/18/22 12/22/22 aspirin 325 mg tablet 325 mg PO DAILY 07/10/22 10/01/22 ibuprofen 600 mg tablet 600 mg PO TID PRN 07/10/22 12/22/22 ondansetron 8 mg disintegrating 8 mg PO Q8H 07/10/22 10/01/22 tablet furosemide 20 mg tablet (Lasix) 20 mg PO DAILY #90 tabs 07/23/22 12/22/22 metoprolol succinate 25 mg 25 mg PO DAILY #90 tabs 07/23/22 10/01/22 tablet,extended release 24 hr (Toprol XL) pantoprazole 40 mg tablet,delayed 40 mg PO DAILY #90 tabs 07/23/22 12/22/22 release (Protonix) spironolactone 25 mg tablet 12.5 mg PO DAILY #30 tabs 07/23/22 12/22/22 metoclopramide HCl 5 mg tablet 5 mg PO QAC 07/31/22 10/01/22 dexamethasone 4 mg tablet 4 mg PO DAILY Nausea assoc with 08/27/22 10/01/22 chemo #20 tabs bisacodyl 5 mg tablet,delayed 5 mg PO DAILY PRN PRN constipation 08/29/22 12/22/22 release #60 tabs magnesium oxide 400 mg (241.3 mg 400 mg PO QHS #90 tabs 09/18/22 12/22/22 magnesium) tablet hydromorphone 2 mg tablet 2 mg PO TID 10/01/22 12/22/22 apixaban 5 mg tablet (Eliquis) 5 mg PO BID #70 tabs 10/02/22 12/22/22 aspirin 81 mg chewable tablet 81 mg PO DAILY #90 tabs 10/02/22 potassium chloride 20 mEq 20 meq PO BID 10/13/22 tablet,extended release(part/cryst) ferrous sulfate 325 mg (65 mg 325 mg PO DAILY #90 tabs 11/06/22 12/22/22 iron) tablet,delayed release isosorbide mononitrate 30 mg 15 mg PO DAILY #45 tabs 11/06/22 12/22/22 tablet,extended release 24 hr metoclopramide HCl 5 mg tablet 5 mg PO QID #120 tabs 11/06/22 (Reglan) Previous Rx's Medication Instructions Recorded pravastatin 40 mg tablet 80 mg PO DAILY #180 tabs 05/26/22 finasteride 5 mg tablet 5 mg PO HS #90 tab-caps 06/12/22 tamsulosin 0.4 mg capsule 0.8 mg PO HS #180 tab-caps 06/12/22 docusate sodium 100 mg capsule 100 mg PO BID #60 caps 06/18/22 (Colace) nitroglycerin 0.4 mg sublingual 0.4 mg sublingual Q5M PRN #30 tabs 06/18/22 tablet sennosides 8.6 mg tablet (Senokot) 1 tab PO BID PRN PRN #60 tabs 06/18/22 sucralfate 1 gram tablet 1 g PO AC & HS #120 tabs 06/18/22 furosemide 20 mg tablet (Lasix) 20 mg PO DAILY #90 tabs 07/23/22 metoprolol succinate 25 mg 25 mg PO DAILY #90 tabs 07/23/22 tablet,extended release 24 hr (Toprol XL) pantoprazole 40 mg tablet,delayed 40 mg PO DAILY #90 tabs 07/23/22 release (Protonix) spironolactone 25 mg tablet 12.5 mg PO DAILY #30 tabs 07/23/22 dexamethasone 4 mg tablet 4 mg PO DAILY Nausea assoc with 08/27/22 chemo #20 tabs bisacodyl 5 mg tablet,delayed 5 mg PO DAILY PRN PRN constipation 08/29/22 release #60 tabs magnesium oxide 400 mg (241.3 mg 400 mg PO QHS #90 tabs 09/18/22 magnesium) tablet apixaban 5 mg tablet (Eliquis) 5 mg PO BID #70 tabs 10/02/22 aspirin 81 mg chewable tablet 81 mg PO DAILY #90 tabs 10/02/22 ferrous sulfate 325 mg (65 mg 325 mg PO DAILY #90 tabs 11/06/22 iron) tablet,delayed release isosorbide mononitrate 30 mg 15 mg PO DAILY #45 tabs 11/06/22 tablet,extended release 24 hr metoclopramide HCl 5 mg tablet 5 mg PO QID #120 tabs 11/06/22 (Reglan) Allergies Allergy/AdvReac Type Severity Reaction Status Date / Time Penicillins Allergy Intermediate blisters/hi Verified 10/01/22 16:05 ves oxycodone Allergy Mild BLOTCHES, Verified 10/01/22 16:05 SWELLING diphtheria, pertussis, AdvReac Intermediate full-arm Verified 10/01/22 16:05 tetanus vacc swelling and weakness - lasting several weeks. General ASHLEY: 3 Review of Systems All systems reviewed & are unremarkable except as noted in HPI and below Constitutional Constitutional: Denies chills, Denies fever(s) and Denies weakness Cardiovascular Cardiovascular: Denies dyspnea Respiratory Respiratory: Denies cough and Denies dyspnea Gastrointestinal Gastrointestinal: Denies nausea and Denies vomiting Genitourinary Genitourinary: Denies dysuria Musculoskeletal Musculoskeletal: Denies joint swelling Integumentary/Breasts Skin/Breast: Denies rash Neurologic Neurologic: Denies weakness PFSH All Active Problems (Updated 12/22/22 @ 03:06 by Juan Taveras MD) Non-ST elevation PA (NSTEMI) (Acute) Chest pain (Acute) Liver metastases (Acute) Malignant neoplasm of ampulla of Vater (Acute) Prediabetes (Acute) Pulmonary embolism (Chronic) RLL, incidental finding on ABd CT (10/02/22). s/w Onc, Dr. Ga .. Belinda. 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 [ ] may need help to help , Elidia Biliary tract cancer (Acute) [place]27[place] [facility] [place] of periampullary mass which is adenocarcinoma , and one covered metal stent placed into the common bile duct across the stricture with good flow of bile. Duodenal anomaly (Acute) Liver lesion (Acute) Lesions, suspicious for metastatic dz Weight loss (Acute) Belching (Acute) relieves left side/UQ pressure RUQ fullness (Acute) Left upper quadrant abdominal mass (Acute) Parapelvic renal cyst (Acute) Dysmetabolic syndrome X (Acute 04/22/12) IMPAIRED FBS 111-104; WEIGHT Abnormal blood sugar (Chronic 06/19/14) Hx abnormal fasting blood sugar Stiffness of finger joint (Acute) 3rd digit, B/L, stiffness after lengthy gripping (mostly driving). I'm concerned 2' heavy schedule carrying/lifting with MS. Chronic pancreatitis (Acute) 10/12/19-[facility] Gastroenterology. 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 Dr Stover follows 11/25/17 BCC nodular and infiltrative left frontal parietal scalp w/ removal Dr Stover 11/25/17 Excision of recurrent BCCA left frontal parietal scalp Carpal tunnel syndrome of left wrist (Acute 05/22/15) Carpal tunnel syndrome of right wrist (Acute 05/12/16) BPH w/o urinary obs/LUTS (Acute 09/13/99) LUTS, DR SANCHEZ YEARLY Hip pain, right (Acute 09/30/17) Rupesh Garcia PT with HEP for ITB and hamstring streching Hyperlipidemia (Acute 04/22/12) GOAL LDL<130; (OPTIMAL <100); RISK CALCULATED 16% IN 2001; LDL AT GOAL, LOW HDL Overweight (Acute 04/22/12) goal 185 (last <2002) Hearing 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 Successfully contlld GERD per pt report. Hyperlipidemia Surgical History (Updated 09/17/22 @ 13:47 by Grace Galvan RN) H/O shoulder surgery Left S/P [place] [facility] [place] Family History Mother Diabetes Father , PA at age 90. Diabetes Heart disease Sister Age: 82 No problems noted. Brother Age: 79 Diabetes Heart disease Social History Smoking/Tobacco Use Status: Former Tobacco Use Smoking risk assessment performed?: Yes Alcohol Intake: never Drug use: Never Substance use type: does not use Do you feel safe at home: Yes Do you feel safe in your relationship?: Yes Exam Const General: no acute distress Orientation: alert HENMA Head: normal to inspection Ears: external ears normal General nose exam: external nose normal Mouth: moist mucous membranes Eyes General: appearance normal, both eyes and all related structures Neck Neck: normal visual inspection Resp Effort & Inspection: normal respiratory effort and able to speak in complete sentences Auscultation: clear to auscultation bilaterally Cardio Jugular venous pressure: no JVD Rate: regular rate Heart Sounds: no murmurs GI Palpation: soft and tender Skin General skin exam: no rashes or lesions noted Neuro General: patient alert and patient oriented x3 Extrem General: normal to inspection Psych Mental Status: mental status grossly normal
[2022-12-21 23:27] VITALS: RESP 18
--- NOTE | 2022-12-21 23:30 | DI.CT_ITS ---
Exam(s) CT CHEST PE ABD PELVIS W EXAM: CT CHEST PE ABD PELVIS W CLINICAL HISTORY: chest and abdominal pain, pancreatic cancer. TECHNIQUE: Imaging Protocol: Axial CT angiography was performed with multi-slice acquisition and m ulti-planar and/or 3D reconstructions. CONTRAST MATERIAL: Intravenous: Omnipaque 350 Contrast volume:100 ml Oral: None COMPARISON: CT CT CHEST/ABD/PEL W from 11/27/2022 FINDINGS: CHEST: PULMONARY ARTERIES: There are no intra-arterial filling defects to suggest the presence of acute pulm onary emboli. LUNGS: There is no evidence of pulmonary infarction.No significant pleural effusions. Some atelectas is in the lung bases. There are small nodules again noted both lung ahney all measuring less than 1 cm. No new additional nodules. Mild infiltrate in the posterior basal segment of the left lower lo be is unchanged. No pleural effusions. No new findings in the trachea and mainstem bronchi. MEDIASTINUM: There is no hilar nor mediastinal adenopathy. Right thyroid lobe nodule. CARDIAC: Heart size is normal. There is no pericardial effusion. There is no significant shift of t he interventricular septum.Caliber thoracic aorta is upper normal for this age group. There is no ev idence of dissection. Coronary artery calcification noted. OSSEOUS: No fractures nor lytic osseous lesions evident.. ABDOMEN: There is no ascites. GE junction surgery probably fundoplication noted. Moderate size hiatal hernia evident. LIVER: Multiple extensive and partially confluent metastatic lesions are again noted in both hepatic lobes. Also pneumobilia again noted. GALLBLADDER/BILIARY: Air is seen in the gallbladder lumen. Also fluid around the gallbladder. Air-g as is also seen in the CBD and within the CBD stent. Fluid also evident within the CBD stent. PANCREAS: Pancreatic duct is not significantly dilated. Enlarged lymph nodes adjacent to the uncinate process of the pancreas again noted, measuring 2 cm wide by 1.3 cm AP, this located anterior to the left rina l vein in the midline SPLEEN: Spleen is not enlarged. There are no intrasplenic lesions. Splenic and portal veins are bernard nt. ADRENALS: There are no significant adrenal masses. KIDNEYS:No new right kidney findings. Left-sided hydronephrosis due to UPJ obstruction. The left ur eter below the UPJ is not dilated. No calculi evident.. The left cortical mantle is relatively pres erved. No atrophy. No cortical thinning. ABDOMINAL AORTA: Calcified but not significantly enlarged. Common iliac arteries are not significant ly aneurysmal. LYMPH NODES: Mild para-aortic adenopathy. ABDOMINAL WALL/GI: No evidence of significant anterior abdominal wall hernia. No bowel obstruction. PELVIS: LYMPH NODES: There is no intrapelvic nor inguinal adenopathy. GI: No evidence of appendicitis.There is extensive sigmoid diverticulosis.Some fluid is seen in the d ependent aspect of the pelvis but there is no obvious acute diverticulitis focus in the sigmoid. URINARY BLADDER: No calculi nor masses evident Unremarkable. REPRODUCTIVE: Enlarged prostate. The prostate gland measures 5 cm wide. Urinary bladder unremarkabl e. OSSEOUS: No fractures nor lytic osseous lesions. Multilevel chronic degenerative disc disease in the lumbar spine noted. IMPRESSION: 1. No evidence of acute pulmonary emboli nor pulmonary infarction. 2. There are no pleural effusions. 3. Multiple metastatic disease insert throughout the liver again noted in this patient also has a CBD stent in place. Apparently ampullary Vater malignancy. 4. There is pericholecystic fluid in the absence of generalized ascites. Suspicious for acute cholec ystitis. Air is seen in the gallbladder lumen as well as in the CBD and intrahepatic ducts. 5. Kidney chronic UPJ obstruction versus large parapelvic cysts.. Extensive sigmoid diverticulosis. No obvious acute diverticulitis. Small amount of fluid in the pel vis appears to be most probably from the findings in the right upper quadrant, more so than from the sigmoid. RADIATION DOSE DELIVERED: 1,346.1mGy.cm Total DLP DATA REPOSITORY: All CT scans at this facility are submitted to the National Radiology Data Registry (NRDR) Dose Index Registry (DIR) with the [employer] ([employer]). RADIATION OPTIMIZATION: All CT scans at this facility use at least one of these dose optimization te chniques: automated exposure control; mA and/or kV adjustment per patient size (includes targeted exa ms where dose is matched to clinical indication); or iterative reconstruction.
[2022-12-21] MEDS: Omnipaque 350 MG/ML 100 ML BTL IJ (23:41)
[2022-12-21 23:58] LABS: Abs Immature Grans 0.01 10^3/uL (0.0-0.06); Absolute Basophil Count 0.01 10^3/uL (0.0-0.2); Absolute Eosinophil Count 0.01 10^3/uL (0.0-0.7); Absolute Lymphocyte Count 0.35 10^3/uL (1.2-3.4); Absolute Monocyte Count 0.06 10^3/uL (0.1-0.8); Basophils % 0.6; Eosinophils % 0.6; HCT 33.6 % (40.0-50.0); HGB 11.1 g/dL (13.5-17.5); Immature Grans % 0.6; Lymphocytes % 20.1; MCH 31.3 pg (27.0-33.0); MCV 95 fL (80-95); MPV 9.2 fL (8.0-11.0); Monocytes % 3.4; Neutrophils % 74.7; Platelet Count 210 10^3/uL (130-400); RBC 3.55 10^6/uL (4.36-5.78); RDW 15.1 % (11.8-14.1); RDW-SD 52.3 fL
[2022-12-22] VITALS (51 sets, daily range): BP systolic 106–111; BP diastolic 67–68; PULSE 71–73; RESP 9–25; O2SAT 89–100
[2022-12-22 00:01] LABS: WBC 1.74 10^3/uL (4.4-10.8)
[2022-12-22] MEDS: HYDROmorphone 2 MG/ML SYR IVP (00:01)
[2022-12-22] MEDS: Normal Saline - Diluent 50 ML VIAL IJ (00:05)
[2022-12-22 00:08] LABS: Lipase 69 U/L (16-77)
--- NOTE | 2022-12-22 00:15 | RT.EKG_ITS ---
APPROVED REPORT Exam: Resting ECG Reason for Exam: Chest pain / diaphoretic Patient Location: E HR:87 bpm ECG Measurements Heart Rate 87 AXIS NC 161 P 23 QRSd 78 QRS -19 QT 395 T -1 QTc 475 Conclusion Sinus rhythm...normal P axis, V-rate 60- 99 Anterior infarct, age indeterminate...Q >35mS, T neg, in V2-V5
[2022-12-22 00:16] LABS: ALT 21 U/L (16-63); AST 76 U/L (15-37); Albumin 2.5 g/dL (3.4-5.0); Alkaline Phosphatase 182 U/L (46-116); Anion Gap 7.4 mmol/L (3-11); BUN 14 mg/dL (7-18); Bilirubin, Total 0.5 mg/dL (0.2-1.0); CO2 26.6 mmol/L (21.0-32.0); Chloride 100 mmol/L (98-107); Estimated GFR 75.61 (mL/min/1.73m2); Glucose 183 mg/dL (74-106); INR 1.2 (0.9-1.1); Magnesium 1.4 mg/dL (1.8-2.4); Potassium 4.1 mmol/L (3.5-5.1); Prothrombin Time 11.8 sec (9.3-11.0); Sodium 134 mmol/L (136-145); Total Protein 6.7 g/dL (6.4-8.2)
[2022-12-22 00:19] LABS: Troponin I 3834 ng/L (<or=60)
[2022-12-22] MEDS: HYDROmorphone 2 MG/ML SYR 1 MG IVP (00:26)
[2022-12-22] MEDS: Aspirin 325 MG TAB PO (00:30)
[2022-12-22 00:43] LABS: Source Nasal/Nares
[2022-12-22 00:54] LABS: Diff Comment Agrees w/ Instrument; RBC Morphology Normal
--- NOTE | 2022-12-22 01:32 | DI.VRAD_ITS ---
PROCEDURE INFORMATION: Exam: CTA Chest With Contrast CTA Abdomen With Contrast Exam date and time: 12/22/2022 12:04 AM Age: 82 years old Clinical indication: Generalized; Other: Chest pain; Prior surgery; Surgery date: 6+ months; Surgery type: Franco procedure, hernia repair, stent; Patient HX: Chest and abdominal pain, pancreatic cancer, known liver mets TECHNIQUE: Imaging protocol: Computed tomographic angiography of the chest with contrast. Computed tomographic angiography of the abdomen with contrast. 3D rendering (Not supervised by radiologist): MIP and/or 3D reconstructed images were created by the technologist. Radiation optimization: All CT scans at this facility use at least one of these dose optimization techniques: automated exposure control; mA and/or kV adjustment per patient size (includes targeted exams where dose is matched to clinical indication); or iterative reconstruction. Contrast material: OMNIPAQUE 350; Contrast volume: 100 ml; Contrast route: INTRAVENOUS (IV); COMPARISON: CT CHEST PE CTA 06/14/2022 5:[address] scan of the abdomen and pelvis dated October 01, 2022 FINDINGS: Tubes, catheters and devices: Left jugular central venous catheter is seen in place extending into the superior vena cava, but the tip is not clearly delineated VASCULATURE: Pulmonary arteries: Normal. No pulmonary emboli. Aorta: No aortic aneurysm. No aortic dissection. Celiac trunk and mesenteric arteries: No occlusion or significant stenosis. Renal arteries: There is approximally 70% stenosis at the origin of the right renal artery. CHEST: Lungs: Linear atelectasis and/or fibrosis is seen involving the lower lobes. Soft tissue change is demonstrated involving the left lower lobe, having the appearance of subsegmental atelectasis, a finding also present on the previous study. Pleural spaces: Unremarkable. No pneumothorax. No pleural effusion. Heart: Unremarkable. No cardiomegaly. No pericardial effusion. Coronary arteries: Coronary artery calcifications are noted. ABDOMEN AND PELVIS: Liver: Multiple scattered lesions of varying sizes are seen throughout the liver, consistent with metastases, a finding also present on the previous study. The liver is enlarged with a craniocaudad measurement of approximately 19.4 cm. Gallbladder and bile ducts: Gas is identified within the gallbladder, a finding also present on the previous study. Small amount of diminished density is seen involving the periphery of the gallbladder which could represent pericholecystic fluid or gallbladder wall thickening. Gas is identified within the biliary tree, a finding also present on the previous study. Common bile duct stent is present, a finding also present on the previous CT scan of the abdomen and pelvis. Pancreas: Unremarkable. No mass. No ductal dilation. Spleen: Unremarkable. No splenomegaly. Adrenal glands: Unremarkable. No mass. Kidneys and ureters: Simple right renal cyst is identified measuring approximately 5 mm. Cystic structure is seen at the left renal pelvis measuring approximally 5.7 x 3.6 x 6.1 cm which may represent parapelvic renal cyst, a finding also present on the previous study. The ureters are not dilated. Stomach and bowel: The patient is status post Franco fundoplication, a finding also present on the previous study. Colonic diverticula are demonstrated but there is no evidence for acute diverticulitis, a finding also present on the previous study. Intraperitoneal space: Small amount of free intraperitoneal fluid is present in the pelvic region with a density reading of approximately 12 Hounsfield units, consistent with ascites. Reproductive: The prostate gland is enlarged with prostatic calcifications. Lymph nodes: A couple of small retroperitoneal lymph nodes are demonstrated, a finding also demonstrated on the previous CT scan of the abdomen and pelvis. Bones/joints: Small sclerotic lesion is seen involving the lateral aspect of the left 3rd rib, possibly bone island. There are old wedge compression fracture deformities involving T 7 and T8, unchanged in appearance when compared to the previous CT angiogram of the chest dated June 14, 2022. Multilevel degenerative disc disease is noted. At G3-F3-4-5-S1, degenerative disc disease is demonstrated with narrowing of the intervertebral disc space, vacuum phenomena, disc osteophyte complex, and impingement on the neural foramen. There is approximally 2 mm posterior malalignment of L1 in relationship to L2. Soft tissues: Small amount of fluid is seen in the left inguinal canal, diminished in size when compared to the previous CT scan of the abdomen and pelvis, probably fluid. Other findings: Arteries: Arteriosclerotic changes are identified. IMPRESSION: 1. Coronary artery calcifications. 2. Linear atelectasis and/or fibrosis, as described above. 3. Subsegmental atelectasis, as described above. 4. Small amount of pericholecystic fluid or gallbladder wall thickening. 5. Pneumobilia. 6. Gas within the gallbladder. 7. Hepatomegaly. 8. Liver metastases. 9. Franco fundoplication. 10. Right renal cyst. 11. Cystic structure at the left renal pelvis possibly large parapelvic cyst. 12. Minimal ascites. 13. Colonic diverticulosis. 14. Changes involving the spine, as described above. 15. Small amount of fluid at the left inguinal canal. Dictated and Authenticated by: Aftab Gtz MD. Ordering:TITO Martinez MD
[2022-12-22 01:43] LABS: COVID-19 PCR Negative (Negative)
[2022-12-22] MEDS: MAGNESIUM SULFATE 1 GM/100 ML BAG IVPB (02:21)
[2022-12-22] MEDS: Clopidogrel 300 MG TAB PO (03:15)
[2022-12-22 03:31] LABS: Troponin I 3630 ng/L (<or=60)
--- NOTE | 2022-12-22 11:10 | NUR.NOTE ---
Nursing Note: Accessed chart to find Eliquis dose for [facility]. I could not find it so gave the call to Dr Rolon.
== END 2022-12-22 04:05 ==
PROVIDERS: Emergency Provider Emergency Medicine; PCP Student in an Organized Health Care Education/Training Program
DX: I21.4 Non-ST elevation (NSTEMI) myocardial infarction (principal); C24.1 Malignant neoplasm of ampulla of Vater; C78.7 Secondary malignant neoplasm of liver and intrahepatic bile duct; C78.00 Secondary malignant neoplasm of unspecified lung; R10.12 Left upper quadrant pain; D72.819 Decreased white blood cell count, unspecified; Z20.822 Contact with and (suspected) exposure to COVID-19
CPT/HCPCS: 71275; 74177; 80053; 83690; 87635; 93005; 96365; 96367; 96375; 96376; 99284; 99285; 83735; 84484; 85025; 85610; 85730; 93010; J1170; J3475; J3490

== ENCOUNTER 2023-01-01 00:58 | Outpatient (RCR) | payer MEDICARE, SELFPAY ==
[2022-12-12 00:05] VITALS: BP 99/56; PULSE 80; RESP 20; TEMP 36.7
[2022-12-18] MEDS: Normal Saline Flush 10 ML SYR IVP (08:42)
[2022-12-18 08:50] LABS: Abs Immature Grans 0.02 10^3/uL (0.0-0.06); Absolute Basophil Count 0.03 10^3/uL (0.0-0.2); Absolute Eosinophil Count 0.04 10^3/uL (0.0-0.7); Absolute Lymphocyte Count 1.25 10^3/uL (1.2-3.4); Absolute Monocyte Count 0.97 10^3/uL (0.1-0.8); Absolute Neutrophil Count 2.07 10^3/uL (1.2-6.7); Basophils % 0.7; Eosinophils % 0.9; Immature Grans % 0.5; Lymphocytes % 28.5; MCH 31.6 pg (27.0-33.0); MCHC 32.3 % (32.0-36.0); MCV 98 fL (80-95); MPV 9.3 fL (8.0-11.0); Monocytes % 22.1; Neutrophils % 47.3; Platelet Count 214 10^3/uL (130-400); RBC 3.16 10^6/uL (4.36-5.78); RDW 15.9 % (11.8-14.1); RDW-SD 56.7 fL; WBC 4.38 10^3/uL (4.4-10.8)
[2022-12-18 09:05] LABS: ALT 18 U/L (16-63); AST 42 U/L (15-37); Albumin 2.4 g/dL (3.4-5.0); Alkaline Phosphatase 171 U/L (46-116); Anion Gap 7.3 mmol/L (3-11); BUN 13 mg/dL (7-18); Bilirubin, Total 0.5 mg/dL (0.2-1.0); CO2 28.7 mmol/L (21.0-32.0); CREATININE 1.1 mg/dL (0.70-1.30); Calcium 8.5 mg/dL (8.5-10.1); Chloride 103 mmol/L (98-107); Estimated GFR 67.44 (mL/min/1.73m2); Glucose 146 mg/dL (74-106); Potassium 3.7 mmol/L (3.5-5.1); Sodium 139 mmol/L (136-145); Total Protein 6.3 g/dL (6.4-8.2)
[2022-12-18 09:28] LABS: Magnesium 1.5 mg/dL (1.8-2.4)
[2022-12-20] MEDS: Normal Saline Flush 10 ML SYR IVP (11:48)
[2022-12-20] MEDS: Heparin 500 UNITS/5 ML SYRINGE IV (11:48)
[2022-12-21 16:00] LABS: CA 19-9 6602 U/mL (<35)
[2023-01-01] MEDS: Normal Saline Flush 10 ML SYR IVP (08:30)
[2023-01-01 08:40] LABS: Abs Immature Grans 0.03 10^3/uL (0.0-0.06); Absolute Basophil Count 0.02 10^3/uL (0.0-0.2); Absolute Eosinophil Count 0.04 10^3/uL (0.0-0.7); Absolute Lymphocyte Count 1.34 10^3/uL (1.2-3.4); Absolute Monocyte Count 0.78 10^3/uL (0.1-0.8); Basophils % 0.4; Eosinophils % 0.8; HCT 30.2 % (40.0-50.0); HGB 9.7 g/dL (13.5-17.5); Immature Grans % 0.6; Lymphocytes % 28.5; MCH 31.6 pg (27.0-33.0); MCHC 32.1 % (32.0-36.0); MCV 98 fL (80-95); MPV 9.2 fL (8.0-11.0); Monocytes % 16.6; Neutrophils % 53.1; Platelet Count 248 10^3/uL (130-400); RBC 3.07 10^6/uL (4.36-5.78); RDW 15.3 % (11.8-14.1); RDW-SD 54.4 fL; WBC 4.71 10^3/uL (4.4-10.8)
[2023-01-01 08:59] LABS: ALT 18 U/L (16-63); AST 47 U/L (15-37); Albumin 2.4 g/dL (3.4-5.0); Alkaline Phosphatase 209 U/L (46-116); Anion Gap 6.1 mmol/L (3-11); BUN 12 mg/dL (7-18); Bilirubin, Total 0.4 mg/dL (0.2-1.0); CO2 27.9 mmol/L (21.0-32.0); CREATININE 1.1 mg/dL (0.70-1.30); Calcium 8.7 mg/dL (8.5-10.1); Chloride 102 mmol/L (98-107); Estimated GFR 67.44 (mL/min/1.73m2); Glucose 145 mg/dL (74-106); Potassium 3.7 mmol/L (3.5-5.1); Sodium 136 mmol/L (136-145); Total Protein 6.6 g/dL (6.4-8.2)
[2023-01-01 09:11] LABS: Magnesium 1.5 mg/dL (1.8-2.4)
[2023-01-04 14:09] LABS: CA 19-9 10219 U/mL (<35)
== END 2023-01-10 23:59 | disposition home or self-care (01) ==
LOC: INF 00:58
PROVIDERS: PCP Student in an Organized Health Care Education/Training Program; Visit Provider Internal Medicine Hematology & Oncology
DX: C24.1 Malignant neoplasm of ampulla of Vater (principal); Z45.2 Encounter for adjustment and management of vascular access device
CPT/HCPCS: 36591; 80053; 96523; 83735; 85025; 86301

== ENCOUNTER 2023-01-06 03:08 | Inpatient (IN) | payer MEDICARE, SELFPAY ==
[2023-01-06] VITALS (57 sets, daily range): BP systolic 71–125; BP diastolic 31–76; PULSE 59–101; RESP 13–32; TEMP 36–36.8; O2SAT 94–100
--- NOTE | 2023-01-06 03:00 | RT.EKG_ITS ---
APPROVED REPORT Exam: Resting ECG Reason for Exam: chest Patient Location: E HR:91 bpm ECG Measurements Heart Rate 91 AXIS RI 169 P 30 QRSd 82 QRS -23 QT 384 T -4 QTc 473 Conclusion Sinus rhythm...normal P axis, V-rate 60- 99 Inferior infarct, old...Q >35mS, II III aVF Anterior infarct, old...Q >40mS, abnormal ST-T, V2-V5 PHysician: no stemi, mild anterior elevation in V1 and V2.
[2023-01-06 03:31] LABS: Abs Immature Grans 0.04 10^3/uL (0.0-0.06); Absolute Basophil Count 0.01 10^3/uL (0.0-0.2); Absolute Eosinophil Count 0.01 10^3/uL (0.0-0.7); HCT 30.9 % (40.0-50.0); HGB 10.1 g/dL (13.5-17.5); MCH 31.4 pg (27.0-33.0); MCHC 32.7 % (32.0-36.0); MCV 96 fL (80-95); MPV 9.1 fL (8.0-11.0); Platelet Count 243 10^3/uL (130-400); RBC 3.22 10^6/uL (4.36-5.78); RDW 14.8 % (11.8-14.1); RDW-SD 51.3 fL
[2023-01-06 03:41] LABS: WBC 0.97 10^3/uL (4.4-10.8)
[2023-01-06] MEDS: HYDROmorphone 2 MG/ML SYR 1 MG IVP ×2 (03:42→20:19)
[2023-01-06] MEDS: Dicyclomine 20 MG TAB PO (03:42)
[2023-01-06] MEDS: Normal Saline 500 ML IV (03:49)
--- NOTE | 2023-01-06 03:52 | ED.GENADUL_ITS ---
Discharge Plan Disposition Patient Disposition: Admit to [facility] Discharge Details Chief Complaint: Chest Pain Clinical Impression: Pancreatic cancer, Non-ST elevation AL (NSTEMI), Neutropenia Primary Care Provider: Jessica Richard ED Provider: Galo Rolon Home Meds and New Rx's Prescriptions: No Action magnesium oxide 400 mg (241.3 mg magnesium) tablet 400 mg PO QHS Qty: 90 1RF multivitamin 1 EACH tablet 1 ea PO DAILY xasqrocgqzo-cqwruesio-rra C-Mn [Glucosamine 1500 Complex] 1 EACH capsule 1 ea PO DAILY hydromorphone 2 mg tablet 2 mg PO Q4H Rx Instructions: 05/31/22 take 1-2 tabs every 4 hr prn for pain for up to 7 days finasteride 5 mg tablet 5 mg PO HS Qty: 90 4RF tamsulosin 0.4 mg capsule 0.8 mg PO HS Qty: 180 4RF ondansetron 8 mg tablet,disintegrating 8 mg PO Q8H pantoprazole [Protonix] 40 mg tablet,delayed release (DR/EC) 40 mg PO DAILY Qty: 90 3RF metoclopramide HCl 5 mg tablet 5 mg PO QAC Rx Instructions: administer 30 minutes before meals bisacodyl 5 mg tablet,delayed release (DR/EC) 5 mg PO DAILY PRN PRN (Reason: constipation) Qty: 60 1RF Eliquis 5 mg tablet 5 mg PO BID Qty: 70 1RF Rx Instructions: Start @ 10mg BID (2 tabs) x 1st week, then 5mg BID ferrous sulfate 325 mg (65 mg iron) tablet,delayed release (DR/EC) 325 mg PO DAILY Qty: 90 1RF aspirin [Adult Low Dose Aspirin] 81 mg tablet,delayed release (DR/EC) 81 mg PO DAILY rosuvastatin 20 mg tablet 20 mg PO DAILY metoprolol succinate 50 mg tablet extended release 24 hr 50 mg PO DAILY ascorbic acid (vitamin C) [Vitamin C] 500 MG tablet 500 mg PO DAILY vitamin [id number] acid 1 EACH tablet 1 ea PO DAILY sucralfate 1 gram Tablet 1 g PO AC & HS Qty: 120 0RF docusate sodium [Colace] 100 mg Capsule 100 mg PO BID Qty: 60 0RF sennosides [Senokot] 8.6 mg Tablet 1 tab PO BID PRN PRNQty: 60 0RF nitroglycerin 0.4 mg tablet, sublingual 0.4 mg sublingual Q5M PRNQty: 30 0RF Rx Instructions: do not exceed 3 doses per episode hydromorphone 2 mg tablet 2 mg PO TID Patient Comments: TAKE ONE TO TWO TABLETS BY MOUTH EVERY 4 HOURS NEEDED FOR PAIN Medical Decision Making This is a pleasant 82-year-old male with a past medical history of primary adenocarcinoma of the ampulla elevator, severe multivessel coronary artery disease, currently on Eliquis and aspirin, stage IV pancreatic cancer currently receiving only irinotecan as he had 2 NSTEMI events closely associated with his previous chemotherapy dosings. He presents today for chest pain. He has on regular Dilaudid for pain control as well as Reglan amongst other medications. He was recently discharged on 12/22/2022 for an NSTEMI at [facility]. He states that for the last 24 to 48 hours he has felt somewhat tired, he has not been drinking much, and over the last few hours this evening he has had pain in his abdomen and upper chest. Upon EMS arrival he was given nitroglycerin and his pain notably improved. By the time he arrived to the ER his pain had essentially resolved. He has been taking his medication including his Eliquis as directed. Family states that he has not been drinking much throughout the day, but he otherwise has been doing relatively well. Patient h as no other additional complaints at this time. He states that his goals are to go home this evening. He did have his most recent chemotherapy dose 5 days ago on Wednesday. Exam demonstrates well-appearing male, vital signs are stable. Differential is broad but certainly includes cardiac etiology, pancreas pathology, amongst other etiologies. I had a long and honest discussion with the patient asking him what his goals were today. We discussed various forms of further evaluation, assessment and therapy. We discussed imaging, labs, pain medication etc. After a significant discussion with the patient and family, patient has requested to hold off on any imaging, or aggressive assessment. He prefers to go home as he is now feeling better, and states that this is his primary goal to leave to is normal of her life as he can for what time he has left. I did asked the patient if we could look further into some mild blood work while we observed him, and he did agree with this. Taking the patient's wishes into consideration, we will get a troponin, lipase, electrolytes, we will gently rehydrate, give some pain medication, Bentyl, monitor closely and reassess. Patient does demonstrate a clear understanding of his prognosis from the cancer at this time, and this is playing a large part in his desire to hold off on any aggressive assessments currently. Additionally review of his oncology note on 01/01/2023 reveals that his CEA 19-9 numbers have actually been increasing as of late, 4:42 AM Laboratory work-up has returned, patient is neutropenic, with a WBC count of 0.97. However review of his labs in the past revealed that he does have quite a drop in his WBC count a few days after his chemotherapy. That being said this is the lowest it has been. Electrolytes are stable, renal function good. Troponin mildly elevated at 169. Previous values had peaked to the 600s at [facility] and 3600 here at [facility]. Patient is on Eliquis and his antiplatelet agent still. Patient's vital signs remained stable. I had a very long discussion with the patient and the family. We discussed the patient's prognosis, the thoughts of the oncology team, as well as the cardiology team, and we also took into consideration their direction for medical management last time when his troponin was significantly elevated. Understanding all of this, we talked about goals, priorities. The patient did have a palliative care consult initially with [facility], but family states that he has not had any palliative care discussion since then. Through shared decision-making process with family and the patient, we have decided that at this time the next best step is to transition to an inpatient stay for continued long-acting nitroglycerin management if needed, titration of his regular pain medications, and a formalized palliative care assessment here for clear discussion of goals and directions. Patient and family agree with the plan. Discussed the plan with the hospitalist Dr. Nelson, he agrees with the assessment and plan. At his request I will place bridging orders on his behalf. I have extensively reviewed the treatment plan with the patient. I have addressed all patient concerns at this time. I have also discussed the plan with the admitting physician and they agree with the current assessment and plan and have agreed to assume responsibility for the patient. All parties demonstrate verbal understanding and agreement with our assessment and plan at this time. The documentation in this chart was dictated using [employer] dictation software. Pl ease excuse any dictation errors. HPI General Date/Time Provider Initiated Documentation: 01/06/23 03:20 . HPI Narrative: This is a pleasant 82-year-old male with a past medical history of primary adenocarcinoma of the ampulla elevator, severe multivessel coronary artery disease, currently on Eliquis and aspirin, stage IV pancreatic cancer currently receiving only irinotecan as he had 2 NSTEMI events closely associated with his previous chemotherapy dosings. He presents today for chest pain. He has on regular Dilaudid for pain control as well as Reglan amongst other medications. He was recently discharged on 12/22/2022 for an NSTEMI at [facility]. He states that for the last 24 to 48 hours he has felt somewhat tired, he has not been drinking much, and over the last few hours this evening he has had pain in his abdomen and upper chest. Upon EMS arrival he was given nitroglycerin and his pain notably improved. By the time he arrived to the ER his pain had essentially resolved. He has been taking his medication including his Eliquis as directed. Family states that he has not been drinking much throughout the day, but he otherwise has been doing relatively well. Patient has no other additional complaints at this time. He states that his goals are t o go home this evening. Related Data Home Medications Medication Instructions Recorded Confirmed multivitamin 1 ea PO DAILY 01/20/13 12/22/22 ascorbic acid (vitamin C) 500 mg 500 mg PO DAILY 05/04/14 12/22/22 tablet (Vitamin C) vitamin B12 500 mcg-folic acid 400 1 ea PO DAILY 05/04/14 12/22/22 mcg tablet wndrqchasph-objiqnizk-tdb C-Mn 500 1 ea PO DAILY 05/28/15 12/22/22 mg-400 mg capsule (Glucosamine 1) hydromorphone 2 mg tablet 2 mg PO Q4H 06/04/22 12/22/22 finasteride 5 mg tablet 5 mg PO HS #90 tab-caps 06/12/22 12/22/22 tamsulosin 0.4 mg capsule 0.8 mg PO HS #180 tab-caps 06/12/22 12/22/22 docusate sodium 100 mg capsule 100 mg PO BID #60 caps 06/18/22 12/22/22 (Colace) nitroglycerin 0.4 mg sublingual 0.4 mg sublingual Q5M PRN #30 tabs 06/18/22 12/22/22 tablet sennosides 8.6 mg tablet (Senokot) 1 tab PO BID PRN PRN #60 tabs 06/18/22 12/22/22 sucralfate 1 gram tablet 1 g PO AC & HS #120 tabs 06/18/22 12/22/22 ondansetron 8 mg disintegrating 8 mg PO Q8H 07/10/22 12/22/22 tablet pantoprazole 40 mg tablet,delayed 40 mg PO DAILY #90 tabs 07/23/22 12/22/22 release (Protonix) metoclopramide HCl 5 mg tablet 5 mg PO QAC 07/31/22 12/22/22 bisacodyl 5 mg tablet,delayed 5 mg PO DAILY PRN PRN constipation 08/29/22 12/22/22 release #60 tabs hydromorphone 2 mg tablet 2 mg PO TID 10/01/22 12/22/22 apixaban 5 mg tablet (Eliquis) 5 mg PO BID #70 tabs 10/02/22 12/22/22 ferrous sulfate 325 mg (65 mg 325 mg PO DAILY #90 tabs 11/06/22 12/22/22 iron) tablet,delayed release aspirin 81 mg tablet,delayed 81 mg PO DAILY 12/25/22 release (Adult Low Dose Aspirin) metoprolol succinate 50 mg 50 mg PO DAILY 12/25/22 tablet,extended release 24 hr rosuvastatin 20 mg tablet 20 mg PO DAILY 12/25/22 magnesium oxide 400 mg (241.3 mg 400 mg PO QHS #90 tabs 12/31/22 12/31/22 magnesium) tablet Previous Rx's Medication Instructions Recorded finasteride 5 mg tablet 5 mg PO HS #90 tab-caps 06/12/22 tamsulosin 0.4 mg capsule 0.8 mg PO HS #180 tab-caps 06/12/22 docusate sodium 100 mg capsule 100 mg PO BID #60 caps 06/18/22 (Colace) nitroglycerin 0.4 mg sublingual 0.4 mg sublingual Q5M PRN #30 tabs 06/18/22 tablet sennosides 8.6 mg tablet (Senokot) 1 tab PO BID PRN PRN #60 tabs 06/18/22 sucralfate 1 gram tablet 1 g PO AC & HS #120 tabs 06/18/22 pantoprazole 40 mg tablet,delayed 40 mg PO DAILY #90 tabs 07/23/22 release (Protonix) bisacodyl 5 mg tablet,delayed 5 mg PO DAILY PRN PRN constipation 08/29/22 release #60 tabs apixaban 5 mg tablet (Eliquis) 5 mg PO BID #70 tabs 10/02/22 ferrous sulfate 325 mg (65 mg 325 mg PO DAILY #90 tabs 11/06/22 iron) tablet,delayed release magnesium oxide 400 mg (241.3 mg 400 mg PO QHS #90 tabs 12/31/22 magnesium) tablet Allergies Allergy/AdvReac Type Severity Reaction Status Date / Time Penicillins Allergy Intermediate blisters/hi Verified 12/31/22 08:58 ves oxycodone Allergy Mild BLOTCHES, Verified 12/31/22 08:58 SWELLING diphtheria, pertussis, AdvReac Intermediate full-arm Verified 12/31/22 08:58 tetanus vacc swelling and weakness - lasting several weeks. General Stated Complaint: Chest Pain ASHLEY: 3 Review of Systems All systems reviewed & are unremarkable except as noted in HPI and below PFSH All Active Problems (Updated 01/06/23 @ 04:51 by Galo Rolon DO) Pancreatic cancer (Acute) Non-ST elevation AL (NSTEMI) (Acute) Neutropenia (Acute) Non-ST elevation AL (NSTEMI) (Acute) Hx STEMI, Jun 2022 Chest pain (Acute) Liver metastases (Acute) Malignant neoplasm of ampulla of Vater (Acute) Prediabetes (Acute) Pulmonary embolism (Chronic) RLL, incidental finding on ABd CT (10/02/22). s/w Onc, Dr. Ga .. Eliqukendra. ik STEMI (ST elevation myocardial infarction) (Acute 06/14/22) Hypokalemia (Acute) Soft tissue swelling of wrist joint (Acute) shy called to let us know Gregorio's R wrist is still red and hot but swelling has gone down ASCVD (arteriosclerotic cardiovascular disease) (Acute) 07/17/22 Hem/onc note Hypomagnesemia (Acute 06/26/22) Constipation (Acute) Medication monitoring encounter (Acute) Elevated transaminase level (Acute) Anemia associated with acute blood loss (Acute) Pulmonary hypertension (Acute) Chronic pain (Chronic) CHF (congestive heart failure) (Chronic) Primary adenocarcinoma of ampulla of Vater (Acute) 05/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 Duodenal anomaly (Acute) Liver lesion (Acute) Lesions, suspicious for metastatic dz Weight loss (Acute) Belching (Acute) relieves left side/UQ pressure RUQ fullness (Acute) Left upper quadrant abdominal mass (Acute) Parapelvic renal cyst (Acute) Dysmetabolic syndrome X (Acute 04/22/12) IMPAIRED FBS 111-104; WEIGHT Abnormal blood sugar (Chronic 06/19/14) Hx abnormal fasting blood sugar Stiffness of finger joint (Acute) 3rd digit, B/L, stiffness after lengthy gripping (mostly driving). I'm concerned 2' heavy schedule carrying/lifting with MS. Chronic pancreatitis (Acute) 10/12/19-[facility] Gastroenterology. 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 Dr Stover follows 11/25/17 BCC nodular and infiltrative left frontal parietal scalp w/ removal Dr Stover 11/25/17 Excision of recurrent BCCA left frontal parietal scalp Carpal tunnel syndrome of left wrist (Acute 05/22/15) Carpal tunnel syndrome of right wrist (Acute 05/12/16) BPH w/o urinary obs/LUTS (Acute 09/13/99) LUTS, DR SANCHEZ YEARLY Hip pain, right (Acute 09/30/17) Rupesh Garcia PT with HEP for ITB and hamstring streching Hyperlipidemia (Acute 04/22/12) GOAL LDL<130; (OPTIMAL <100); RISK CALCULATED 16% IN 2001; LDL AT GOAL, LOW HDL Overweight (Acute 04/22/12) goal 185 (last <2002) 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 Successfully contlld GERD per pt report. Hyperlipidemia Surgical History H/O shoulder surgery [place] S[place] [facility] [place] Family History Mother Diabetes Father , [place] at age 90. Diabetes Heart disease Sister Age: 82 No problems noted. Brother Age: 79 Diabetes Heart disease Social History Smoking/Tobacco Use Status: Former Tobacco Use Smoking risk assessment performed?: Yes Alcohol Intake: never Drug use: Never Substance use type: does not use Do you feel safe at home: Yes Do you feel safe in your relationship?: Yes Exam Narrative Exam Narrative: 1.Const: Well-nourished, Well-developed, appearing stated age 2.Eyes: PERRL, no conjunctival injection, and symmetrical lids. 3.ENT: Atraumatic external nose and ears. Moist MM. Neck: Symmetric, trachea midline, No thyromegaly. 4.CVS: +S1/S2, Peripheral pulses 2+ and equal in all extremities. Brisk capillary refill in all extremities. 5.RESP: Unlabored respiratory effort. Clear to auscultation bilaterally. No wheezes rales or rhonchi 6.GI: Soft, nondistended, no guarding or rebound. Mild epigastric tenderness. 7.MSK: Normocephalic/Atraumatic, Extremities w/o deformity or ttp No cyanosis or clubbing, Normal movement of all extremities 8.Skin: Warm, Dry. No rashes or lesions. 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 Sensation grossly intact, no focal neurolog ic deficits. 10.Psych: (AAO) x3. Appropriate mood and affect Course Vital Signs Vital signs: Vital Signs Temperature 36.8 C 01/06/23 03:07 Pulse 96 H 01/06/23 03:07 Respiratory Rate 15 01/06/23 03:07 Blood Pressure 109/59 L 01/06/23 03:07 Pulse Oximetry 97 01/06/23 03:07 Temperature 36.8 C 01/06/23 03:07 Temperature Source Temporal Artery Scan 01/06/23 03:07 Pulse 96 H 01/06/23 03:07 Respiratory Rate 15 01/06/23 03:07 Respiratory Effort Normal, Non-Labored 01/06/23 03:17 Respiratory Depth Normal 01/06/23 03:17 Respiratory Pattern Normal 01/06/23 03:17 Blood Pressure 109/59 L 01/06/23 03:07 Blood Pressure Position Sitting 01/06/23 03:07 Pulse Oximetry 97 01/06/23 03:07 Oxygen Delivery Method Room Air 01/06/23 03:07 Oxygen Flow Rate 0 01/06/23 03:07 Pain Level 0 01/06/23 03:07
[2023-01-06 03:57] LABS: ALT 20 U/L (16-63); AST 68 U/L (15-37); Albumin 2.5 g/dL (3.4-5.0); Alkaline Phosphatase 273 U/L (46-116); BUN 13 mg/dL (7-18); Bilirubin, Total 0.7 mg/dL (0.2-1.0); Calcium 8.9 mg/dL (8.5-10.1); Chloride 98 mmol/L (98-107); Estimated GFR 75.61 (mL/min/1.73m2); Glucose 147 mg/dL (74-106); Lipase 23 U/L (16-77); Sodium 132 mmol/L (136-145); Total Protein 6.8 g/dL (6.4-8.2)
[2023-01-06 04:09] LABS: Troponin I 169 ng/L (<or=60)
[2023-01-06 04:14] LABS: Absolute Lymphocyte Count 0.51 10^3/uL (1.2-3.4); Absolute Monocyte Count 0.18 10^3/uL (0.1-0.8)
[2023-01-06 04:15] LABS: Metamyelocytes % 3; Myelocytes % 1
[2023-01-06] MEDS: nitroGLYcerin 0.4 MG TAB (04:20)
--- NOTE | 2023-01-06 04:25 | NUR.NOTE ---
@0415-Pt c/o acute onset L side CP. He is sweating and holding L chest. Assisted to a sitting position. [place], DO made aware. Verb ords received to give 0.4mg sublingual nitro. [place]age, DO to bedside to discuss plan of care with pt and family.
[2023-01-06] MEDS: nitroGLYcerin 0.4 MG TAB SL ×3 (05:38→10:15)
--- NOTE | 2023-01-06 05:42 | NUR.NOTE ---
@0540 BP post 0.4mg nitro sublingual is 82/54. Pt is asymptomatic and states 0/10 CP. Hydromorphone held at this time. Reported to MD Bonnie. No new ords received.
--- NOTE | 2023-01-06 06:34 | HPE_ITS ---
Date of service: 01/06/23 Time of Service: 06:34 Assessment and Plan Assessment and plan (1) Non-ST elevation [place] (NSTEMI): Status: Acute Assessment and plan: His chest pain is clearly cardiac in origin with his documented CAD and response to NTG. His presentation is consistent with NSTEMI, but fortunately his troponins right now are lower than his last presentation, and cardiology at [facility] this month does not recommend further intervention. Will continue his current ASA and apixaban along with high intensity statin. Start NTG paste, try to transition to long acting oral if his BP tolerates. (2) Malignant neoplasm of ampulla of Vater: Status: Acute Assessment and plan: Oncology notes reviewed, his current therapy is non-curative. His chemotherapy does seem to be a trigger for these episodes. palliative care consulted. (3) Neutropenia: Status: Acute Assessment and plan: No signs of infection, he will be on reverse precautions. Follow CBC/diff (4) Pulmonary embolism: Status: Chronic Assessment and plan: He is on apixaban chronically. (5) Discharge planning issues: Status: Acute Assessment and plan: As above palliative care consult to clarify goals of care and help manage symptoms. 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 Pain is severe, aching, substernal to deep left chest to the left shoulder and arm. Pain resolves with nitroglcerin. He also takes hydromorphone for pain which helps somewhat. It is associated with some shortness of breath. On 12/21/22 and 07/04/22 he had the same chest pain and very similar presentation. At the recent admission was transferred to [facility], but it was decided that due to his cancer, no coronary stenting or other intervention done. Medical management recommended. On both those admissions his troponins were in the 3000s. His last chemotherapy was Monday 01/01, 5 days prior to admission. His current regimen is FOLFIRI (Folinic acid, flourouracil, and irinotecan). Review of Systems Constitutional Constitutional: Denies chills, Denies fever(s), Reports lethargy and Denies weakness Eyes Eyes: Denies change in vision and Denies irritation ENT Ears, Nose, Mouth, and Throat: Denies dizziness, Denies nasal congestion, Denies nasal discharge and Denies sore throat Cardiovascular Cardiovascular: Denies palpitations and Denies orthopnea Respiratory Respiratory: Denies cough, Denies hemoptysis, Denies excessive phlegm production and Denies wheezing Gastrointestinal Gastrointestinal: Denies melena, Denies hematochezia, Denies change in bowel habits, Denies heartburn and Denies vomiting Genitourinary Genitourinary: Denies hematuria, Denies dysuria and Denies urinary incontinence Integumentary/Breasts Skin/Breast: Denies rash and Denies skin ulcer Neurologic Neurologic: Denies confusion, Denies dizziness, Denies sensory deficit and De nies weakness Psychiatric Psychiatric: Denies confusion and Denies mood swings Endocrine Endocrine: Denies palpitations Hematologic/Lymphatic Hematologic/Lymphatic: Denies easy bleeding Allergic/Immunologic Allergic/Immunologic: Denies wheezing PFSH All Active Problems (Updated 01/06/23 @ 06:54 by Genaro Rosales) Discharge planning issues (Acute) Pancreatic cancer (Acute) Non-ST elevation [place] (NSTEMI) (Acute) Neutropenia (Acute) Non-ST elevation [place] (NSTEMI) (Acute) Hx STEMI, Jun 2022 Chest pain (Acute) Liver metastases (Acute) Malignant neoplasm of ampulla of Vater (Acute) Prediabetes (Acute) Pulmonary embolism (Chronic) RLL, incidental finding on ABd CT (10/02/22). s/w Onc, Dr. Ga .. Belinda. 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 Duodenal anomaly (Acute) Liver lesion (Acute) Lesions, suspicious for metastatic dz Weight loss (Acute) Belching (Acute) relieves left side/UQ pressure RUQ fullness (Acute) Left upper quadrant abdominal mass (Acute) Parapelvic renal cyst (Acute) Dysmetabolic syndrome X (Acute 04/22/12) IMPAIRED FBS 111-104; WEIGHT Abnormal blood sugar (Chronic 06/19/14) Hx abnormal fasting blood sugar Stiffness of finger joint (Acute) 3rd digit, B/L, stiffness after lengthy gripping (mostly driving). I'm concerned 2' heavy schedule carrying/lifting with MS. Chronic pancreatitis (Acute) 10/12/19-[facility] Gastroenterology. 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 Dr Stover follows 11/25/17 BCC nodular and infiltrative left frontal parietal scalp w/ removal Dr Stover 11/25/17 Excision of recurrent BCCA left frontal parietal scalp Carpal tunnel syndrome of left wrist (Acute 05/22/15) Carpal tunnel syndrome of right wrist (Acute 05/12/16) BPH w/o urinary obs/LUTS (Acute 09/13/99) LUTS, DR SANCHEZ YEARLY Hip pain, right (Acute 09/30/17) Rupesh Garcia PT with HEP for ITB and hamstring streching Hyperlipidemia (Acute 04/22/12) GOAL LDL<130; (OPTIMAL <100); RISK CALCULATED 16% IN 2001; LDL AT GOAL, LOW HDL Overweight (Acute 04/22/12) goal 185 (last <2002) 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 Successfully contlld GERD per pt report. Hyperlipidemia Surgical History H/O shoulder surgery Left S/P endoscopy 05/27/22 AT [facility]. biopsy done Family History Mother Diabetes Father , [place] at age 90. Diabetes Heart disease Sister Age: 82 No problems noted. Brother Age: 79 Diabetes Heart disease Social History (Updated 01/06/23 @ 06:49 by Genaro Rosales) Smoking/Tobacco Use Status: Former Tobacco Use Smoking risk assessment performed?: Yes Alcohol Intake: never Drug use: Never Substance use type: does not use Do you feel safe at home: Yes Do you feel safe in your relationship?: Yes Additional Social history: Lives with in [place]. She has MS but helps care for him. Son next door. Meds Allergies and Home Medications Allergies Allergy/AdvReac Type Severity Reaction Status Date / Time Penicillins Allergy Intermediate blisters/hi Verified 12/31/22 08:58 ves oxycodone Allergy Mild BLOTCHES, Verified 12/31/22 08:58 SWELLING diphtheria, pertussis, AdvReac Intermediate full-arm Verified 12/31/22 08:58 tetanus vacc swelling and weakness - lasting several weeks. Home Medications Medication Instructions Recorded Confirmed Type multivitamin 1 ea PO DAILY 01/20/13 12/22/22 History ascorbic acid (vitamin C) 500 mg 500 mg PO DAILY 05/04/14 12/22/22 History tablet (Vitamin C) vitamin B12 500 mcg-folic acid 400 1 ea PO DAILY 05/04/14 12/22/22 History mcg tablet [id number] C-Mn 500 1 ea PO DAILY 05/28/15 12/22/22 History mg-400 mg capsule (Glucosamine 1) hydromorphone 2 mg tablet 2 mg PO Q4H 06/04/22 12/22/22 History finasteride 5 mg tablet 5 mg PO HS #90 tab-caps 06/12/22 12/22/22 Rx tamsulosin 0.4 mg capsule 0.8 mg PO HS #180 tab-caps 06/12/22 12/22/22 Rx docusate sodium 100 mg capsule 100 mg PO BID #60 caps 06/18/22 12/22/22 Rx (Colace) nitroglycerin 0.4 mg sublingual 0.4 mg sublingual Q5M PRN #30 tabs 06/18/22 12/22/22 Rx tablet sennosides 8.6 mg tablet (Senokot) 1 tab PO BID PRN PRN #60 tabs 06/18/22 12/22/22 Rx sucralfate 1 gram tablet 1 g PO AC & HS #120 tabs 06/18/22 12/22/22 Rx ondansetron 8 mg disintegrating 8 mg PO Q8H 07/10/22 12/22/22 History tablet pantoprazole 40 mg tablet,delayed 40 mg PO DAILY #90 tabs 07/23/22 12/22/22 Rx release (Protonix) metoclopramide HCl 5 mg tablet 5 mg PO QAC 07/31/22 12/22/22 History bisacodyl 5 mg tablet,delayed 5 mg PO DAILY PRN PRN constipation 08/29/22 12/22/22 Rx release #60 tabs hydromorphone 2 mg tablet 2 mg PO TID 10/01/22 12/22/22 History apixaban 5 mg tablet (Eliquis) 5 mg PO BID #70 tabs 10/02/22 12/22/22 Rx ferrous sulfate 325 mg (65 mg 325 mg PO DAILY #90 tabs 11/06/22 12/22/22 Rx iron) tablet,delayed release aspirin 81 mg tablet,delayed 81 mg PO DAILY 12/25/22 History release (Adult Low Dose Aspirin) metoprolol succinate 50 mg 50 mg PO DAILY 12/25/22 History tablet,extended release 24 hr rosuvastatin 20 mg tablet 20 mg PO DAILY 12/25/22 History magnesium oxide 400 mg (241.3 mg 400 mg PO QHS #90 tabs 12/31/22 12/31/22 Rx magnesium) tablet Exam Narrative Exam Narrative: GEN: Alert and oriented, pleasant and cooperative. No acute distress at rest, but with recurrent pain moaning and clutching left chest, sitting up on side of bed. HEENT: Head atraumatic. Conjunctiva clear, no icterus. PEERL, EOMI. no rh inorrhea. MMM, OP benign. Neck is supple with no masses or lymphadenopathy, trachea midline LUNGS: CTAB with normal effort CV: RRR with no murmurs, gallops, or rubs. ABD: +BS, soft, NT/ND EXT: no cyanosis, clubbing, or edema MSK: No joint redness or swelling NEURO: CN 2-12 grossly intact. Normal movement of 4 extremities. Normal speech and coordination SKIN: No rashes or open wounds. port left chest not tender or inflammed. PSYCH: normal mood and affect, except when in pain Results Imaging EKG: report reviewed and image reviewed (no STEMI, borderline elevation V1/V2) Labs 01/06/23 03:20 01/06/23 03:20 Labs: Laboratory Results - last 24 hr 01/06/23 01/06/23 03:20 03:20 WBC 0.97 L* RBC 3.22 L Hgb 10.1 L Hct 30.9 L MCV 96 H MCH 31.4 MCHC 32.7 RDW 14.8 H Plt Count 243 MPV 9.1 Immature Gran % 0.0 Neutrophils % 21.0 Lymphocytes % 53.0 Monocytes % 19.0 Eosinophils % 1.0 Basophils % 1.0 Metamyelocytes % 3 Myelocytes % 1 Nucleated RBC % 0.0 Absolute Neutrophils 0.20 L* Absolute Lymphocytes 0.51 L Absolute Monocytes 0.18 Absolute Eosinophils 0.01 Absolute Basophils 0.01 Sodium 132 L Potassium 4.0 Chloride 98 Carbon Dioxide 26.0 Anion Gap 8.0 BUN 13 Creatinine 1.0 Est GFR (CKD-EPI 2020) 75.61 Glucose 147 H Calcium 8.9 Total Bilirubin 0.7 AST 68 H ALT 20 Alkaline Phosphatase 273 H Troponin I 169 H* Total Protein 6.8 Albumin 2.5 L Lipase 23 Last Vital Signs Temp 36.7 C 01/06/23 06:05 Pulse 84 01/06/23 06:05 Resp 16 01/06/23 06:05 BP 106/65 01/06/23 06:05 Pulse Ox 99 01/06/23 06:05 Time Spent Time spent with Patient: 55-74 minutes Time was spent: preparing to see the patient(eg.review tests), obtaining and/or reviewing separately otained hiistory, ordering medications,tests, procedures, referring, communicating with other health personal caregiver, indepentently interpreting results and counseling the patient
[2023-01-06 07:13] LABS: Troponin I 1028 ng/L (<or=60)
[2023-01-06] MEDS: Ondansetron O.D.T. 4 MG TABEF 8 MG PO ×3 (07:42→20:52)
[2023-01-06] MEDS: Pantoprazole 40 MG TABCR PO (07:44)
[2023-01-06] MEDS: Aspirin E.C. 81 MG TABEC PO (07:45)
[2023-01-06] MEDS: Metoclopramide 10 MG TAB 5 MG PO ×3 (07:45→16:55)
[2023-01-06] MEDS: Ascorbic Acid 500 MG TAB PO (07:46)
[2023-01-06] MEDS: Multivitamin TAB 1 TAB PO (07:47)
[2023-01-06] MEDS: Sucralfate 1 GM TAB PO ×4 (07:47→20:52)
[2023-01-06] MEDS: Docusate Sodium 100 MG CAP PO ×2 (07:47→19:59)
[2023-01-06] MEDS: Apixaban 5 MG TAB PO (07:50)
[2023-01-06] MEDS: Folic Acid 1 MG TAB PO (08:19)
[2023-01-06] MEDS: Metoprolol CR 50 MG TABCR PO (08:20)
[2023-01-06] MEDS: HYDROmorphone 2 MG TAB PO ×3 (09:31→19:58)
--- NOTE | 2023-01-06 09:45 | INITIAL_ITS ---
- If Service Date Differs Date of service: 01/06/23 (n) Time of Service: 09:46 Care Management Initial Assess REASON FOR HOSPITALIZATION:: NSTEMI PAST MEDICAL HISTORY/PAST SURGICAL HISTORY:: All Active Problems (Updated 01/06/23 @ 06:54 by Genaro Rosales). Discharge planning issues (Acute). Pancreatic cancer (Acute). Non-ST elevation [place] (NSTEMI) (Acute). Neutropenia (Acute). Non-ST elevation [place] (NSTEMI) (Acute). Hx STEMI, Jun 2022. Chest pain (Acute). Liver metastases (Acute). Malignant neoplasm of ampulla of Vater (Acute). Prediabetes (Acute). Pulmonary embolism (Chronic). RLL, incidental finding on ABd CT (10/02/22). s/w Onc, Dr. Ga .. Eliqukendra. ik. STEMI (ST elevation myocardial infarction) (Acute 06/14/22). Hypokalemia (Acute). Soft tissue swelling of wrist joint (Acute). shy called to let us know Gregorio's R wrist is still red and hot but swelling has gone down. ASCVD (arteriosclerotic cardiovascular disease) (Acute). 07/17/22 Hem/onc note. Hypomagnesemia (Acute 06/26/22). Constipation (Acute). Medication monitoring encounter (Acute). Elevated transaminase level (Acute). Anemia associated with acute blood loss (Acute). Pulmonary hypertension (Acute). Chronic pain (Chronic). CHF (congestive heart failure) (Chronic). 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 Folfax began 07/31/22. At risk for caregiver role strain (Acute). Temp, 2' cancer Dx/Tx .. [ ] may need help to help , Elidia. 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 Duodenal anomaly (Acute). Liver lesion (Acute). Lesions, suspicious for metastatic dz. Weight loss (Acute). Belching (Acute). relieves left side/UQ pressure. RUQ fullness (Acute). Left upper quadrant abdominal mass (Acute). Parapelvic renal cyst (Acute). Dysmetabolic syndrome X (Acute 04/22/12). IMPAIRED FBS 111-104; WEIGHT. Abnormal blood sugar (Chronic 06/19/14). Hx abnormal fasting blood sugar. Stiffness of finger joint (Acute). 3rd digit, B/L, stiffness after lengthy gripping (mostly driving). I'm concerned 2' heavy schedule carrying/lifting with MS. Chronic pancreatitis (Acute). 10/12/19-[facility] Gastroenterology. Tunde Bernard MD. Benign neoplasm of colon (Acute 09/13/04). LAST COLON 04/2011, POS TUB ADENOMA; 2016 repeated w/ adenoma. Basal cell carcinoma of skin (Acute 05/29/13). and squamous cell Dr Stover follows. 11/25/17 BCC nodular and infiltrative left frontal parietal scalp w/ removal Dr Stover. 11/25/17 Excision of recurrent BCCA left frontal parietal scalp. Carpal tunnel syndrome of left wrist (Acute 05/22/15). Carpal tunnel syndrome of right wrist (Acute 05/12/16). BPH w/o urinary obs/LUTS (Acute 09/13/99). LUTS, DR SANCHEZ YEARLY. Hip pain, right (Acute 09/30/17). Rupesh Garcia PT with HEP for ITB and hamstring streching. Hyperlipidemia (Acute 04/22/12). GOAL LDL<130; (OPTIMAL <100); RISK CALCULATED 16% IN 2001; LDL AT GOAL, LOW HDL. Overweight (Acute 04/22/12). goal 185 (last <2002). 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 Sensory hearing loss, bilateral (Chronic). Medical History . Basal cell carcinoma. Carpal tunnel syndrome. Carpal tunnel syndrome of left wrist (05/22/15). Failure of fundoplication. Hx fundoplication with hiatal hernmia repair (mesh, per pt). Successfully contlld GERD per pt report. Hyperlipidemia. Surgical History . H/O shoulder surgery. Left. S/P endoscopy. 05/27/22 AT [facility]. biopsy done PREVIOUS FUNCTIONAL STATUS/SOCIAL/FAMILY SUPPORTS:: Gregorio lives in a single family home in [place] with his Elidia. They have 2 sons, Pedro and Patrick. Pedro works at [employer] in Security and Patrick lives closeby as well. Gregorio and Elidia also have 5 grandchildren and 4 great grandchildren. Elidia has MS and is wheelchair bound. Gregorio provides all of her care; they receive no community services. Gregorio is independent at baseline and very active. CURRENT FUNCTIONAL STATUS:: Gregorio was lying in bed when CM met with him. He was pleasant and engaged easily with CM, known to him from a previous admission. Gregorio shared that he has been doing very well at home, as has his Diana. He informed CM that about 2 weeks ago he received chemotherapy with a different agent and had cardiac issues following the adinistration. He was transferred to [facility] for a cardiac cath but was told that there are no appropriate interventions available at this time even though he does have blockages. Gregorio discussed the fact that his current admission is related to his second dose of the chemotherapeutic agent, which also produced chest pain. He verbalized that if he can receive pain medication that is effective, that he would like to continue with the treatments as they are the only thing that seems to be working. ADVANCE DIRECTIVES:: on file. Son Julien LEYVA Has patient been provided with info about the portal/API?: Yes Did the patient sign up for the portal?: No CODE STATUS:: DNR/DNI INSURANCE COVERAGE / FINANCIAL ISSUES:: Medicare. [facility] CURRENT HOME/COMMUNITY SERVICES/EQUIPMENT:: none currently PRIMARY CARE PHYSICIAN:: Jessica Richard POTENTIAL DISCHARGE NEEDS:: Follow up with PCP and other community providers PATIENT/FAMILY EDUCATION NEEDS:: Review of discharge planning, limitations, folllow up plan, medications, Ask Me Three TRANSPORTATION:: via private vehicle with family PLAN:: Gregorio will likely discharge home with no new services. He will folllow up with his PCP, Oncologist and plan of care and transport with family. CM will continue to support Gregorio and assess for dicharge concerns.
[2023-01-06 10:08] LABS: Troponin I 2516 ng/L (<or=60)
[2023-01-06] MEDS: Normal Saline 500 ML 999 ML IV (10:53)
[2023-01-06] MEDS: Normal Saline Flush 10 ML SYR IVP ×6 (11:42→21:29)
[2023-01-06] MEDS: nitroGLYcerin 2% 1 INCH/1 GM PKT TP ×2 (14:15→19:56)
[2023-01-06] MEDS: MORPHine 2 MG/ML SYR IVP ×3 (14:36→19:16)
--- NOTE | 2023-01-06 14:54 | CHAPLAIN ---
Gregorio was resting in bed when I visited. He was expecting family members to be in to visit him. Gregorio said he is very well supported by family. He has two sons, and one son and a daughter in law have moved into Gregorio and his 's home. His has MS and Gregorio provides her care. Gregorio talked about how fortunate he is to have a caring and supportive family.
--- NOTE | 2023-01-06 14:55 | W.PM.PROGNOT ---
Date of Service Date of service: 01/06/23 Time of Service: 14:55 Assessment and Plan Assessment and plan (1) Non-ST elevation [place] (NSTEMI): Status: Acute Assessment and plan: His chest pain is clearly cardiac in origin with his documented CAD and response to NTG. His presentation is consistent with NSTEMI, but fortunately his troponins right now are lower than his last presentation, and cardiology at [facility] this month does not recommend further intervention. Will continue his current ASA and apixaban along with high intensity statin. Start NTG paste, try to transition to long acting oral if his BP tolerates. (2) Malignant neoplasm of ampulla of Vater: Status: Acute Assessment and plan: Oncology notes reviewed, his current therapy is non-curative. His chemotherapy does seem to be a trigger for these episodes. palliative care consulted. (3) Neutropenia: Status: Acute Assessment and plan: No signs of infection, he will be on reverse precautions. Follow CBC/diff (4) Pulmonary embolism: Status: Chronic Assessment and plan: He is on apixaban chronically. (5) Discharge planning issues: Status: Acute Assessment and plan: As above palliative care consult to clarify goals of care and help manage symptoms. Subjective Subjective Patient reports: no new complaints Interval history since last seen: He did have some chest pain, relieved by ntg, however BP dropped to S80s; 500 ml fluid bolus given with SBP >100; no further chest pain reported. Tired, wakes to voice, coherent, denies nausea, denies diff breathing, no diaphoresis. We reviewed his code status and he confirmed he is DNR/DNI and we did fill out the COLST together. He would like trial of abx and trial of fluids, no artificial feeding. When asked if he wanted CPR he said no, when asked if he wanted intubation or to be put on a ventilator he said no; when asked if he knew what the questions meant - he said he did - chest compressions and breathing machine. He said No way do I want that, but I will take antibioics if they'll help and IV fluid, if it will help. Discussed with Palliative care provider as they had changed his status from DNR/DNI to full code. I also discussed with Dr Ga who verified at [facility] last visit Gregorio was DNR/DNI. After the COLST was completed and signed, I changed his status back to DNR/DNI. He asked why everyone was so confused, he never changed it. It is now scanned to the chart and available to review. Objective Last Vital Signs Temp 36.1 C L 01/06/23 11:45 Pulse 72 01/06/23 14:44 Resp 20 01/06/23 14:24 BP 112/76 01/06/23 14:44 Pulse Ox 97 01/06/23 14:24 Laboratory Results - last 24 hr 01/06/23 01/06/23 01/06/23 03:20 03:20 06:00 WBC 0.97 L* RBC 3.22 L Hgb 10.1 L Hct 30.9 L MCV 96 H MCH 31.4 MCHC 32.7 RDW 14.8 H Plt Count 243 MPV 9.1 Immature Gran % 0.0 Neutrophils % 21.0 Lymphocytes % 53.0 Monocytes % 19.0 Eosinophils % 1.0 Basophils % 1.0 Metamyelocytes % 3 Myelocytes % 1 Nucleated RBC % 0.0 Absolute Neutrophils 0.20 L* Absolute Lymphocytes 0.51 L Absolute Monocytes 0.18 Absolute Eosinophils 0.01 Absolute Basophils 0.01 Sodium 132 L Potassium 4.0 Chloride 98 Carbon Dioxide 26.0 Anion Gap 8.0 BUN 13 Creatinine 1.0 Est GFR (CKD-EPI 2020) 75.61 Glucose 147 H Calcium 8.9 Total Bilirubin 0.7 AST 68 H ALT 20 Alkaline Phosphatase 273 H Troponin I 169 H* 1028 H* Total Protein 6.8 Albumin 2.5 L Lipase 01/06/23 01/06/23 08:30 09:28 WBC RBC Hgb Hct MCV MCH MCHC RDW Plt Count MPV Immature Gran % Neutrophils % Lymphocytes % Monocytes % Eosinophils % Basophils % Metamyelocytes % Myelocytes % Nucleated RBC % Absolute Neutrophils Absolute Lymphocytes Absolute Monocytes Absolute Eosinophils Absolute Basophils Sodium Potassium Chloride Carbon Dioxide Anion Gap BUN Creatinine Est GFR (CKD-EPI 2020) Glucose Calcium Total Bilirubin AST ALT Alkaline Phosphatase Troponin I Cancelled 2516 H* Total Protein Albumin Lipase Time Spent with Patient Time Spent with Patient: >50 minutes Time was spent: preparing to see the patient(eg.review tests), obtaining and/or reviewing separately otained hiistory, ordering medications,tests, procedures, referring, communicating with other health acute care physical therapist, indepentently interpreting results, counseling the patient and care coordination
[2023-01-06 16:58] LABS: Troponin I 5298 ng/L (<or=60)
--- NOTE | 2023-01-06 17:03 | W.PALLCONSUL ---
Date of service: 01/06/23 Time of Service: 14:15 History of Present Illness Narrative: Mr. 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 Ga at [facility], recently switched to newest chemo Irinotecan after previous chemos changed d/t intolerable SE; - 06/12/22: started gemcitabine plus cisplatin; 3 cycles completed, complicated by ID after C1 - 07/22/22: CT shows increasing and worsening metastatic disease - 07/31/22: switched to Folfox; 9 cycles - 09/23/22: CT shows stable disease - January 03: CA 19-9 trending up - 12/04/22: switched to Folfiri d/t increasing CA 19-9 and burden of dz in liver; - after C2 admitted for NSTEMI as above per staff: he has had 3 episodes of CP today, nitro administered 3x, w/low BPs in 80's s/p administration, recovers appropriately, transition to nitro paste, improved BP readings; appetite appropriate, no BM yet today, have been regular; urinating appropriate; he has been taking it easy, able to ambulate from bed to toilet Gregorio is aware of palliative intent and at this time would like to continue chemotherapy w/goal of prolonging life; requesting hospitalist speak to Dr. Ga for coordination of care plan, would like to consider alternative chemo w/lesser SE if available; he would like anything done to promote prolonging life and focusing on his QoL; we have plans for our summer Gregorio and his Elidia live in [place], he has been providing substantial care for her d/t MS, and recently bob Victoria and NELDA Rose have moved in to provide additional assistance; they are all comfortable w/this plan and happy to have the support of one another; son Patrick also an excellent support; 5 grandchildren, 4 greats AD: previously completed, lists son Julien as primary HCA and Elidia as co-agent; preference for no CPR only if terminal, trial intubation, abx, FT; would want life sustaining treatment only if able to communicate w/friends/family, live w/o incapacitating pain, be conscious and aware of surroundings; Gregorio states that his AD preferences, including no CPR, are only if he is in a near state/terminal phase, he does not see himself there at this time. Assessment and Plan Assessment and plan (1) Pancreatic cancer: Status: Acute Assessment and plan: f/b Dr. Ga at [facility], f/u pending hospitalist to contact for review of GOC (2) Non-ST elevation ID (NSTEMI): Status: Acute (3) Chest pain: Status: Acute Assessment and plan: continue sxs management w/morphine and nitro (4) Liver metastases: Status: Acute (5) Malignant neoplasm of ampulla of Vater: Status: Acute (6) Chronic pain: Status: Chronic Assessment and plan: controlled w/Dilaudid (7) Palliative care encounter: Status: Acute Assessment and plan: PC to continue to follow, f/u outpatient need for ongoing review of care preferences, hospice vs oncology treatment, anticipatory planning for caregiving needs, etc family requestiong HH on discharge (8) Advance care planning: Status: Acute Assessment and plan: Discussion regarding Code Status preferences - patient wants to be a Full Code at this time; we reviewed the chance of successful revival w/CPR, pain risks (broken ribs, intubation), burden/caregiver impact of witnessing CPR; Gregorio was clear that he would want CPR attempted at this time, would want family to make call to stop after attempt, family agrees to plan, would want to know that they did everything they could to honor his wishes; he is aware that he would like to be a DNR when given a terminal diagnosis, and that even though his cancer is stage 4/metastatic and not curable, he would still want anything done to sustain life, consistent w/his AD - his code status was changed back to full code given this conversation - s/p our visit hospitalist and oncologist reviewed that he is a DNR/I in [facility] system, chemo on hold until recovery from current admission - COLST completed w/hospitalist after our visit, code status changed back to DNR/I briefly reviewed hospice as option for focus on QoL and symptom management; would like to hold off until speaks w/Dr. Ga will add to hospice watch list Review of Systems Narrative: as per HPI PFSH All Active Problems (Updated 01/06/23 @ 17:43 by Ruthy Simpson NP) Advance care planning (Acute) Palliative care encounter (Acute) Discharge planning issues (Acute) Pancreatic cancer (Acute) Non-ST elevation ID (NSTEMI) (Acute) Neutropenia (Acute) Non-ST elevation ID (NSTEMI) (Acute) Hx STEMI, Jun 2022 Chest pain (Acute) Liver metastases (Acute) Malignant neoplasm of ampulla of Vater (Acute) Prediabetes (Acute) Pulmonary embolism (Chronic) RLL, incidental finding on ABd CT (10/02/22). s/w Onc, Dr. Ga .. Eliquis. ik STEMI (ST elevation myocardial infarction) (Acute 06/14/22) Hypokalemia (Acute) Soft tissue swelling of wrist joint (Acute) shy called to let us know Gregorio's R wrist is still red and hot but swelling has gone down ASCVD (arteriosclerotic cardiovascular disease) (Acute) 07/17/22 Hem/onc note Hypomagnesemia (Acute 06/26/22) Constipation (Acute) Medication monitoring encounter (Acute) Elevated transaminase level (Acute) Anemia associated with acute blood loss (Acute) Pulmonary hypertension (Acute) Chronic pain (Chronic) CHF (congestive heart failure) (Chronic) Primary adenocarcinoma of ampulla of Vater (Acute) 05/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 Duodenal anomaly (Acute) Liver lesion (Acute) Lesions, suspicious for metastatic dz Weight loss (Acute) Belching (Acute) relieves left side/UQ pressure RUQ fullness (Acute) Left upper quadrant abdominal mass (Acute) Parapelvic renal cyst (Acute) Dysmetabolic syndrome X (Acute 04/22/12) IMPAIRED FBS 111-104; WEIGHT Abnormal blood sugar (Chronic 06/19/14) Hx abnormal fasting blood sugar Stiffness of finger joint (Acute) 3rd digit, B/L, stiffness after lengthy gripping (mostly driving). I'm concerned 2' heavy schedule carrying/lifting with MS. Chronic pancreatitis (Acute) 10/12/19-[facility] Gastroenterology. 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 Dr Stover follows 11/25/17 BCC nodular and infiltrative left frontal parietal scalp w/ removal Dr Stover 11/25/17 Excision of recurrent BCCA left frontal parietal scalp Carpal tunnel syndrome of left wrist (Acute 05/22/15) Carpal tunnel syndrome of right wrist (Acute 05/12/16) BPH w/o urinary obs/LUTS (Acute 09/13/99) LUTS, DR SANCHEZ YEARLY Hip pain, right (Acute 09/30/17) Rupesh Garcia PT with HEP for ITB and hamstring streching Hyperlipidemia (Acute 04/22/12) GOAL LDL<130; (OPTIMAL <100); RISK CALCULATED 16% IN 2001; LDL AT GOAL, LOW HDL Overweight (Acute 04/22/12) goal 185 (last <2002) 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 Successfully contlld GERD per pt report. Hyperlipidemia Surgical History H/O shoulder surgery Left S/P endoscopy 05/27/22 AT [facility]. biopsy done Family History Mother Diabetes Father , ID at age 90. Diabetes Heart disease Sister Age: 82 No problems noted. Brother Age: 79 Diabetes Heart disease Social History Smoking/Tobacco Use Status: Former Tobacco Use Smoking risk assessment performed?: Yes Alcohol Intake: never Drug use: Never Substance use type: does not use Do you feel safe at home: Yes Do you feel safe in your relationship?: Yes Additional Social history: Lives with in [place]. She has MS but helps care for him. Son next door. Exam Narrative Exam Narrative: General: older adult male; comfortable; NAD; transitions from lying to sitting at bedside 2x throughout visit; initial grimace/groan w/holding chest, resolves throughout visit; RN at bedside; , son and DIL at bedside HEENT: normocephalic, atruamatic, hearing appropriate, MMM; neck supple, no visible masses Resp: even and unlabored, no SOB, able to speak full sentences Skin: scattered SKs, skin dry, atrophy; port left chest Ext: no cyanosis, clubbing or edema Neuro: CN II-XII grossly intact, normal movement all 4 extremities Psych: calm, cooperative, pleasant; MS/mood appropriate; thought content appropriate; judgment/insight: limited Results Last Vital Signs Temp 97.0 F L 01/06/23 11:45 Pulse 72 01/06/23 14:44 Resp 20 01/06/23 14:24 BP 112/76 01/06/23 14:44 Pulse Ox 97 01/06/23 14:24 Labs 01/06/23 03:20 01/06/23 03:20 Labs: Laboratory Results - last 24 hr 01/06/23 01/06/23 01/06/23 03:20 03:20 06:00 WBC 0.97 L* RBC 3.22 L Hgb 10.1 L Hct 30.9 L MCV 96 H MCH 31.4 MCHC 32.7 RDW 14.8 H Plt Count 243 MPV 9.1 Immature Gran % 0.0 Neutrophils % 21.0 Lymphocytes % 53.0 Monocytes % 19.0 Eosinophils % 1.0 Basophils % 1.0 Metamyelocytes % 3 Myelocytes % 1 Nucleated RBC % 0.0 Absolute Neutrophils 0.20 L* Absolute Lymphocytes 0.51 L Absolute Monocytes 0.18 Absolute Eosinophils 0.01 Absolute Basophils 0.01 Sodium 132 L Potassium 4.0 Chloride 98 Carbon Dioxide 26.0 Anion Gap 8.0 BUN 13 Creatinine 1.0 Est GFR (CKD-EPI 2020) 75.61 Glucose 147 H Calcium 8.9 Total Bilirubin 0.7 AST 68 H ALT 20 Alkaline Phosphatase 273 H Troponin I 169 H* 1028 H* Total Protein 6.8 Albumin 2.5 L Lipase 01/06/23 01/06/23 01/06/23 08:30 09:28 16:20 WBC RBC Hgb Hct MCV MCH MCHC RDW Plt Count MPV Immature Gran % Neutrophils % Lymphocytes % Monocytes % Eosinophils % Basophils % Metamyelocytes % Myelocytes % Nucleated RBC % Absolute Neutrophils Absolute Lymphocytes Absolute Monocytes Absolute Eosinophils Absolute Basophils Sodium Potassium Chloride Carbon Dioxide Anion Gap BUN Creatinine Est GFR (CKD-EPI 2020) Glucose Calcium Total Bilirubin AST ALT Alkaline Phosphatase Troponin I Cancelled 2516 H* 5298 H* Total Protein Albumin Lipase
[2023-01-06] MEDS: Normal Saline 500 ML 2000 ML IV (19:16)
--- NOTE | 2023-01-06 19:30 | RT.EKG_ITS ---
APPROVED REPORT Exam: Resting ECG Reason for Exam: Chest pain w/radiation down L arm Patient Location: I HR:72 bpm ECG Measurements Heart Rate 72 AXIS MD 152 P 17 QRSd 83 QRS -13 QT 470 T 164 QTc 515 Conclusion Sinus rhythm...normal P axis, V-rate 50- 99 Anterior infarct, age indeterminate...Q >35mS, flat/neg T, V3-V6,I,aVL Diffuse nondiagnostic ST-T abnormalities
--- NOTE | 2023-01-06 20:17 | NUR.NOTE ---
Pt c/o abdominal/chest pain. Morphine IV given as ordered, as well as Nitro SL x1. B/P prior to Nitro administration was 118/62, after administration of Nitro, B/P: 90/45. BOBBIN COIL WINDER notified and orders given for 1 time dose of IV Morphine and 500ml bolus of NS. Medications given as ordered. Recheck of B/P before complete infusion of bolus, 90/35. Hospitalist made aware. Pt stated that pain was now radiating down his L arm, as well as the continued chest pain complaint. Orders for stat EKG given and to transfer to ICU. Hospitalist rounded on pt, looked at the EKG, requested that we fax the copy of the EKG to structural steel erection supervisor at [facility], and placed a one time order for Dilaudid IV. This nurse clarified w/MD as to whether or not remove NitroPaste before administration of Dilaudid, and MD stated to leave NitroPaste on patient, as he would be placed on a Nitro drip when he arrived in the ICU. Pt was given IV Dilaudid as ordered. Samantha Jc RN transferred pt to the ICU via wheelchair.
[2023-01-06] MEDS: Rosuvastatin 10 MG TAB 20 MG PO (20:19)
--- NOTE | 2023-01-06 20:44 | W.PM.PROGNOT ---
Date of Service Date of service: 01/06/23 Time of Service: 20:45 Subjective Subjective Interval history since last seen: The patient had left-sided chest pain that was only partially relieved with morphine and combination of transdermal and sublingual nitroglycerin. Came to evaluate the patient. He is asking Why does it hurt so much? States that dilaudid this morning really helped. Other than the borderline low BP (95/45), VSS. He is on RA, holding his hand across left chest. RRR, no m/r/g Nonlabored breathing, CTAB. EKG with progressive inferolateral ST-T changes. He was open to the idea of ICU transfer for a nitroglycerin drip. I also transitioned him from eliquis to the heparin drip. ICU transfer orders placed. Discussed goals of care: DNR/DNI, but would want treatment up until that point. Spoke with [facility]: Dr Gonzalez stated there was no role for plavix as it would not help relieve pain faster. He has end-stage multivessel disease that there are no interventions for at this point other than medical management with nitroglycerin drip, opioids, possibly BB/CCB if BPs tolerate. He strongly recommended a palliative care consult, which, as I understand it, already happened today. The patient has two end-stage diseases (his terminal cancer and his multivessel end-stage CAD). Total Critical Care Time 45 minutes. Objective Last Vital Signs Temp 36.1 C L 01/06/23 11:45 Pulse 72 01/06/23 18:52 Resp 16 01/06/23 18:52 BP 95/45 L 01/06/23 18:52 Pulse Ox 97 01/06/23 14:24 Laboratory Results - last 24 hr 01/06/23 01/06/23 01/06/23 03:20 03:20 06:00 WBC 0.97 L* RBC 3.22 L Hgb 10.1 L Hct 30.9 L MCV 96 H MCH 31.4 MCHC 32.7 RDW 14.8 H Plt Count 243 MPV 9.1 Immature Gran % 0.0 Neutrophils % 21.0 Lymphocytes % 53.0 Monocytes % 19.0 Eosinophils % 1.0 Basophils % 1.0 Metamyelocytes % 3 Myelocytes % 1 Nucleated RBC % 0.0 Absolute Neutrophils 0.20 L* Absolute Lymphocytes 0.51 L Absolute Monocytes 0.18 Absolute Eosinophils 0.01 Absolute Basophils 0.01 Sodium 132 L Potassium 4.0 Chloride 98 Carbon Dioxide 26.0 Anion Gap 8.0 BUN 13 Creatinine 1.0 Est GFR (CKD-EPI 2020) 75.61 Glucose 147 H Calcium 8.9 Total Bilirubin 0.7 AST 68 H ALT 20 Alkaline Phosphatase 273 H Troponin I 169 H* 1028 H* Total Protein 6.8 Albumin 2.5 L Lipase 01/06/23 01/06/23 01/06/23 08:30 09:28 16:20 WBC RBC Hgb Hct MCV MCH MCHC RDW Plt Count MPV Immature Gran % Neutrophils % Lymphocytes % Monocytes % Eosinophils % Basophils % Metamyelocytes % Myelocytes % Nucleated RBC % Absolute Neutrophils Absolute Lymphocytes Absolute Monocytes Absolute Eosinophils Absolute Basophils Sodium Potassium Chloride Carbon Dioxide Anion Gap BUN Creatinine Est GFR (CKD-EPI 2020) Glucose Calcium Total Bilirubin AST ALT Alkaline Phosphatase Troponin I Cancelled 2516 H* 5298 H* Total Protein Albumin Lipase Time Spent with Patient Time Spent with Patient: 35-49 minutes Time was spent: preparing to see the patient(eg.review tests), obtaining and/or reviewing separately otained hiistory, ordering medications,tests, procedures, referring, communicating with other health career placement services counselor, indepentently interpreting results, counseling the patient and care coordination
[2023-01-06] MEDS: nitroGLYcerin in D5W 50 MG/250 ML BTL IV (20:51)
[2023-01-06] MEDS: Senna TAB 1 TAB PO (20:52)
[2023-01-06] MEDS: Finasteride 5 MG TAB PO (20:52)
[2023-01-06] MEDS: Magnesium Oxide 400 MG TAB PO (20:52)
[2023-01-06 21:10] LABS: Magnesium 1.5 mg/dL (1.8-2.4)
[2023-01-06 21:14] LABS: PTT Activated 30.5 sec (21.5-31.9)
[2023-01-06 21:22] LABS: Troponin I 6184 ng/L (<or=60)
[2023-01-06] MEDS: MAGNESIUM SULFATE 4 GM/100 ML BAG IVPB (21:39)
--- NOTE | 2023-01-06 21:59 | NUR.NOTE ---
Nursing Note: 7344 Nitro paste removed from L upper arm when Nitro drip was initiated.
[2023-01-07] VITALS (58 sets, daily range): BP systolic 81–112; BP diastolic 46–71; PULSE 68–108; RESP 12–40; TEMP 36.1–37.5; O2SAT 94–96
[2023-01-07] MEDS: HYDROmorphone 2 MG/ML SYR 1 MG IVP
--- NOTE | 2023-01-07 | DI.US_ITS ---
APPROVED REPORT EXAM: Comprehensive 2D, Doppler, and color-flow Echocardiogram Patient Location: In-Patient Room/Bed: SUB423 Airborne Operations: Brittany Montero RDCS (AE) Indications: NSTEMI Other Information Study Quality: Fair. Technically limited study due to body habitus, inability to position patient sca n done bedside supine icu. Conclusion Normal left ventricular wall thickness and chamber size. Left ventricular systolic function is mildl y to moderately reduced. There are wall motion abnormalities involving the apex, septum and inferior shipman Ejection fraction is estimated at 45 to 50% Right atrium and right ventricle are not well visualized Aortic valve is sclerotic and trileaflet with minimal aortic stenosis, mild regurgitation Mild mitral annular calcification, mild mitral regurgitation Normal tricuspid valve with trace regurgitation. Estimated right ventricular systolic pressure is 26 mmHg Dilated ascending aorta Compared to an echocardiogram from [facility] 12/22/2022, LV function may be slightly worse Wall motion Left Ventricle The left ventricle is normal size. Left ventricular systolic function is mild to moderately decreased . There is normal left ventricular wall thickness. Regional wall motion abnormalities are noted. Ther e is no ventricular septal defect visualized. LVEF is 45-50 Right Ventricle Right ventricle is not well visualized. Right ventricular systolic function could not be assessed. T he RVSP is 26.5 mmHg. Atria The left atrium size is normal. Right atrium is not well visualized. The interatrial septum is intact with no evidence for an atrial septal defect. Aortic Valve The Aortic valve is sclerotic. Aortic valve is trileaflet. There is minimal aortic stenosis. Mean gra dient is 8.5 mmHg Mild aortic regurgitation. Mitral Valve Mild mitral annular calcification. No evidence of mitral valve stenosis. Mild mitral regurgitation. Tricuspid Valve The tricuspid valve is normal in structure. There is no tricuspid valve stenosis. Trace tricuspid reg urgitation. Pulmonic Valve The pulmonary valve is normal in structure. There is no pulmonic valvular stenosis. Trace pulmonic re gurgitation. Great Vessels The aortic root is normal in size. The ascending aorta is mildly dilated. The IVC collapses <50% with inspiration. Pericardium There is no pericardial effusion. 2D Dimensions IVSD d PLAX 1.09 cm M: 0.6-1.2 LV Vol A2C d MOD 163.2 mL LVPW d PLAX 1.08 cm M: 0.6 - 1.2 LV Vol A4C d MOD 157.3 mL LVID d PLAX 4.60 cm M: 4.2 - 5.8 LA Area A4C s MOD 20.98 cm2 LVDs 3.85 cm M: 2.5 - 4.0 LV EF A4C MOD 30.3 % Ao Root d 3.75 cm M: 3.1 - 3.7 LV EF A2C MOD 30.4 % Ao Asc Diam d 3.70 cm M: 2.6 - 3.4 LV EF Biplane MOD 31.9 % LV EF Teichholz 32.4 % SV 52.95 mL LVEF (Ambriz's) 31.94 % M: 52 - 72 LV Volume 165.81 mL M: 62 - 150 LV Volume Index 95.84 mL/m2 M: 34 - 74 LV Vol Biplane MOD 165.8 mL FS 15.25 % LV Diastology MV E' medial 0.086 (>0.07 m/s) E/A Ratio 0.5 LV E/e MED 5.50 (<14) MV E Vmax 0.48 (0.4-1.3 m/s) MV E' lateral 0.116 (>0.1 m/s) MV A Vmax 1.05 (0.4-1.3 m/s) LV E/e LAT 4.10 (<14) MV E/A Ratio 0.43 MV E/E' medial 5.51 MV E/E' lateral 4.11 Aortic Valve LVOT Area 3.69 cm2 AoV Area Vmax 1.93 cm2 LVOT Vmax 0.96 m/s MOUNIKA Mean Jim. 1.77 cm2 LVOT Mean Jim. 0.71 m/s AR DT 1178 msec LVOT Peak Grad 3.7 mmHg AR PHT 342 msec LVOT Mean Grad 2.3 mmHg LVOT VTI 0.227 m LVOT Diam s 2.15 cm AoV Vmax 1.84 m/s Velocity Ratio 0.52 AoV Mean Jim. 1.48 m/s AoV Peak Grad 13.5 mmHg LVOT SV 83.81 mL AoV Mean Grad 9.3 mmHg AoV VTI 0.395 m AoV Area VTI 2.12 cm2 Mitral Valve MV DT 134 (160-240 msec) MV PHT 39 msec MV Area PHT 5.64 cm2 MV VTI 0.263 m MV Area VTI 3.19 (4.0-6.0 cm2) Pulmonary Valve PV Vmax 0.74 (0.5-1.5 m/s) RVOT Peak Gr. 1.10 mmHg PV Peak Grad 2.2 mmHg RVOT Mean Gr. 0.60 mmHg PV Mean Grad 1.9 mmHg RVOT VTI 0.094 m PV VTI 0.093 m RVOT Vmax 0.52 m/s Tricuspid Valve TR Peak Grad 18.5 mmHg TR Vmax 2.15 m/s RA Pressure 8.00 mmHg RVSP (TR) 26.5 mmHg
[2023-01-07 03:41] LABS: Abs Immature Grans 0.01 10^3/uL (0.0-0.06); Absolute Basophil Count 0.02 10^3/uL (0.0-0.2); Absolute Eosinophil Count 0.04 10^3/uL (0.0-0.7); Absolute Lymphocyte Count 1.36 10^3/uL (1.2-3.4); Absolute Monocyte Count 0.44 10^3/uL (0.1-0.8); Basophils % 0.9; Eosinophils % 1.8; HGB 9.4 g/dL (13.5-17.5); Immature Grans % 0.4; MCH 32.3 pg (27.0-33.0); MCHC 33.6 % (32.0-36.0); MCV 96 fL (80-95); MPV 9.6 fL (8.0-11.0); Monocytes % 19.7; Neutrophils % 16.2; Platelet Count 189 10^3/uL (130-400); RBC 2.91 10^6/uL (4.36-5.78); RDW 14.7 % (11.8-14.1); WBC 2.23 10^3/uL (4.4-10.8)
[2023-01-07 03:45] LABS: PTT Activated 61.2 sec (21.5-31.9)
[2023-01-07 03:52] LABS: Anion Gap 6.5 mmol/L (3-11); BUN 12 mg/dL (7-18); CO2 24.5 mmol/L (21.0-32.0); CREATININE 0.9 mg/dL (0.70-1.30); Calcium 8.2 mg/dL (8.5-10.1); Chloride 101 mmol/L (98-107); Glucose 123 mg/dL (74-106); Sodium 132 mmol/L (136-145)
[2023-01-07 04:08] LABS: Absolute Neutrophil Count 0.36 10^3/uL (1.2-6.7); Diff Comment Agrees w/ Instrument; RBC Morphology Normal; Troponin I 6550 ng/L (<or=60)
[2023-01-07] MEDS: Normal Saline Flush 10 ML SYR IVP ×4 (05:51→19:36)
[2023-01-07] MEDS: Ondansetron O.D.T. 4 MG TABEF 8 MG PO ×2 (07:05→13:13)
[2023-01-07] MEDS: Metoclopramide 10 MG TAB 5 MG PO ×3 (08:33→18:28)
[2023-01-07] MEDS: Sucralfate 1 GM TAB PO ×4 (08:33→21:08)
[2023-01-07] MEDS: Pantoprazole 40 MG TABCR PO (08:33)
[2023-01-07] MEDS: HYDROmorphone 2 MG TAB PO ×3 (08:34→19:35)
[2023-01-07] MEDS: Aspirin E.C. 81 MG TABEC PO (08:34)
[2023-01-07] MEDS: Ascorbic Acid 500 MG TAB PO (08:35)
[2023-01-07] MEDS: Folic Acid 1 MG TAB PO (08:35)
[2023-01-07] MEDS: Docusate Sodium 100 MG CAP PO ×3 (08:35→19:35)
[2023-01-07] MEDS: Multivitamin TAB 1 TAB PO (08:35)
--- NOTE | 2023-01-07 08:52 | PDOC.CMPRO ---
- If Service Date Differs Date of service: 01/07/23 Time of Service: 08:52 Care Management Progress Note S/O:Gregorio was transferred to the ICU last night when he experienced an increase in chest pain. His troponins continue to rise and are now over 6500. Gregorio has multivessel coronary artery disease as well as stage IV pancreatic cancer. He has been receiving palliative chemotherapy which is believed to be causing or contributing to the NSTEMIs. The provider has consulted Gregorio's Oncologist, Dr. Ga, and they have discussed the chemotherapy and treatment options going forward. Dr. Ga may see Gregorio tomorrow as he will be in [facility]. Gregorio was sitting up in bed visiting with his and son Julien when CM met with him. He informed CM that he feels great and is looking forward to being discharged tomorrow so he can begin working in his yard. He denied having chest pain or any other symptoms at this time. A: Gregorio is an 82 year old man admitted on 01/06/23 with an NSTEMI P:Gregorio will likely discharge home with no new services. He will follow up with his PCP, Oncologist and plan of care and transport with family. CM will continue to support Gregorio and assess for discharge concerns.
--- NOTE | 2023-01-07 09:39 | W.PM.PROGNOT ---
Date of Service Date of service: 01/07/23 Time of Service: 09:39 Assessment and Plan Assessment and plan (1) Non-ST elevation SC (NSTEMI): Status: Acute Assessment and plan: His troponin level is even higher this morning at 6550 although he is currently free of any chest pain. We will recheck an EKG and get an echocardiogram. Continue heparin therapy for 48 hours continue aspirin. Consider addition of low-dose Imdur and wean off the nitroglycerin drip. We will resume his apixaban once he is off the heparin. Cardiology was consulted last night by the logger driving horses and they do not recommend addition of Plavix. Patient has multivessel coronary artery disease his prognosis is poor both from a coronary artery disease perspective as well as from his stage IV ampullary cancer. Patient's Toprol-XL 50 mg was held this morning because of low blood pressure. Patient's systolic blood pressure is around 90 and the patient is asymptomatic. His map is 65. I think as long as he is asymptomatic and his systolic pressure is 90 or higher he should receive his metoprolol although I will try to reduce the dose and see if he can tolerate this better. Critical care time spent interviewing and examining the patient, reviewing studies, discussing case with patient's nurse and consulting physicians was 45 minutes (2) Malignant neoplasm of ampulla of Vater: Status: Acute Assessment and plan: Oncology notes reviewed, his current therapy is non-curative. I discussed this case with Dr. Ga. Patient is on chemo regimen of FOLFIRI however his last round of chemotherapy they withheld the 5-FU out of concern that may be contributing to vasospasm leading to his NSTEMI's. In spite of not receiving the 5-FU he still had a in NSTEMI. I think it is myocardial infarction's are secondary to multivessel coronary artery disease. (3) Neutropenia: Status: Acute Assessment and plan: No signs of infection, he will be on reverse precautions. Follow CBC/diff (4) Pulmonary embolism: Status: Chronic Assessment and plan: He is on apixaban chronically. Currently on a heparin drip for his NSTEMI. We will continue the heparin drip for another 24 hours then switch back to apixaban. (5) Discharge planning issues: Status: Acute Assessment and plan: As above palliative care consult to clarify goals of care and help manage symptoms. Subjective Subjective Interval history since last seen: Mr. Kyle feels much better today. No CP nor dyspnea. He feels like he could go home. I explained to him that he had another heart attack. He understands that his ampullary CA is metastatic and that his chemotherapy is only palliative and not curative. I also explained to him that his multivessel CAD is not amenable to any intervention by cardiology. He says [place] [facility] [place] and his family. I told him that I spoke w/ Dr. Ga this morning who expressed concerns that chemotherapy may not be doing him much good at this point. Dr. Ga did express that he could be available tomorrow when he is in [facility] to come over to the hospital to talk w/ the patient and/or his family. Exam Narrative Exam Narrative: Elderly white male sitting up in his chair alert and oriented. No acute respiratory distress able to talk in complete sentences. Neck veins were not distended Lungs are clear anteriorly and posteriorly. Heart is regular but tachycardic Abdomen soft nontender Extremities without peripheral cyanosis or edema Objective Last Vital Signs Temp 36.1 C L 01/07/23 04:16 Pulse 99 H 01/07/23 08:49 Resp 24 01/07/23 08:49 BP 95/60 L 01/07/23 08:49 Pulse Ox 95 01/07/23 08:49 Laboratory Results - last 24 hr 01/06/23 01/06/23 01/06/23 09:28 16:20 20:46 WBC RBC Hgb Hct MCV MCH MCHC RDW Plt Count MPV Immature Gran % Neutrophils % Lymphocytes % Monocytes % Eosinophils % Basophils % Nucleated RBC % Absolute Neutrophils Absolute Lymphocytes Absolute Monocytes Absolute Eosinophils Absolute Basophils RBC Morphology APTT Sodium Potassium Chloride Carbon Dioxide Anion Gap BUN Creatinine Est GFR (CKD-EPI 2020) Glucose Calcium Magnesium Troponin I 2516 H* 5298 H* 6184 H* 01/06/23 01/06/23 01/07/23 20:46 20:46 03:24 WBC RBC Hgb Hct MCV MCH MCHC RDW Plt Count MPV Immature Gran % Neutrophils % Lymphocytes % Monocytes % Eosinophils % Basophils % Nucleated RBC % Absolute Neutrophils Absolute Lymphocytes Absolute Monocytes Absolute Eosinophils Absolute Basophils RBC Morphology APTT 30.5 61.2 H Sodium Potassium Chloride Carbon Dioxide Anion Gap BUN Creatinine Est GFR (CKD-EPI 2020) Glucose Calcium Magnesium 1.5 L Troponin I 01/07/23 01/07/23 03:24 03:24 WBC 2.23 L RBC 2.91 L Hgb 9.4 L Hct 28.0 L MCV 96 H MCH 32.3 MCHC 33.6 RDW 14.7 H Plt Count 189 MPV 9.6 Immature Gran % 0.4 Neutrophils % 16.2 Lymphocytes % 61.0 Monocytes % 19.7 Eosinophils % 1.8 Basophils % 0.9 Nucleated RBC % 0.0 Absolute Neutrophils 0.36 L* Absolute Lymphocytes 1.36 Absolute Monocytes 0.44 Absolute Eosinophils 0.04 Absolute Basophils 0.02 RBC Morphology Normal APTT Sodium 132 L Potassium 4.0 Chloride 101 Carbon Dioxide 24.5 Anion Gap 6.5 BUN 12 Creatinine 0.9 Est GFR (CKD-EPI 2020) 85.80 Glucose 123 H Calcium 8.2 L Magnesium 2.0 Troponin I 6550 H* Time Spent with Patient Time Spent with Patient: 35-49 minutes Time was spent: preparing to see the patient(eg.review tests), ordering medications,tests, procedures, referring, communicating with other health human services care specialist (Dr. Ga), indepentently interpreting results, counseling the patient and care coordination
--- NOTE | 2023-01-07 09:45 | RT.EKG_ITS ---
APPROVED REPORT Exam: Resting ECG Reason for Exam: NSTEMI Patient Location: I HR:90 bpm ECG Measurements Heart Rate 90 AXIS MS 165 P 40 QRSd 77 QRS -20 QT 422 T 93 QTc 517 Conclusion Sinus rhythm...normal P axis, V-rate 50- 99 Inferior infarct, old...Q >35mS, II III aVF Anterior infarct, age indeterminate...Q >35mS, T neg, in V2-V5 Prolonged QT interval...QTc >500mS
[2023-01-07 10:32] LABS: PTT Activated 99.5 sec (21.5-31.9)
[2023-01-07] MEDS: Senna TAB 2 TAB PO (13:14)
[2023-01-07] MEDS: Metoprolol CR 25 MG TABCR PO (13:15)
--- NOTE | 2023-01-07 14:21 | PHA.REVIEW2 ---
Pharmacy Admission Review - Admission Clinical Review (Last Reviewed 01/06/23 @ 17:36 by Ruthy Simpson NP) Advance care planning (Acute) Palliative care encounter (Acute) Discharge planning issues (Acute) Pancreatic cancer (Acute) Non-ST elevation MT (NSTEMI) (Acute) Neutropenia (Acute) Chest pain (Acute) Liver metastases (Acute) Malignant neoplasm of ampulla of Vater (Acute) Penicillins Allergy (Intermediate, Verified 12/31/22 08:58) blisters/hives oxycodone Allergy (Mild, Verified 12/31/22 08:58) BLOTCHES, SWELLING diphtheria, pertussis, tetanus vacc Adverse Reaction (Intermediate, Verified 12/31/22 08:58) full-arm swelling and weakness - lasting several weeks. Resuscitation Status DNR/DNI Height 5 ft 9 in Weight 60.2 kg - Renal Dosing Renal Dosing: BUN 12 mg/dL (7-18) 01/07/23 03:24 Creatinine 0.9 mg/dL (0.70-1.30) 01/07/23 03:24 Medications needing adjustments: Reviewed (crcl = 49, adjustments not needed) - Anticoagulation Anticoagulation: Hgb 9.4 g/dL (13.5-17.5) L 01/07/23 03:24 Hct 28.0 % (40.0-50.0) L 01/07/23 03:24 Plt Count 189 10^3/uL (130-400) 01/07/23 03:24 Creatinine 0.9 mg/dL (0.70-1.30) 01/07/23 03:24 DVT Prophylaxis: Reviewed Medications: Heparin Therapeutic Anticoagulation: Reviewed Medications: Heparin (heparin drip (indication: NSTEMI). on Eliquis at home) - Opiate Usage Evaluate Pain Scale/Pains Meds: Reviewed (hydromorphone 2 mg PO 3x/day scheduled + PRN IV hydromorphone 1 mg) Scheduled Bowel Reg ordered if on Opiates?: Yes - Relevant Labs Sodium 132 mmol/L (136-145) L 01/07/23 03:24 Potassium 4.0 mmol/L (3.5-5.1) 01/07/23 03:24 Chloride 101 mmol/L (98-107) 01/07/23 03:24 Magnesium 2.0 mg/dL (1.8-2.4) 01/07/23 03:24 Electrolytes, C-Reactive P, ESR: Reviewed - DM Control DM Control: Glucose 123 mg/dL (74-106) H 01/07/23 03:24 DM Control: Reviewed (not diagnosed diabetic but does have prediabetes on problem list. a1c = 6.0% 10/23/22) - Cardiac Review Cardiac Review: Troponin I 6550 ng/L (<or=60) H* 01/07/23 03:24 BP, HR, EF%: Reviewed (NSTEMI. on heparin + nitro drips. BP running low, metoprolol dose decreased today) - Qtc Review QTc: Reviewed (QTc = 473 01/06/23, today = 517) If Elevated, List meds needing intervention: zofran 8 mg ordered q8h scheduled - should actually be PRN (home med list missing prn), will update. - IV to PO Switch IV Medications: Reviewed (continue heparin drip, nitro drip. transition back to eliquis when appropriate) - Home Meds Home Med List reviewed: Reviewed Relevent Home Meds Not ordered & why?: toprol XL dose decreased from 50 mg to 25 mg daily. Eliquis held (on heparin) - Current meds Current Medication Order Review: Reviewed - Comments Comments/Follow Ups: oncology patient, on FOLFIRI
[2023-01-07 17:18] LABS: PTT Activated 55.1 sec (21.5-31.9)
[2023-01-07] MEDS: Isosorbide Mononitrate 10 MG TAB PO (19:35)
[2023-01-07] MEDS: Rosuvastatin 10 MG TAB 20 MG PO (19:35)
[2023-01-07] MEDS: Magnesium Oxide 400 MG TAB PO (21:08)
[2023-01-07] MEDS: Finasteride 5 MG TAB PO (21:08)
[2023-01-07] MEDS: Senna TAB 1 TAB PO (21:11)
[2023-01-07] MEDS: Tamsulosin 0.4 MG CAPCR 0.8 MG PO (21:12)
[2023-01-08] VITALS (43 sets, daily range): BP systolic 83–109; BP diastolic 49–63; PULSE 65–98; RESP 14–29; TEMP 36.4–37.5; O2SAT 93–98
[2023-01-08 06:45] LABS: Abs Immature Grans 0.03 10^3/uL (0.0-0.06); Absolute Basophil Count 0.02 10^3/uL (0.0-0.2); Absolute Eosinophil Count 0.04 10^3/uL (0.0-0.7); Absolute Lymphocyte Count 1.19 10^3/uL (1.2-3.4); Absolute Monocyte Count 0.56 10^3/uL (0.1-0.8); Absolute Neutrophil Count 1.05 10^3/uL (1.2-6.7); Basophils % 0.7; Eosinophils % 1.4; HCT 27.2 % (40.0-50.0); HGB 8.9 g/dL (13.5-17.5); Lymphocytes % 41.2; MCH 31.6 pg (27.0-33.0); MCHC 32.7 % (32.0-36.0); MCV 97 fL (80-95); MPV 9.8 fL (8.0-11.0); Monocytes % 19.4; Neutrophils % 36.3; Platelet Count 187 10^3/uL (130-400); RBC 2.82 10^6/uL (4.36-5.78); RDW 14.6 % (11.8-14.1); RDW-SD 51.4 fL; WBC 2.89 10^3/uL (4.4-10.8)
[2023-01-08 06:58] LABS: PTT Activated 32.8 sec (21.5-31.9)
[2023-01-08 07:01] LABS: Anion Gap 9.3 mmol/L (3-11); BUN 13 mg/dL (7-18); CO2 25.7 mmol/L (21.0-32.0); Calcium 8.1 mg/dL (8.5-10.1); Chloride 102 mmol/L (98-107); Estimated GFR 75.61 (mL/min/1.73m2); Glucose 100 mg/dL (74-106); Magnesium 1.5 mg/dL (1.8-2.4); Potassium 3.8 mmol/L (3.5-5.1); Sodium 137 mmol/L (136-145)
[2023-01-08 07:11] LABS: Diff Comment Diff Reviewed
[2023-01-08 07:12] LABS: Hypochromasia 2+; Polychromasia Present
--- NOTE | 2023-01-08 07:53 | NUR.NOTE ---
RN secures port line with tape.Nursing Note:
--- NOTE | 2023-01-08 07:54 | NUR.NOTE ---
Heparin dosing changed as follows for APTT of 32.8. 4600 unit bolus is given followed by increase in hourly dose by 300 units which brings hourly dosing to 1100 units/hr. or 11ml/hr.Nursing Note:
--- NOTE | 2023-01-08 08:33 | PDOC.CMPRO ---
- If Service Date Differs Date of service: 01/08/23 Time of Service: 08:33 Care Management Progress Note S/O:Gregorio has been downgraded to med-surg status but remains in the ICU due to bed availability. His heparin drip will be discontinued later today and he will be restarted on Apixaban. Gregorio has not had any chest pain today. If he does not have any additional episodes , he will likely be discharged tomorrow. Gregorio has been very open about his desire to return home. CM did not meet with Gregorio in person today as he was sleeping when the visit was attempted and his son asked that he not be disturbed. A: Gregorio is an 82 year old man admitted on 01/06/23 with an NSTEMI P:Gregorio will likely discharge home with no new services. He will follow up with his PCP, Oncologist and plan of care and transport with family. CM will continue to support Gregorio and assess for discharge concerns.
[2023-01-08] MEDS: Ascorbic Acid 500 MG TAB PO (08:52)
[2023-01-08] MEDS: Docusate Sodium 100 MG CAP PO (08:52)
[2023-01-08] MEDS: Senna TAB 1 TAB PO (08:52)
[2023-01-08] MEDS: HYDROmorphone 2 MG TAB PO ×3 (08:53→20:59)
[2023-01-08] MEDS: Metoprolol CR 25 MG TABCR PO (08:54)
[2023-01-08] MEDS: Multivitamin TAB 1 TAB PO (08:55)
[2023-01-08] MEDS: Metoclopramide 10 MG TAB 5 MG PO ×3 (08:56→15:43)
[2023-01-08] MEDS: Isosorbide Mononitrate 10 MG TAB PO ×2 (08:56→15:43)
[2023-01-08] MEDS: Folic Acid 1 MG TAB PO (08:56)
[2023-01-08] MEDS: Aspirin E.C. 81 MG TABEC PO (08:57)
[2023-01-08] MEDS: Sucralfate 1 GM TAB PO ×4 (08:57→20:59)
[2023-01-08] MEDS: Pantoprazole 40 MG TABCR PO (08:57)
[2023-01-08] MEDS: Magnesium Oxide 400 MG TAB PO ×2 (09:05→20:59)
[2023-01-08] MEDS: MAGNESIUM SULFATE 2 GM/50 ML BAG IVPB (09:06)
[2023-01-08] MEDS: Polyethylene Glycol 3350 17 GM PACKET PO (09:19)
--- NOTE | 2023-01-08 09:43 | W.PM.PROGNOT ---
Date of Service Date of service: 01/08/23 Time of Service: 09:44 Assessment and Plan Assessment and plan (1) Non-ST elevation CA (NSTEMI): Status: Acute Assessment and plan: Although patient was labeled as NSTEMI he did have evolutionary changes of an acute CA w/ anterior ST-T changes and now w/ T wave inversion and QS pattern across anterior precordial leads. He remains on heparin drip through this evening at which time he will transition back to his apixaban. He will remain on aspirin. I think addition of Plavix would be appropriate for 30 days however, cardiology advised against Plavix and therefore this was not added. I have added Ismo 10 mg bid to his antianginal regimen. Toprol XL dose was reduced to allow enough BP for the Ismo. Echocardiogram shows a reduced ejection fraction of 45 to 50% with wall motion abnormalities involving the apex septum and inferior shipman. Per [facility] cardiology, patient is not candidtate for intervention, he has multivessel disease Professional time spent interviewing and examining patient, discussion of goals of care with hospital team (care management, nursing and consulting professionals) was 30 minutes. (2) Malignant neoplasm of ampulla of Vater: Status: Acute Assessment and plan: Oncology notes reviewed, his current therapy is non-curative. I discussed this case with Dr. Ga yesterday. Patient is on chemo regimen of FOLFIRI however his last round of chemotherapy they withheld the 5-FU out of concern that may be contributing to vasospasm leading to his NSTEMI's. In spite of not receiving the 5-FU he still had a in NSTEMI. I think his myocardial infarction's are secondary to multivessel coronary artery disease and unrelated to the type of chemo regimen. (3) Neutropenia: Status: Resolved Assessment and plan: resolved. ANC now over 1000 (4) Pulmonary embolism: Status: Chronic Assessment and plan: He is on apixaban chronically. Currently on a heparin drip for his NSTEMI. We will continue the heparin drip through this evening then resume his apixaban (5) Discharge planning issues: Status: Acute Assessment and plan: As above palliative care consult to clarify goals of care and help manage symptoms. He will return home tomorrow if he remains free of ischemic pain. Subjective Subjective Interval history since last seen: Patient denies any further chest pain or pressure or dyspnea. He is complain of constipation. He would like to be on his usual bowel regimen. He normally takes senna at noon time and another 2 senna tablets at supper and he takes 3 docusate at supper and this usually helps him have a decent bowel movement. Because he is chronically on Dilaudid for control of his cancer pain I suspect that the opioids were affecting his bowels. I have ordered MiraLAX to be given daily and we will give him a dose of Relistor today. He is looking forward to returning home. I told him he needs to remain on the heparin through today but will stop the heparin tonight and resume his apixaban tonight. I have started him on Ismo 10 mg twice a day to help with his ischemic pain. Exam Narrative Exam Narrative: Patient is alert and oriented person place time circumstance Lungs are clear to auscultation Heart is regular rate and rhythm no murmur rub or gallop. Abdomen soft nontender mildly distended normal bowel sounds Extremities without edema Objective Last Vital Signs Temp 36.8 C 01/08/23 07:48 Pulse 82 01/08/23 07:48 Resp 22 01/08/23 07:48 BP 93/59 L 01/08/23 07:48 Pulse Ox 97 01/08/23 07:48 Laboratory Results - last 24 hr 01/07/23 01/07/23 01/08/23 09:30 16:47 05:38 WBC RBC Hgb Hct MCV MCH MCHC RDW Plt Count MPV Immature Gran % Neutrophils % Lymphocytes % Monocytes % Eosinophils % Basophils % Nucleated RBC % Absolute Neutrophils Absolute Lymphocytes Absolute Monocytes Absolute Eosinophils Absolute Basophils RBC Morphology Polychromasia Hypochromasia APTT 99.5 H* 55.1 H Sodium 137 Potassium 3.8 Chloride 102 Carbon Dioxide 25.7 Anion Gap 9.3 BUN 13 Creatinine 1.0 Est GFR (CKD-EPI 2020) 75.61 Glucose 100 Calcium 8.1 L Magnesium 1.5 L 01/08/23 01/08/23 05:38 05:38 WBC 2.89 L RBC 2.82 L Hgb 8.9 L Hct 27.2 L MCV 97 H MCH 31.6 MCHC 32.7 RDW 14.6 H Plt Count 187 MPV 9.8 Immature Gran % 1.0 Neutrophils % 36.3 Lymphocytes % 41.2 Monocytes % 19.4 Eosinophils % 1.4 Basophils % 0.7 Nucleated RBC % 0.0 Absolute Neutrophils 1.05 L Absolute Lymphocytes 1.19 L Absolute Monocytes 0.56 Absolute Eosinophils 0.04 Absolute Basophils 0.02 RBC Morphology See Below Polychromasia Present Hypochromasia 2+ APTT 32.8 H Sodium Potassium Chloride Carbon Dioxide Anion Gap BUN Creatinine Est GFR (CKD-EPI 2020) Glucose Calcium Magnesium Time Spent with Patient Time Spent with Patient: 25-34 minutes Time was spent: preparing to see the patient(eg.review tests), ordering medications,tests, procedures, referring, communicating with other health career advisor, indepentently interpreting results, counseling the patient and care coordination
--- NOTE | 2023-01-08 09:45 | RT.EKG_ITS ---
APPROVED REPORT Exam: Resting ECG Reason for Exam: NSTEMI; obtain right sided EKG leads Patient Location: I HR:66 bpm ECG Measurements Heart Rate 66 AXIS LA 167 P 21 QRSd 80 QRS -8 QT 478 T 116 QTc 501 Conclusion Sinus rhythm...normal P axis, V-rate 50- 99 Anteroseptal infarct, age indeterminate...Q >35mS, T neg, V1-V2 Prolonged QT interval...QTc >500mS
[2023-01-08] MEDS: Methylnaltrexone 12 MG/0.6 ML VIAL SC (11:43)
--- NOTE | 2023-01-08 14:17 | NUR.NOTE ---
APTT value is pending. APTT was drawn at 13:30.Nursing Note:
[2023-01-08 14:36] LABS: PTT Activated 59.7 sec (21.5-31.9)
--- NOTE | 2023-01-08 14:40 | NUR.NOTE ---
Heparin is therapeutic given APTT at 59.7. Heparin dose will end at 21:20.Nursing Note:
[2023-01-08] MEDS: Docusate Sodium 100 MG CAP 300 MG PO (16:50)
[2023-01-08] MEDS: Apixaban 5 MG TAB PO (18:15)
[2023-01-08] MEDS: Normal Saline Flush 10 ML SYR IVP ×2 (19:09→20:25)
[2023-01-08] MEDS: Rosuvastatin 10 MG TAB 20 MG PO (20:57)
[2023-01-08] MEDS: Senna TAB 2 TAB PO (20:58)
[2023-01-08] MEDS: Finasteride 5 MG TAB PO (20:59)
[2023-01-08] MEDS: Tamsulosin 0.4 MG CAPCR 0.8 MG PO (20:59)
[2023-01-09] VITALS: PULSE 75
[2023-01-09 03:18] VITALS: BP 92/54; PULSE 71; RESP 16; TEMP 36.2; O2SAT 97
[2023-01-09 05:53] LABS: Abs Immature Grans 0.03 10^3/uL (0.0-0.06); Absolute Basophil Count 0.01 10^3/uL (0.0-0.2); Absolute Eosinophil Count 0.05 10^3/uL (0.0-0.7); Absolute Lymphocyte Count 1.43 10^3/uL (1.2-3.4); Absolute Monocyte Count 0.61 10^3/uL (0.1-0.8); Basophils % 0.3; Eosinophils % 1.3; HCT 25.9 % (40.0-50.0); HGB 8.4 g/dL (13.5-17.5); Immature Grans % 0.8; MCH 31.1 pg (27.0-33.0); MCHC 32.4 % (32.0-36.0); MCV 96 fL (80-95); MPV 9.7 fL (8.0-11.0); Monocytes % 15.4; Neutrophils % 46.2; Platelet Count 200 10^3/uL (130-400); RDW-SD 52.8 fL; WBC 3.97 10^3/uL (4.4-10.8)
[2023-01-09 05:58] LABS: Absolute Neutrophil Count 1.83 10^3/uL (1.2-6.7)
[2023-01-09 06:09] LABS: Anion Gap 8.3 mmol/L (3-11); BUN 12 mg/dL (7-18); CO2 26.7 mmol/L (21.0-32.0); CREATININE 0.9 mg/dL (0.70-1.30); Calcium 8.5 mg/dL (8.5-10.1); Chloride 106 mmol/L (98-107); Glucose 90 mg/dL (74-106); Potassium 3.6 mmol/L (3.5-5.1); Sodium 141 mmol/L (136-145)
[2023-01-09 06:12] LABS: Magnesium 1.7 mg/dL (1.8-2.4)
[2023-01-09 07:22] VITALS: PULSE 75
[2023-01-09 07:47] VITALS: BP 95/58; PULSE 75; RESP 16; TEMP 36.2; O2SAT 96
[2023-01-09] MEDS: Polyethylene Glycol 3350 17 GM PACKET PO (08:26)
[2023-01-09] MEDS: HYDROmorphone 2 MG TAB PO ×2 (08:27→13:45)
[2023-01-09] MEDS: Aspirin E.C. 81 MG TABEC PO (08:27)
[2023-01-09] MEDS: Normal Saline Flush 10 ML SYR IVP ×2 (08:27→14:04)
[2023-01-09] MEDS: Multivitamin TAB 1 TAB PO (08:28)
[2023-01-09] MEDS: Apixaban 5 MG TAB PO (08:28)
[2023-01-09] MEDS: Pantoprazole 40 MG TABCR PO (08:28)
[2023-01-09] MEDS: Metoclopramide 10 MG TAB 5 MG PO ×2 (08:28→11:28)
[2023-01-09] MEDS: Sucralfate 1 GM TAB PO ×2 (08:28→11:27)
[2023-01-09] MEDS: Ascorbic Acid 500 MG TAB PO (08:29)
[2023-01-09] MEDS: Magnesium Oxide 400 MG TAB PO (08:29)
[2023-01-09] MEDS: Folic Acid 1 MG TAB PO (08:30)
[2023-01-09] MEDS: Isosorbide Mononitrate 10 MG TAB PO (08:31)
[2023-01-09] MEDS: Metoprolol CR 25 MG TABCR PO (08:32)
[2023-01-09] MEDS: Senna TAB 1 TAB PO (11:27)
--- NOTE | 2023-01-09 12:27 | W.PM.DS.N ---
Date of service: 01/09/23 Time of Service: 12:27 DS: Diagnosis Discharge Diagnosis (1) Non-ST elevation [place] (NSTEMI): Status: Acute Asessment and Plan: Patient presented with acute chest pain found to have myocardial infarction with initial troponin of 169 ng/L which peaked at 6550. Initially chest pain was relieved with sublingual nitro nitroglycerin paste but when he had recurrent chest pain he required transfer to the intensive care unit placed on a heparin drip and nitroglycerin drip. [facility] [place] was consulted who told us that the patient has multivessel coronary artery disease from recent cardiac catheterization. They indicated that there is no interventional treatment available for this patient but did recommend medication treatment they recommended 48 hours of heparin drip hold his apixaban while he is on heparin continue his aspirin but they advised against initiation of Plavix. Patient did well on nitroglycerin and heparin drip pain resolved. Patient did not go in acute heart failure. Echocardiogram was performed showed mild LV dysfunction with a EF of 45 to 50% with regional wall motion abnormalities in the septum and inferior shipman and lateral shipman. Patient was weaned off the nitroglycerin drip and started on Ismo 10 mg twice a day he was kept on aspirin but Plavix was not started. After for 48 hours heparin drip was discontinued he was resumed on his apixaban which she had been on for his previous pulmonary embolism. As part of his work-up of his chest pain CT scan was done of the abdomen pelvis and chest. He had no acute pulmonary emboli or pulmonary infarction no pleural effusions. Again his CT scan showed multiple metastatic disease involving the liver. He has pericholecystic fluid and air seen in the gallbladder and CBD, however, patient has no referrable symptoms of abdominal pain or nausea and he had no evidence of acute cholecystitis. He has a stent in his CBD from prior instrumentation. (2) Malignant neoplasm of ampulla of Vater: Status: Acute (3) Neutropenia: Status: Resolved Asessment and Plan: patient was placed in neutropenic precautions until his ANC recovered. on admission his total WBC was 970 but on discharge was up to 3970, his ANC was 200 on admission and tiburcio to 1050 at discharge (4) Pulmonary embolism: Status: Chronic Asessment and Plan: patient resumed his apixaban 5 mg bid after treatment w/ heparin drip for 48 hrs Discharge Plan Disposition Patient Disposition: Home W/Home Health Services Condition: Improving Discharge Details Reason For Visit: Pancreatic Cancer,NSTEMI,Neutropenia Admit Date/Time: 01/06/23 04:39 Admit Provider: Genaro Rosales Attending Provider: Genaro Rosales Primary Care Provider: Jessica Richard Hospital Course Hospital Course: 82-year-old male who is receiving palliative chemotherapy for 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 Patient ruled in for an NSTEMI. Serial troponins were ordered patient was placed on nitroglycerin paste. When his pain was unrelieved by sublingual nitroglycerin and nitroglycerin paste she was transferred to the intensive care unit placed on IV nitroglycerin drip. Cardiology was consulted at [facility] they advised a heparin drip for 48 hours. They did not advise initiation of Plavix. They told the hospitalist on do that the patient has multivessel coronary artery disease for which they had no interventional recommendations. Patient did well on a heparin drip his apixaban was placed on hold while he was on heparin. Chest pain was relieved with parenteral nitroglycerin. He was weaned off the nitroglycerin drip placed on isosorbide mononitrate 10 mg twice a day. Apixaban was resumed and heparin drip was discontinued. He was monitored for another day after cessation of the heparin drip. Patient was feeling markedly improved denied any chest pain or pressure or dyspnea on the day of discharge. Dr. Ga, the patient's oncologist, was consulted on the patient's case. Apparently Dr. Ga had discontinued the 5-FU with his previous chemotherapy treatment which is FOLFIRI but only gave him the irinotecan without the 5-FU in hopes that he would not have coronary spasm from the 5-FU. In spite of that the patient still had an NSTEMI. I discussed the patient's case with Dr. Ga who feels that the patient's palliative chemotherapy may be causing him more so side effects than any improvement in his cancer. As such the patient will meet with Dr. Ga on Sunday, January 15, 2023 to discuss whether to proceed with further palliative chemotherapy or not. Echocardiogram was performed on this admission and demonstrated mild mild LV dysfunction with LVEF 45 to 50% with regional wall motion abnormalities involving the apex, septum, inferior shipman. Right atrium and right ventricle were not well visualized. Aortic valve was sclerotic but trileaflet with minimal aortic stenosis and only mild regurgitation. He has mild mitral annular calcifications with only mild mitral vegetation. Tricuspid valve appeared normal with a trace of regurgitation with normal RVSP at 26 mm. When compared to his previous echocardiogram from [facility] from 12/22/2022 there was slight worsening of his LV function. Patient did not develop acute heart failure during this hospitalization and did not require supplemental oxygenation. Patient was not dyspneic at the time of discharge. Patient is discharged in stable and improved condition over his condition from admission. 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 Patient's CODE STATUS during this hospitalization is DNR/DNI. Home Meds and New Rx's Prescriptions: New isosorbide mononitrate 10 mg Tablet 10 mg PO BID@0830,1600 Qty: 60 0RF Continued magnesium oxide 400 mg (241.3 mg magnesium) tablet 400 mg PO QHS Qty: 90 1RF multivitamin 1 EACH tablet 1 ea PO DAILY qivoashzdfw-mewzmksft-znd C-Mn [Glucosamine 1500 Complex] 1 EACH capsule 1 ea PO DAILY finasteride 5 mg tablet 5 mg PO HS Qty: 90 4RF tamsulosin 0.4 mg capsule 0.8 mg PO HS Qty: 180 4RF ondansetron 8 mg tablet,disintegrating 8 mg PO Q8H PRN PRN pantoprazole [Protonix] 40 mg tablet,delayed release (DR/EC) 40 mg PO DAILY Qty: 90 3RF metoclopramide HCl 5 mg tablet 5 mg PO C Rx Instructions: administer 30 minutes before meals bisacodyl 5 mg tablet,delayed release (DR/EC) 5 mg PO DAILY PRN PRN (Reason: constipation) Qty: 60 1RF Eliquis 5 mg tablet 5 mg PO BID Qty: 70 1RF Rx Instructions: Start @ 10mg BID (2 tabs) x 1st week, then 5mg BID ferrous sulfate 325 mg (65 mg iron) tablet,delayed release (DR/EC) 325 mg PO DAILY Qty: 90 1RF aspirin [Adult Low Dose Aspirin] 81 mg tablet,delayed release (DR/EC) 81 mg PO DAILY rosuvastatin 20 mg tablet 20 mg PO DAILY metoprolol succinate 50 mg tablet extended release 24 hr 50 mg PO DAILY ascorbic acid (vitamin C) [Vitamin C] 500 MG tablet 500 mg PO DAILY vitamin O59-rncvq acid 1 EACH tablet 1 ea PO DAILY sucralfate 1 gram Tablet 1 g PO AC & HS Qty: 120 0RF docusate sodium [Colace] 100 mg Capsule 100 mg PO BID Qty: 60 0RF sennosides [Senokot] 8.6 mg Tablet 1 tab PO BID PRN PRNQty: 60 0RF nitroglycerin 0.4 mg tablet, sublingual 0.4 mg sublingual Q5M PRNQty: 30 0RF Rx Instructions: do not exceed 3 doses per episode hydromorphone 2 mg tablet 2 - 4 mg PO Q4H PRN PRN Patient Comments: TAKE 1-2 TABLETS BY MOUTH EVERY 4 HOURS NEEDED FOR PAIN Discharge Instructions Instructions: Isosorbide Mononitrate (By mouth), Heart Attack (DC), Heart Healthy Diet (DC) Additional Instructions: You suffered a heart attack and were treated w/ heparin, beta blockers, iv nitroglycerin and aspirin. Cardiology from [facility] was consulted as was Dr. Ga, your oncologist. Cardiology says that you have multivessel disease for which they have no interventional treatment for you such as coronary stenting and your medical condition from your cancer is such that open heart surgery is not an option. They recommend medical treatment for which we have added a long acting oral nitrate, isosorbide mononitrate (Ismo). Your oncologist, Dr. Ga feels that further chemotherapy probably will not help your cancer and your treatments may only aggravate your heart condition and decrease the quality of your life. You have an appointment w/ him for this Wednesday, January 15. Please discuss with him your goals of care and what you would like out of the remaining time you have. You have nitroglycerin tablets and should use them if you have further angina chest pains/pressure. If you have a spell that is not quickly relieved by two or three tablets, you should call 911 for help. Referrals: Jessica Richard DO [Primary Care Provider] - (call the office on Wednesday for follow up in the next week) Pete Ga MD [MD CONSULTING PHYSICIAN] - (keep your appointment for January 15) Activity:: Activity as Tolerated Equipment/Supplies:: heart healthy Diet:: Other Discharge Orders Discharge Orders: Discharge Order (Routine); Ordered 01/09/23 Ordered By: Juan J Michael DS: Summary Time Spent with Patient providing and/or coordinating discharge services: Greater than 30 minutes Specific discharge activities: Interview/exam of patient; review of discharge instructions, completion of prescriptions/discharge instructions; discussion w/ nursing and CM; documentation of hospital visit Status at Discharge Functional status at discharge: independent ambulation Overall status at discharge: patient is progressing back to baseline Mental Status: mental status grossly normal Speech and Movement: speech and movement normal Mood: congruent mood Affect: normal affect Exam Narrative Exam Narrative: Gregorio sitting up in bed talking with his and his son. He is alert and oriented to person place time circumstance he denies any chest pain or dyspnea. Neck veins are flat Lungs are clear to auscultation Heart is regular rate and rhythm Abdomen soft and nontender Lower extremities without peripheral cyanosis or edema. Psych Mental Status: mental status grossly normal Speech and Movement: speech and movement normal Mood: congruent mood Affect: normal affect DS: Data Vitals/I&O Vitals and I&O: Vital Signs Temperature 36.2 C L 01/09/23 07:47 Temperature Source Tympanic 01/09/23 07:47 Pulse 75 01/09/23 07:47 Pulse Rhythm Regular 01/09/23 09:33 Pulse 71 01/08/23 18:00 Respiratory Rate 16 01/09/23 07:47 Respiratory Effort Normal 01/09/23 09:33 Respiratory Depth Normal 01/09/23 09:33 Respiratory Pattern Normal 01/09/23 09:33 Blood Pressure 95/58 L 01/09/23 07:47 Blood Pressure Mean 69 01/08/23 15:00 Blood Pressure Position Supine 01/08/23 14:29 Pulse Oximetry 96 01/09/23 07:47 Oxygen Delivery Method Room Air 01/09/23 07:47 Oxygen Flow Rate 0 01/09/23 07:47 Pain Level 0 01/09/23 08:27 Comment RN notified 01/08/23 23:30 Intake & Output 01/08/23 01/09/23 01/09/23 23:59 11:59 23:59 Intake Total 440 / 676.4 840 / 840 Output Total 950 / 1200 800 / 800 Balance -510 / -523.6 40 / 40 Weight 72.1 kg Intake: Oral 440 / 540 840 / 840 Output: Urine 950 / 1200 800 / 800 Other: Urine Color Yellow Yellow Light Antonella Urine Appearance Clear Clear Urine Odor Normal None Stool Size Large Stool Characteristics Soft Brown Voiding Methods Bedside Commode Toilet Data Completed and Pending Labs on day of discharge: Labs from last 24 hours 01/09/23 01/09/23 01/09/23 05:30 05:30 05:30 WBC 3.97 L RBC 2.70 L Hgb 8.4 L Hct 25.9 L MCV 96 H MCH 31.1 MCHC 32.4 RDW 15.0 H Plt Count 200 MPV 9.7 Immature Gran % 0.8 Neutrophils % 46.2 Lymphocytes % 36.0 Monocytes % 15.4 Eosinophils % 1.3 Basophils % 0.3 Nucleated RBC % 0.0 Absolute Neutrophils 1.83 Absolute Lymphocytes 1.43 Absolute Monocytes 0.61 Absolute Eosinophils 0.05 Absolute Basophils 0.01 APTT Sodium 141 Potassium 3.6 Chloride 106 Carbon Dioxide 26.7 Anion Gap 8.3 BUN 12 Creatinine 0.9 Est GFR (CKD-EPI 2020) 85.80 Glucose 90 Calcium 8.5 Magnesium 1.7 L 01/08/23 13:20 WBC RBC Hgb Hct MCV MCH MCHC RDW Plt Count MPV Immature Gran % Neutrophils % Lymphocytes % Monocytes % Eosinophils % Basophils % Nucleated RBC % Absolute Neutrophils Absolute Lymphocytes Absolute Monocytes Absolute Eosinophils Absolute Basophils APTT 59.7 H Sodium Potassium Chloride Carbon Dioxide Anion Gap BUN Creatinine Est GFR (CKD-EPI 2020) Glucose Calcium Magnesium PFSH All Active Problems Advance care planning (Acute) Palliative care encounter (Acute) Discharge planning issues (Acute) Pancreatic cancer (Acute) Non-ST elevation WA (NSTEMI) (Acute) Non-ST elevation [place] (NSTEMI) (Acute) Hx STEMI, Jun 2022 Chest pain (Acute) Liver metastases (Acute) Malignant neoplasm of ampulla of Vater (Acute) Prediabetes (Acute) Pulmonary embolism (Chronic) RLL, incidental finding on ABd CT (10/02/22). s/w Onc, Dr. Ga .. Belinda. 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 Duodenal anomaly (Acute) Liver lesion (Acute) Lesions, suspicious for metastatic dz Weight loss (Acute) Belching (Acute) relieves left side/UQ pressure RUQ fullness (Acute) Left upper quadrant abdominal mass (Acute) Parapelvic renal cyst (Acute) Dysmetabolic syndrome X (Acute 04/22/12) IMPAIRED FBS 111-104; WEIGHT Abnormal blood sugar (Chronic 06/19/14) Hx abnormal fasting blood sugar Stiffness of finger joint (Acute) 3rd digit, B/L, stiffness after lengthy gripping (mostly driving). I'm concerned 2' heavy schedule carrying/lifting with MS. Chronic pancreatitis (Acute) 10/12/19-[facility] Gastroenterology. 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 Dr Stover follows 11/25/17 BCC nodular and infiltrative left frontal parietal scalp w/ removal Dr Stover 11/25/17 Excision of recurrent BCCA left frontal parietal scalp Carpal tunnel syndrome of left wrist (Acute 05/22/15) Carpal tunnel syndrome of right wrist (Acute 05/12/16) BPH w/o urinary obs/LUTS (Acute 09/13/99) LUTS, DR SANCHEZ YEARLY Hip pain, right (Acute 09/30/17) Rupesh Garcia PT with HEP for ITB and hamstring streching Hyperlipidemia (Acute 04/22/12) GOAL LDL<130; (OPTIMAL <100); RISK CALCULATED 16% IN 2001; LDL AT GOAL, LOW HDL Overweight (Acute 04/22/12) goal 185 (last <2002) 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 Successfully contlld GERD per pt report. Hyperlipidemia Surgical History H/O shoulder surgery Left S/P endoscopy 05/27/22 AT [facility]. biopsy done Family History Mother Diabetes Father , [place] at age 90. Diabetes Heart disease Sister Age: 82 No problems noted. Brother Age: 79 Diabetes Heart disease Social History Smoking/Tobacco Use Status: Former Tobacco Use Smoking risk assessment performed?: Yes Alcohol Intake: never Drug use: Never Substance use type: does not use Do you feel safe at home: Yes Do you feel safe in your relationship?: Yes Additional Social history: Lives with in [place]. She has MS but helps care for him. Son next door. Time Spent with Patient Time Spent with Patient: <45 minutes Time was spent: preparing to see the patient(eg.review tests), ordering medications,tests, procedures, referring, communicating with other health physician assistant primary care, indepentently interpreting results, counseling the patient and care coordination
--- NOTE | 2023-01-09 12:40 | PDOC.HHF2F_ITS ---
Home Health Referral Home Health Orders Clinical synopsis of why skilled professionals are needed: patient presented w/ acute NSTEMI in setting of stage 4 ampullary cancer w/ metastasis. Patient need follow up nursing for monitoring of medication changes, monitor his angina, check BP and coordinate care w/ his PCP Medical diagnosis necessitation home health referral: NSTEMI Registered Nurse: Check all that apply Instruct on new or changed medication(s)/assess compliance: Ordered Home Bound Status Requires the aid of supportive device (check all that apply): Walker Patient has a condition such that leaving home is medically contraindicated (Describe): exertional chest pain/angina w/ prolonged activity Describe why leaving home would require a considerable and taxing effort: Safety Concerns: describe (exertional angina) Encounter Date and Reason: I certify that a FTF encounter for this patient was performed on January 09, 2023 and that such encounter was related to the primary reason the patient requires home health services. The encounter was conducted in the following manner: * By me as the certifying physician, CLINICAL TRANSFORMATION SPECIALIST, PA or * By an inpatient physician, CLINICAL TRANSFORMATION SPECIALIST or PA during an inpatient stay who communicated findings to me, Certification And Authentication I certify that I composed the above information based on my clinical judgment relating to this patient's medical condition and, if applicable, clinical findin gs communicated to me by the NPP or inpatient physician who performed the FTF encounter. Name of Provider that will be monitoring home health services: Jessica Richard
[2023-01-09] MEDS: Ondansetron O.D.T. 4 MG TABEF 8 MG PO (13:45)
[2023-01-09] MEDS: Heparin 500 UNITS/5 ML SYRINGE (14:04)
--- NOTE | 2023-01-09 14:36 | PDOC.CMDIS ---
- If Service Date Differs Date of service: 01/09/23 Time of Service: 14:36 LACE Index Scoring Tool - Questions: Length of Stay (in days): 3 Acuity (Admit via E.D.?): Yes Comorbidities: Previous M.I., Congestive Heart Failure, Metastatic Solid Tumor E.D. Visits: 5 - Answers: Total Score: 15 Risk of Readmission: High Risk Care Management Discharge Reason for Hospitalization: NSTEMI Discharge Plan: Gregorio returned home today with new orders for HH RN. His family drove him home via private vehicle. He will follow up with his PCP and discharge plan of care. Patient/Family Education Needs: Review discharge instructions and limitations, discussion of self care needs including ask me three. Services Needed at Discharge: Home Health Care Services (HH RN)
[2023-01-09 14:53] VITALS: PULSE 74
== END 2023-01-09 14:05 | disposition home health service (06) | DRG 281 ==
LOC: ER 05:54 → MS 05:56 → ICU 20:39 → MS 01-08 23:27
PROVIDERS: Internal Medicine; Nurse Practitioner Family; Admitting Provider Family Medicine; Emergency Provider Student in an Organized Health Care Education/Training Program; PCP Student in an Organized Health Care Education/Training Program; Visit Provider Family Medicine
DX: I21.4 Non-ST elevation (NSTEMI) myocardial infarction (principal); C24.1 Malignant neoplasm of ampulla of Vater; C78.7 Secondary malignant neoplasm of liver and intrahepatic bile duct; C78.00 Secondary malignant neoplasm of unspecified lung; I25.10 Atherosclerotic heart disease of native coronary artery without angina pectoris; I35.8 Other nonrheumatic aortic valve disorders; Z66 Do not resuscitate; Z79.01 Long term (current) use of anticoagulants; Z86.711 Personal history of pulmonary embolism; I25.2 Old myocardial infarction; D70.1 Agranulocytosis secondary to cancer chemotherapy; T45.1X5A Adverse effect of antineoplastic and immunosuppressive drugs, initial encounter; E87.6 Hypokalemia; E83.42 Hypomagnesemia; I27.20 Pulmonary hypertension, unspecified; G89.29 Other chronic pain; I50.9 Heart failure, unspecified; K59.00 Constipation, unspecified; R74.01 Elevation of levels of liver transaminase levels; H90.3 Sensorineural hearing loss, bilateral; Z87.891 Personal history of nicotine dependence
CPT/HCPCS: 36415; 80048; 80053; 83690; 93005; 93306; 96361; 96374; 99285; 83735; 84484; 85025; 85730; 93010; 99232; 99239; 99291; J1170; J2270; J3475; J3490

== ENCOUNTER 2023-01-15 01:15 | Outpatient (RCR) | payer MEDICARE, SELFPAY ==
[2023-01-15] MEDS: Normal Saline Flush 10 ML SYR IVP (08:19)
[2023-01-15 08:51] LABS: Abs Immature Grans 0.04 10^3/uL (0.0-0.06); Absolute Basophil Count 0.03 10^3/uL (0.0-0.2); Absolute Eosinophil Count 0.03 10^3/uL (0.0-0.7); Absolute Lymphocyte Count 1.67 10^3/uL (1.2-3.4); Absolute Monocyte Count 1.11 10^3/uL (0.1-0.8); Absolute Neutrophil Count 3.59 10^3/uL (1.2-6.7); Basophils % 0.5; Eosinophils % 0.5; HCT 28.2 % (40.0-50.0); Immature Grans % 0.6; Lymphocytes % 25.8; MCH 30.9 pg (27.0-33.0); MCHC 31.9 % (32.0-36.0); MCV 97 fL (80-95); MPV 9.3 fL (8.0-11.0); Monocytes % 17.2; Neutrophils % 55.4; Platelet Count 318 10^3/uL (130-400); RBC 2.91 10^6/uL (4.36-5.78); RDW 14.8 % (11.8-14.1); RDW-SD 52.8 fL; WBC 6.47 10^3/uL (4.4-10.8)
[2023-01-15 09:06] LABS: ALT 24 U/L (16-63); AST 71 U/L (15-37); Albumin 2.1 g/dL (3.4-5.0); Alkaline Phosphatase 392 U/L (46-116); Anion Gap 9.6 mmol/L (3-11); BUN 11 mg/dL (7-18); Bilirubin, Total 0.4 mg/dL (0.2-1.0); CO2 24.4 mmol/L (21.0-32.0); CREATININE 0.9 mg/dL (0.70-1.30); Calcium 8.6 mg/dL (8.5-10.1); Chloride 103 mmol/L (98-107); Glucose 159 mg/dL (74-106); Magnesium 1.5 mg/dL (1.8-2.4); Potassium 3.7 mmol/L (3.5-5.1); Sodium 137 mmol/L (136-145); Total Protein 6.2 g/dL (6.4-8.2)
[2023-01-18 13:26] LABS: CA 19-9 20824 U/mL (<35)
== END 2023-02-10 23:59 | disposition home or self-care (01) ==
LOC: INF 01:15
PROVIDERS: PCP Student in an Organized Health Care Education/Training Program; Visit Provider Internal Medicine Hematology & Oncology
DX: C78.7 Secondary malignant neoplasm of liver and intrahepatic bile duct (principal); Z45.2 Encounter for adjustment and management of vascular access device
CPT/HCPCS: 36591; 80053; 83735; 85025; 86301